=== PATIENT | male | born 1950 | race Caucasian/White ===

== ENCOUNTER → 2017-01-12 | Outpatient (CLI) | payer OTHER ==
--- NOTE | 2017-01-12 11:46 | CT ---
EXAMINATION TYPE: CT chest wo con DATE OF EXAM: 01/12/2017 9:26 AM COMPARISON: NONE HISTORY: Pleural scarring CT DLP: 648 mGycm, Automated exposure control for dose reduction was used. CONTRAST: None TECHNIQUE: Axial images were obtained at 5 mm thick sections. Reconstructed images are reviewed on t 3Nod computer in the coronal plane. FINDINGS: Thyroid is slightly prominent with extension towards the thoracic inlet. There is an infiltrate to the right middle lobe. Correlate for atelectasis. Pneumonia is not excluded . Minimal subsegmental atelectasis is likely present within the lingula. Subglottic airway is normal. No enlarged mediastinal or hilar adenopathy is evident. The ascending aorta diameter at the level o f the main pulmonary artery is 3.7 cm. The main pulmonary artery diameter at the bifurcation is 2.6 cm. Coronary artery calcification is present. Limited CT sections are obtained through the upper abdomen. There is mild fullness of the left adrena l gland measuring 1.6 cm in thickness. Punctate nonobstructing renal stones are present bilaterally. IMPRESSIONS: 1. Correlate for atelectasis or pneumonia right middle lobe. 2. Minimal subsegmental atelectasis lingula. 3. Slight prominence of the left adrenal gland
== END | disposition home or self-care (01) ==
LOC: RADCTMAIN 09:02
PROVIDERS: ATTEND Family Medicine
DX: J98.11 Atelectasis (principal)
CPT/HCPCS: 71250

== ENCOUNTER → 2017-02-03 | Outpatient (CLI) | payer OTHER ==
--- NOTE | 2017-02-03 09:09 | US ---
EXAMINATION TYPE: US carotid duplex BILAT DATE OF EXAM: 02/03/2017 8:33 AM COMPARISON: NONE CLINICAL HISTORY: E78.5 hyperlipidemia. EXAM MEASUREMENTS: RIGHT: Peak Systolic Velocity (PSV) cm/sec ----- Right CCA: 58.6 ----- Right ICA: 107.7 ----- Right ECA: 187.4 ICA/CCA ratio: 1.8 RIGHT: End Diastole cm/sec ----- Right CCA: 18.1 ----- Right ICA: 39.9 ----- Right ECA: 35.8 LEFT: Peak Systolic Velocity (PSV) cm/sec ----- Left CCA: 60.0 ----- Left ICA: 97.6 ----- Left ECA: 146.8 ICA/CCA ratio: 1.6 LEFT: End Diastole cm/sec ----- Left CCA: 16.6 ----- Left ICA: 34.7 ----- Left ECA: 22.6 VERTEBRALS (direction of flow): Right Vertebral: Antegrade Left Vertebral: Antegrade TECHNOLOGIST IMPRESSION: Moderate plaque with no significant velocity increases seen in bilateral I CA's. Slight increase in bilateral ECA's Grayscale images show moderate eccentric plaque at right carotid bulb. There is more moderate to shanna re eccentric plaque at left carotid bulb. Velocity measurements and ratios in visualized portion of b [facility] internal carotid arteries remains within normal limits. IMPRESSION: Moderate to severe atherosclerotic change bilaterally, left greater than right, without hemodynamically significant stenosis clearly seen in either internal carotid artery Criteria for Assigning % of Stenosis / Diameter reduction (Estimation based on the indirect measurements of the internal carotid artery velocities (ICA PSV). 2. Less than 50% stenosis=ICA PSV < 125 cm/s: ratio < 2.0: ICA EDV<40 cm/s.
--- NOTE | 2017-02-03 10:35 | ECHOS ---
DATE OF SERVICE: 02/03/2017 AGE: 66Y SEX: M HT: 69" WT: 188 lbs. Protocol Luis: X Others: Stress Echo Stage: 3 Dur. of Exercise: 8:09 *Heart Rate Blood Pressure *Rest: 80 Rest: 141/62 * *Max. Achieved: 140 Maximum BP: 198/46 85% PMHR: 133 100% PMHR: 156 *METS: 9.5 INDICATIONS: Abnormal EKG. MEDICATIONS: Colchicine, Norvasc. Baseline EKG shows sinus rhythm with right bundle branch block. Patient exercised on Luis protocol for a total of 8 minutes, achieving 9 METs, 90% of predicted maximal heart rate without chest pain or diagnostic ST segment depression. Baseline echo shows normal left ventricular size, wall motion and systolic function. Post exercise, there is normal hyperdynamic response of all segments of myocardium noted. CONCLUSION: 1. Good exercise tolerance. 2. Inconclusive EKG part of the stress test due to baseline EKG abnormalities. 3. Negative stress echo.
== END | disposition home or self-care (01) ==
LOC: RADUSMAIN 08:05
PROVIDERS: ATTEND Family Medicine
DX: I65.23 Occlusion and stenosis of bilateral carotid arteries (principal); E78.5 Hyperlipidemia, unspecified; R94.31 Abnormal electrocardiogram [ECG] [EKG]; R42 Dizziness and giddiness
CPT/HCPCS: 93017; 93350; 93880

== ENCOUNTER → 2017-03-10 | Outpatient (CLI) | payer OTHER ==
[2017-03-10 10:41] LABS: Anion Gap 9 mmol/L; Blood Urea Nitrogen 15 mg/dL (9-20); Calcium 9.9 mg/dL (8.4-10.2); Carbon Dioxide 30 mmol/L (22-30); Chloride 103 mmol/L (98-107); Glucose 105 mg/dL (74-99); Non-African American GFR(MDRD) >60 (>60 ml/min/1.73 sqM); Potassium 4.4 mmol/L (3.5-5.1); Sodium 142 mmol/L (137-145)
[2017-03-10 10:44] LABS: Basophils # (A) 0.1 k/uL (0-0.2); Basophils % (A) 1 %; CHCM 34.1; Eosinophils # (A) 0.2 k/uL (0-0.7); Eosinophils % (A) 2 %; HCT 49.1 % (39.0-53.0); HDW 2.59; HGB 16.9 gm/dL (13.0-17.5); Luc # (Auto) 0.22; Luc % (Auto) 3; Lymphocytes # (A) 1.7 k/uL (1.0-4.8); Lymphocytes % (A) 25 %; MCH 33.6 pg (25.0-35.0); MCHC 34.5 g/dL (31.0-37.0); MCV 97.2 fL (80.0-100.0); Mean Platelet Volume 6.8; Monocytes # (A) 0.6 k/uL (0-1.0); Monocytes % (A) 8 %; Neutrophils # (A) 4.3 k/uL (1.3-7.7); Neutrophils % (A) 61 %; RBC 5.05 m/uL (4.30-5.90); RDW 12.8 % (11.5-15.5); WBC 7.1 k/uL (3.8-10.6); WBC (Perox) 7.12
== END | disposition home or self-care (01) ==
LOC: LABPAT 09:39
PROVIDERS: ATTEND Urology
DX: Z01.812 Encounter for preprocedural laboratory examination (principal); C61 Malignant neoplasm of prostate; R35.0 Frequency of micturition
CPT/HCPCS: 80048; 85025; 87086

== ENCOUNTER 2017-03-17 06:00 | Observation (INO) | payer OTHER ==
[2017-03-15 10:46] VITALS: BMI 28.3
[~2017-03-17 06:00] MED LIST: DEXAMETHASONE SOD PHOSPHATE 10 MG/ML 1 ML VIAL IV ONE; HEPARIN SODIUM,PORCINE 5,000 UNIT/ML 1 ML VIAL SQ ONE; HYDROmorphone 1 MG/ML 1 ML SYRINGE IVP PRN; MIDAZOLAM 2 MG/2 ML VIAL IV PRN; ONDANSETRON 4 MG/2 ML VIAL IVP ONE; ceFAZolin 2 GM in SODIUM CHLORIDE 0.9% 100 ML IVPB ONE
[2017-03-17] MEDS ORDERED: LIDOCAINE 1% 20 ML VIAL (10MG/ML) FOR IV START INTRADERMA ONE (06:42)
[2017-03-17] MEDS: LACTATED RINGERS 1,000 ML IV SCH ×2 (06:44→06:45)
[2017-03-17] MEDS ORDERED: LABETALOL 5 MG/ML VIAL MDV ONE (07:36)
[2017-03-17] MEDS ORDERED: HYDROmorphone (PF) 1 MG/ML ONE (07:36)
[2017-03-17] MEDS ORDERED: PROPOFOL 10 MG/ML 20 ML VIAL IV ONE (07:36)
[2017-03-17] MEDS ORDERED: MIDAZOLAM 2 MG/2 ML VIAL ONE (07:36)
[2017-03-17] MEDS ORDERED: ROCURONIUM BROMIDE 10 MG/ML 10 ML VIAL IV ONE (07:36)
[2017-03-17] MEDS ORDERED: WATER FOR INJECTION, STERILE 10 ML VIAL IV ONE (07:36)
[2017-03-17] MEDS ORDERED: NEOSTIGMINE 1 MG/ML 10 ML VIAL ONE (07:36)
[2017-03-17] MEDS ORDERED: ONDANSETRON 4 MG/2 ML VIAL ONE (07:36)
[2017-03-17] MEDS ORDERED: SUCCINYLCHOLINE CHLORIDE 100 MG/5 ML SYR IV ONE (07:36)
[2017-03-17] MEDS ORDERED: LIDOCAINE 1% INJ 10MG/ML (20 ML MDV) ONE (07:36)
[2017-03-17] MEDS ORDERED: VECURONIUM 10 MG VIAL IV ONE (07:36)
[2017-03-17] MEDS ORDERED: fentaNYL (PF) 50 MCG/ML 2 ML AMP ONE (07:36)
[2017-03-17] MEDS ORDERED: GLYCOPYRROLATE 0.2 MG/ML 2 ML VIAL ONE (07:36)
[2017-03-17] MEDS ORDERED: SODIUM CHLORIDE 0.9% 50 ML with ceFAZolin 2,000 MG IV ONE ×2 (07:40)
[2017-03-17] MEDS ORDERED: BUPIVACAINE (PF) 0.25% 30 ML VIAL SQ ONE ×2 (08:30)
[2017-03-17] MEDS ORDERED: ONDANSETRON 4 MG/2 ML VIAL IVP PRN (13:25)
--- NOTE | 2017-03-17 13:25 | P.OP ---
Date of Procedure: 03/17/17 Preoperative Diagnosis: Adenocarcinoma of the Prostate, Clinical Stage [id number] Postoperative Diagnosis: Same Procedure(s) Performed: Left Robotic-assisted Laparoscopic Prostatectomy (RALP) With Bilateral Pelvic Lymphadenectomy Anesthesia: KRISTIN Surgeon: Gregory Fernandez Estimated Blood Loss (ml): 200 IV fluids (ml): 1,600 Pathology: other ((B) pelvic lymph nodes, prostate, seminal vesicles) Condition: stable Disposition: PACU Indications for Procedure: The patient came for evaluation of an elevated PSA. It has risen from 4.1 to 6.1 over the last 3 years. He is asx. JAMES reveals induration in the right base and a nodule in the left base. He underwent a prostate ultrasound, revealing hypoechoic areas left and right. 5 of 12 biopsies were positive, Kerry 7. We had a lengthy discussion regarding alternative treatment options, and he has elected to proceed with a left nerve-sparing robotic assisted laparoscopic prostatectomy (RALP). The procedure was reviewed in detail with him, including potential risks. He has been medically cleared. He understands the possibility of postoperative erectile dysfunction despite preservation of the left neurovascular bundle. He also understands the possible need for adjuvant therapy. Operative Findings: No evidence of extraprostatic disease. The lateral lobes extended intravesically. Description of Procedure: The patient was taken in the operating room and placed in the dorsal lithotomy position, with his legs supported in Fredi stirrups. He was carefully positioned on a beanbag for stability. The abdomen and external genitalia were prepped and draped sterilely. A Stock catheter was inserted. The Veress needle was passed through the anterior abdominal wall immediately cephalad to the umbilicus, and insufflation was performed to a pressure of 20 mm Hg. Once insufflation was performed, the Veress needle was removed and a supraumbilical incision was made, through which a 12 mm camera port was placed. Under camera guidance, 3 8 mm robotic ports were placed, 2 on the left and one on the right. An additional 12 mm port was placed on the right lateral side for use as an practice assistant port. A 5 mm port was placed to the right of the camera port for suction. The patient was placed in Trendelenburg position, and docking was then performed to the [facility] Demar system utilizing a 4-arm approach. The abdomen was examined. The sigmoid colon was mobilized out of the pelvis. The peritoneum was incised lateral to the medial umbilical ligaments bilaterally , exposing the pubis. The peritoneum was then incised across the midline, allowing the bladder flap to be taken down. The endopelvic fascia was opened bilaterally, and muscular attachments from the urogenital diaphragm were swept away from the prostate. Bilateral pelvic lymphadenectomies were performed in the standard fashion. The peritoneal incisions were extended in a cephalad direction, and the vas deferens were divided bilaterally. Margins of dissection were the bifurcation of the iliac vessels proximally, the circumflex iliac vein distally, the external iliac artery laterally, and the obturator nerve medially. A combination of sharp and blunt dissection was used. Care was taken to avoid any neurovascular injury, and the use of monopolar electrocautery was avoided immediately adjacent to neurovascular structures. The lymphatic package was clipped distally. No enlarged lymph nodes were encountered. There were no complications. The vesical neck was incised transversely, down to the lumen. However, it was appreciated at this time that the lateral lobes had extended intravesically and that the plane of dissection was intraprostatic. The Stock catheter was brought out through the anterior vesical neck incision and was used for traction. The posterior aspect of the vesical neck was incised, such that the full-thickness of the vesical neck was divided. Once this had been accomplished , it was evident that a portion of the left base was adherent to the vesical neck. This was carefully excised and sent as a separate specimen. The anterior layer of the Denonvilliers fascia was incised, exposing the vas deferens. Each were isolated and divided. Next, each of the seminal vesicles were dissected away from adjacent tissues, and vascular attachments were cauterized and divided. The posterior leaf of Denonvilliers fascia was incised transversely, allowing entry into the plane between the prostate and rectum. With lateral spreading, this plane was developed down to the apex. This exposed the lateral vascular pedicles bilaterally. These were clipped and divided in an antegrade fashion, down to the apex. The use of electrocautery was avoided to prevent thermal damage to the nerves. On the left side, the plane of dissection was immediately adjacent to the prostate to allow preservation of the neurovascular bundle. The plane of dissection was taken from the prostate on the right side, as well as aprocedure was not indicated. The remaining apical attachments were swept away from the prostate. The dorsal venous complex was incised, as well as periurethral tissue. At this point, only the urethra remained intact. This was transected immediately distal to the prostatic apex using cold scissors. The specimen was placed within a specimen bag. The dorsal venous complex was sutured using a V-Loc suture in a running fashion. A second V-Loc suture was then used to place the Zev stitch, incorporating the rhabdosphincter and the edge of Denonvilliers fascia. This allowed the bladder to be taken down to the urethra, leaving the vesical neck immediately adjacent to the urethra. The vesicourethral anastomosis was then performed using a V-Loc suture in a running fashion. After completing the anastomosis, an 18-[place] Stock catheter was placed and approximately 150 mL of 0.9 normal saline were instilled into the bladder. No extravasation of irrigant from the vesicourethral anastomosis was noted. Hemostasis was noted at this time to be excellent, and it was thus felt that a drain was unnecessary. The patient was returned to the supine position. Undocking was performed, and the specimen bag sutures were passed through the camera port. After removing all the ports and allowing all of the CO2 to be released from the peritoneal cavity, the camera port incision was enlarged to allow removal of the surgical specimen. The fascia of this incision was then closed using 0 Vicryl suture in an interrupted [id number] fashion. The fascia of the 12 mm practice assistant port was closed using 0 Vicryl suture. Each of the skin incisions were then closed using 4-0 Monocryl suture in a subcuticular fashion. Marcaine was injected at each of the incision sites. Dermabond was applied to each incision. The Stock catheter was connected to gravity drainage. All sponge and needle counts were correct. The patient tolerated the procedure well was taken to the recovery room in stable condition.
[2017-03-17] MEDS ORDERED: LACTATED RINGERS 1,000 ML IV ONE (13:38)
[2017-03-17 14:11] LABS: Glucose,Whole Blood 195 mg/dL (75-99)
[2017-03-17] MEDS ORDERED: hydrALAZINE HCL 20 MG/ML 1 ML VIAL IVP ONE ×2 (14:20→15:18)
[2017-03-17] MEDS: DEXTROSE 5%-0.45% NACL 1,000 ML IV SCH ×2 (21:30→21:37)
[2017-03-17] MEDS: HYDROmorphone 1 MG/ML 1 ML SYRINGE IVP PRN ×2 (21:31→23:31)
[2017-03-17] MEDS: HEPARIN SODIUM,PORCINE 5,000 UNIT/ML 1 ML VIAL SQ SCH (21:37)
[2017-03-18] MEDS: HYDROmorphone 1 MG/ML 1 ML SYRINGE IVP PRN ×4 (02:49→17:03)
[2017-03-18] MEDS: DEXTROSE 5%-0.45% NACL 1,000 ML IV SCH ×3 (02:58→20:58)
[2017-03-18] MEDS: KETOROLAC 30 MG/ML 1 ML VIAL IVP PRN ×2 (06:31→20:48)
[2017-03-18] MEDS: HEPARIN SODIUM,PORCINE 5,000 UNIT/ML 1 ML VIAL SQ SCH ×2 (08:53→20:58)
[2017-03-18] MEDS: amLODIPine 5 MG TAB PO SCH (11:50)
[2017-03-18] MEDS: ATORVASTATIN 40 MG TAB PO SCH (11:50)
[2017-03-18] MEDS: ACETAMINOPHEN TAB 325 MG TAB PO PRN ×2 (14:42→18:44)
[2017-03-18] MEDS ORDERED: LEVOFLOXACIN 500MG-D5W PMX 500 MG in DEXTROSE/WATER 1 100ML.BAG IVPB STA (17:17)
--- NOTE | 2017-03-18 17:51 | P.DS ---
Providers Date of admission: 03/17/17 23:43 Expected date of discharge: 03/18/17 Attending physician: Gregory Fernandez Primary care physician: [facility] Course: On the day of admission, the patient underwent a robotic-assisted laparoscopic prostatectomy with bilateral pelvic lymphadenectomy. Postoperative course was unremarkable. He remained afebrile with stable vital signs. On the first postoperative day, he reported mild discomfort. The incisions were clean and dry. The Stock catheter was draining clear yellow urine. He was tolerating clear liquid diet. As the day progressed, he began ambulating and diet was advanced. Procedures: Robotic-assisted laparoscopic prostatectomy with bilateral pelvic lymphadenectomy in 03/17/2017. Patient Condition at Discharge: Good Plan - Discharge Summary New Discharge Prescriptions: Ciprofloxacin HCl [Cipro] 250 mg PO Q12HR #6 tablet Hydrocodone/Acetaminophen [[place] 5-325] 1 - 2 each PO Q4HR PRN #30 tab PRN Reason: Pain Discharge Medication List Colchicine [Colcrys] 0.6 mg PO DAILY PRN 05/02/15 [History] Atorvastatin [Lipitor] 40 mg PO DAILY 03/15/17 [History] amLODIPine [Norvasc] 5 mg PO DAILY 03/15/17 [History] Ciprofloxacin HCl [Cipro] 250 mg PO Q12HR #6 tablet 03/18/17 [Rx] Hydrocodone/Acetaminophen [[place] 5-325] 1 - 2 each PO Q4HR PRN #30 tab 03/18/17 [Rx] Follow up Appointment(s)/Referral(s): Gregory Fernandez MD [STAFF PHYSICIAN] - 03/25/17 8:40 am Activity/Diet/Wound Care/Special Instructions: Discharge home with Stock catheter. Please instruct patient how to drain his catheter, and how to use a urinary leg bag. Okay to shower. Diet as tolerated. No lifting, driving, or strenuous activity. Instruct patient to begin taking ciprofloxacin on 03/24/2017. Discharge Disposition: HOME SELF-CARE
--- NOTE | 2017-03-18 18:11 | XR ---
EXAMINATION TYPE: XR chest 2V DATE OF EXAM: 03/18/2017 5:55 PM COMPARISON: NONE HISTORY: Fever TECHNIQUE: Frontal and lateral views of the chest are obtained. FINDINGS: There is mild linear density at the left lung base. There is no heart failure. Heart size is normal. There is a small linear infiltrate at the right lung base posteriorly in the paraspinal re gion. The bony thorax is intact. IMPRESSION: Mild bilateral basilar pulmonary infiltrates and atelectasis. No heart failure.
[2017-03-18] MEDS ORDERED: amLODIPine 5 MG TAB PO STA (18:39)
[2017-03-18 22:32] VITALS: RESP 16
[2017-03-19] MEDS: HYDROmorphone 1 MG/ML 1 ML SYRINGE IVP PRN ×5 (00:16→20:11)
[2017-03-19] MEDS: DEXTROSE 5%-0.45% NACL 1,000 ML IV SCH ×3 (04:12→20:13)
[2017-03-19] MEDS: LACTATED RINGERS 1,000 ML IV SCH ×2 (04:17→21:24)
[2017-03-19] MEDS: KETOROLAC 30 MG/ML 1 ML VIAL IVP PRN ×2 (08:50→16:05)
[2017-03-19] MEDS: ACETAMINOPHEN TAB 325 MG TAB PO PRN ×2 (08:50→20:11)
[2017-03-19] MEDS: amLODIPine 5 MG TAB PO SCH (08:52)
[2017-03-19] MEDS: ATORVASTATIN 40 MG TAB PO SCH (08:52)
[2017-03-19] MEDS: HEPARIN SODIUM,PORCINE 5,000 UNIT/ML 1 ML VIAL SQ SCH ×2 (08:52→20:13)
[2017-03-19] MEDS ORDERED: BISACODYL 10 MG SUPP RECTAL STA (09:06)
--- NOTE | 2017-03-19 09:06 | P.PN ---
Progress Note - Text The patient had a temperature over 102 last night. Chest x-ray suggested bibasilar atelectasis. Urine and blood cultures were obtained and the patient was started on Levaquin. His temperature has come down somewhat since then. Patient complains of periumbilicallcomfort. He says that he is not passing any gas yet. Physical exam: Chest-scattered rhonchi. No wheezing. Abdomen-incisions are uninflamed. Bowel sounds are present. Impression: Postoperative fever-most likely related to atelectasis. The patient was encouraged to use incentive spirometry hourly while he's awake and to increase his ambulation. He will be given Dulcolax as his nausea is most likely related to an element of ileus. Recommendation: Patient will be continued on Levaquin and may be able to be discharged tomorrow if he is afebrile.
[2017-03-19] MEDS ORDERED: LEVOFLOXACIN 500 MG TAB PO SCH (18:00)
[2017-03-20] MEDS: HYDROmorphone 1 MG/ML 1 ML SYRINGE IVP PRN ×2 (00:43→05:37)
[2017-03-20] MEDS: DEXTROSE 5%-0.45% NACL 1,000 ML IV SCH (01:56)
[2017-03-20 02:03] VITALS: PULSE 86
[2017-03-20] MEDS: HEPARIN SODIUM,PORCINE 5,000 UNIT/ML 1 ML VIAL SQ SCH (08:52)
[2017-03-20] MEDS: amLODIPine 5 MG TAB PO SCH (08:52)
[2017-03-20] MEDS: KETOROLAC 30 MG/ML 1 ML VIAL IVP PRN (08:53)
[2017-03-20] MEDS: ATORVASTATIN 40 MG TAB PO SCH (08:53)
--- NOTE | 2017-03-20 09:37 | P.PN ---
Progress Note - Text The patient is afebrile and much more comfortable. He has passed gas but has not had a bowel movement since surgery. He is tolerating a regular diet. He continues to have a slightly productive cough which is chronic but denies any wheezing or shortness of breath. Blood and urine cultures show no growth and it is likely that his previous fever was related to atelectasis. Urine output is clear. Impression: The patient appears to have recovered sufficiently that he can be discharged today. He will be seen back for follow-up on 03/25. His Stock catheter will be left in place until that time. He will resume his home medications and [place] for pain. control.
[2017-03-20 11:06] VITALS: BP 150/81; TEMP 100.6
== END 2017-03-20 11:05 | disposition home or self-care (01) ==
LOC: OR 06:00 → 3SUR 16:04 → OR 23:43 → 3SUR 23:43
PROVIDERS: ADMIT Urology; ATTEND Urology
DX: C61 Malignant neoplasm of prostate (principal); I11.0 Hypertensive heart disease with heart failure; I50.9 Heart failure, unspecified; M10.9 Gout, unspecified; M19.90 Unspecified osteoarthritis, unspecified site; F41.9 Anxiety disorder, unspecified; Z82.49 Family history of ischemic heart disease and other diseases of the circulatory system; F17.200 Nicotine dependence, unspecified, uncomplicated; R50.82 Postprocedural fever; J98.11 Atelectasis
CPT/HCPCS: 55866; 38571; 94760; 86900; 86901; 88305; 86850; 88342; 88307; 88309; 87040; 88341; 87086; 71020; G0378 ×4; J2250; J0360; J1644 ×4; J1100; J2710; J2405; J1956; J2001; J3010; J1885 ×3; J1170 ×4; J0690; J0330; J2704; 96361; 96372; 96375; 96376

== ENCOUNTER → 2017-03-25 | Outpatient (CLI) | payer OTHER ==
[2017-03-25 14:59] LABS: Basophils # (A) 0.1 k/uL (0-0.2); Basophils % (A) 1 %; CH 33.7; CHCM 35.3; Eosinophils # (A) 0.2 k/uL (0-0.7); Eosinophils % (A) 1 %; HCT 38.2 % (39.0-53.0); HDW 3.02; HGB 14.1 gm/dL (13.0-17.5); Luc # (Auto) 0.41; Luc % (Auto) 3; Lymphocytes # (A) 1.6 k/uL (1.0-4.8); Lymphocytes % (A) 14 %; MCH 35.4 pg (25.0-35.0); MCV 95.8 fL (80.0-100.0); Mean Platelet Volume 6.9; Monocytes # (A) 0.8 k/uL (0-1.0); Monocytes % (A) 7 %; Neutrophils # (A) 8.8 k/uL (1.3-7.7); Neutrophils % (A) 74 %; RBC 3.99 m/uL (4.30-5.90); RDW 12.5 % (11.5-15.5); WBC 11.9 k/uL (3.8-10.6); WBC (Perox) 11.73
[2017-03-25 15:05] LABS: C Reactive Protein 76.4 mg/L (<10.0); Uric Acid 5.7 mg/dL (3.5-8.5)
[2017-03-25 18:22] LABS: Erythrocyte Sedimentation Rate 83 mm/hr (0-15)
== END | disposition home or self-care (01) ==
LOC: LABWHC1 14:23
PROVIDERS: ATTEND Orthopaedic Surgery
DX: M70.20 Olecranon bursitis, unspecified elbow (principal)
CPT/HCPCS: 36415; 84550; 85025; 85652; 86140

== ENCOUNTER → 2018-02-10 | Outpatient (CLI) | payer MEDICARE ==
--- NOTE | 2018-02-10 08:16 | US ---
EXAMINATION TYPE: US carotid duplex BILAT DATE OF EXAM: 02/10/2018 COMPARISON: 02/11 US CLINICAL HISTORY: I65.29 Occlusion and stenosis of unspecified carotid artery. pt states prior stenos is seen on left EXAM MEASUREMENTS: RIGHT: Peak Systolic Velocity (PSV) cm/sec ----- Right CCA: 64.5 ----- Right ICA: 120.5 ----- Right ECA: 184.9 ICA/CCA ratio: 1.9 RIGHT: End Diastole cm/sec ----- Right CCA: 16.8 ----- Right ICA: 44.6 ----- Right ECA: 24.6 LEFT: Peak Systolic Velocity (PSV) cm/sec ----- Left CCA: 66.8 ----- Left ICA: 102.9 ----- Left ECA: 194.2 ICA/CCA ratio: 1.5 LEFT: End Diastole cm/sec ----- Left CCA: 16.2 ----- Left ICA: 34.7 ----- Left ECA: 31.6 VERTEBRALS (direction of flow): Right Vertebral: Antegrade Left Vertebral: Antegrade Rhythm: Normal IMPRESSION: Moderate changes, no elevated velocities in either ICA, no significant stenosis. Criteria for Assigning % of Stenosis / Diameter reduction (Estimation based on the indirect measurements of the internal carotid artery velocities (ICA PSV). 1. Normal (no stenosis)=ICA PSV < 125 cm/s: ratio < 2.0: ICA EDV<40 cm/s. 2. Less than 50% stenosis=ICA PSV < 125 cm/s: ratio < 2.0: ICA EDV<40 cm/s. 3. 50 to 69% stenosis=ICA PSV of 125 to 230 cm/s: ration 2.0 ? 4.0: ICA EDV 40-100 cm/s. 4. Greater than 70% stenosis to near occlusion= ICA PSV > 230 cm/s: ratio > 4.0: ICA EDV > 100 cm/s. 5. Near occlusion= ICA PSV velocities may be low or undetectable: variable ratio and ICA EDV. 6. Total occlusion=unable to detect flow.
--- NOTE | 2018-02-10 08:56 | US ---
EXAMINATION TYPE: US duplex aorta DATE OF EXAM: 02/10/2018 COMPARISON: NONE CLINICAL HISTORY: Z13.6 Encounter For Screening For Cardiovascular. EXAM MEASUREMENTS: Abdominal Aorta: Proximal: 2.3 x 2.2cm Mid: 2.6 x 1.9cm Distal: 1.7 x 1.7cm Bifurcation: 1.2 x 1.0cm 1.1 x 1.1cm changes through abd aorta, no AAA seen. IMPRESSION: Atheromatous changes without evidence for aneurysm at this time.
== END | disposition home or self-care (01) ==
LOC: RADUSWWP 06:51
PROVIDERS: ATTEND Family Medicine
DX: Z13.6 Encounter for screening for cardiovascular disorders (principal); I65.29 Occlusion and stenosis of unspecified carotid artery; I70.0 Atherosclerosis of aorta
CPT/HCPCS: 93880; 93979

== ENCOUNTER → 2019-06-18 | Outpatient (CLI) | payer MEDICARE ==
--- NOTE | 2019-06-18 13:02 | XR ---
EXAMINATION TYPE: XR chest 2V DATE OF EXAM: 06/18/2019 COMPARISON: 03/18/2017 HISTORY: Shortness of breath TECHNIQUE: Frontal and lateral views of the chest are obtained. FINDINGS: Scattered senescent parenchymal changes noted. Hyperinflation compatible with COPD. No evidence for infiltrate. No evidence for atelectasis. Heart size is stable. Mediastinal structures are stable and grossly unremarkable. No evidence for hilar prominence. Degenerative changes dorsal spine. IMPRESSION: 1. No evidence for acute pulmonary disease.
== END | disposition home or self-care (01) ==
LOC: RADXRMAIN 12:19
PROVIDERS: ATTEND Nurse Practitioner Adult Health
DX: R05 Cough (principal)
CPT/HCPCS: 71046

== ENCOUNTER → 2019-08-02 | Outpatient (CLI) | payer MEDICARE ==
--- NOTE | 2019-08-02 13:14 | US ---
EXAMINATION TYPE: US carotid duplex BILAT DATE OF EXAM: 08/02/2019 COMPARISON: NONE CLINICAL HISTORY: R42 DIZZINESS. EXAM MEASUREMENTS: RIGHT: Peak Systolic Velocity (PSV) cm/sec ----- Right CCA: 58.3 ----- Right ICA: 115.0 ----- Right ECA: 200.0 ICA/CCA ratio: 1.97 RIGHT: End Diastole cm/sec ----- Right CCA: 13.4 ----- Right ICA: 31.4 ----- Right ECA: 16.1 LEFT: Peak Systolic Velocity (PSV) cm/sec ----- Left CCA: 54.4 ----- Left ICA: 110 ----- Left ECA: 212 ICA/CCA ratio: 2.0 LEFT: End Diastole cm/sec ----- Left CCA: 11.6 ----- Left ICA: 31.2 ----- Left ECA: 21.8 VERTEBRALS (direction of flow): Right Vertebral: Antegrade Left Vertebral: Antegrade Rhythm: Normal Mild to moderate plaque, mild velocity increases seen bilaterally. IMPRESSION: Borderline 50% stenosis within the bilateral internal carotid arteries and 50-69% stenosi s of the bilateral external carotid arteries. Criteria for Assigning % of Stenosis / Diameter reduction (Estimation based on the indirect measurements of the internal carotid artery velocities (ICA PSV). 1. Normal (no stenosis)=ICA PSV < 125 cm/s: ratio < 2.0: ICA EDV<40 cm/s. 2. Less than 50% stenosis=ICA PSV < 125 cm/s: ratio < 2.0: ICA EDV<40 cm/s. 3. 50 to 69% stenosis=ICA PSV of 125 to 230 cm/s: ration 2.0 ? 4.0: ICA EDV 40-100 cm/s. 4. Greater than 70% stenosis to near occlusion= ICA PSV > 230 cm/s: ratio > 4.0: ICA EDV > 100 cm/s. 5. Near occlusion= ICA PSV velocities may be low or undetectable: variable ratio and ICA EDV. 6. Total occlusion=unable to detect flow.
== END | disposition home or self-care (01) ==
LOC: RADUSWWP 10:30
PROVIDERS: ATTEND Internal Medicine Geriatric Medicine
DX: I65.23 Occlusion and stenosis of bilateral carotid arteries (principal)
CPT/HCPCS: 93880

== ENCOUNTER 2019-08-23 10:22 | Emergency (ER) | payer MEDICARE ==
[2019-08-23 10:33] VITALS: TEMP 98.9
[2019-08-23] MEDS ORDERED: SODIUM CHLORIDE 0.9% 1,000 ML IV STA ×2 (11:20)
[2019-08-23] MEDS ORDERED: KETOROLAC 30 MG/ML 1 ML VIAL IVP STA (11:20)
--- NOTE | 2019-08-23 11:39 | ED ---
Dizziness HPI - General Chief Complaint: Dizziness Stated Complaint: blurred vision, back pain Time Seen by Provider: 08/23/19 11:06 Source: patient, RN notes reviewed, old records reviewed Mode of arrival: ambulatory Limitations: physical limitation - History of Present Illness Initial Comments: Patient is a 68-year-old male presents emergency department today with multiple complaints. Patient reports that since March of last year when he had pneumonia and flu, and states that since then he's been feeling chronically ill. Complains of significant shoulder and joint aches. He states that he seen a slag mixer, with a diagnosis of polymyalgia rheumatica. Patient states he's been off and on steroids. His last steroids were done in May. Patient comes in today with episodes of vomiting. He states that he did have a minor cough and some recent dizziness. Patient states that he is looking for answers to understand why he is felt this way for so long. Patient reports he's had extensive evaluation from rheumatology with no significant answer. Patient states that his general muscle stiffness and weakness seems to improve after he does more movement throughout the day. Patient denies any recent fevers or chills. Denies any specific abdominal pain. Denies chest pain. - Related Data Home Medications Medication Instructions Recorded Confirmed amLODIPine [Norvasc] 5 mg PO DAILY 03/15/17 08/23/19 Allopurinol [Zyloprim] 300 mg PO DAILY 08/23/19 08/23/19 traMADol HCL [Ultram] 50 mg PO Q6H PRN 08/23/19 08/23/19 Allergies Allergy/AdvReac Type Severity Reaction Status Date / Time No Known Allergies Allergy Verified 08/23/19 11:04 Review of Systems ROS Statement: Those systems with pertinent positive or pertinent negative responses have been documented in the HPI. ROS Other: All systems not noted in ROS Statement are negative. Past Medical History Past Medical History: Hypertension, Myocardial Infarction ([place]) Additional Past Medical History / Comment(s): NEW RX FOR HTN, PLANS TO START AFTER PROC Last Myocardial Infarction Date:: 1992 History of Any Multi-Drug Resistant Organisms: None Reported Past Surgical History: Tonsillectomy Past Anesthesia/Blood Transfusion Reactions: No Reported Reaction Past Psychological History: No Psychological Hx Reported Smoking Status: Current some day smoker Past Alcohol Use History: Daily Past Drug Use History: None Reported - Past Family History Mother Family Medical History: Deep Vein Thrombosis (DVT) General Exam - General Exam Comments Initial Comments: This is a 68-year-old male. Alert and oriented 3. Patient appears in no acute distress. Limitations: physical limitation General appearance: alert, in no apparent distress Head exam: Present: atraumatic, normocephalic, normal inspection Eye exam: Present: normal appearance, PERRL, EOMI. Absent: scleral icterus, conjunctival injection, periorbital swelling ENT exam: Present: normal exam, mucous membranes moist Neck exam: Present: normal inspection. Absent: tenderness, meningismus, lymphadenopathy Respiratory exam: Present: normal lung sounds bilaterally. Absent: respiratory distress, wheezes, rales, rhonchi, stridor Cardiovascular Exam: Present: regular rate GI/Abdominal exam: Present: soft, normal bowel sounds. Absent: distended, tenderness, guarding, rebound, rigid Extremities exam: Present: normal inspection, full ROM, normal capillary refill. Absent: tenderness, pedal edema, joint swelling, calf tenderness Back exam: Present: normal inspection Neurological exam: Present: alert, oriented X3, CN II-XII intact Psychiatric exam: Present: normal affect Skin exam: Present: warm, dry, intact, normal color. Absent: rash Course Vital Signs 08/23/19 08/23/19 08/23/19 10:30 12:21 14:00 Temperature 98.9 F Pulse Rate 97 76 70 Respiratory 17 16 18 Rate Blood Pressure 153/80 161/80 159/75 O2 Sat by Pulse 98 98 98 Oximetry 08/23/19 14:30 Temperature Pulse Rate 68 Respiratory 17 Rate Blood Pressure 155/78 O2 Sat by Pulse 97 Oximetry Medical Decision Making - Medical Decision Making Patient is a 68 children episodes multiple complaints today. Main complaint concern for shoulder pain. The as well as occasional dizziness complains of some visual changes off and on for months. Patient states that he's been to multiple specialists including rheumatology. At this time Patient has no abnormal physical exam findings. Vital signs are stable. Patient had extensive workup for all of his complaints. General been unremarkable. I discussed with the Patient that there is no other significant findings at this time. I discussed this with Dr. Sanchez. We did attempt to call patient's primary care doctor as he stated his primary care doctor sent him in today for evaluation. Patient PCP office was contacted and did not send him in today. Discussed patient can follow up with PCP and return parameters disucssed. - Lab Data Result diagrams: 08/23/19 11:05 08/23/19 11:05 Lab Results 08/23/19 08/23/19 08/23/19 Range/Units 11:05 11:05 11:05 WBC 10.8 H (3.8-10.6) k/uL RBC 4.72 (4.30-5.90) m/uL Hgb 15.3 (13.0-17.5) gm/dL Hct 44.5 (39.0-53.0) % MCV 94.3 (80.0-100.0) fL MCH 32.3 (25.0-35.0) pg MCHC 34.3 (31.0-37.0) g/dL RDW 13.4 (11.5-15.5) % Plt Count 279 (150-450) k/uL Neutrophils % 80 % Lymphocytes % 9 % Monocytes % 8 % Eosinophils % 1 % Basophils % 2 % Neutrophils # 8.6 H (1.3-7.7) k/uL Lymphocytes # 1.0 (1.0-4.8) k/uL Monocytes # 0.8 (0-1.0) k/uL Eosinophils # 0.1 (0-0.7) k/uL Basophils # 0.2 (0-0.2) k/uL ESR Cancelled PT (9.0-12.0) sec INR (<1.2) APTT (22.0-30.0) sec Sodium 135 L (137-145) mmol/L Potassium 4.4 (3.5-5.1) mmol/L Chloride 102 (98-107) mmol/L Carbon Dioxide 27 (22-30) mmol/L Anion Gap 6 mmol/L BUN 17 (9-20) mg/dL Creatinine 0.66 (0.66-1.25) mg/dL Est GFR (CKD-EPI)AfAm >90 (>60 ml/min/1.73 sqM) Est GFR (CKD-EPI)NonAf >90 (>60 ml/min/1.73 sqM) Glucose 123 H (74-99) mg/dL Calcium 10.0 (8.4-10.2) mg/dL Magnesium 2.1 (1.6-2.3) mg/dL Total Bilirubin 0.9 (0.2-1.3) mg/dL AST 43 (17-59) U/L ALT 59 (21-72) U/L Alkaline Phosphatase 103 (38-126) U/L Troponin I (0.000-0.034) ng/mL C-Reactive Protein 21.6 H (<10.0) mg/L NT-Pro-B Natriuret Pep 141 pg/mL Total Protein 7.1 (6.3-8.2) g/dL Albumin 4.3 (3.5-5.0) g/dL Amylase 60 (30-110) U/L Lipase 40 (23-300) U/L 08/23/19 08/23/19 08/23/19 Range/Units 11:05 11:05 12:22 WBC (3.8-10.6) k/uL RBC (4.30-5.90) m/uL Hgb (13.0-17.5) gm/dL Hct (39.0-53.0) % MCV (80.0-100.0) fL MCH (25.0-35.0) pg MCHC (31.0-37.0) g/dL RDW (11.5-15.5) % Plt Count (150-450) k/uL Neutrophils % % Lymphocytes % % Monocytes % % Eosinophils % % Basophils % % Neutrophils # (1.3-7.7) k/uL Lymphocytes # (1.0-4.8) k/uL Monocytes # (0-1.0) k/uL Eosinophils # (0-0.7) k/uL Basophils # (0-0.2) k/uL ESR 14 PT 10.1 (9.0-12.0) sec INR 0.9 (<1.2) APTT 23.2 (22.0-30.0) sec Sodium (137-145) mmol/L Potassium (3.5-5.1) mmol/L Chloride (98-107) mmol/L Carbon Dioxide (22-30) mmol/L Anion Gap mmol/L BUN (9-20) mg/dL Creatinine (0.66-1.25) mg/dL Est GFR (CKD-EPI)AfAm (>60 ml/min/1.73 sqM) Est GFR (CKD-EPI)NonAf (>60 ml/min/1.73 sqM) Glucose (74-99) mg/dL Calcium (8.4-10.2) mg/dL Magnesium (1.6-2.3) mg/dL Total Bilirubin (0.2-1.3) mg/dL AST (17-59) U/L ALT (21-72) U/L Alkaline Phosphatase (38-126) U/L Troponin I <0.012 (0.000-0.034) ng/mL C-Reactive Protein (<10.0) mg/L NT-Pro-B Natriuret Pep pg/mL Total Protein (6.3-8.2) g/dL Albumin (3.5-5.0) g/dL Amylase (30-110) U/L Lipase (23-300) U/L 08/23/19 13:08 EKG performed at 12:15 shows normal sinus rhythm. Upon a branch block. Abnormal EKG. Ventricular rate of 71 bpm. Intervals 172 ms. The laceration is 1:30 milliseconds. QT QTc is 426/462 ms. - Radiology Data Radiology results: report reviewed Disposition Clinical Impression: Chronic shoulder pain, Chronic back pain Disposition: HOME SELF-CARE Condition: Good Additional Instructions: Patient advised to follow-up with your primary care doctor, and finish PT. Take prescribed medicines that you have. Return to emergency department if any alarming signs or symptoms occur. Is patient prescribed a controlled substance at d/c from ED?: No Referrals: Ángel Sykes MD [Primary Care Provider] - 1-2 days Time of Disposition: 14:36
[2019-08-23 11:47] LABS: Basophils # (A) 0.2 k/uL (0-0.2); Basophils % (A) 2 %; Eosinophils # (A) 0.1 k/uL (0-0.7); Eosinophils % (A) 1 %; HCT 44.5 % (39.0-53.0); HGB 15.3 gm/dL (13.0-17.5); Lymphocytes % (A) 9 %; MCH 32.3 pg (25.0-35.0); MCHC 34.3 g/dL (31.0-37.0); MCV 94.3 fL (80.0-100.0); Mean Platelet Volume 7.2; Monocytes # (A) 0.8 k/uL (0-1.0); Monocytes % (A) 8 %; Neutrophils # (A) 8.6 k/uL (1.3-7.7); Neutrophils % (A) 80 %; Platelet Count 279 k/uL (150-450); RBC 4.72 m/uL (4.30-5.90); RDW 13.4 % (11.5-15.5); WBC 10.8 k/uL (3.8-10.6)
[2019-08-23 11:52] LABS: INR 0.9 (<1.2); Partial Thromboplastin Time 23.2 sec (22.0-30.0); Prothrombin Time 10.1 sec (9.0-12.0)
--- NOTE | 2019-08-23 11:53 | XR ---
EXAMINATION TYPE: XR chest 2V DATE OF EXAM: 08/23/2019 COMPARISON: 06/18/2019 HISTORY: Dizziness and blurred vision. TECHNIQUE: Frontal and lateral views of the chest are obtained. FINDINGS: There is no focal air space opacity, pleural effusion, or pneumothorax seen. Pulmonary hy perinflation and flattening of the diaphragms is seen indicative of underlying COPD. The cardiac silh ouette size is within normal limits. The osseous structures are intact. Mild multilevel degenerativ e changes of the spine are noted. IMPRESSION: No acute cardiopulmonary process. Underlying COPD noted.
[2019-08-23 11:58] LABS: ALT 59 U/L (21-72); AST 43 U/L (17-59); African American GFR (CKD) >90 (>60 ml/min/1.73 sqM); Albumin 4.3 g/dL (3.5-5.0); Alkaline Phosphatase 103 U/L (38-126); Amylase 60 U/L (30-110); Anion Gap 6 mmol/L; Blood Urea Nitrogen 17 mg/dL (9-20); C Reactive Protein 21.6 mg/L (<10.0); Carbon Dioxide 27 mmol/L (22-30); Chloride 102 mmol/L (98-107); Glucose 123 mg/dL (74-99); Magnesium 2.1 mg/dL (1.6-2.3); Potassium 4.4 mmol/L (3.5-5.1); Sodium 135 mmol/L (137-145); Total Bilirubin 0.9 mg/dL (0.2-1.3); Total Protein 7.1 g/dL (6.3-8.2)
--- NOTE | 2019-08-23 12:18 | CT ---
EXAMINATION TYPE: CT brain wo con DATE OF EXAM: 08/23/2019 COMPARISON: None HISTORY: Blurred vision, back pain CT DLP: 1099.4 mGycm Automated exposure control for dose reduction was used. Helical imaging through the brain FINDINGS: There is no hemorrhage or hydrocephalus. Cerebral vascular calcifications are present. Brain density is normal. Orbits show symmetric appearance. Calvarium is intact. Minimal mucosal disease present wit hin the right maxillary sinus, ethmoid air cells. Mastoid air cells are well aerated. IMPRESSION: NO ACUTE BRAIN ABNORMALITY.
[2019-08-23 14:41] VITALS: BP 155/78; PULSE 68; RESP 17
== END 2019-08-23 14:47 | disposition home or self-care (01) ==
LOC: EC 10:22
DX: G89.29 Other chronic pain (principal); M54.9 Dorsalgia, unspecified; M25.519 Pain in unspecified shoulder; R42 Dizziness and giddiness; M35.3 Polymyalgia rheumatica; R53.1 Weakness; I10 Essential (primary) hypertension; I25.2 Old myocardial infarction; F17.200 Nicotine dependence, unspecified, uncomplicated; Z79.899 Other long term (current) drug therapy
CPT/HCPCS: 36415; 93005; 83880; 80053; 85652; 82150; 83690; 83735; 84484; 85025; 85610; 85730; 86140; 71046; 70450; 99285; 96374; 96361 ×3; J1885

== ENCOUNTER → 2020-01-31 | Outpatient (CLI) | payer MEDICARE ==
--- NOTE | 2020-01-31 11:53 | XR ---
EXAMINATION TYPE: XR chest 2V DATE OF EXAM: 01/31/2020 COMPARISON: 08/23/2019 HISTORY: Clinical pneumonia. Shortness of breath. TECHNIQUE: Frontal and lateral views of the chest are obtained. FINDINGS: New linear airspace disease is seen at the inferior aspect of the right upper lobe on the lateral and frontal view. No additional focal consolidation, pleural effusion or pneumothorax. Pulmon addi hyperinflation of underlying COPD. Enlarged cardiac mediastinal silhouette. Mild degenerative zoya nge of the spine. IMPRESSION: New linear right upper lobe small opacity could represent developing pneumonia in the ap propriate clinical setting or atelectasis.
== END | disposition home or self-care (01) ==
LOC: RADXRMAIN 10:55
PROVIDERS: ATTEND Internal Medicine Geriatric Medicine
DX: R91.8 Other nonspecific abnormal finding of lung field (principal)
CPT/HCPCS: 71046

== ENCOUNTER 2020-10-09 08:02 | Inpatient (IN) | payer MEDICARE ==
[2020-10-09] MEDS ORDERED: methylPREDNISolone SOD SUCCI 125 MG/2 ML VIAL IV STA (08:24)
[2020-10-09] MEDS ORDERED: ALBUTEROL NEBULIZED 2.5 MG/3 ML INHALATION STA (08:24)
[2020-10-09] MEDS ORDERED: IPRATROPIUM 0.5 MG/2.5 ML NEBU INHALATION STA (08:24)
[2020-10-09] MEDS ORDERED: SODIUM CHLORIDE 0.9% 500 ML 500 ML IV STA (08:24)
[2020-10-09] MEDS ORDERED: ACETAMINOPHEN TAB 500 MG TAB PO STA (08:26)
--- NOTE | 2020-10-09 08:47 | ED ---
General Adult HPI - General Chief complaint: Shortness of Breath Stated complaint: SOB Time Seen by Provider: 10/09/20 08:05 Source: patient, RN notes reviewed, old records reviewed Mode of arrival: wheelchair Limitations: no limitations - History of Present Illness Initial comments: This is a 69-year-old male who presents emergency Department with shortness of breath per patient states 2 weeks ago had bypass surgery after he had a heart attack. Patient states he had one-vessel repaired and he is supposed to go back for 2 more stents. Patient comes in today because since Tuesday started becoming more more short of breath. Patient states pulse ox was 89% earlier today. Patient also states been coughing and coughing up quite a bit of sputum. Patient states he had no contact with Coban positive patient's. Patient states she did not take his fever prior to arrival. Patient denies any chest pain any palpitations. Patient has a headache patient denies numbness weakness per patient denies any lightheadedness or dizziness. Patient denies any swelling in the legs or any calf tenderness. - Related Data Home Medications Medication Instructions Recorded Confirmed Albuterol Sulfate [Proair Hfa] 1 - 2 puff INHALATION RT-Q4H PRN 10/09/20 10/09/20 Aspirin EC [Ecotrin Low Dose] 81 mg PO DAILY 10/09/20 10/09/20 Atorvastatin [Lipitor] 40 mg PO HS 10/09/20 10/09/20 Clopidogrel [Plavix] 75 mg PO DAILY 10/09/20 10/09/20 HYDROcodone/APAP 5-325MG [Woodward 1 tab PO Q4HR PRN 10/09/20 10/09/20 5-325] Metoprolol Tartrate [Lopressor] 25 mg PO BID 10/09/20 10/09/20 Allergies Allergy/AdvReac Type Severity Reaction Status Date / Time No Known Allergies Allergy Verified 10/09/20 08:09 Review of Systems ROS Statement: Those systems with pertinent positive or pertinent negative responses have been documented in the HPI. ROS Other: All systems not noted in ROS Statement are negative. Past Medical History Past Medical History: Hypertension, Myocardial Infarction ([place]) Additional Past Medical History / Comment(s): NEW RX FOR HTN, PLANS TO START AFTER PROC Last Myocardial Infarction Date:: 1992 History of Any Multi-Drug Resistant Organisms: None Reported Past Surgical History: Coronary Bypass/CABG, Tonsillectomy Past Anesthesia/Blood Transfusion Reactions: No Reported Reaction Past Psychological History: No Psychological Hx Reported Smoking Status: Former smoker Past Alcohol Use History: Daily Past Drug Use History: None Reported - Past Family History Mother Family Medical History: Deep Vein Thrombosis (DVT) General Exam - General Exam Comments Initial Comments: GENERAL: Patient is well-developed and well-nourished. Patient is nontoxic and well- hydrated and is in mild distress. ENT: Neck is soft and supple. No significant lymphadenopathy is noted. Oropharynx is clear. Moist mucous membranes. Neck has full range of motion without eliciting any pain. EYES: The sclera were anicteric and conjunctiva were pink and moist. Extraocular movements were intact and pupils were equal round and reactive to light. Eyelids were unremarkable. PULMONARY: Diffuse expiratory wheezing CARDIOVASCULAR: There is a regular rate and rhythm without any murmurs gallops or rubs. ABDOMEN: Soft and nontender with normal bowel sounds. No palpable organomegaly was noted. There is no palpable pulsatile mass. SKIN: Skin is clear with no lesions or rashes and otherwise unremarkable. NEUROLOGIC: Patient is alert and oriented x3. Cranial nerves II through XII are grossly intact. Motor and sensory are also intact. Normal speech, volume and content. Symmetrical smile. MUSCULOSKELETAL: Normal extremities with adequate strength and full range of motion. No lower extremity swelling or edema. No calf tenderness. LYMPHATICS: No significant lymphadenopathy is noted PSYCHIATRIC: Normal psychiatric evaluation. Limitations: no limitations Course Vital Signs 10/09/20 10/09/20 10/09/20 08:06 08:09 08:17 Temperature 99.4 F 100.7 F H Pulse Rate 87 Respiratory 18 20 Rate Blood Pressure 129/75 O2 Sat by Pulse 96 Oximetry 10/09/20 10/09/20 10/09/20 08:58 09:14 10:09 Temperature 98.7 F Pulse Rate 78 78 80 Respiratory 18 Rate Blood Pressure 109/49 O2 Sat by Pulse 94 L Oximetry Medical Decision Making - Medical Decision Making EKG shows sinus rhythm with a rate of 75 [place] interval is 154 QRS is 124 QT interval is 284 QTC is 457. Patient has inverted T waves in V1 through V4. There is no ST segment elevation noted patient does have a right bundle branch block Chest x-ray shows bilateral effusion and possible infiltrate. I started the patient on antibiotics. Patient was wheezing diffusely. Patient breathing treatments and steroids she was feeling considerably better. I spoke with Dr. Sykes he agreed to admit the patient admitted the patient wrote admitting orders. - Lab Data Result diagrams: 10/09/20 08:49 10/09/20 08:49 Lab Results 10/09/20 10/09/20 10/09/20 Range/Units 08:49 08:49 08:49 WBC 8.4 (3.8-10.6) k/uL RBC 3.91 L (4.30-5.90) m/uL Hgb 13.0 (13.0-17.5) gm/dL Hct 38.1 L (39.0-53.0) % MCV 97.6 (80.0-100.0) fL MCH 33.2 (25.0-35.0) pg MCHC 34.1 (31.0-37.0) g/dL RDW 13.7 (11.5-15.5) % Plt Count 235 (150-450) k/uL MPV 8.3 Neutrophils % 70 % Lymphocytes % 14 % Monocytes % 9 % Eosinophils % 2 % Basophils % 2 % Neutrophils # 5.8 (1.3-7.7) k/uL Lymphocytes # 1.1 (1.0-4.8) k/uL Monocytes # 0.7 (0-1.0) k/uL Eosinophils # 0.2 (0-0.7) k/uL Basophils # 0.2 (0-0.2) k/uL PT 10.1 (9.0-12.0) sec INR 1.0 (<1.2) APTT 22.2 (22.0-30.0) sec Sodium 137 (137-145) mmol/L Potassium 4.5 (3.5-5.1) mmol/L Chloride 102 (98-107) mmol/L Carbon Dioxide 28 (22-30) mmol/L Anion Gap 7 mmol/L BUN 20 (9-20) mg/dL Creatinine 0.70 (0.66-1.25) mg/dL Est GFR (CKD-EPI)AfAm >90 (>60 ml/min/1.73 sqM) Est GFR (CKD-EPI)NonAf >90 (>60 ml/min/1.73 sqM) Glucose 112 H (74-99) mg/dL Plasma Lactic Acid Regan (0.7-2.0) mmol/L Calcium 8.9 (8.4-10.2) mg/dL Magnesium 2.2 (1.6-2.3) mg/dL Total Bilirubin 0.9 (0.2-1.3) mg/dL AST 31 (17-59) U/L ALT 50 H (4-49) U/L Alkaline Phosphatase 112 (38-126) U/L Troponin I (0.000-0.034) ng/mL NT-Pro-B Natriuret Pep pg/mL Total Protein 7.0 (6.3-8.2) g/dL Albumin 3.9 (3.5-5.0) g/dL Coronavirus (PCR) (Not Detectd) Influenza Type A RNA (Not Detectd) Influenza Type B (PCR) (Not Detectd) 10/09/20 10/09/20 10/09/20 Range/Units 08:49 08:49 08:49 WBC (3.8-10.6) k/uL RBC (4.30-5.90) m/uL Hgb (13.0-17.5) gm/dL Hct (39.0-53.0) % MCV (80.0-100.0) fL MCH (25.0-35.0) pg MCHC (31.0-37.0) g/dL RDW (11.5-15.5) % Plt Count (150-450) k/uL MPV Neutrophils % % Lymphocytes % % Monocytes % % Eosinophils % % Basophils % % Neutrophils # (1.3-7.7) k/uL Lymphocytes # (1.0-4.8) k/uL Monocytes # (0-1.0) k/uL Eosinophils # (0-0.7) k/uL Basophils # (0-0.2) k/uL PT (9.0-12.0) sec INR (<1.2) APTT (22.0-30.0) sec Sodium (137-145) mmol/L Potassium (3.5-5.1) mmol/L Chloride (98-107) mmol/L Carbon Dioxide (22-30) mmol/L Anion Gap mmol/L BUN (9-20) mg/dL Creatinine (0.66-1.25) mg/dL Est GFR (CKD-EPI)AfAm (>60 ml/min/1.73 sqM) Est GFR (CKD-EPI)NonAf (>60 ml/min/1.73 sqM) Glucose (74-99) mg/dL Plasma Lactic Acid Regan 1.8 (0.7-2.0) mmol/L Calcium (8.4-10.2) mg/dL Magnesium (1.6-2.3) mg/dL Total Bilirubin (0.2-1.3) mg/dL AST (17-59) U/L ALT (4-49) U/L Alkaline Phosphatase (38-126) U/L Troponin I <0.012 (0.000-0.034) ng/mL NT-Pro-B Natriuret Pep 706 pg/mL Total Protein (6.3-8.2) g/dL Albumin (3.5-5.0) g/dL Coronavirus (PCR) (Not Detectd) Influenza Type A RNA (Not Detectd) Influenza Type B (PCR) (Not Detectd) 10/09/20 10/09/20 Range/Units 08:49 09:15 WBC (3.8-10.6) k/uL RBC (4.30-5.90) m/uL Hgb (13.0-17.5) gm/dL Hct (39.0-53.0) % MCV (80.0-100.0) fL MCH (25.0-35.0) pg MCHC (31.0-37.0) g/dL RDW (11.5-15.5) % Plt Count (150-450) k/uL MPV Neutrophils % % Lymphocytes % % Monocytes % % Eosinophils % % Basophils % % Neutrophils # (1.3-7.7) k/uL Lymphocytes # (1.0-4.8) k/uL Monocytes # (0-1.0) k/uL Eosinophils # (0-0.7) k/uL Basophils # (0-0.2) k/uL PT (9.0-12.0) sec INR (<1.2) APTT (22.0-30.0) sec Sodium (137-145) mmol/L Potassium (3.5-5.1) mmol/L Chloride (98-107) mmol/L Carbon Dioxide (22-30) mmol/L Anion Gap mmol/L BUN (9-20) mg/dL Creatinine (0.66-1.25) mg/dL Est GFR (CKD-EPI)AfAm (>60 ml/min/1.73 sqM) Est GFR (CKD-EPI)NonAf (>60 ml/min/1.73 sqM) Glucose (74-99) mg/dL Plasma Lactic Acid Regan (0.7-2.0) mmol/L Calcium (8.4-10.2) mg/dL Magnesium (1.6-2.3) mg/dL Total Bilirubin (0.2-1.3) mg/dL AST (17-59) U/L ALT (4-49) U/L Alkaline Phosphatase (38-126) U/L Troponin I (0.000-0.034) ng/mL NT-Pro-B Natriuret Pep pg/mL Total Protein (6.3-8.2) g/dL Albumin (3.5-5.0) g/dL Coronavirus (PCR) Not Detected (Not Detectd) Influenza Type A RNA Not Detected (Not Detectd) Influenza Type B (PCR) Not Detected (Not Detectd) Disposition Clinical Impression: Pneumonia, COPD (chronic obstructive pulmonary disease) Disposition: ADMITTED IP TO THIS HOSP Referrals: Ángel Sykes MD [Primary Care Provider] - 1-2 days Time of Disposition: 10:26
[2020-10-09 09:20] LABS: Basophils # (A) 0.2 k/uL (0-0.2); Basophils % (A) 2 %; Eosinophils # (A) 0.2 k/uL (0-0.7); Eosinophils % (A) 2 %; HCT 38.1 % (39.0-53.0); Lymphocytes # (A) 1.1 k/uL (1.0-4.8); Lymphocytes % (A) 14 %; MCH 33.2 pg (25.0-35.0); MCHC 34.1 g/dL (31.0-37.0); MCV 97.6 fL (80.0-100.0); Mean Platelet Volume 8.3; Monocytes # (A) 0.7 k/uL (0-1.0); Monocytes % (A) 9 %; Neutrophils # (A) 5.8 k/uL (1.3-7.7); Neutrophils % (A) 70 %; Platelet Count 235 k/uL (150-450); RBC 3.91 m/uL (4.30-5.90); RDW 13.7 % (11.5-15.5); WBC 8.4 k/uL (3.8-10.6)
--- NOTE | 2020-10-09 09:37 | XR ---
EXAMINATION TYPE: XR chest 2V DATE OF EXAM: 10/09/2020 COMPARISON: Chest x-ray January 31, 2020. Chest CT January 12, 2017. HISTORY: Difficulty breathing. Recent heart surgery. TECHNIQUE: Frontal and lateral views of the chest are obtained. FINDINGS: Post-CABG changes with mediastinal clips and sternal wires is now present. Cardiac silhoue tte size is stable and mildly enlarged with atherosclerotic thoracic aorta. New small bilateral pleur al effusions and associated bibasilar atelectasis and/or infiltrate. Involvement of the middle lobes and lingula noted on lateral view. Effusion slightly larger in the right lung on lateral view. New de nse retrocardiac consolidation/atelectasis noted. Osseous structures are intact. IMPRESSION: Correlate for CHF exacerbation as there is mild cardiomegaly with new small bilateral ple ural effusions. Bibasilar acute infiltrate and/or atelectasis is noted.
[2020-10-09 09:42] LABS: ALT 50 U/L (4-49); AST 31 U/L (17-59); African American GFR (CKD) >90 (>60 ml/min/1.73 sqM); Albumin 3.9 g/dL (3.5-5.0); Alkaline Phosphatase 112 U/L (38-126); Anion Gap 7 mmol/L; Blood Urea Nitrogen 20 mg/dL (9-20); Calcium 8.9 mg/dL (8.4-10.2); Carbon Dioxide 28 mmol/L (22-30); Chloride 102 mmol/L (98-107); Glucose 112 mg/dL (74-99); Magnesium 2.2 mg/dL (1.6-2.3); Non-African American GFR(CKD) >90 (>60 ml/min/1.73 sqM); Potassium 4.5 mmol/L (3.5-5.1); Sodium 137 mmol/L (137-145); Total Bilirubin 0.9 mg/dL (0.2-1.3)
[2020-10-09 09:45] LABS: Partial Thromboplastin Time 22.2 sec (22.0-30.0); Prothrombin Time 10.1 sec (9.0-12.0)
[2020-10-09] MEDS ORDERED: AZITHROMYCIN 500 MG in SODIUM CHLORIDE 0.9% 250 ML IVPB STA (10:27)
[2020-10-09] MEDS ORDERED: IPRATROPIUM-ALBUTEROL 3 ML NEB INHALATION PRN (10:27)
[2020-10-09] MEDS ORDERED: PNEUMONIA PROTOCOL UTILIZED 1 EACH MISC PO PRN (10:27)
[2020-10-09] MEDS ORDERED: HYDROcodone/APAP 5-325MG 1 EACH TAB PO PRN (12:08)
[2020-10-09] MEDS ORDERED: FUROSEMIDE 10 MG/ML 4 ML VIAL IV SCH (12:15)
--- NOTE | 2020-10-09 12:22 | P.HPIM ---
History of Present Illness H&P Date: 10/09/20 HISTORY OF PRESENT ILLNESS This is a 69-year-old male patient of Dr. Sykes with past medical history of hypertension. Patient states that he was on vacation in [place] and had a myocardial infarction on September 21. He initially went to medical in [facility] and was transferred then to [facility]. He underwent open heart surgery on September 23 for LAD. He was also advised that he had aortic valve calcification. Patient is unsure of further plan for intervention. 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 He sta jw that he has been walking on a regular basis and usually his pulse ox is 95- 96%. This morning his pulse ox was 88%. He does not have home oxygen. He does complain of green sputum production. Patient came into [facility] emergency center for evaluation. Chest x-ray reveals heart failure exacerbation with mild cardiomegaly and new small bilateral pleural effusions. Bibasilar acute infiltrate and/or atelectasis noted. EKG is a sinus rhythm with right bundle branch block. Temperature max 100.7. Heart rate 87, blood pressure 129/75, pulse ox 96% on room air. CBC was unremarkable. Electrolytes and renal function normal. Blood sugar 112. ALT 50. Potassium 4.5, magnesium 2.2. Over 19 is not detected. Influenza testing negative. Patient admitted to the cardiac stepdown unit and consult requested with cardiology and pulmonary medicine. REVIEW OF SYSTEMS Constitutional: No fever, no chills, no night sweats. No weight change. No weakness, fatigue or lethargy. No daytime sleepiness. EENT: No headache. No blurred vision or double vision, no loss of vision. No loss of Hearing, no ringing in the ears, no dizziness. No nasal drainage or congestion. No epistaxis. No sore throat. Lungs: No shortness of breath, cough, no sputum production. No wheezing. Cardiovascular: No chest pain, no lower extremity edema. No palpitations. No paroxysmal nocturnal dyspnea. No orthopnea. No lightheadedness or dizziness. No syncopal episodes. Abdominal: No abdominal pain. No nausea, vomiting. No diarrhea. No constipation. No bloody or tarry stools.. No loss of appetite. Genitourinary: No dysuria, increased frequency, urgency. No urinary retention. Musculoskeletal: No myalgias. No muscle weakness, no gait dysfunction, no freq uent falls. No back pain. No neck pain. Integumentary: No wounds, no lesions. No rash or pruritus. No unusual bruising. No change in hair or nails. Neurologic: No aphasia. No facial droop. No change in mentation. No head injury. No headache. No paralysis. No paresthesia. Psychiatric: No depression. No anxiety. No mood swings. Endocrine: No abnormal blood sugars. No weight change. No excessive sweating or thirst. No cold intolerance. SOCIAL HISTORY Patient smoked a half a pack of cigarettes per day for 40 years and quit 09/21/2020. He states he drinks a few beers occasionally. No illicit drug use or marijuana use. Patient is and lives at home with his . FAMILY HISTORY Mother at age 98 from coronary artery disease. Father age 71 from ALS. Patient has 2 sisters with no major medical problems. He does not have any children. PHYSICAL EXAMINATION Gen: This is a 69-year-old male. He is on the ER stretcher and appears to be comfortable and in no acute distress. HEENT: Head is atraumatic, normocephalic. Pupils equal, round. Sclerae is anicteric. NECK: Supple. No JVD. No lymphadenopathy. No thyromegaly. LUNGS: Diminished bilaterally with crackles. No intercostal retractions. HEART: Regular rate and rhythm. 2/6 systolic murmur at the apex radiating to the right second intercostal space. ABDOMEN: Soft. Bowel sounds are present. No masses. No tenderness. EXTREMITIES: No pedal edema. No calf tenderness. Dorsalis pedis bilateral palpable. NEUROLOGICAL: Patient is awake, alert and oriented x3. Cranial nerves 2 through 12 are grossly intact. ASSESSMENT AND PLAN 1. Respiratory distress secondary to a combination of pleural effusions and possible pneumonia and atelectasis. Repeat chest x-ray tomorrow. 2. Bilateral pleural effusions. Consult with cardiology and pulmonary medicine. Start Lasix 40 mg twice daily, I&O and daily weights. 3. Possible pneumonia and atelectasis. Patient is on azithromycin and ceftriaxone. Incentive spirometry added. DuoNeb treatments every 4 hours as needed. Sputum culture and blood culture. 4. Recent myocardial infarction September 21 status post CABG, 1 vessel. Continue aspirin 81 mg daily, Lipitor 40 mg at bedtime, Plavix 75 mg daily, Lopressor 25 mg twice daily. 5. History of tobacco use and dependence, quit September 21. 6. GI prophylaxis. Protonix. 7. DVT prophylaxis. Heparin subcu. Patient will be admitted to the hospital for a minimum of 2 night stay. DISCHARGE PLAN home. Impression and plan of care have been directed as dictated by the signing physician. Meera Estrada nurse practitioner acting as scribe for signing physician. Past Medical History Past Medical History: Hypertension, Myocardial Infarction ([place]) Additional Past Medical History / Comment(s): NEW RX FOR HTN, PLANS TO START AFTER PROC Last Myocardial Infarction Date:: 1992 History of Any Multi-Drug Resistant Organisms: None Reported Past Surgical History: Coronary Bypass/CABG, Tonsillectomy Past Anesthesia/Blood Transfusion Reactions: No Reported Reaction Past Psychological History: No Psychological Hx Reported Smoking Status: Former smoker Past Alcohol Use History: Daily Past Drug Use History: None Reported - Past Family History Mother Family Medical History: Deep Vein Thrombosis (DVT) Medications and Allergies Home Medications Medication Instructions Recorded Confirmed Type Albuterol Sulfate [Proair Hfa] 1 - 2 puff INHALATION RT-Q4H PRN 10/09/20 10/09/20 History Aspirin EC [Ecotrin Low Dose] 81 mg PO DAILY 10/09/20 10/09/20 History Atorvastatin [Lipitor] 40 mg PO HS 10/09/20 10/09/20 History Clopidogrel [Plavix] 75 mg PO DAILY 10/09/20 10/09/20 History HYDROcodone/APAP 5-325MG [[place] 1 tab PO Q4HR PRN 10/09/20 10/09/20 History 5-325] Metoprolol Tartrate [Lopressor] 25 mg PO BID 10/09/20 10/09/20 History Allergies Allergy/AdvReac Type Severity Reaction Status Date / Time No Known Allergies Allergy Verified 10/09/20 08:09 Physical Exam Vitals: Vital Signs Temp Pulse Resp BP Pulse Ox 10/09/20 09:14 78 10/09/20 08:58 78 10/09/20 08:17 20 10/09/20 08:06 99.4 F 87 18 129/75 96 Intake and Output 10/08/20 10/09/20 10/09/20 22:59 06:59 14:59 Other: Weight 79.832 kg Results CBC & Chem 7: 10/09/20 08:49 10/09/20 08:49 Labs: Abnormal Lab Results - Last 24 Hours (Table) 10/09/20 10/09/20 Range/Units 08:49 08:49 RBC 3.91 L (4.30-5.90) m/uL Hct 38.1 L (39.0-53.0) % Glucose 112 H (74-99) mg/dL ALT 50 H (4-49) U/L
--- NOTE | 2020-10-09 16:29 | P.CNPUL ---
History of Present Illness Consult date: 10/09/20 Requesting physician: Ángel Sykes Reason for consult: dyspnea, cough, pneumonia Chief complaint: Shortness of breath, body aches, cough, phlegm production History of present illness: 59-year-old white male patient, chronic smoker, with past medical history of coronary artery disease with previous history of bypass grafting, previous history of myocardial infarction, hypertension, percent to the emergency department on 10/09/2020 for evaluation of increasing shortness of breath, cough, some phlegm production. Patient was recently on vacation in [place] when he had his myocardial infarction on September 21, he was hospitalized at the [facility] where he required surgery on September 23. Patient came into the hospital today for symptoms of worsening dyspnea, some cough, phlegm production, no chest pain. His chest x-ray showed mild cardiomegaly and a small bilateral pleural effusions, with the bibasilar infiltrate and/or atelectasis. EKG showed sinus rhythm with a right bundle branch block, patient did have fever of 100.7F. COVID 19 PCR was negative, influenza testing was negative. Troponin was less than 0.012, proBNP was 706. She was started on the azithromycin and Rocephin for empiric antibiotic coverage, he was started on IV Lasix for possibility acute exacerbation of CHF. And we were consulted for pulmonary evaluation Review of Systems All systems: negative Constitutional: Denies chills, Denies fever Eyes: denies blurred vision, denies pain Ears, nose, mouth and throat: Denies headache, Denies sore throat Cardiovascular: Denies chest pain, Denies shortness of breath Respiratory: Reports cough with sputum, Reports dyspnea, Denies cough Gastrointestinal: Denies abdominal pain, Denies diarrhea, Denies nausea, Denies vomiting Musculoskeletal: Denies myalgias Integumentary: Denies pruritus, Denies rash Neurological: Denies numbness, Denies weakness Psychiatric: Denies anxiety, Denies depression Endocrine: Denies fatigue, Denies weight change Past Medical History Past Medical History: Hypertension, Myocardial Infarction ([place]) Additional Past Medical History / Comment(s): NEW RX FOR HTN, PLANS TO START AFTER PROC Last Myocardial Infarction Date:: 1992 History of Any Multi-Drug Resistant Organisms: None Reported Past Surgical History: Coronary Bypass/CABG, Tonsillectomy Past Anesthesia/Blood Transfusion Reactions: No Reported Reaction Past Psychological History: No Psychological Hx Reported Smoking Status: Former smoker Past Alcohol Use History: Daily Past Drug Use History: None Reported - Past Family History Mother Family Medical History: Deep Vein Thrombosis (DVT) Medications and Allergies Home Medications Medication Instructions Recorded Confirmed Type Albuterol Sulfate [Proair Hfa] 1 - 2 puff INHALATION RT-Q4H PRN 10/09/20 10/09/20 History Aspirin EC [Ecotrin Low Dose] 81 mg PO DAILY 10/09/20 10/09/20 History Atorvastatin [Lipitor] 40 mg PO HS 10/09/20 10/09/20 History Clopidogrel [Plavix] 75 mg PO DAILY 10/09/20 10/09/20 History HYDROcodone/APAP 5-325MG [[place] 1 tab PO Q4HR PRN 10/09/20 10/09/20 History 5-325] Metoprolol Tartrate [Lopressor] 25 mg PO BID 10/09/20 10/09/20 History Allergies Allergy/AdvReac Type Severity Reaction Status Date / Time No Known Allergies Allergy Verified 10/09/20 08:09 Physical Exam Vitals: Vital Signs Temp Pulse Pulse Resp BP BP Pulse Ox 10/09/20 12:00 98.1 F 71 16 102/69 97 10/09/20 11:28 98.7 F 80 18 109/49 94 L 10/09/20 10:09 98.7 F 80 18 109/49 94 L 10/09/20 09:14 78 10/09/20 08:58 78 10/09/20 08:17 20 10/09/20 08:09 100.7 F H 10/09/20 08:06 99.4 F 87 18 129/75 96 Intake and Output 10/09/20 10/09/20 10/09/20 06:59 14:59 22:59 Other: Weight 79.832 kg GENERAL EXAM: Alert, very pleasant, 69-year-old white male, on 3 L of oxygen. Pulse ox 97% comfortable in no apparent distress. HEAD: Normocephalic/atraumatic. EYES: Normal reaction of pupils, equal size. Conjunctiva pink, sclera white. NOSE: Clear with pink turbinates. THROAT: No erythema or exudates. NECK: No masses, no JVD, no thyroid enlargement, no adenopathy. CHEST: No chest wall deformity. Symmetrical expansion. LUNGS: Equal diminished air entry at the bases with mild crackles, but no wheeze, rhonchi or dullness. CVS: Regular rate and rhythm, normal S1 and S2, no gallops, no murmurs, no rubs ABDOMEN: Soft, nontender. No hepatosplenomegaly, normal bowel sounds, no guarding or rigidity. EXTREMITIES: No clubbing, no edema, no cyanosis, 2+ pulses and upper and lower extremities. MUSCULOSKELETAL: Muscle strength and tone normal. SPINE: No scoliosis or deformity SKIN: No rashes CENTRAL NERVOUS SYSTEM: Alert and oriented -3. No focal deficits, tone is normal in all 4 extremities. PSYCHIATRIC: Alert and oriented -3. Appropriate affect. Intact judgment and insight. Results - Laboratory Findings CBC and BMP: 10/09/20 08:49 10/09/20 08:49 PT/INR, D-dimer PT 10.1 sec (9.0-12.0) 10/09/20 08:49 INR 1.0 (<1.2) 10/09/20 08:49 Abnormal lab findings: Abnormal Labs 10/09/20 10/09/20 08:49 08:49 RBC 3.91 L Hct 38.1 L Glucose 112 H ALT 50 H - Diagnostic Findings Chest x-ray: report reviewed, image reviewed Assessment and Plan Plan: Assessment: #1. Acute hypoxic respiratory failure multifactorial, possibly related to acute pneumonia, possibly healthcare acquired, and a component of fluid overload possibly related to CHF exacerbation #2. Fever, cough, phlegm production, possibly related to underlying pneumonia, COVID 19 PCR was negative, influenza was negative #3. Coronary artery disease status post bypass grafting 2 weeks ago on 09/23/2020 #4. Recent history of myocardial infarction #5. Chronic smoker, smoked half a pack for 30 years #6. Possible underlying COPD Plan: Continue current antibiotics, will cut back the dose of Lasix to once daily, suspect patient's symptoms and chest x-ray findings are more consistent with pneumonia and then CHF. Send the sputum culture, COVID 19 has been ruled out, influenza has been ruled out. Continue nebulized bronchodilators, follow-up chest x-ray in the morning, follow up labs in the morning, berry abrams on I performed a history & physical examination of the patient and discussed their management with my nurse practitioner, Rosa Adames. I reviewed the nurse practitioner's note and agree with the documented findings and plan of care. Lung sounds are positive for diminished breath sounds. The findings and the impression was discussed with the patient. I attest to the documentation by the nurse practitioner. Time with Patient: Greater than 30
[2020-10-09] MEDS: METOPROLOL TARTRATE 25 MG TAB PO SCH ×2 (16:45→20:13)
[2020-10-09] MEDS: ASPIRIN 81 MG PO SCH (16:45)
[2020-10-09] MEDS: CLOPIDOGREL 75 MG TAB PO SCH (16:45)
[2020-10-09] MEDS: FUROSEMIDE 10 MG/ML 4 ML VIAL IV SCH (17:07)
[2020-10-09] MEDS: ATORVASTATIN 40 MG TAB PO SCH (20:13)
[2020-10-09] MEDS: HEPARIN SODIUM,PORCINE 5,000 UNIT/ML 1 ML VIAL SQ SCH (20:13)
[2020-10-09] MEDS: IPRATROPIUM-ALBUTEROL 3 ML NEB INHALATION SCH ×2 (20:35→20:36)
[2020-10-10] MEDS: PANTOPRAZOLE 40 MG TABLET PO SCH (06:34)
[2020-10-10] MEDS: FUROSEMIDE 10 MG/ML 4 ML VIAL IV SCH (08:01)
[2020-10-10] MEDS: CLOPIDOGREL 75 MG TAB PO SCH (08:02)
[2020-10-10] MEDS: ASPIRIN 81 MG PO SCH (08:02)
[2020-10-10] MEDS: AZITHROMYCIN 500 MG TAB PO SCH (08:02)
[2020-10-10] MEDS: METOPROLOL TARTRATE 25 MG TAB PO SCH ×2 (08:02→21:13)
[2020-10-10] MEDS: HEPARIN SODIUM,PORCINE 5,000 UNIT/ML 1 ML VIAL SQ SCH ×2 (08:02→21:13)
--- NOTE | 2020-10-10 08:23 | XR ---
EXAMINATION TYPE: XR chest 1V portable DATE OF EXAM: 10/10/2020 Comparison: 10/09/2020 Clinical History: 69-year-old male pneumonia versus CHF Findings: Median sternotomy wires with post-CABG clips in the mediastinum. Heart upper limits of normal in size . Continued focal bibasilar opacities. Impression: Continued small bilateral pleural effusions with bibasilar patchy atelectasis and/or infiltrates.
[2020-10-10] MEDS ORDERED: FUROSEMIDE 10 MG/ML 4 ML VIAL IV SCH (09:00)
[2020-10-10] MEDS: IPRATROPIUM-ALBUTEROL 3 ML NEB INHALATION SCH ×4 (09:01→20:47)
--- NOTE | 2020-10-10 10:19 | P.PN ---
Subjective Progress Note Date: 10/10/20 HISTORY OF PRESENT ILLNESS This is a 69-year-old male patient of Dr. Sykes with past medical history of hypertension. Patient states that he was on vacation in [place] and had a myocardial infarction on September 21. He initially went to medical in [facility] and was transferred then to [facility]. He underwent open heart surgery on September 23 for LAD. He was also advised that he had aortic valve calcification. Patient is unsure of further plan for intervention. He is now established with Dr. Mason as his prescription benefit specialist. He states that he has been walking on a regular basis and usually his pulse ox is 95-96%. This morning his pulse ox was 88%. He does not have home oxygen. He does complain of green sputum production. Patient came into [facility] emergency center for evaluation. Chest x-ray reveals heart failure exacerbation with mild cardiomegaly and new small bilateral pleural effusions. Bibasilar acute infiltrate and/or atelectasis noted. EKG is a sinus rhythm with right bundle branch block. [place] rature max 100.7. Heart rate 87, blood pressure 129/75, pulse ox 96% on room air. CBC was unremarkable. Electrolytes and renal function normal. Blood sugar 112. ALT 50. Potassium 4.5, magnesium 2.2. Over 19 is not detected. Influenza testing negative. Patient admitted to the cardiac stepdown unit and consult requested with cardiology and pulmonary medicine. 10/10: Patient is seen today on the cardiac stepdown unit. His breathing status is currently stable. He continues have shortness of breath and shortness of breath with activity. He has been seen by pulmonary medicine and feels this is more pneumonia versus heart failure/pleural effusions. Lasix decreased to 40 mg IV daily. Patient is on DuoNeb treatments, azithromycin, ceftriaxone. Consult placed with cardiology as well. Patient has been afebrile, heart rate 59, blood pressure 133/70, pulse ox 92% on 2 L nasal cannula. REVIEW OF SYSTEMS Constitutional: No fever, no chills, no night sweats. No weight change. Reports fatigue. No daytime sleepiness. EENT: No headache. No blurred vision or double vision, no loss of vision. No loss of Hearing, no ringing in the ears, no dizziness. No nasal drainage or congestion. No epistaxis. No sore throat. Lungs: Reports shortness of breath, reports cough, reports sputum production. No wheezing. Reports shortness of breath with activity Cardiovascular: No chest pain, no lower extremity edema. No palpitations. No paroxysmal nocturnal dyspnea. No orthopnea. No lightheadedness or dizziness. No syncopal episodes. Abdominal: No abdominal pain. No nausea, vomiting. No diarrhea. No constipation. No bloody or tarry stools.. No loss of appetite. Genitourinary: No dysuria, increased frequency, urgency. No urinary retention. Musculoskeletal: No myalgias. No muscle weakness, no gait dysfunction, no frequent falls. No back pain. No neck pain. Integumentary: No wounds, no lesions. No rash or pruritus. No unusual bruising. No change in hair or nails. Neurologic: No aphasia. No facial droop. No change in mentation. No head injury. No headache. No paralysis. No paresthesia. Psychiatric: No depression. No anxiety. No mood swings. Endocrine: No abnormal blood sugars. No weight change. No excessive sweating or thirst. No cold intolerance. PHYSICAL EXAMINATION Gen: This is a 69-year-old male. He is in bed and appears to be comfortable and in no acute distress. HEENT: Head is atraumatic, normocephalic. Pupils equal, round. Sclerae is anicteric. NECK: Supple. No JVD. No lymphadenopathy. No thyromegaly. LUNGS: Diminished bilaterally with crackles. No intercostal retractions. HEART: Regular rate and rhythm. 2/6 systolic murmur at the apex radiating to the right second intercostal space. ABDOMEN: Soft. Bowel sounds are present. No masses. No tenderness. EXTREMITIES: No pedal edema. No calf tenderness. Dorsalis pedis bilateral palpable. NEUROLOGICAL: Patient is awake, alert and oriented x3. Cranial nerves 2 through 12 are grossly intact. ASSESSMENT AND PLAN 1. Respiratory distress secondary to a combination of pleural effusions and possible pneumonia and atelectasis. Repeat chest x-ray reveals small bilateral pleural effusions and bibasilar patchy atelectasis and/or infiltrates. Consult with pulmonary medicine appreciated. 2. Bilateral pleural effusions. Consult with cardiology and pulmonary medicine. IV Lasix decreased to 40 mg daily daily, I&O and daily weights. Obtain 2-D echocardiogram. 3. Possible pneumonia and atelectasis. Patient is on azithromycin and ceftriaxone. Incentive spirometry continued. DuoNeb treatments 4 times daily scheduled and every 4 hours as needed. Sputum culture and blood culture. 4. Recent myocardial infarction September 21 status post CABG, 1 vessel. Continue aspirin 81 mg daily, Lipitor 40 mg at bedtime, Plavix 75 mg daily, Lopressor 25 mg twice daily. 5. History of tobacco use and dependence, quit September 21. 6. GI prophylaxis. Protonix. 7. DVT prophylaxis. Heparin subcu. DISCHARGE PLAN home. Impression and plan of care have been directed as dictated by the signing physician. Meera Estrada nurse practitioner acting as scribe for signing physician. Objective - Vital Signs Vital signs: Vital Signs Temp 97.5 F L 10/10/20 08:00 Pulse 80 10/10/20 09:03 Resp 18 10/10/20 08:00 BP 133/70 10/10/20 08:00 Pulse Ox 92 L 10/10/20 08:00 Intake & Output 10/09/20 10/10/20 10/10/20 18:59 06:59 18:59 Intake Total 350 Output Total 500 Balance -150 Weight 79.832 kg Intake: Intake, IV Titration 50 Amount cefTRIAXone 2 gm In 50 Sodium Chloride 0.9% 50 ml @ 100 mls/hr IVPB ONCE STA Rx#:[id number] Oral 300 Output: Urine 500 - Labs CBC & Chem 7: 10/09/20 08:49 10/09/20 08:49 Labs: Abnormal Lab Results - Last 24 Hours (Table) 10/09/20 10/09/20 Range/Units 08:49 08:49 RBC 3.91 L (4.30-5.90) m/uL Hct 38.1 L (39.0-53.0) % Glucose 112 H (74-99) mg/dL ALT 50 H (4-49) U/L Microbiology - Last 24 Hours (Table) 10/09/20 20:47 Gram Stain - Preliminary Sputum Sputum Culture - Preliminary
[2020-10-10] MEDS: methylPREDNISolone SOD SUCCI 125 MG/2 ML VIAL IV SCH ×3 (12:25→23:23)
--- NOTE | 2020-10-10 13:01 | ECHOF ---
Referral Reason:LVF MEASUREMENTS -------- HEIGHT: 175.3 cm WEIGHT: 79.8 kg BP: RVIDd: 2.8 cm (< 3.3) IVSd: 1.6 cm (0.6 - 1.1) LVIDd: 3.8 cm (3.9 - 5.3) LVPWd: 1.2 cm (0.6 - 1.1) IVSs: 2.1 cm LVIDs: 1.7 cm LVPWs: 2.0 cm LAESV Index (A-L): 20.77 ml/m Ao Diam: 3.4 cm (2.0 - 3.7) AV Cusp: 1.7 cm (1.5 - 2.6) LA Diam: 3.7 cm (2.7 - 3.8) MV EXCURSION: 15.965 mm (> 18.000) MV EF SLOPE: 59 mm/s (70 - 150) EPSS: 0.5 cm MV E Sami: 0.63 m/s MV DecT: 264 ms MV A Sami: 0.84 m/s MV E/A Ratio: 0.75 RAP: 5.00 mmHg RVSP: 14.95 mmHg FINDINGS -------- This was a technically difficult study with suboptimal views. The left ventricular size is normal. There is moderate concentric left ventricular hypertrophy. O verall left ventricular systolic function is mildly impaired with, an EF between 45 - 50 %. Mid Norm al LAP Grade 1 Diastolic Dysfunction. Septal Hypokinesis The right ventricle is normal in size. The left atrial size is normal. The right atrial size is normal. Lumason used The aortic valve is trileaflet and appears structurally normal. The mitral valve is normal. Mild mitral regurgitation is present. The tricuspid valve appears structurally normal. Trace tricuspid regurgitation present. Right yanely tricular systolic pressure is normal at < 35 mmHg. There is no pulmonic regurgitation present. The aortic root size is normal. IVC Not well visulized. There is no pericardial effusion. CONCLUSIONS -------- 1. The left ventricular size is normal. 2. There is moderate concentric left ventricular hypertrophy. 3. Overall left ventricular systolic function is mildly impaired with, an EF between 45 - 50 %. 4. Normal LAP Grade 1 Diastolic Dysfunction. 5. Mid Septal Hypokinesis 6. Mild mitral regurgitation is present. 7. Trace tricuspid regurgitation present. 8. There is no pulmonic regurgitation present. 9. There is no pericardial effusion. [employer] ADMINISTRATOR: Albina Neves RDCS
--- NOTE | 2020-10-10 14:22 | P.CRDCN ---
History of Present Illness Consult date: 10/10/20 Chief complaint: shortness of breath History of present illness: this is a very pleasant 69-year-old gentleman who I just started seeing in the o ffice as a new patient with history of coronary artery disease and status post coronary artery bypass grafting with unknown details as well as hypertension and dyslipidemia and significant history of smoking presented to the hospital complaining of shortness of breath. The patient underwent coronary artery bypass graftingis in August 2020. He was on vacation when he developed chest discomfort and was transferred to [facility] where he underwent a heart catheterization and subsequently he was referred for CABG. He was found to have severe triple-vessel coronary artery disease but he underwent only 1 vessel bypass. Subsequently he was seen in the office as a new patient. We requested the medical records from [facility] and we are in process of receiving them. Also we requested a copy of the angiogram as well. This time the patient woke up from sleep yesterday morning complaining of shortness of breath. He was experiencing beside that cough productive of green sputum. No symptoms of fever or chills. No symptoms of chest pain or chest discomfort. No dizziness or lightheadedness or any feeling of heart racing or fluttering or syncope. The EKG showed sinus rhythm with RBBB. The first set of troponin came in to be unremarkable. The CBC came in to be unremarkable. Electrolytes and kidney function are unremarkable. The patient subsequently was seen by the pulmonary team he was diagnosed with possible pneumonia. On examination today he does have mild bilateral expiratory wheezing. An echocardiogram was performed and revealed mildly impaired LV function was EF around 45%. Reviewing the medical records today indicate that when he presented to the hospital he was hypoxic and also he had a temperature of 100.7. Past Medical History Past Medical History: Hypertension, Myocardial Infarction ([place]) Additional Past Medical History / Comment(s): NEW RX FOR HTN, PLANS TO START AFTER PROC Last Myocardial Infarction Date:: 1992 History of Any Multi-Drug Resistant Organisms: None Reported Past Surgical History: Coronary Bypass/CABG, Tonsillectomy Past Anesthesia/Blood Transfusion Reactions: No Reported Reaction Past Psychological History: No Psychological Hx Reported Smoking Status: Former smoker Past Alcohol Use History: Daily Past Drug Use History: None Reported - Past Family History Mother Family Medical History: Deep Vein Thrombosis (DVT) Medications and Allergies Home Medications Medication Instructions Recorded Confirmed Type Albuterol Sulfate [Proair Hfa] 1 - 2 puff INHALATION RT-Q4H PRN 10/09/20 10/09/20 History Aspirin EC [Ecotrin Low Dose] 81 mg PO DAILY 10/09/20 10/09/20 History Atorvastatin [Lipitor] 40 mg PO HS 10/09/20 10/09/20 History Clopidogrel [Plavix] 75 mg PO DAILY 10/09/20 10/09/20 History HYDROcodone/APAP 5-325MG [[place] 1 tab PO Q4HR PRN 10/09/20 10/09/20 History 5-325] Metoprolol Tartrate [Lopressor] 25 mg PO BID 10/09/20 10/09/20 History Allergies Allergy/AdvReac Type Severity Reaction Status Date / Time No Known Allergies Allergy Verified 10/09/20 08:09 Physical Exam Vitals: Vital Signs Temp Pulse Pulse Resp BP Pulse Ox 10/10/20 12:26 88 10/10/20 11:35 65 18 120/70 95 10/10/20 09:15 84 10/10/20 09:03 80 10/10/20 08:00 97.5 F L 59 L 18 133/70 92 L 10/10/20 04:00 98.1 F 61 17 114/71 97 10/09/20 23:31 98.5 F 69 18 105/63 98 10/09/20 20:48 86 18 10/09/20 20:36 88 18 10/09/20 20:00 98.5 F 80 17 131/75 93 L 10/09/20 18:06 20 97 10/09/20 16:00 74 16 117/72 96 Intake and Output 10/09/20 10/10/20 10/10/20 22:59 06:59 14:59 Intake Total 350 Output Total 500 Balance -150 Intake: Intake, IV Titration 50 Amount cefTRIAXone 2 gm In 50 Sodium Chloride 0.9% 50 ml @ 100 mls/hr IVPB ONCE STA Rx#:[id number] Oral 300 Output: Urine 500 - Constitutional General appearance: no acute distress - Respiratory Respiratory: bilateral: wheezing - Cardiovascular Rhythm: regular Heart sounds: normal: S1, S2 Results 10/09/20 08:49 10/09/20 08:49 Current Medications Generic Name Dose Route Start Last Admin Trade Name Freq PRN Reason Stop Dose Admin Hydrocodone Bitart/Acetaminophen 1 each 10/09/20 12:08 Hydrocodone/Apap 5-325mg 1 Each Tab PO Q4HR PRN Pain Albuterol/Ipratropium 3 ml 10/09/20 10:27 Ipratropium-Albuterol 3 Ml Neb INHALATION RT-Q4H PRN shortness of breath Albuterol/Ipratropium 3 ml 10/09/20 16:00 10/10/20 12:24 Ipratropium-Albuterol 3 Ml Neb INHALATION 3 ml RT-QID ASHELY Administration Aspirin 81 mg 10/09/20 12:15 10/10/20 08:02 Aspirin 81 Mg PO 81 mg DAILY ASHELY Administration Atorvastatin Calcium 40 mg 10/09/20 21:00 10/09/20 20:13 Atorvastatin 40 Mg Tab PO 40 mg HS ASHELY Administration Azithromycin 500 mg 10/10/20 09:00 10/10/20 08:02 Azithromycin 500 Mg Tab PO 10/14/20 09:01 500 mg DAILY ASHELY Administration Budesonide 1 mg 10/10/20 20:00 Budesonide 1 Mg/2 Ml Nebu INHALATION RT-BID ASHELY Clopidogrel Bisulfate 75 mg 10/09/20 12:15 10/10/20 08:02 Clopidogrel 75 Mg Tab PO 75 mg DAILY ASHELY Administration Formoterol Fumarate 20 mcg 10/10/20 20:00 Formoterol Fumarate 20 Mcg/2 Ml Nebu INHALATION RT-BID ASHELY Furosemide 40 mg 10/09/20 16:50 10/10/20 08:01 Furosemide 10 Mg/Ml 4 Ml Vial IV 40 mg DAILY ASHELY Administration Heparin Sodium (Porcine) 5,000 unit 10/09/20 21:00 10/10/20 08:02 Heparin Sodium,Porcine 5,000 Unit/Ml 1 Ml Vial SQ 5,000 unit Q12HR ASHELY Administration Ceftriaxone Sodium 2 gm/ 50 mls @ 100 mls/hr 10/10/20 09:00 10/10/20 08:01 Sodium Chloride IVPB 10/12/20 09:01 100 mls/hr Q24HR ASHELY Administration Methylprednisolone Sodium Succinate 60 mg 10/10/20 12:00 10/10/20 12:25 Methylprednisolone Sod Succi 125 Mg/2 Ml Vial IV 60 mg Q6HR ASHELY Administration Metoprolol Tartrate 25 mg 10/09/20 12:15 10/10/20 08:02 Metoprolol Tartrate 25 Mg Tab PO 25 mg BID ASHELY Administration Miscellaneous Information 1 each 10/09/20 10:27 Pneumonia Protocol Utilized 1 Each Misc PO ONCE PRN Per Protocol Pantoprazole Sodium 40 mg 10/10/20 07:30 10/10/20 06:34 Pantoprazole 40 Mg Tablet PO Not Given AC-BRKFST ASHELY Intake and Output 10/09/20 10/10/20 10/10/20 22:59 06:59 14:59 Intake Total 350 Output Total 500 Balance -150 Intake: Intake, IV Titration 50 Amount cefTRIAXone 2 gm In 50 Sodium Chloride 0.9% 50 ml @ 100 mls/hr IVPB ONCE STA Rx#:[id number] Oral 300 Output: Urine 500 10/09/20 08:49 10/09/20 08:49 Assessment and Plan Assessment: assessment #1 hypoxemia likely related to pneumonia with possible underlying COPD. The patient did smoke in the past. #2 possibly mild congestive heart failure exacerbation secondary to systolic dysfunction. #3 coronary artery disease and status post CABG #4 mild ischemic cardiomyopathy #5 hypertension #6 dyslipidemia Plan #1the patient was started on antibiotic #2 he was started on Lasix at 40 mg IV daily #3 the echo was reviewed and revealed mildly impaired LV function #4 monitor the kidney function and electrolytes #5 follow-up with the patient. Overall the patient does not seem in any overt congestive heart failure at this point.
--- NOTE | 2020-10-10 14:38 | P.PN ---
Subjective Progress Note Date: 10/10/20 Principal diagnosis: Healthcare acquired pneumonia 59-year-old white male patient, chronic smoker, with past medical history of coronary artery disease with previous history of bypass grafting, previous history of myocardial infarction, hypertension, percent to the emergency de partment on 10/09/2020 for evaluation of increasing shortness of breath, cough, some phlegm production. Patient was recently on vacation in [place] when he had his myocardial infarction on September 21, he was hospitalized at the [facility] where he required surgery on September 23. Patient came into the hospital today for symptoms of worsening dyspnea, some cough, phlegm production, no chest pain. His chest x-ray showed mild cardiomegaly and a small bilateral pleural effusions, with the bibasilar infiltrate and/or atelectasis. EKG showed sinus rhythm with a right bundle branch block, patient did have fever of 100.7F. COVID 19 PCR was negative, influenza testing was negative. Troponin was less than 0.012, proBNP was 706. She was started on the azithromycin and Rocephin for empiric antibiotic coverage, he was started on IV Lasix for possibility acute exacerbation of CHF. And we were consulted for pulmonary evaluation The patient is seen today 10/10/2020 in follow-up on the selective care unit. He is currently sitting up at the bedside. Awake and alert in no acute distress. He denies any worsening shortness of breath, cough or congestion. A bit better today compared to yesterday. Not quite back to his baseline. Maintaining O2 saturations in the mid 90s on 2 L/m per nasal cannula. He's been afebrile. Hemodynamically stable. Blood culture reveals no growth to date. Sputum culture pending. He is continued on DuoNeb inhalations, Pulmicort and Perforomist inhalations, IV Solu-Medrol. Antibiotics in the form of ceftriaxone and azithromycin. Remains on IV diuretics. Chest x-ray continues to show small bilateral pleural effusions with right basilar patchy atelectasis/infiltrate. Echocardiogram reveals mildly impaired left ventricular systolic function with ejection fraction of 45-50%. Objective - Vital Signs Vital signs: Vital Signs Temp 97.5 F L 10/10/20 08:00 Pulse 88 10/10/20 12:26 Resp 18 10/10/20 11:35 BP 120/70 10/10/20 11:35 Pulse Ox 95 10/10/20 11:35 Intake & Output 10/09/20 10/10/20 10/10/20 18:59 06:59 18:59 Intake Total 470 Output Total 900 Balance -430 Weight 79.832 kg Intake: Intake, IV Titration 50 Amount cefTRIAXone 2 gm In 50 Sodium Chloride 0.9% 50 ml @ 100 mls/hr IVPB ONCE STA Rx#:[id number] Oral 420 Output: Urine 900 - Exam GENERAL EXAM: Alert, active, very pleasant 69-year-old gentleman, on 2 L nasal cannula, comfortable in no apparent distress. HEAD: Normocephalic. EYES: Normal reaction of pupils, equal size. NOSE: Clear with pink turbinates. THROAT: No erythema or exudates. NECK: No masses, no JVD. CHEST: No chest wall deformity. LUNGS: Equal air entry with bibasilar crackles. CVS: S1 and S2 normal with no audible murmur, regular rhythm. ABDOMEN: No hepatosplenomegaly, normal bowel sounds, no guarding or rigidity. SPINE: No scoliosis or deformity SKIN: No rashes CENTRAL NERVOUS SYSTEM: No focal deficits, tone is normal in all 4 extremities. EXTREMITIES: There is no peripheral edema. No clubbing, no cyanosis. Peripheral pulses are intact. - Labs CBC & Chem 7: 10/09/20 08:49 10/09/20 08:49 Labs: Microbiology - Last 24 Hours (Table) 10/09/20 08:49 Blood Culture - Preliminary Blood No Growth after 24 hours 10/09/20 20:47 Gram Stain - Preliminary Sputum Sputum Culture - Preliminary Assessment and Plan Assessment: 1. Acute hypoxic respiratory failure multifactorial, possibly related to acute pneumonia, suspect healthcare acquired, and a component of fluid overload possibly related to acute exacerbation of mild systolic CHF 2. Fever, cough, phlegm production, possibly related to underlying pneumonia, COVID 19 PCR was negative, influenza was negative 3. Coronary artery disease status post bypass grafting 2 weeks ago on 08/29 4. Recent history of myocardial infarction 5. Chronic smoker, smoked half a pack for 30 years 6. Possible underlying COPD Plan: The patient was seen and evaluated by Dr. Schmidt Chest x-ray and echocardiogram reviewed Continue with bronchodilators, antibiotics Continue diuretics We will continue to follow I, the cosigning physician, performed a history & physical examination of the patient. Lungs sounds with bilateral crackles. Maintaining good O2 saturations in the 90s on 2 L/m per nasal cannula. I discussed the assessment and plan of care with my nurse practitioner, Candy Omalley. I attest to the above note as dictated by her.
[2020-10-10 17:03] LABS: Glucose,Whole Blood 201 mg/dL (75-99)
[2020-10-10] MEDS: INSULIN ASPART (NovoLOG) 100 UNIT/ML VIAL SQ SCH ×2 (17:18→23:23)
[2020-10-10] MEDS: FORMOTEROL FUMARATE 20 MCG/2 ML NEBU INHALATION SCH (20:47)
[2020-10-10] MEDS: BUDESONIDE 1 MG/2 ML NEBU INHALATION SCH (20:47)
[2020-10-10] MEDS: ATORVASTATIN 40 MG TAB PO SCH (21:13)
[2020-10-10 22:33] LABS: Glucose,Whole Blood 184 mg/dL (75-99)
[2020-10-11 06:41] LABS: Glucose,Whole Blood 164 mg/dL (75-99)
[2020-10-11] MEDS: INSULIN ASPART (NovoLOG) 100 UNIT/ML VIAL SQ SCH ×4 (06:44→21:04)
[2020-10-11] MEDS: methylPREDNISolone SOD SUCCI 125 MG/2 ML VIAL IV SCH ×4 (06:44→23:05)
[2020-10-11] MEDS: PANTOPRAZOLE 40 MG TABLET PO SCH (06:44)
[2020-10-11 08:31] LABS: HCT 36.1 % (39.0-53.0); HGB 12.1 gm/dL (13.0-17.5); MCH 33.2 pg (25.0-35.0); MCHC 33.6 g/dL (31.0-37.0); MCV 98.8 fL (80.0-100.0); Mean Platelet Volume 7.9; Platelet Count 328 k/uL (150-450); RBC 3.65 m/uL (4.30-5.90); RDW 13.6 % (11.5-15.5); WBC 9.6 k/uL (3.8-10.6)
[2020-10-11 08:54] LABS: African American GFR (CKD) >90 (>60 ml/min/1.73 sqM); Anion Gap 10 mmol/L; Blood Urea Nitrogen 33 mg/dL (9-20); Calcium 9.5 mg/dL (8.4-10.2); Carbon Dioxide 29 mmol/L (22-30); Chloride 99 mmol/L (98-107); Glucose 240 mg/dL (74-99); Non-African American GFR(CKD) >90 (>60 ml/min/1.73 sqM); Potassium 4.9 mmol/L (3.5-5.1); Sodium 138 mmol/L (137-145)
[2020-10-11] MEDS: HEPARIN SODIUM,PORCINE 5,000 UNIT/ML 1 ML VIAL SQ SCH ×2 (09:55→21:04)
[2020-10-11] MEDS: CLOPIDOGREL 75 MG TAB PO SCH (09:55)
[2020-10-11] MEDS: ASPIRIN 81 MG PO SCH (09:55)
[2020-10-11] MEDS: FUROSEMIDE 10 MG/ML 4 ML VIAL IV SCH (09:55)
[2020-10-11] MEDS: METOPROLOL TARTRATE 25 MG TAB PO SCH ×2 (09:57→21:04)
[2020-10-11] MEDS: AZITHROMYCIN 500 MG TAB PO SCH (09:57)
[2020-10-11] MEDS: BUDESONIDE 1 MG/2 ML NEBU INHALATION SCH ×2 (10:02→20:03)
[2020-10-11] MEDS: IPRATROPIUM-ALBUTEROL 3 ML NEB INHALATION SCH ×4 (10:02→20:03)
[2020-10-11] MEDS: FORMOTEROL FUMARATE 20 MCG/2 ML NEBU INHALATION SCH ×2 (10:02→20:03)
--- NOTE | 2020-10-11 10:46 | P.PN ---
Subjective Progress Note Date: 10/11/20 This is a 69-year-old male patient of Dr. Sykes with past medical history of hypertension. Patient states that he was on vacation in [place] and had a myocardial infarction on September 21. He initially went to medical in [facility] and was transferred then to [facility]. He underwent open heart surgery on September 23 for LAD. He was also advised that he had aortic valve calcification. Patient is unsure of further plan for intervention. 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 He states that he has been walking on a regular basis and usually his pulse ox is 95-96%. This morning his pulse ox was 88%. He does not have home oxygen. He does complain of green sputum production. Patient came into [facility] emergency center for evaluation. Chest x-ray reveals heart failure exacerbation with mild cardiomegaly and new small bilateral pleural effusions. Bibasilar acute infiltrate and/or atelectasis noted. EKG is a sinus rhythm with right bundle branch block. Temperature max 100.7. Heart rate 87, blood pressure 129/75, pulse ox 96% on room air. CBC was unremarkable. Electrolytes and renal function normal. Blood sugar 112. ALT 50. Potassium 4.5, magnesium 2.2. Over 19 is not detected. Influenza testing negative. Patient admitted to the cardiac stepdown unit and consult requested with cardiology and pulmonary medicine. 10/10: Patient is seen today on the cardiac stepdown unit. His breathing status is currently stable. He continues have shortness of breath and shortness of breath with activity. He has been seen by pulmonary medicine and feels this is more pneumonia versus heart failure/pleural effusions. Lasix decreased to 40 mg IV daily. Patient is on DuoNeb treatments, azithromycin, ceftriaxone. Consult placed with cardiology as well. Patient has been afebrile, heart rate 59, blood pressure 133/70, pulse ox 92% on 2 L nasal cannula. 10/11: Patient is found sitting up at the side of the bed with no new complaints or concerns. Patient is in no distress at this time. He states that he is feeling much better the shortness of breath has significantly improved. Patient remained afebrile, heart rate 82, respirations 18, blood pressure 117/58. WC 9.6, hemoglobin 12.1, potassium 4.9, BUN 33, creatinine 0.76 REVIEW OF SYSTEMS Constitutional: No fever, no chills, no night sweats. No weight change. Reports fatigue. No daytime sleepiness. EENT: No headache. No blurred vision or double vision, no loss of vision. No loss of Hearing, no ringing in the ears, no dizziness. No nasal drainage or congestion. No epistaxis. No sore throat. Lungs: Reports shortness of breath, reports cough, reports sputum production. No wheezing. Reports shortness of breath with activity Cardiovascular: No chest pain, no lower extremity edema. No palpitations. No paroxysmal nocturnal dyspnea. No orthopnea. No lightheadedness or dizziness. No syncopal episodes. Abdominal: No abdominal pain. No nausea, vomiting. No diarrhea. No con stipation. No bloody or tarry stools.. No loss of appetite. Genitourinary: No dysuria, increased frequency, urgency. No urinary retention. Musculoskeletal: No myalgias. No muscle weakness, no gait dysfunction, no frequent falls. No back pain. No neck pain. Integumentary: No wounds, no lesions. No rash or pruritus. No unusual bruising. No change in hair or nails. Neurologic: No aphasia. No facial droop. No change in mentation. No head injury. No headache. No paralysis. No paresthesia. Psychiatric: No depression. No anxiety. No mood swings. Endocrine: No abnormal blood sugars. No weight change. No excessive sweating or thirst. No cold intolerance. PHYSICAL EXAMINATION Gen: This is a 69-year-old male. He is in bed and appears to be comfortable and in no acute distress. HEENT: Head is atraumatic, normocephalic. Pupils equal, round. Sclerae is anicteric. NECK: Supple. No JVD. No lymphadenopathy. No thyromegaly. LUNGS: Diminished bilaterally with crackles. No intercostal retractions. HEART: Regular rate and rhythm. 2/6 systolic murmur at the apex radiating to the right second intercostal space. ABDOMEN: Soft. Bowel sounds are present. No masses. No tenderness. EXTREMITIES: No pedal edema. No calf tenderness. Dorsalis pedis bilateral palpable. NEUROLOGICAL: Patient is awake, alert and oriented x3. Cranial nerves 2 through 12 are grossly intact. ASSESSMENT AND PLAN 1. Respiratory distress secondary to a combination of pleural effusions and possible pneumonia and atelectasis. Repeat chest x-ray reveals small bilateral pleural effusions and bibasilar patchy atelectasis and/or infiltrates. Consult with pulmonary medicine appreciated. 2. Bilateral pleural effusions. Consult with cardiology and pulmonary medicine. IV Lasix decreased to 40 mg daily daily, I&O and daily weights. Obtain 2-D echocardiogram. 3. Possible pneumonia and atelectasis. Patient is on azithromycin and ceftriaxone. Incentive spirometry continued. DuoNeb treatments 4 times daily scheduled and every 4 hours as needed. Sputum culture and blood culture. 4. Recent myocardial infarction September 21 status post CABG, 1 vessel. Contin ue aspirin 81 mg daily, Lipitor 40 mg at bedtime, Plavix 75 mg daily, Lopressor 25 mg twice daily. 5. History of tobacco use and dependence, quit September 21. 6. GI prophylaxis. Protonix. 7. DVT prophylaxis. Heparin subcu. DISCHARGE PLAN home Tuesday or Tuesday Impression and plan of care have been directed as dictated by the signing physician. Sisi Hogan nurse practitioner acting as scribe for signing physician. Objective - Vital Signs Vital signs: Vital Signs Temp 97.6 F 10/11/20 08:00 Pulse 82 10/11/20 10:30 Resp 16 10/11/20 08:00 BP 117/58 10/11/20 08:00 Pulse Ox 94 L 10/11/20 08:00 Intake & Output 10/10/20 10/11/20 10/11/20 18:59 06:59 18:59 Intake Total 590 240 Output Total 900 Balance -310 240 Weight 85.4 kg Intake: Intake, IV Titration 50 Amount cefTRIAXone 2 gm In 50 Sodium Chloride 0.9% 50 ml @ 100 mls/hr IVPB ONCE STA Rx#:[id number] Oral 540 240 Output: Urine 900 - Labs CBC & Chem 7: 10/11/20 08:07 10/11/20 08:07 Labs: Abnormal Lab Results - Last 24 Hours (Table) 10/10/20 10/10/20 10/11/20 Range/Units 17:01 22:31 06:20 RBC (4.30-5.90) m/uL Hgb (13.0-17.5) gm/dL Hct (39.0-53.0) % BUN (9-20) mg/dL Glucose (74-99) mg/dL POC Glucose (mg/dL) 201 H 184 H 164 H (75-99) mg/dL 10/11/20 10/11/20 Range/Units 08:07 08:07 RBC 3.65 L (4.30-5.90) m/uL Hgb 12.1 L (13.0-17.5) gm/dL Hct 36.1 L (39.0-53.0) % BUN 33 H (9-20) mg/dL Glucose 240 H (74-99) mg/dL POC Glucose (mg/dL) (75-99) mg/dL Microbiology - Last 24 Hours (Table) 10/09/20 08:49 Blood Culture - Preliminary Blood No Growth after 24 hours
[2020-10-11 12:04] LABS: Glucose,Whole Blood 222 mg/dL (75-99)
--- NOTE | 2020-10-11 13:14 | P.PN ---
Subjective Progress Note Date: 10/11/20 This is a pleasant 69-year-old gentleman who has recently seen Dr. Alves as a new patient in the office. He has a known history of coronary artery disease with recent coronary artery bypass grafting surgery which was performed [facility], history of hypertension, hyperlipidemia, patient was [place] in, developed chest pain, underwent a cardiac catheterization and was found to have severe triple-vessel coronary artery disease but only underwent a one- vessel bypass were awaiting records from [facility] to review. He presented to the hospital on this admission with symptoms of shortness of breath with productive cough of green sputum. He was seen in consultation yesterday by Dr. Alves. Echo revealed an ejection fraction of 45-50%. Blood pressure 117/50 with a heart rate in the 70s, 94% on room air. White blood cell count 9.6, hemoglobin 12.9, platelet count 328. Sodium 138, potassium 4.9, BUN 33, creatinine 0.7. Objective - Vital Signs Vital signs: Vital Signs Temp 97.6 F 10/11/20 08:00 Pulse 82 10/11/20 10:30 Resp 16 10/11/20 08:00 BP 117/58 10/11/20 08:00 Pulse Ox 94 L 10/11/20 08:00 Intake & Output 10/10/20 10/11/20 10/11/20 18:59 06:59 18:59 Intake Total 590 240 Output Total 900 Balance -310 240 Weight 85.4 kg Intake: Intake, IV Titration 50 Amount cefTRIAXone 2 gm In 50 Sodium Chloride 0.9% 50 ml @ 100 mls/hr IVPB ONCE STA Rx#:[id number] Oral 540 240 Output: Urine 900 - Exam PHYSICAL EXAMINATION: GENERAL: 69-year-old gentleman in no acute distress at the time of my examination HEENT: Head is atraumatic, normocephalic. Pupils equal, round. Sclera anicteric. Conjunctiva are clear. Mucous membranes of the mouth are moist. Neck is supple. There is no elevated jugular venous pressure. No carotid bruit is heard. HEART EXAMINATION: Heart S1, S2 normal. No murmur or gallop heard. CHEST EXAMINATION: Lungs are clear with fine crackles to the bases bilaterally ABDOMEN: Soft, nontender. Bowel sounds are heard. No organomegaly noted. EXTREMITIES: 2+ peripheral pulses with no evidence of peripheral edema and no calf tenderness noted. NEUROLOGIC patient is awake, alert and oriented X3 . - Labs CBC & Chem 7: 10/11/20 08:07 10/11/20 08:07 Labs: Abnormal Lab Results - Last 24 Hours (Table) 10/10/20 10/10/20 10/11/20 Range/Units 17:01 22:31 06:20 RBC (4.30-5.90) m/uL Hgb (13.0-17.5) gm/dL Hct (39.0-53.0) % BUN (9-20) mg/dL Glucose (74-99) mg/dL POC Glucose (mg/dL) 201 H 184 H 164 H (75-99) mg/dL 10/11/20 10/11/20 10/11/20 Range/Units 08:07 08:07 12:02 RBC 3.65 L (4.30-5.90) m/uL Hgb 12.1 L (13.0-17.5) gm/dL Hct 36.1 L (39.0-53.0) % BUN 33 H (9-20) mg/dL Glucose 240 H (74-99) mg/dL POC Glucose (mg/dL) 222 H (75-99) mg/dL Microbiology - Last 24 Hours (Table) 10/09/20 20:47 Gram Stain - Preliminary Sputum Sputum Culture - Preliminary 10/09/20 08:49 Blood Culture - Preliminary Blood No Growth after 48 hours Assessment and Plan Plan: Assessment and plan #1 hypoxemia, shortness of breath and cough likely secondary to pneumonia with possible underlying COPD #2 mild congestive heart failure, systolic acute on chronic #3 coronary artery disease with recent one-vessel bypass #4 mild ischemic cardio myopathy #5 hypertension #6 hyperlipidemia Plan We will discontinue the IV Lasix today and start the patient on oral diuretics. We are also awaiting records from [facility] regarding the patient's bypass surgery and stay at that hospital. DNP note has been reviewed, I agree with a documented findings and plan of care. Patient was seen and examined.
--- NOTE | 2020-10-11 15:32 | P.PN ---
Subjective Progress Note Date: 10/11/20 Principal diagnosis: Healthcare acquired pneumonia 59-year-old white male patient, chronic smoker, with past medical history of coronary artery disease with previous history of bypass grafting, previous history of myocardial infarction, hypertension, percent to the emergency de partment on 10/09/2020 for evaluation of increasing shortness of breath, cough, some phlegm production. Patient was recently on vacation in [place] when he had his myocardial infarction on September 21, he was hospitalized at the [facility] where he required surgery on September 23. Patient came into the hospital today for symptoms of worsening dyspnea, some cough, phlegm production, no chest pain. His chest x-ray showed mild cardiomegaly and a small bilateral pleural effusions, with the bibasilar infiltrate and/or atelectasis. EKG showed sinus rhythm with a right bundle branch block, patient did have fever of 100.7F. COVID 19 PCR was negative, influenza testing was negative. Troponin was less than 0.012, proBNP was 706. She was started on the azithromycin and Rocephin for empiric antibiotic coverage, he was started on IV Lasix for possibility acute exacerbation of CHF. And we were consulted for pulmonary evaluation The patient is seen today 10/10/2020 in follow-up on the selective care unit. He is currently sitting up at the bedside. Awake and alert in no acute distress. He denies any worsening shortness of breath, cough or congestion. A bit better today compared to yesterday. Not quite back to his baseline. Maintaining O2 saturations in the mid 90s on 2 L/m per nasal cannula. He's been afebrile. Hemodynamically stable. Blood culture reveals no growth to date. Sputum culture pending. He is continued on DuoNeb inhalations, Pulmicort and Perforomist inhalations, IV Solu-Medrol. Antibiotics in the form of ceftriaxone and azithromycin. Remains on IV diuretics. Chest x-ray continues to show small bilateral pleural effusions with right basilar patchy atelectasis/infiltrate. Echocardiogram reveals mildly impaired left ventricular systolic function with ejection fraction of 45-50%. The patient is seen today 10/11/2020 in follow-up on the selective care unit. He is currently sitting up at the bedside. Awake and alert in no acute distress. Breathing quite a bit better today compared to yesterday. Maintaining good O2 saturations in the 90s on room air. He's afebrile. Hemodynamically stable. Blood cultures reveal no growth. Sputum culture pending. White count 9.6. Hemoglobin 12.1. Sodium 138. Potassium 4.9. Creatinine 0.76. He remains on DuoNeb inhalations, Pulmicort and Perforomist inhalations, ceftriaxone, IV Solu-Medrol. Objective - Vital Signs Vital signs: Vital Signs Temp 97.7 F 10/11/20 12:00 Pulse 80 10/11/20 14:11 Resp 20 10/11/20 12:00 BP 124/71 10/11/20 12:00 Pulse Ox 96 10/11/20 12:00 Intake & Output 10/10/20 10/11/20 10/11/20 18:59 06:59 18:59 Intake Total 590 480 Output Total 900 Balance -310 480 Weight 85.4 kg Intake: Intake, IV Titration 50 Amount cefTRIAXone 2 gm In 50 Sodium Chloride 0.9% 50 ml @ 100 mls/hr IVPB ONCE STA Rx#:[id number] Oral 540 480 Output: Urine 900 - Exam GENERAL EXAM: Alert, active, very pleasant 69-year-old gentleman, on room air, comfortable in no apparent distress. HEAD: Normocephalic. EYES: Normal reaction of pupils, equal size. NOSE: Clear with pink turbinates. THROAT: No erythema or exudates. NECK: No masses, no JVD. CHEST: No chest wall deformity. LUNGS: Equal air entry with bibasilar crackles. CVS: S1 and S2 normal with no audible murmur, regular rhythm. ABDOMEN: No hepatosplenomegaly, normal bowel sounds, no guarding or rigidity. SPINE: No scoliosis or deformity SKIN: No rashes CENTRAL NERVOUS SYSTEM: No focal deficits, tone is normal in all 4 extremities. EXTREMITIES: There is no peripheral edema. No clubbing, no cyanosis. Peripheral pulses are intact. - Labs CBC & Chem 7: 10/11/20 08:07 10/11/20 08:07 Labs: Abnormal Lab Results - Last 24 Hours (Table) 10/10/20 10/10/20 10/11/20 Range/Units 17:01 22:31 06:20 RBC (4.30-5.90) m/uL Hgb (13.0-17.5) gm/dL Hct (39.0-53.0) % BUN (9-20) mg/dL Glucose (74-99) mg/dL POC Glucose (mg/dL) 201 H 184 H 164 H (75-99) mg/dL Magnesium (1.6-2.3) mg/dL 10/11/20 10/11/20 10/11/20 Range/Units 08:07 08:07 08:07 RBC 3.65 L (4.30-5.90) m/uL Hgb 12.1 L (13.0-17.5) gm/dL Hct 36.1 L (39.0-53.0) % BUN 33 H (9-20) mg/dL Glucose 240 H (74-99) mg/dL POC Glucose (mg/dL) (75-99) mg/dL Magnesium 2.4 H (1.6-2.3) mg/dL 10/11/20 Range/Units 12:02 RBC (4.30-5.90) m/uL Hgb (13.0-17.5) gm/dL Hct (39.0-53.0) % BUN (9-20) mg/dL Glucose (74-99) mg/dL POC Glucose (mg/dL) 222 H (75-99) mg/dL Magnesium (1.6-2.3) mg/dL Microbiology - Last 24 Hours (Table) 10/09/20 20:47 Gram Stain - Preliminary Sputum Sputum Culture - Preliminary 10/09/20 08:49 Blood Culture - Preliminary Blood No Growth after 48 hours Assessment and Plan Assessment: 1. Acute hypoxic respiratory failure multifactorial, possibly related to acute pneumonia, suspect healthcare acquired, and a component of fluid overload possibly related to acute exacerbation of mild systolic CHF 2. Fever, cough, phlegm production, possibly related to underlying pneumonia, COVID 19 PCR was negative, influenza was negative 3. Coronary artery disease status post bypass grafting 2 weeks ago on 09/23/2020 4. Recent history of myocardial infarction 5. Chronic smoker, smoked half a pack for 30 years 6. Possible underlying COPD Plan: The patient was seen and evaluated by Dr. Schmidt Continue with bronchodilators, antibiotics Continue diuretics Repeat chest x-ray in a.m. Probable discharge in a.m. We will continue to follow I, the cosigning physician, performed a history & physical examination of the patient. Lungs sounds with bilateral crackles. Maintaining good O2 saturations in the 90s on room air. I discussed the assessment and plan of care with my nurse practitioner, Candy Omalley. I attest to the above note as dictated by her.
[2020-10-11 16:46] LABS: Glucose,Whole Blood 222 mg/dL (75-99)
[2020-10-11 20:46] LABS: Glucose,Whole Blood 227 mg/dL (75-99)
[2020-10-11] MEDS: ATORVASTATIN 40 MG TAB PO SCH (21:04)
[2020-10-12] MEDS: PANTOPRAZOLE 40 MG TABLET PO SCH (06:13)
[2020-10-12 06:23] LABS: Glucose,Whole Blood 160 mg/dL (75-99)
[2020-10-12] MEDS: INSULIN ASPART (NovoLOG) 100 UNIT/ML VIAL SQ SCH (06:30)
[2020-10-12] MEDS: methylPREDNISolone SOD SUCCI 125 MG/2 ML VIAL IV SCH (06:30)
[2020-10-12 06:35] VITALS: BP 120/64; PULSE 80; RESP 17; TEMP 98.2
--- NOTE | 2020-10-12 08:04 | XR ---
EXAMINATION TYPE: XR chest 1V portable DATE OF EXAM: 10/12/2020 HISTORY: Shortness of breath. COMPARISON: 10/10/2020 TECHNIQUE: Single view of the chest is submitted. FINDINGS: Demonstrated are scattered senescent parenchymal change. Resolution of right basilar infiltrate and/or atelectasis with improving left lower lobe infiltrate a nd/or atelectasis noted. The upper lobes are well aerated. The heart is stable. Hilar and mediastinal structures are within normal limits. Degenerative changes are seen of the dorsal spine. IMPRESSION: 1. Resolution of right basilar infiltrate and/or atelectasis with improving left lower lobe infiltra te and/or atelectasis noted.
[2020-10-12 08:30] LABS: Basophils % (A) 0 %; Eosinophils % (A) 0 %; HCT 33.6 % (39.0-53.0); HGB 11.3 gm/dL (13.0-17.5); Lymphocytes # (A) 0.4 k/uL (1.0-4.8); Lymphocytes % (A) 4 %; MCH 33.1 pg (25.0-35.0); MCHC 33.7 g/dL (31.0-37.0); MCV 98.3 fL (80.0-100.0); Mean Platelet Volume 7.9; Monocytes # (A) 0.3 k/uL (0-1.0); Monocytes % (A) 2 %; Neutrophils # (A) 10.5 k/uL (1.3-7.7); Neutrophils % (A) 93 %; Platelet Count 339 k/uL (150-450); RBC 3.41 m/uL (4.30-5.90); RDW 13.5 % (11.5-15.5); WBC 11.3 k/uL (3.8-10.6)
[2020-10-12 08:38] LABS: African American GFR (CKD) >90 (>60 ml/min/1.73 sqM); Anion Gap 8 mmol/L; Blood Urea Nitrogen 38 mg/dL (9-20); Calcium 9.2 mg/dL (8.4-10.2); Carbon Dioxide 31 mmol/L (22-30); Chloride 100 mmol/L (98-107); Glucose 204 mg/dL (74-99); Non-African American GFR(CKD) >90 (>60 ml/min/1.73 sqM); Potassium 4.6 mmol/L (3.5-5.1); Sodium 139 mmol/L (137-145)
[2020-10-12] MEDS ORDERED: FUROSEMIDE 40 MG TAB PO SCH (09:00)
[2020-10-12] MEDS: HEPARIN SODIUM,PORCINE 5,000 UNIT/ML 1 ML VIAL SQ SCH (09:29)
[2020-10-12] MEDS: ASPIRIN 81 MG PO SCH (09:29)
[2020-10-12] MEDS: CLOPIDOGREL 75 MG TAB PO SCH (09:30)
[2020-10-12] MEDS: METOPROLOL TARTRATE 25 MG TAB PO SCH (09:30)
[2020-10-12] MEDS: AZITHROMYCIN 500 MG TAB PO SCH (09:30)
--- NOTE | 2020-10-12 10:42 | P.PN ---
Subjective Progress Note Date: 10/12/20 This is a pleasant 69-year-old gentleman who has recently seen Dr. Alves as a new patient in the office. He has a known history of coronary artery disease with recent coronary artery bypass grafting surgery which was performed [facility], history of hypertension, hyperlipidemia, patient was [place] vacation in, developed chest pain, underwent a cardiac catheterization and was found to have severe triple-vessel coronary artery disease but only underwent a one- vessel bypass were awaiting records from [facility] to review. He presented to the hospital on this admission with symptoms of shortness of breath with productive cough of green sputum. He was seen in consultation yesterday by Dr. Alves. Echo revealed an ejection fraction of 45-50%. Blood pressure 117/50 with a heart rate in the 70s, 94% on room air. White blood cell count 9.6, hemoglobin 12.9, platelet count 328. Sodium 138, potassium 4.9, BUN 33, creatinine 0.7. 10/12/2020 Patient seen and examined this morning, sitting up in the chair at bedside, overall feels well, denies any shortness of breath, no palpitations. He is currently on oral diuretics, anticipating a possible discharge home today. Blood pressure 120/60 with a heart rate in the 80s, 95% on 2 L of oxygen. White blood cell count 11.3, hemoglobin 11.3, platelet count 339. Sodium 139, potassium 4.6, BUN 38, creatinine 0.8. Objective - Vital Signs Vital signs: Vital Signs Temp 98.2 F 10/12/20 04:00 Pulse 80 10/12/20 04:00 Resp 17 10/12/20 04:00 BP 120/64 10/12/20 04:00 Pulse Ox 95 10/12/20 04:00 Intake & Output 10/11/20 10/12/20 10/12/20 18:59 06:59 18:59 Intake Total 900 180 Balance 900 180 Weight 85.2 kg Intake: Oral 900 180 - Exam PHYSICAL EXAMINATION: GENERAL: 69-year-old gentleman in no acute distress at the time of my examination HEENT: Head is atraumatic, normocephalic. Pupils equal, round. Sclera anicteric. Conjunctiva are clear. Mucous membranes of the mouth are moist. Neck is supple. There is no elevated jugular venous pressure. No carotid bruit is heard. HEART EXAMINATION: Heart S1, S2 normal. No murmur or gallop heard. CHEST EXAMINATION: Lungs are clear with fine crackles to the bases bilaterally ABDOMEN: Soft, nontender. Bowel sounds are heard. No organomegaly noted. EXTREMITIES: 2+ peripheral pulses with no evidence of peripheral edema and no calf tenderness noted. NEUROLOGIC patient is awake, alert and oriented X3 . - Labs CBC & Chem 7: 10/12/20 08:01 10/12/20 08:01 Labs: Abnormal Lab Results - Last 24 Hours (Table) 10/11/20 10/11/20 10/11/20 Range/Units 08:07 12:02 16:45 WBC (3.8-10.6) k/uL RBC (4.30-5.90) m/uL Hgb (13.0-17.5) gm/dL Hct (39.0-53.0) % Neutrophils # (1.3-7.7) k/uL Lymphocytes # (1.0-4.8) k/uL Carbon Dioxide (22-30) mmol/L BUN (9-20) mg/dL Glucose (74-99) mg/dL POC Glucose (mg/dL) 222 H 222 H (75-99) mg/dL Magnesium 2.4 H (1.6-2.3) mg/dL 10/11/20 10/12/20 10/12/20 Range/Units 20:43 06:22 08:01 WBC 11.3 H (3.8-10.6) k/uL RBC 3.41 L (4.30-5.90) m/uL Hgb 11.3 L (13.0-17.5) gm/dL Hct 33.6 L (39.0-53.0) % Neutrophils # 10.5 H (1.3-7.7) k/uL Lymphocytes # 0.4 L (1.0-4.8) k/uL Carbon Dioxide (22-30) mmol/L BUN (9-20) mg/dL Glucose (74-99) mg/dL POC Glucose (mg/dL) 227 H 160 H (75-99) mg/dL Magnesium (1.6-2.3) mg/dL 10/12/20 Range/Units 08:01 WBC (3.8-10.6) k/uL RBC (4.30-5.90) m/uL Hgb (13.0-17.5) gm/dL Hct (39.0-53.0) % Neutrophils # (1.3-7.7) k/uL Lymphocytes # (1.0-4.8) k/uL Carbon Dioxide 31 H (22-30) mmol/L BUN 38 H (9-20) mg/dL Glucose 204 H (74-99) mg/dL POC Glucose (mg/dL) (75-99) mg/dL Magnesium (1.6-2.3) mg/dL Microbiology - Last 24 Hours (Table) 10/09/20 20:47 Gram Stain - Final Sputum Sputum Culture - Final 10/09/20 08:49 Blood Culture - Preliminary Blood No Growth after 48 hours Assessment and Plan Plan: Assessment and plan #1 hypoxemia, shortness of breath and cough likely secondary to pneumonia with possible underlying COPD #2 mild congestive heart failure, systolic acute on chronic #3 coronary artery disease with recent one-vessel bypass #4 mild ischemic cardio myopathy #5 hypertension #6 hyperlipidemia Plan From cardiology's perspective, we'll continue the patient on his current medications. He may be able to be discharged home from our standpoint to follow-up with Dr. Alves in the office post discharge. DNP note has been reviewed, I agree with a documented findings and plan of care. Patient was seen and examined.
--- NOTE | 2020-10-12 11:02 | P.DS ---
Providers Date of admission: 10/09/20 10:27 Attending physician: Ángel Sykes Consults: 10/09/20 10:01 Consult Physician Routine Consulting Provider: Stalin Schmidt Consult Reason/Comments: pl effusion Do you want consulting provider notified?: Yes Consult Physician Routine Consulting Provider: Juan Carlos Mason Consult Reason/Comments: cad, PL EFF Do you want consulting provider notified?: Yes Primary care physician: [facility] Course: This is a 69-year-old male patient of Dr. Sykes with past medical history of hypertension. Patient states that he was on vacation in [place] and had a myocardial infarction on September 21. He initially went to medical in [facility] and was transferred then to [facility]. He underwent open heart surgery on September 23 for LAD. He was also advised that he had aortic valve calcification. Patient is unsure of further plan for intervention. 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 He states that he has been walking on a regular basis and usually his pulse ox is 95-96%. This morning his pulse ox was 88%. He does not have home oxygen. He does complain of green sputum production. Patient came into [facility] emergency center for evaluation. Chest x-ray reveals heart failure exacerbation with mild cardiomegaly and new small bilateral pleural effusions. Bibasilar acute infiltrate and/or atelectasis noted. EKG is a sinus rhythm with right bundle branch block. Temperature max 100.7. Heart rate 87, blood pressure 129/75, pulse ox 96% on room air. CBC was unremarkable. Electrolytes and renal function normal. Blood sugar 112. ALT 50. Potassium 4.5, magnesium 2.2. Over 19 is not detected. Influenza testing negative. Patient admitted to the cardiac stepdown unit and consult requested with cardiology and pulmonary medicine. 10/10: Patient is seen today on the cardiac stepdown unit. His breathing status is currently stable. He continues have shortness of breath and shortness of breath with activity. He has been seen by pulmonary medicine and feels this is more pneumonia versus heart failure/pleural effusions. Lasix decreased to 40 mg IV daily. Patient is on DuoNeb treatments, azithromycin, ceftriaxone. Consult placed with cardiology as well. Patient has been afebrile, heart rate 59, blood pressure 133/70, pulse ox 92% on 2 L nasal cannula. 10/11: Patient is found sitting up at the side of the bed with no new complaints or concerns. Patient is in no distress at this time. He states that he is feeling much better the shortness of breath has significantly improved. Patient remained afebrile, heart rate 82, respirations 18, blood pressure 117/58. WC 9.6, hemoglobin 12.1, potassium 4.9, BUN 33, creatinine 0.76 10/12: Patient is currently sitting up in bed in no acute distress. Patient is noted complaint or concerns. He is anxious to go home today. He states that he is feeling much better and breathing easier. Patient remained afebrile. Discharge diagnosis: 1. Respiratory distress secondary to a combination of pleural effusions and possible pneumonia and atelectasis. 2. Bilateral pleural effusions. 3. Possible pneumonia and atelectasis. 4. Recent myocardial infarction September 21 status post CABG, 1 vessel. 5. History of tobacco use and dependence, quit September 21. Discharge disposition: Home with self-care Impression and plan of care have been directed as dictated by the signing physician. Sisi Hogan nurse practitioner acting as scribe for signing physician. Plan - Discharge Summary New Discharge Prescriptions: New Dexamethasone [Decadron] 4 mg PO BID #10 tablet Furosemide [Lasix] 40 mg PO DAILY #30 tab Pantoprazole [Protonix] 40 mg PO AC-BRKFST #30 tablet. Azithromycin [Zithromax] 500 mg PO DAILY #5 tab Continue Metoprolol Tartrate [Lopressor] 25 mg PO BID HYDROcodone/APAP 5-325MG [Lester 5-325] 1 tab PO Q4HR PRN PRN Reason: Pain Clopidogrel [Plavix] 75 mg PO DAILY Atorvastatin [Lipitor] 40 mg PO HS Albuterol Sulfate [Proair Hfa] 1 - 2 puff INHALATION RT-Q4H PRN PRN Reason: Shortness Of Breath Aspirin EC [Ecotrin Low Dose] 81 mg PO DAILY Discharge Medication List Albuterol Sulfate [Proair Hfa] 1 - 2 puff INHALATION RT-Q4H PRN 10/09/20 [History] Aspirin EC [Ecotrin Low Dose] 81 mg PO DAILY 10/09/20 [History] Atorvastatin [Lipitor] 40 mg PO HS 10/09/20 [History] Clopidogrel [Plavix] 75 mg PO DAILY 10/09/20 [History] HYDROcodone/APAP 5-325MG [Lester 5-325] 1 tab PO Q4HR PRN 10/09/20 [History] Metoprolol Tartrate [Lopressor] 25 mg PO BID 10/09/20 [History] Azithromycin [Zithromax] 500 mg PO DAILY #5 tab 10/12/20 [Rx] Dexamethasone [Decadron] 4 mg PO BID #10 tablet 10/12/20 [Rx] Furosemide [Lasix] 40 mg PO DAILY #30 tab 10/12/20 [Rx] Pantoprazole [Protonix] 40 mg PO AC-BRKFST #30 tablet. 10/12/20 [Rx] Follow up Appointment(s)/Referral(s): Ángel Sykes MD [Primary Care Provider] - 1-2 days (OFFICES ARE CLOSED PLEASE CALL TUESDAY TO MAKE A FOLLOW UP APPOINTMENT) [facility], [NON-STAFF] - (OFFICES ARE CLOSED PLEASE CALL TUESDAY TO MAKE A FOLLOW UP APPOINTMENT) Patient Instructions/Handouts: COPD (Chronic Obstructive Pulmonary Disease) (DC), Pneumonia (DC), Hospital Acquired Pneumonia (DC) Activity/Diet/Wound Care/Special Instructions: PNEUMONIA Continue coughing and breathing exercises to help clear your lungs of secretions. Sit upright during the day to promote lung expansion. Avoid lying flat. Use incentive spirometer every hour to open your airways. Wash your hands before taking your medications or using your nebulizer. Drink clear liquids as directed; they can help loosen secretions. Avoid milk products, as these can make secretions thicker. Do not smoke, or be around others who smoke. Call your physician if your shortness of breath worsens, if you develop an increased fever greater than 101. COPD When to call your provider: Shortness of breath, wheezing, or trouble breathing that does not improve with rest and treatment Increase in the amount of mucus production Mucus that is yellow, green, bloody or smelly. Fever or chills Tightness in your chest that does not go away with your normal medication An irregular heartbeat or feeling that our heart is racing Trouble talking without shortness of breath Feeling increased lightheadedness or dizziness Feeling of doom Skin that is blue, billings, or purple in color. Weight loss, poor appetite, weakness, and fatigue What you can do to help manage your condition: Quit smoking Take your medications as directed. Prevent infection; wash your hands often, avoid crowds, get a flu shot Manage stress Do breathing and coughing exercises Stay active Eat a healthy diet
--- NOTE | 2020-10-14 17:53 | CDI ---
Documentation Clarification Form Date: 10/14/20 From: Mayra Martínez Phone: If you have a question about this query, please contact Alivia Mike, Child Advocate at [phone] between 8am and 5pm. Admit Date: 10/09/20 Discharge Date:10/12/20 Patient Name: Nicko Martinez Visit Number: [id number] ATTENTION: The Clinical Documentation Specialists (CDI) and [facility] Coding Staff appreciate your assistance in clarifying documentation. Please respond to the clarification below the line at the bottom and electronically sign. The CDI & [facility] Coding staff will review the response and follow-up if needed. Please note: Queries are made part of the Legal Health Record. If you have any questions, please contact the author of this message via ITS. Dear Dr. Sykes Conflicting documentation has been found in the medical record: Respiratory distress is documented in the H&P, discharge summary and your 10/10 - 10/11 progress notes. Acute hypoxic respiratory failure is documented Dr. Schmidt's consult note and progress notes. History/Risk Factors: Systolic CHF exacerbation, pneumonia, COPD, CAD, recent MO with CABG Clinical Indicators: Shortness of breath, coughing Tobacco Use: Smoked half a pack of cigarettes per day for 40 years and quit 09/21/2020 Home Oxygen: None Vital signs: T. 100.7, P. 87, R. 20, BP 129/75 Pulse Ox: 96% on room air on admission, 94% on 4 L of O2 per NC 2 hours after admission Lung/Breathing assessment: Diminished bilaterally with crackles. No intercostal retractions. Treatment: Breathing treatment: Duoneb inhalation, Albuterol inhalation O2: 2 - 4 L/min per NC In your opinion, what is the most clinically appropriate diagnosis for this patient? xx Acute Hypoxic Respiratory Failure Acute Respiratory Distress Other explanation of clinical findings Unable to determine (no explanation for clinical findings) MTDD
== END 2020-10-12 11:04 | disposition home or self-care (01) | DRG 193 ==
LOC: EC 08:02 → 3SCARD 10:27
PROVIDERS: ADMIT Internal Medicine Geriatric Medicine; ATTEND Internal Medicine Geriatric Medicine
DX: J18.9 Pneumonia, unspecified organism (principal); I50.23 Acute on chronic systolic (congestive) heart failure; I21.9 Acute myocardial infarction, unspecified; J96.01 Acute respiratory failure with hypoxia; J44.0 Chronic obstructive pulmonary disease with (acute) lower respiratory infection; J98.11 Atelectasis; I11.0 Hypertensive heart disease with heart failure; I25.10 Atherosclerotic heart disease of native coronary artery without angina pectoris; E78.5 Hyperlipidemia, unspecified; I25.5 Ischemic cardiomyopathy; I45.10 Unspecified right bundle-branch block; Z20.828 Contact with and (suspected) exposure to other viral communicable diseases; Z79.02 Long term (current) use of antithrombotics/antiplatelets; Z79.82 Long term (current) use of aspirin; Z79.899 Other long term (current) drug therapy; Z95.1 Presence of aortocoronary bypass graft; Z90.89 Acquired absence of other organs; Z87.891 Personal history of nicotine dependence; Z82.49 Family history of ischemic heart disease and other diseases of the circulatory system; Z82.0 Family history of epilepsy and other diseases of the nervous system
CPT/HCPCS: 36415; 71045; 71046; 80048; 80053; 83605; 83735; 83880; 84484; 85025; 85027; 85610; 85730; 87040; 87070; 87205; 87502; 87635; 93005; 93306; 94640; 96365; 96367; 96375; 99285

== ENCOUNTER → 2020-11-05 | Outpatient (CLI) | payer MEDICARE ==
[2020-11-05 13:50] LABS: HCT 38.7 % (39.0-53.0); HGB 12.7 gm/dL (13.0-17.5); MCH 31.6 pg (25.0-35.0); MCHC 32.7 g/dL (31.0-37.0); MCV 96.6 fL (80.0-100.0); Platelet Count 458 k/uL (150-450); Poikilocytosis Slight; RBC 4.01 m/uL (4.30-5.90); RDW 15.6 % (11.5-15.5); WBC 6.2 k/uL (3.8-10.6)
[2020-11-05 14:19] LABS: African American GFR (CKD) >90 (>60 ml/min/1.73 sqM); Anion Gap 9 mmol/L; Blood Urea Nitrogen 16 mg/dL (9-20); Carbon Dioxide 30 mmol/L (22-30); Chloride 100 mmol/L (98-107); Non-African American GFR(CKD) 89 (>60 ml/min/1.73 sqM); Potassium 4.4 mmol/L (3.5-5.1); Sodium 139 mmol/L (137-145)
== END | disposition home or self-care (01) ==
LOC: LABPAT 12:53
PROVIDERS: ATTEND Internal Medicine Interventional Cardiology
DX: Z01.818 Encounter for other preprocedural examination (principal); I25.10 Atherosclerotic heart disease of native coronary artery without angina pectoris
CPT/HCPCS: 80051; 82565; 84520; 85027

== ENCOUNTER 2020-11-12 12:37 | Day surgery (SDC) | payer MEDICARE ==
[2020-11-10 11:04] VITALS: BMI 25.9
[~2020-11-12 12:37] MED LIST changes: +ALPRAZolam 0.25 MG TAB PO PRN; +ALPRAZolam 0.5 MG TAB PO PRN; +ASPIRIN 325 MG TAB PO STA; +ATORVASTATIN 80 MG TAB PO STA; -DEXAMETHASONE SOD PHOSPHATE 10 MG/ML 1 ML VIAL IV ONE; -HEPARIN SODIUM,PORCINE 5,000 UNIT/ML 1 ML VIAL SQ ONE; -HYDROmorphone 1 MG/ML 1 ML SYRINGE IVP PRN; -MIDAZOLAM 2 MG/2 ML VIAL IV PRN; +NITROGLYCERIN SL TABS 0.4 MG TAB SUBLINGUAL PRN; -ONDANSETRON 4 MG/2 ML VIAL IVP ONE; +SODIUM CHLORIDE 0.9% 1,000 ML in EMPTY BAG 1 BAG IV ONE; -ceFAZolin 2 GM in SODIUM CHLORIDE 0.9% 100 ML IVPB ONE
[2020-11-12] MEDS ORDERED: SODIUM CHLORIDE 0.9% 1,000 ML IV ONE ×2 (13:07→16:28)
[2020-11-12] MEDS ORDERED: LIDOCAINE 1% INJ 10MG/ML (20 ML MDV) ONE (15:35)
[2020-11-12] MEDS ORDERED: MIDAZOLAM 2 MG/2 ML VIAL IV ONE (16:04)
[2020-11-12] MEDS ORDERED: LIDOCAINE 1% INJ 10MG/ML (20 ML MDV) SQ ONE (16:05)
[2020-11-12] MEDS ORDERED: fentaNYL (PF) 50 MCG/ML 2 ML AMP ONE (16:06)
[2020-11-12] MEDS: fentaNYL (PF) 50 MCG/ML 2 ML AMP IV ONE ×2 (16:09→16:16)
[2020-11-12] MEDS: NITROGLYCERIN 1000MCG/10ML SYRINGE INTRACORON ONE ×2 (16:17→16:40)
[2020-11-12] MEDS: MIDAZOLAM 2 MG/2 ML VIAL IV ONE ×2 (16:20→16:34)
[2020-11-12] MEDS ORDERED: BIVALIRUDIN BOLUS 250 MG/50 ML IV ONE (16:23)
[2020-11-12] MEDS ORDERED: BIVALIRUDIN 250 MG in SODIUM CHLORIDE 0.9% 50 ML IV ONE (16:24)
[2020-11-12] MEDS ORDERED: niCARdipine 25 MG/10 ML VIAL ONE (16:31)
[2020-11-12] MEDS ORDERED: CLOPIDOGREL 75 MG TAB ONE (16:41)
[2020-11-12] MEDS ORDERED: CLOPIDOGREL 75 MG TAB PO ONE (16:43)
[2020-11-12] MEDS ORDERED: IOPAMIDOL-370 125ML BTL INJ ONE (16:43)
[2020-11-12] MEDS ORDERED: HYDROcodone/APAP 5-325MG 1 EACH TAB PO PRN (16:51)
[2020-11-12] MEDS ORDERED: ZOLPIDEM 5 MG TAB PO PRN (16:52)
[2020-11-12] MEDS ORDERED: RX INFO: IV CONTRAST WAS GIVEN 1 EACH MISC MISCELLANE PRN (16:52)
[2020-11-12] MEDS ORDERED: NITROGLYCERIN SL TABS 0.4 MG TAB SUBLINGUAL PRN (16:52)
[2020-11-12] MEDS ORDERED: ATROPINE SULFATE 0.1 MG/ML 10ML SYRINGE IV PRN (16:52)
[2020-11-12] MEDS ORDERED: MAG HYDROX/AL HYDROX/SIMETH 30 ML CUP PO PRN (16:52)
[2020-11-12] MEDS ORDERED: SODIUM CHLORIDE 0.9% 1,000 ML IV SCH (17:00)
--- NOTE | 2020-11-12 17:34 | LTR ---
DATE OF SERVICE: 11/12/2020 RE: Nicko Martinez Dear Dr. Sykes; Mr. Nicko Martinez underwent today successful atherectomy and stenting of the RCA with good angiographic results and without any complication. I want to thank you for allowing us to participate in his care and please do not hesitate to call if you have any question or concern. Sincerely, Juan Carlos Mason MD MMMARKL / JOSHN: [id number] /
--- NOTE | 2020-11-12 17:43 | CC ---
CARDIAC CATHETERIZATION REPORT DATE OF SERVICE: 11/12/2020 PERFORMING PHYSICIAN: Juan Carlos Mason M.D. PROCEDURES PERFORMED: 1. Selective left and right coronary angiogram. 2. Left heart catheterization. 3. Atherectomy of the right coronary artery using the orbital atherectomy device. 4. Successful stenting of the mid right coronary artery using a 3.5 x 18 mm Xience drug-eluting stent with an excellent angiographic result and reduction of stenosis from 70% to 0%. 5. Placement of transvenous temporary pacemaker from right groin. 6. Right common femoral artery angiogram. INDICATION: This is a 69-year-old gentleman with coronary artery disease and prior coronary artery bypass grafting with STANLEY to LAD. He was experiencing symptoms of increasing shortness of breath with exertion. Beside that, he was experiencing symptoms of being tired and fatigued. He underwent a heart catheterization recently at [facility] and was found to have severe triple-vessel coronary artery disease, but he underwent pump STANLEY to LAD without bypassing the RCA and left circumflex. Because he continues to be symptomatic, I brought him today for a heart catheterization. APPROACH: Right common femoral artery and right common femoral vein. COMPLICATIONS: None. LEVEL OF SEDATION: Moderate, with sedation length of 41 minutes. PROCEDURE DESCRIPTION: After obtaining informed consent, the patient was brought to the cardiac qc lab technician. The right common femoral vein and the right common femoral artery were cannulated using micropuncture technique. The micropuncture wire passed easily. Then I placed a 6-Cameroonian sheath at the vein and a 6-Cameroonian sheath at the artery. I did place under fluoroscopic guidance transvenous temporary pacemaker at the right ventricle where the pacemaker was placed at a back-up heart rate of 60 and amp 5. Subsequently I did selective left and right coronary angiogram using JL4 and JR4 catheters. Left heart catheterization was performed using 6-Cameroonian pigtail catheter. After that I did intervene on the RCA. Please see separate paragraph for that. SELECTIVE CORONARY ANGIOGRAM: 1. The left main. The ostial left main appeared to have a lesion in the range of 60%. It bifurcates into LCX and LAD. 2. The LCX is a large-caliber vessel. It is a nondominant vessel. The proximal left circumflex appeared to be angiographically normal. The mid circumflex is normal and gives rise to a large OM branch which has a lesion that appeared to be in the range of 50% to 60%. The left circumflex continues after that as a moderate-caliber vessel in the AV groove. 3. The LAD. The ostial LAD has a lesion that appeared to be in the range of 50%. The proximal to mid LAD just before the STANLEY anastomosis has a lesion that appeared to be in the range of 90%. I can see competitive flow to the LAD coming from the STANLEY. 4. The RCA is a large-caliber vessel. It is a dominant vessel. The RCA is calcified with a lesion in the mid portion that appeared to be in the range of 60% to 70%. The mid RCA has mild disease only and the RCA distally appeared to have mild disease only and bifurcates into PDA and PLV branches; both appeared to be angiographically normal. 5. HEMODYNAMICS: The LVEDP was 10 to 12 mmHg with mild gradient across the aortic valve. PERCUTANEOUS CORONARY INTERVENTION OF THE RIGHT CORONARY ARTERY: Anticoagulation was initiated using Angiomax. Subsequently I did engage the RCA using a JR4 guide. I did wire the RCA using the [facility] wire. After that I did atherectomy using the lark atherectomy device and using 3 runs under low speed. After that balloon angioplasty was achieved using a 2.5 mm balloon before I did before I deployed a 3.5 x 18 mm Xience drug-eluting stent where the stent was positioned under fluoroscopic guidance and deployed under 12 atmospheres for 20 seconds. The following angiogram showed good angiographic results and the procedure was completed without any complication. CONCLUSION: 1. Severe triple-vessel coronary artery disease. 2. Patent STANLEY to LAD. 3. Intermediate to severe lesion involving the mid RCA with calcified lesion. 4. I did successful stenting of the RCA as described above. POST-PROCEDURE MANAGEMENT: 1. Dual anti-platelet therapy. 2. Risk factor modifications. 3. Follow up with the patient. MMODL / IJN: [id number] /
[2020-11-12] MEDS: METOPROLOL TARTRATE 25 MG TAB PO SCH (17:49)
[2020-11-13 03:36] VITALS: RESP 16; TEMP 98.1
[2020-11-13] MEDS ORDERED: PANTOPRAZOLE 40 MG TABLET PO SCH (07:30)
[2020-11-13] MEDS: METOPROLOL TARTRATE 25 MG TAB PO SCH (08:38)
[2020-11-13 08:48] LABS: Basophils % (A) 1 %; Eosinophils # (A) 0.1 k/uL (0-0.7); Eosinophils % (A) 1 %; HCT 34.9 % (39.0-53.0); HGB 11.6 gm/dL (13.0-17.5); Lymphocytes # (A) 1.1 k/uL (1.0-4.8); Lymphocytes % (A) 20 %; MCH 32.5 pg (25.0-35.0); MCHC 33.2 g/dL (31.0-37.0); MCV 98.1 fL (80.0-100.0); Mean Platelet Volume 7.1; Monocytes # (A) 0.4 k/uL (0-1.0); Monocytes % (A) 8 %; Neutrophils # (A) 3.8 k/uL (1.3-7.7); Neutrophils % (A) 68 %; Platelet Count 304 k/uL (150-450); RBC 3.56 m/uL (4.30-5.90); RDW 15.4 % (11.5-15.5); WBC 5.6 k/uL (3.8-10.6)
[2020-11-13] MEDS ORDERED: FUROSEMIDE 40 MG TAB PO SCH (09:00)
[2020-11-13] MEDS ORDERED: CLOPIDOGREL 75 MG TAB PO SCH (09:00)
[2020-11-13] MEDS ORDERED: ASPIRIN 81 MG PO SCH (09:00)
[2020-11-13 09:04] LABS: African American GFR (CKD) >90 (>60 ml/min/1.73 sqM); Anion Gap 5 mmol/L; Blood Urea Nitrogen 17 mg/dL (9-20); Calcium 8.7 mg/dL (8.4-10.2); Carbon Dioxide 29 mmol/L (22-30); Chloride 105 mmol/L (98-107); Glucose 140 mg/dL (74-99); Non-African American GFR(CKD) >90 (>60 ml/min/1.73 sqM); Potassium 4.4 mmol/L (3.5-5.1); Sodium 139 mmol/L (137-145)
[2020-11-13 10:17] VITALS: BP 154/68; PULSE 75
--- NOTE | 2020-11-13 10:21 | DS ---
DISCHARGE SUMMARY ADMISSION DATE: 11/12/2020 DISCHARGE DATE: 11/13/2020 BRIEF HISTORY: This is a 69-year-old gentleman who underwent yesterday successful atherectomy and stenting of the right coronary artery with good angiographic results and without any complication. The patient is going to be discharged home on dual anti-platelet therapy as well as statin and I will follow up with the patient next week in the office. DAVE / SIMBA: [id number] /
--- NOTE | 2020-11-13 17:45 | P.CONS ---
History of Present Illness - Reason for Consult Consult date: 11/13/20 - History of Present Illness HISTORY OF PRESENT ILLNESS This is a 69-year-old male patient of Dr. Sykes and Dr. Masonwith past medical history of hypertension. Patient states that he was on vacation in [place] and had a myocardial infarction on September 21. He initially went to medical in [facility] and was transferred then to [facility]. He underwent open heart surgery on September 23 for LAD. He has had increasing symptoms of shortness of breath with exertion and was brought back in the hospital by Dr. Mason and underwent left heart catheterization and successful stenting of the mid right coronary artery. Patient denies any complaints today. He denies any chest pain, shortness of breath. No cough. No abdominal pain, nausea vomiting or diarrhea. He is scheduled for discharge home today. REVIEW OF SYSTEMS Constitutional: No fever, no chills, no night sweats. No weight change. No weakness, fatigue or lethargy. No daytime sleepiness. EENT: No headache. No blurred vision or double vision, no loss of vision. No loss of Hearing, no ringing in the ears, no dizziness. No nasal drainage or congestion. No epistaxis. No sore throat. Lungs: No shortness of breath, cough, no sputum production. No wheezing. Cardiovascular: No chest pain, no lower extremity edema. No palpitations. No paroxysmal nocturnal dyspnea. No orthopnea. No lightheadedness or dizziness. No syncopal episodes. Abdominal: No abdominal pain. No nausea, vomiting. No diarrhea. No constipation. No bloody or tarry stools. No loss of appetite. Genitourinary: No dysuria, increased frequency, urgency. No urinary retention. Musculoskeletal: No myalgias. No muscle weakness, no gait dysfunction, no frequent falls. No back pain. No neck pain. Integumentary: No wounds, no lesions. No rash or pruritus. No unusual bruising. No change in hair or nails. Neurologic: No aphasia. No facial droop. No change in mentation. No head injury. No headache. No paralysis. No paresthesia. Psychiatric: No depression. No anxiety. No mood swings. Endocrine: No abnormal blood sugars. No weight change. No excessive sweating or thirst. No cold intolerance. SOCIAL HISTORY Patient smoked a half a pack of cigarettes per day for 40 years and quit 09/21/2020. He states he drinks a few beers occasionally. No illicit drug use or marijuana use. Patient is and lives at home with his . FAMILY HISTORY Mother at age 98 from coronary artery disease. Father age 71 from ALS. Patient has 2 sisters with no major medical problems. He does not have any children. PHYSICAL EXAMINATION Gen: This is a 69-year-old male. He is on the ER stretcher and appears to be comfortable and in no acute distress. HEENT: Head is atraumatic, normocephalic. Pupils equal, round. Sclerae is anicteric. NECK: Supple. No JVD. No lymphadenopathy. No thyromegaly. LUNGS: Diminished bilaterally with crackles. No intercostal retractions. HEART: Regular rate and rhythm. 2/6 systolic murmur at the apex radiating to the right second intercostal space. ABDOMEN: Soft. Bowel sounds are present. No masses. No tenderness. EXTREMITIES: No pedal edema. No calf tenderness. Dorsalis pedis bilateral palpable. NEUROLOGICAL: Patient is awake, alert and oriented x3. Cranial nerves 2 through 12 are grossly intact. ASSESSMENT AND PLAN 1. Coronary artery disease status post stent right coronary artery. Patient has been continued on aspirin 81 mg daily, Plavix 75 mg daily, Lipitor 40 mg at bedtime, Lopressor 25 mg twice daily, Lasix 40 mg daily. 2. Recent myocardial infarction September 21 status post CABG, 1 vessel. Continue as above 3. History of tobacco use and dependence, quit September 21. Patient states that he has not resumed smoking since last admission. 4. Hypertension. DISCHARGE PLAN home. Impression and plan of care have been directed as dictated by the signing physician. Meera Estrada nurse practitioner acting as scribe for signing physician. Past Medical History Past Medical History: Cancer, Hyperlipidemia, Hypertension, Myocardial Infarction ([place]), Pneumonia Additional Past Medical History / Comment(s): recent pneumonia,pleural effusion. prostate cancer-2016 Last Myocardial Infarction Date:: 1992 History of Any Multi-Drug Resistant Organisms: None Reported Past Surgical History: Coronary Bypass/CABG, Prostate Surgery, Tonsillectomy Additional Past Surgical History / Comment(s): CABG- 09/23/20. prostate 2007 Past Anesthesia/Blood Transfusion Reactions: No Reported Reaction Past Psychological History: No Psychological Hx Reported Smoking Status: Former smoker Past Alcohol Use History: Occasional Additional Past Alcohol Use History / Comment(s): quit in august 2020 Past Drug Use History: None Reported - Past Family History Mother Family Medical History: Deep Vein Thrombosis (DVT) Medications and Allergies Home Medications Medication Instructions Recorded Confirmed Type Albuterol Sulfate [Proair Hfa] 1 - 2 puff INHALATION RT-Q4H PRN 10/09/20 11/12/20 History Aspirin EC [Ecotrin Low Dose] 81 mg PO DAILY 10/09/20 11/12/20 History Atorvastatin [Lipitor] 40 mg PO HS 10/09/20 11/12/20 History Clopidogrel [Plavix] 75 mg PO DAILY 10/09/20 11/12/20 History Metoprolol Tartrate [Lopressor] 25 mg PO BID 10/09/20 11/12/20 History Furosemide [Lasix] 40 mg PO DAILY #30 tab 10/12/20 11/12/20 Rx Allergies Allergy/AdvReac Type Severity Reaction Status Date / Time No Known Allergies Allergy Verified 11/12/20 13:09 Physical Exam Vitals: Vital Signs Temp Pulse Resp BP BP BP Pulse Ox 11/13/20 03:34 98.1 F 73 16 154/71 94 L 11/13/20 00:00 98.2 F 70 18 127/60 92 L 11/12/20 20:44 60 144/69 11/12/20 20:38 56 L 168/68 11/12/20 20:32 60 156/69 11/12/20 20:30 58 L 151/72 11/12/20 20:24 60 147/72 11/12/20 20:22 158/72 11/12/20 20:18 57 L 162/72 11/12/20 20:14 156/72 11/12/20 20:12 159/74 11/12/20 20:09 97.9 F 60 18 139/69 139/69 96 11/12/20 18:37 62 16 145/61 96 11/12/20 18:07 61 18 152/71 96 11/12/20 17:37 65 18 150/70 97 11/12/20 17:22 69 18 163/71 97 11/12/20 13:29 98.7 F 90 16 170/88 159/74 98 Intake and Output 11/12/20 11/13/2011/13/20 22:59 06:59 14:59 Intake Total 659 240 240 Output Total 0 300 Balance 659 -60 240 Intake: IV 344 Intake, IV Titration 75 Amount Sodium Chloride 0.9% 1, 75 000 ml @ 75 mls/hr IV . [id number] ASHELY Rx#:[id number] Oral 240 240 240 Output: Urine 0 300 Other: # Voids 1 # Bowel Movements 1 Weight 76.8 kg 78.1 kg Results CBC & Chem 7: 11/13/20 08:05 11/13/20 08:05 Labs: Abnormal Lab Results - Last 24 Hours (Table) 11/13/20 Range/Units 08:05 RBC 3.56 L (4.30-5.90) m/uL Hgb 11.6 L (13.0-17.5) gm/dL Hct 34.9 L (39.0-53.0) %
[2020-11-13] MEDS ORDERED: ATORVASTATIN 40 MG TAB PO SCH (21:00)
== END 2020-11-13 10:30 | disposition home or self-care (01) ==
LOC: CATHCVL 12:37 → 3SCARD 16:45 → CATHCVL 11-13 10:30
PROVIDERS: ATTEND Internal Medicine Interventional Cardiology
DX: I25.110 Atherosclerotic heart disease of native coronary artery with unstable angina pectoris (principal); I25.2 Old myocardial infarction; I10 Essential (primary) hypertension; E78.5 Hyperlipidemia, unspecified; Z95.1 Presence of aortocoronary bypass graft; Z87.891 Personal history of nicotine dependence; Z79.02 Long term (current) use of antithrombotics/antiplatelets; Z79.82 Long term (current) use of aspirin; Z79.899 Other long term (current) drug therapy; Z82.49 Family history of ischemic heart disease and other diseases of the circulatory system
CPT/HCPCS: 93458; 80048; 85025; C9602; C1887; C1725; C1894 ×2; C1769 ×4; C1724; C1874; J2250; J2001; J3010; J0583; Q9967

== ENCOUNTER → 2022-05-15 | Outpatient (CLI) | payer MEDICARE ==
--- NOTE | 2022-05-16 13:09 | MR ---
EXAMINATION TYPE: MR brain wo/w con DATE OF EXAM: 05/15/2022 COMPARISON: CT brain 08/23/2019 HISTORY: Dizziness, Malignant melanoma of eyelid TECHNIQUE: Multiplanar, multisequence images of the brain and brainstem is performed without and with IV contras t, utilizing 8 mL intravenous Gadavist . FINDINGS: Diffusion weighted images demonstrate no evidence of a recent infarct or other diffusion ab normality. There is no extra-axial fluid collection. There are scattered and confluent periventricul ar, pericallosal and subcortical hyperintensities on inversion recovery and T2-weighted sequences, so me focal encephalomalacia present in the right frontal lobe, axial image #24 precontrast, postcontras t image number 23. The ventricular system and cisternal spaces are normal in size and appearance. Th e brain volume is age appropriate. Midline structures demonstrate normal morphology. The craniocervical junction appears within normal limits. Post contrast images demonstrate no abnormal enhancement. The dural venous sinuses appear pa tent. The visualized sinuses are showing some inflammatory change within the ethmoid air cells and th e globes are intact. IMPRESSION: Age-related changes of atrophy and chronic small vessel ischemia
== END | disposition home or self-care (01) ==
LOC: RADMRIMAIN 08:23
PROVIDERS: ATTEND Nurse Practitioner Gerontology
DX: C43.10 Malignant melanoma of unspecified eyelid, including canthus (principal); I67.82 Cerebral ischemia; G31.9 Degenerative disease of nervous system, unspecified
CPT/HCPCS: 70553; A9585

== ENCOUNTER → 2022-08-31 | Outpatient (CLI) | payer MEDICARE ==
--- NOTE | 2022-08-31 12:34 | XR ---
EXAMINATION TYPE: XR cervical spine comp DATE OF EXAM: 08/31/2022 TECHNIQUE: Frontal, lateral, oblique, and open mouth view of the cervical spine are obtained. HISTORY: M54.12 RADICULOPATHY, CERVICAL REGION neck pain and stiffness. COMPARISON: CT neck June 13, 2022 FINDINGS: The cervical spine is visualized from C1 thru the top of C7 level, there is persistent gra de 1 retrolisthesis C3 on C4. The pre-vertebral soft tissue appears within normal limits. The C1-C2 articulation is within normal limits on the open mouth view. Vertebral body heights are maintained. Moderate disc space narrowing C3-C4 level greatest posteriorly is redemonstrated. Moderate disc space narrowing at C5-C6 level redemonstrated. Advanced disc space narrowing C6-C7 level again seen. Subop timal evaluation of C7 vertebra and C7-T1 disc space without dedicated swimmer's view. The oblique im ages redemonstrate multilevel uncovertebral facet degenerative changes contributing to multilevel ti ateral neural foraminal narrowing. Moderate to severe calcified plaque centered near bilateral caroti d bulbs is redemonstrated in the overlying soft tissue. Additional right neck surgical clips laterall y are redemonstrated. Partial visualization of sternal wires and mediastinal clips from CABG procedur e. IMPRESSION: As above.
== END | disposition home or self-care (01) ==
LOC: RADXRMAIN 12:05
PROVIDERS: ATTEND Internal Medicine Geriatric Medicine
DX: M54.12 Radiculopathy, cervical region (principal)
CPT/HCPCS: 72050

== ENCOUNTER 2022-09-14 08:04 | Inpatient (IN) | payer MEDICARE ==
[2022-09-14 08:20] LABS: Glucose,Whole Blood 109 mg/dL (70-110)
--- NOTE | 2022-09-14 08:23 | ED ---
General Adult HPI - General Chief complaint: Neuro Symptoms/Deficit Stated complaint: stroke symptoms Time Seen by Provider: 09/14/22 08:12 Source: patient, RN notes reviewed Mode of arrival: ambulatory Limitations: no limitations - History of Present Illness Initial comments: Patient is a pleasant 71-year-old male presenting to the emergency department with concerns with right arm weakness. Patient has had a couple episodes over the past month, noticed again this morning. Last known well was 6 PM yesterday. Symptoms were present when he woke this morning. Patient is having difficulty with right arm color coater. Patient is also having some intermittent delayed speech and does feel a little bit confused. Patient and do noticed this during history taking. No history of similar symptoms prior to the past month.Please use medication as discussed. Please follow-up with family doctor in the next 2 days of symptoms have not improved. Please return to emergency room if the symptoms increase or worsen or for any other concerns. His doctor regarding his symptoms and some evaluation has been done. - Related Data Home Medications Medication Instructions Recorded Confirmed Albuterol Sulfate [Proair Hfa] 2 puff INHALATION RT-Q6H PRN 10/09/20 09/14/22 Aspirin EC [Ecotrin Low Dose] 81 mg PO DAILY 10/09/20 09/14/22 Atorvastatin [Lipitor] 40 mg PO DAILY 10/09/20 09/14/22 Clopidogrel [Plavix] 75 mg PO DAILY 10/09/20 09/14/22 Metoprolol Tartrate [Lopressor] 25 mg PO BID 10/09/20 09/14/22 Colchicine 0.6 mg PO DAILY PRN 07/18/22 09/14/22 Losartan Potassium 50 mg PO DAILY 07/18/22 09/14/22 predniSONE 5 mg PO DAILY 07/18/22 09/14/22 Meclizine [Antivert] 12.5 mg PO BID PRN 09/14/22 09/14/22 Allergies Allergy/AdvReac Type Severity Reaction Status Date / Time No Known Allergies Allergy Verified 09/14/22 08:46 Review of Systems ROS Statement: Those systems with pertinent positive or pertinent negative responses have been documented in the HPI. ROS Other: All systems not noted in ROS Statement are negative. Constitutional: Denies: fever Eyes: Denies: eye pain ENT: Denies: ear pain Respiratory: Denies: cough Cardiovascular: Denies: chest pain Endocrine: Denies: fatigue Gastrointestinal: Denies: abdominal pain Genitourinary: Denies: dysuria Musculoskeletal: Denies: back pain Skin: Denies: rash Neurological: Reports: as per HPI, weakness, confusion. Denies: headache Past Medical History Past Medical History: Coronary Artery Disease (CAD), Hypertension Additional Past Medical History / Comment(s): NEW RX FOR HTN, PLANS TO START AFTER PROC Last Myocardial Infarction Date:: 1992 History of Any Multi-Drug Resistant Organisms: None Reported Past Surgical History: Coronary Bypass/CABG, Tonsillectomy Additional Past Surgical History / Comment(s): CABG- 09/23/20. prostate 2007 Past Anesthesia/Blood Transfusion Reactions: No Reported Reaction Past Psychological History: No Psychological Hx Reported Smoking Status: Current every day smoker Past Alcohol Use History: Occasional Past Drug Use History: None Reported - Past Family History Mother Family Medical History: Deep Vein Thrombosis (DVT) General Exam Limitations: no limitations General appearance: alert, in no apparent distress Head exam: Present: normocephalic, other (No temporal tenderness to palpation.) Eye exam: Present: normal appearance, PERRL, EOMI ENT exam: Present: normal oropharynx Neck exam: Present: normal inspection Respiratory exam: Present: normal lung sounds bilaterally Cardiovascular Exam: Present: regular rate, normal rhythm GI/Abdominal exam: Present: soft. Absent: tenderness Extremities exam: Present: normal inspection Neurological exam: Present: alert, CN II-XII intact Expanded Neurological exam: Present: other (Minimal delayed speech) Cranial nerves: EOM's Intact: Normal Cerebellar function: Finger to Nose: Abnormal Right Sensory exam: Upper Extremity Light Touch: Normal, Lower Extremity Light Touch: Normal Motor strength exam: RUE: 5, LUE: 5, RLE: 4, LLE: 5 Eye Response: (4) open spontaneously Motor Response: (6) obeys commands Verbal Response: (5) oriented Psychiatric exam: Present: normal affect, normal mood Skin exam: Present: normal color Course Vital Signs 09/14/22 09/14/22 08:05 09:01 Temperature 98.7 F Pulse Rate 72 64 Respiratory 18 14 Rate Blood Pressure 174/82 136/69 O2 Sat by Pulse 98 98 Oximetry - Reevaluation(s) Reevaluation #1: 09/14/22 08:38 Patient not considered a TPA candidate secondary to risks outweighing the benefits. Last known well was 6 PM, greater than 4.5 hours. Case was discussed with Dr. Granados 09/14/22 09:24 Case was earlier discussed with Dr. Mojica who agrees patient is not a TPA candidate. Case again discussed with Dr. mojica who will review the films and call back. 09/14/22 10:18 Case was again discussed with , who does have concern for minimal bleed in this area. He does recommend MRI and states patient should be held in our hospital. [facility] has been p[facility] for admission covering Dr. Sykes EKG Findings - EKG Comments: EKG Findings:: Sinus bradycardia rate 59. KS 170. QRS 150. QT 435. QTC 434. Normal axis. Right bundle branch block. Medical Decision Making - Medical Decision Making Patient reevaluated and improved. Case also discussed with Dr. murillo, who will admit coming for Dr. Sykes. - Lab Data Result diagrams: 09/14/22 08:28 09/14/22 08:28 Lab Results 09/14/22 09/14/22 09/14/22 Range/Units 08:19 08:28 08:28 WBC 4.6 (3.8-10.6) k/uL RBC 3.97 L (4.30-5.90) m/uL Hgb 13.1 (13.0-17.5) gm/dL Hct 36.5 L (39.0-53.0) % MCV 91.9 (80.0-100.0) fL MCH 32.9 (25.0-35.0) pg MCHC 35.8 (31.0-37.0) g/dL RDW 17.7 H (11.5-15.5) % Plt Count 309 (150-450) k/uL MPV 8.5 Neutrophils % (Manual) 48 % Lymphocytes % 31 % Lymphocytes % (Manual) 41 % Monocytes % 7 % Monocytes % (Manual) 11 % Eosinophils % 1 % Basophils % 1 % Neutrophils # 2.4 (1.3-7.7) k/uL Neutrophils # (Manual) 2.21 (1.3-7.7) k/uL Lymphocytes # 1.4 (1.0-4.8) k/uL Lymphocytes # (Manual) 1.89 (1.0-4.8) k/uL Monocytes # 0.3 (0-1.0) k/uL Monocytes # (Manual) 0.51 (0-1.0) k/uL Eosinophils # 0.0 (0-0.7) k/uL Basophils # 0.0 (0-0.2) k/uL Nucleated RBCs 0 (0-0) /100 WBC Polychromasia Present Poikilocytosis Slight Poikilocytosis (manual Present Anisocytosis Slight PT 10.4 (9.0-12.0) sec INR 0.9 (<1.2) APTT 23.2 (22.0-30.0) sec Sodium (137-145) mmol/L Potassium (3.5-5.1) mmol/L Chloride (98-107) mmol/L Carbon Dioxide (22-30) mmol/L Anion Gap mmol/L BUN (9-20) mg/dL Creatinine (0.66-1.25) mg/dL Est GFR (CKD-EPI)AfAm (>60 ml/min/1.73 sqM) Est GFR (CKD-EPI)NonAf (>60 ml/min/1.73 sqM) Glucose (74-99) mg/dL POC Glucose (mg/dL) 109 (70-110) mg/dL POC Glu Pest Control Worker ID [place], Caleb Calcium (8.4-10.2) mg/dL Total Bilirubin (0.2-1.3) mg/dL AST (17-59) U/L ALT (4-49) U/L Alkaline Phosphatase (38-126) U/L Troponin I (0.000-0.034) ng/mL Total Protein (6.3-8.2) g/dL Albumin (3.5-5.0) g/dL 09/14/22 09/14/22 Range/Units 08:28 08:28 WBC (3.8-10.6) k/uL RBC (4.30-5.90) m/uL Hgb (13.0-17.5) gm/dL Hct (39.0-53.0) % MCV (80.0-100.0) fL MCH (25.0-35.0) pg MCHC (31.0-37.0) g/dL RDW (11.5-15.5) % Plt Count (150-450) k/uL MPV Neutrophils % (Manual) % Lymphocytes % % Lymphocytes % (Manual) % Monocytes % % Monocytes % (Manual) % Eosinophils % % Basophils % % Neutrophils # (1.3-7.7) k/uL Neutrophils # (Manual) (1.3-7.7) k/uL Lymphocytes # (1.0-4.8) k/uL Lymphocytes # (Manual) (1.0-4.8) k/uL Monocytes # (0-1.0) k/uL Monocytes # (Manual) (0-1.0) k/uL Eosinophils # (0-0.7) k/uL Basophils # (0-0.2) k/uL Nucleated RBCs (0-0) /100 WBC Polychromasia Poikilocytosis Poikilocytosis (manual Anisocytosis PT (9.0-12.0) sec INR (<1.2) APTT (22.0-30.0) sec Sodium 140 (137-145) mmol/L Potassium 4.5 (3.5-5.1) mmol/L Chloride 103 (98-107) mmol/L Carbon Dioxide 28 (22-30) mmol/L Anion Gap 9 mmol/L BUN 22 H (9-20) mg/dL Creatinine 0.79 (0.66-1.25) mg/dL Est GFR (CKD-EPI)AfAm >90 (>60 ml/min/1.73 sqM) Est GFR (CKD-EPI)NonAf >90 (>60 ml/min/1.73 sqM) Glucose 111 H (74-99) mg/dL POC Glucose (mg/dL) (70-110) mg/dL POC Glu Pest Control Worker ID Calcium 9.0 (8.4-10.2) mg/dL Total Bilirubin 1.2 (0.2-1.3) mg/dL AST 25 (17-59) U/L ALT 24 (4-49) U/L Alkaline Phosphatase 91 (38-126) U/L Troponin I <0.012 (0.000-0.034) ng/mL Total Protein 6.6 (6.3-8.2) g/dL Albumin 4.3 (3.5-5.0) g/dL - Radiology Data Radiology results: report reviewed (Computed tomography scan of the brain shows questionable minimal hemorrhage left parietal probable small vessel chronic ischemic change. Atrophy. CT angios shows significant vascular disease, most significant left carotid siphon.), image reviewed (Chest x-ray shows no acute process) Critical Care Time Critical Care Time: Yes Total Critical Care Time: 32 Disposition Clinical Impression: Cerebrovascular accident (CVA) Disposition: ADMITTED IP TO THIS HOSP Is patient prescribed a controlled substance at d/c from ED?: No Referrals: Ángel Sykes MD [Primary Care Provider] - 1-2 days Time of Disposition: 10:43
[2022-09-14 08:47] LABS: Anisocytosis Slight; Basophils % (A) 1 %; Eosinophils % (A) 1 %; HCT 36.5 % (39.0-53.0); HGB 13.1 gm/dL (13.0-17.5); Lymphocytes # (A) 1.4 k/uL (1.0-4.8); Lymphocytes % (A) 31 %; MCH 32.9 pg (25.0-35.0); MCHC 35.8 g/dL (31.0-37.0); MCV 91.9 fL (80.0-100.0); Mean Platelet Volume 8.5; Monocytes # (A) 0.3 k/uL (0-1.0); Monocytes % (A) 7 %; Neutrophils # (A) 2.4 k/uL (1.3-7.7); Platelet Count 309 k/uL (150-450); Poikilocytosis Slight; RBC 3.97 m/uL (4.30-5.90); RDW 17.7 % (11.5-15.5); WBC 4.6 k/uL (3.8-10.6)
[2022-09-14 09:00] LABS: INR 0.9 (<1.2); Partial Thromboplastin Time 23.2 sec (22.0-30.0); Prothrombin Time 10.4 sec (9.0-12.0)
--- NOTE | 2022-09-14 09:01 | CT ---
EXAMINATION TYPE: CT brain wo con DATE OF EXAM: 09/14/2022 COMPARISON: CT brain 08/23/2019 HISTORY: CODE STROKE neurodeficit, acute stroke suspected, bilateral upper and lower extremity weakne ss CT DLP: 1158.5 mGycm Automated exposure control for dose reduction was used. Helical imaging through the brain FINDINGS: Periventricular white matter shows patchy low attenuation. Focal right frontal area of low-attenuatio n is an interval finding, axial image 39. There is no hydrocephalus. Focus of hypoattenuation in the periventricular white matter on the left, axial image 33 may represent a vessel on and but is indeter minate. Additionally adjacent to the posterior horn of the left lateral ventricle, axial image #26 th ere is an ill-defined area of increased attenuation. There are cerebral vascular calcifications. Clinical Pharmacist efrain cerebral atrophy is noted. The calvarium is intact. Paranasal sinuses and mastoid air cells are w ell aerated. IMPRESSION: CANNOT EXCLUDE HEMORRHAGE ALTHOUGH APPEARANCE IS ATYPICAL. THERE IS PROBABLE CHRONIC SMALL VESSEL ISC HEMIC CHANGE, AGE RELATED ATROPHY. Consider brain MRI for better evaluation.
[2022-09-14 09:04] LABS: ALT 24 U/L (4-49); AST 25 U/L (17-59); African American GFR (CKD) >90 (>60 ml/min/1.73 sqM); Albumin 4.3 g/dL (3.5-5.0); Alkaline Phosphatase 91 U/L (38-126); Anion Gap 9 mmol/L; Blood Urea Nitrogen 22 mg/dL (9-20); Carbon Dioxide 28 mmol/L (22-30); Chloride 103 mmol/L (98-107); Glucose 111 mg/dL (74-99); Non-African American GFR(CKD) >90 (>60 ml/min/1.73 sqM); Potassium 4.5 mmol/L (3.5-5.1); Sodium 140 mmol/L (137-145); Total Bilirubin 1.2 mg/dL (0.2-1.3); Total Protein 6.6 g/dL (6.3-8.2)
--- NOTE | 2022-09-14 09:08 | XR ---
EXAMINATION TYPE: XR chest 2V DATE OF EXAM: 09/14/2022 COMPARISON: 07/18/2022 HISTORY: 71-year-old male confusion, altered mental status TECHNIQUE: AP and lateral views FINDINGS: Median sternotomy wires and postoperative clips in the mediastinum. Heart upper limits of normal in s ize. Interstitial prominence is unchanged. No consolidation or pleural effusion. IMPRESSION: Post-CABG and chronic changes. No acute process seen.
[2022-09-14 09:42] LABS: Lymphocytes # (M) 1.89 k/uL (1.0-4.8); Monocytes # (M) 0.51 k/uL (0-1.0); Neutrophils # (M) 2.21 k/uL (1.3-7.7); Neutrophils % (M) 48 %; Nucleated Red Blood Cells 0 /100 WBC (0-0); Poikilocytosis (M) Present; Polychromasia Present; Total Cells Counted 100
--- NOTE | 2022-09-14 09:49 | CT ---
EXAMINATION TYPE: CT angio head neck DATE OF EXAM: 09/14/2022 HISTORY: Neuro deficit, acute, stroke suspected COMPARISON: MR brain 05/15/2022, CT brain 09/14/2022 CT DLP: 601.3 mGycm. Automated Exposure Control for Dose Reduction was Utilized. TECHNIQUE: CTA scan of the head and neck is performed without and with IV Contrast, patient injected with 65 ml mL of Isovue 370, axial images are obtained, coronal and sagittal reformatted images are reviewed. 3D reconstructed images are created on an independent workstation and reviewed. FINDINGS: Carotid/Vascular Structures: Extensive atheromatous changes are present within the transverse aorta, super aortic branch vessels. The innominate, left and right common carotid, left and right subclavian arteries are patent. Left and right vertebral arteries are patent, left vertebral artery is dominant . There is no significant stenosis of the proximal internal carotid artery on the right, atheromatous change is more significant on the left but less than 50% diameter reduction is noted, the left inter nal carotid artery is somewhat diminutive as compared to the right. Within the carotid siphon atheromatous narrowing appears significant in the internal carotid artery o n the left written right, there are cerebral vascular calcifications present. The brain shows no evid ent aneurysm, dissection, or embolus. Other: Incidental note made of thyroid nodules. Patient is post median sternotomy. IMPRESSION: Significant cerebral vascular disease thought to be most significant along the carotid si phon on the left. There are limitations on CTA for evaluation at this level. NASCET criteria was used in interpretation of this exam?
[2022-09-14] MEDS ORDERED: ALBUTEROL NEBULIZED 2.5 MG/3 ML INHALATION PRN (10:45)
[2022-09-14] MEDS ORDERED: MECLIZINE 12.5 MG TAB PO PRN (10:45)
--- NOTE | 2022-09-14 16:05 | MR ---
EXAMINATION TYPE: MR brain wo/w con DATE OF EXAM: 09/14/2022 COMPARISON: HISTORY: CVA. TECHNIQUE: Multiplanar, multisequence images of the brain and brainstem is performed without and with IV contras t, utilizing 8 mL intravenous Gadavist . FINDINGS: Diffusion weighted images demonstrate scattered areas of restricted diffusion involving the left frontal and parietal lobes with corresponding hyperintensity and inversion recovery and T2-weig hted sequences. There are additional chronic. Ventricular, pericallosal, subcortical hyperintensitie s on inversion recovery T2-weighted sequences, focal areas of encephalomalacia including the right fr ontal lobe, sagittal image 21 series 201, axial image 23 of series 501. Focus of restricted diffusion adjacent to the posterior horn of the left lateral ventricleThere also shows restricted diffusion, t here is enhancement at this level as well as the left frontal areas of restricted diffusion, axial im age #22, 18 is no extra-axial fluid collection. The ventricular system and cisternal spaces are norm al in size and appearance. The brain volume is stable. Midline structures demonstrate normal morphology. The craniocervical junction appears within normal limits. Post contrast images demonstrate no abnormal enhancement. The dural venous sinuses appear pa tent. The visualized sinuses are clear and the globes are intact. IMPRESSION: Findings consistent with subacute ischemia, consider embolic phenomenon. Chronic small ve ssel ischemic changes are also present
[2022-09-14] MEDS ORDERED: COLCHICINE 0.6 MG EACH PO PRN (17:32)
[2022-09-14] MEDS ORDERED: ALPRAZolam 0.25 MG TAB PO PRN (17:33)
[2022-09-14] MEDS ORDERED: NICOTINE 14MG/24HR PATCH TRANSDERM SCH (17:45)
[2022-09-14] MEDS: ASPIRIN 81 MG PO SCH (18:02)
[2022-09-14] MEDS: PANTOPRAZOLE 40 MG TABLET PO SCH (18:02)
[2022-09-14 18:59] LABS: C Reactive Protein 1.7 mg/dL (<1.0)
--- NOTE | 2022-09-14 19:09 | US ---
EXAMINATION TYPE: US carotid duplex BILAT DATE OF EXAM: 09/14/2022 COMPARISON: NONE CLINICAL HISTORY: stroke. Probable stroke, patient states no symptoms, other history states weakness in limbs for months TECHNIQUE: Carotid duplex ultrasound examination. Indirect Doppler criteria was utilized. 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 Criteria for Assigning % of Stenosis / Diameter reduction (Estimation based on the indirect measurements of the internal carotid artery velocities (ICA PSV). 1. Normal (no stenosis)=ICA PSV < 125 cm/s: ratio < 2.0: ICA EDV<40 cm/s. 2. Less than 50% stenosis=ICA PSV < 125 cm/s: ratio < 2.0: ICA EDV<40 cm/s. 3. 50 to 69% stenosis=ICA PSV of 125 to 230 cm/s: ration 2.0 ? 4.0: ICA EDV 40-100 cm/s. 4. Greater than 70% stenosis to near occlusion= ICA PSV > 230 cm/s: ratio > 4.0: ICA EDV > 100 cm/s. 5. Near occlusion= ICA PSV velocities may be low or undetectable: variable ratio and ICA EDV. 6. Total occlusion=unable to detect flow.
[2022-09-14] MEDS: LOSARTAN 50 MG TAB PO SCH (21:45)
[2022-09-14] MEDS: TICAGRELOR 90 MG TAB PO SCH (21:45)
[2022-09-14] MEDS: METOPROLOL TARTRATE 25 MG TAB PO SCH (21:45)
[2022-09-14] MEDS: HEPARIN SODIUM,PORCINE/PF 5,000 UNIT/0.5 ML SYRINGE SQ SCH (21:46)
[2022-09-14 22:13] LABS: Appearance,Urine Clear (Clear); Bilirubin,Urine Negative (Negative); Blood,Urine Negative (Negative); Color,Urine Yellow; Glucose,Urine (UA) Negative (Negative); Ketones,Urine Negative (Negative); Leukocyte Esterase,Urine Negative (Negative); Mucus,Urine Many /hpf; Nitrite,Urine Negative (Negative); PH, Urine 5.5 (5.0-8.0); Protein,Urine 1+ (Negative); RBC,Urine 2 /hpf (0-5); Specific Gravity,Urine >1.050 (1.001-1.035); Squamous Epithelial Cell,Urine <1 /hpf (0-4); WBC,Urine 1 /hpf (0-5)
--- NOTE | 2022-09-15 02:14 | HP ---
HISTORY AND PHYSICAL CHIEF COMPLAINTS: 1. Stroke-like symptoms. 2. Right arm weakness. HISTORY OF PRESENT ILLNESS: This 71-year-old gentleman with past medical history of multiple medical issues including CAD, CABG, being followed by Dr. Sykes in outpatient setting with complaints of right arm weakness. The patient also feeling dizzy. The patient also had difficulty walking. The patient came to [facility] and admitted for further evaluation treatment. Initial CAT scan of the brain showed suspicion how MRI done later and reviewed by neurologist, Dr. Granados showed subacute ischemia and embolic phenomena to be considered involving the left frontoparietal area. There is no history of fever, rigors, or chills at this time. PAST MEDICAL HISTORY: CAD, CABG, and hypertension. HOME MEDICATIONS: Reviewed include prednisone, doses and rest of medications noted. ALLERGIES: Unknown. FAMILY HISTORY: History of DVT. SOCIAL HISTORY: Continued smoking. REVIEW OF SYSTEMS: A 14-point review is negative as mentioned earlier. PHYSICAL EXAMINATION: VITAL SIGNS: Pulse is 62, blood pressure 150/62, respirations 16. HEENT: Conjunctivae normal. NECK: No jugular venous distention. CARDIOVASCULAR: S1, S2 muffled. RESPIRATION: Breath sounds diminished at the bases. No rhonchi, no crackles. ABDOMEN: Soft, nontender. LEGS: No edema. NERVOUS SYSTEM: Higher functions as mentioned earlier, otherwise minimal weakness of both arms, right more than the left and otherwise gait ataxia present. No signs of cerebellar dysfunction. SKIN: No ulcers, rash, bleeding. JOINTS: No active deforming arthropathy. LABS: Reviewed. MRA and CT scan reviewed personally by me. ASSESSMENT: 1. Acute stroke involving the left frontoparietal area with multiple symptoms. 2. History of CAD, CABG. 3. Hypertension. 4. Tonsillectomy. 5. History of nicotine dependence. RECOMMENDATIONS: This 71-year-old gentleman presented with multiple complex medical issues, we will monitor the patient closely. I discussed the case with Dr. Granados, who recommended Brilinta instead of Plavix. We will consult Cardiology also and continue the neuro checks, neurovascular workup, antiplatelet agents. Prognosis guarded because of multiple complex medical issues. I recommend smoking cessation. The patient and family understood and agrees. Further recommendations to follow, close followup with Dr. Sykes after discharge. MMODL / IJN: [id number] /
[2022-09-15] MEDS: PANTOPRAZOLE 40 MG TABLET PO SCH (06:44)
[2022-09-15] MEDS: ASPIRIN 81 MG PO SCH (07:59)
[2022-09-15] MEDS: predniSONE 5 MG TAB PO SCH (07:59)
[2022-09-15] MEDS: METOPROLOL TARTRATE 25 MG TAB PO SCH ×2 (07:59→19:56)
[2022-09-15] MEDS: TICAGRELOR 90 MG TAB PO SCH ×2 (07:59→19:56)
[2022-09-15] MEDS: HEPARIN SODIUM,PORCINE/PF 5,000 UNIT/0.5 ML SYRINGE SQ SCH ×2 (08:00→19:56)
[2022-09-15 08:09] LABS: Anisocytosis Slight; HCT 34.3 % (39.0-53.0); MCH 32.7 pg (25.0-35.0); MCHC 35.2 g/dL (31.0-37.0); MCV 92.9 fL (80.0-100.0); Mean Platelet Volume 8.3; Platelet Count 262 k/uL (150-450); Poikilocytosis Slight; RBC 3.69 m/uL (4.30-5.90); RDW 17.4 % (11.5-15.5); WBC 4.2 k/uL (3.8-10.6)
[2022-09-15 08:19] LABS: ALT 21 U/L (4-49); AST 22 U/L (17-59); African American GFR (CKD) >90 (>60 ml/min/1.73 sqM); Albumin 4.3 g/dL (3.5-5.0); Alkaline Phosphatase 83 U/L (38-126); Anion Gap 10 mmol/L; Blood Urea Nitrogen 18 mg/dL (9-20); Calcium 8.9 mg/dL (8.4-10.2); Carbon Dioxide 27 mmol/L (22-30); Chloride 101 mmol/L (98-107); Glucose 144 mg/dL (74-99); Non-African American GFR(CKD) >90 (>60 ml/min/1.73 sqM); Sodium 138 mmol/L (137-145); Total Bilirubin 1.3 mg/dL (0.2-1.3); Total Protein 6.5 g/dL (6.3-8.2)
--- NOTE | 2022-09-15 08:30 | CA ---
Transthoracic Echo Report Name: Nicko Martinez Age: 71 Gender: M : 1950 Exam Date: 09/14/2022 13:37 Exam Location: [facility] Ht (in): 69 Wt (lb): 178 Ordering Physician: Bo Carpenter DO Attending/Referring Phys: Aluminum Molder Clara Mancini RDCS Procedure CPT: Indications: Thrombus Cardiac Hx: limited study Technical Quality: Good Contrast 1: Total Dose (mL): Contrast 2: Total Dose (mL): MEASUREMENTS (Male / Female) Normal Values DOPPLER AV Peak Velocity 160.3 cm/s AV Peak Gradient 10.3 mmHg TR Peak Velocity 165.5 cm/s TR Peak Gradient 11.0 mmHg Right Ventricular Systolic Press 16.0 mmHg FINDINGS Left Ventricle Left ventricular ejection fraction is estimated at 60 %. No thrombus noted Right Ventricle Right Atrium Left Atrium Mitral Valve Mitral valve thickened. Mild mitral annular calcification. Aortic Valve Focal thickening of the aortic valve cusps. No aortic valve stenosis or regurgitation. Tricuspid Valve Mild tricuspid regurgitation. Pulmonic Valve Pericardium Normal pericardium. Aorta CONCLUSIONS Left ventricular ejection fraction 60% Mild mitral annular calcification Mild tricuspid regurgitation No pericardial effusion Previewed by: Dr. Geo Browne DO (Electronically Signed) Final Date: 15 September 2022 08:29
[2022-09-15] MEDS ORDERED: LOSARTAN 50 MG TAB PO SCH (09:00)
[2022-09-15] MEDS ORDERED: ATORVASTATIN 40 MG TAB PO SCH (09:00)
--- NOTE | 2022-09-15 09:39 | P.CRDCN ---
History of Present Illness Consult date: 09/15/22 History of present illness: HISTORY OF PRESENT ILLNESS: This is a 71-year-old male with a past medical history significant for coronary artery disease with previous CABG in 2020 and stenting of the RCA, hypertension, hyperlipidemia, carotid stenosis, and nicotine dependence. Patient follows in the office with Dr. Mason. We have been asked to see the patient in consultation for CVA. Patient examined at the bedside. Patient presented to the hospital with a chief complaint of right arm and leg weakness. He also reports difficulty with his speech and trouble finding the right words. He states his speech has resolved. He continues to report mild weakness of his right upper extremity. He denies chest pain or pressure. Denies SOB. Vital signs are stable. Telemetry reveals sinus mechanism. No atrial fibrillation noted. * EKG reveals since bradycardia with no signs of acute ischemia. Right bundle- branch block. * Chest xray post CABG and chronic changes. No acute process seen. * MRI of the brain: Findings consistent with subacute ischemia, consider embolic phenomenon. Chronic small vessel ischemic changes are also present. * Carotid Doppler reveals less than 50% stenosis bilaterally * Limited echo performed reveals ejection fraction 60%, mild tricuspid regurgitation. * Laboratory data: WBC 4.2. Hemoglobin 12.0. Platelet count 262. Sodium 138. Potassium 4.0. BUN 18. Creatinine 0.78. Troponin negative 1. TSH 0.8-7. * Current home cardiac medications include aspirin 81 mg daily, Plavix 75 mg daily, Lipitor 40 mg daily, losartan 50 mg daily, metoprolol tartrate 25 mg twice a day * Most recent cardiac catheterization performed in 2019 revealed severe triple vessel coronary artery disease with patent STANLEY to LAD and severe disease involving the RCA. He underwent stenting of the RCA. REVIEW OF SYSTEMS: At the time of my exam: CONSTITUTIONAL: Denies fever or chills. HEENT: Denies blurred vision, vision changes, or eye pain. Denies hemoptysis CARDIOVASCULAR: Denies chest pain. Denies orthopnea. Denies PND. Denies palpitations RESPIRATORY: Denies shortness of breath. GASTROINTESTINAL: Denies abdominal pain. Denies nausea or vomiting. HEMATOLOGIC: Denies bleeding disorders. GENITOURINARY: Denies any blood in urine. SKIN: Denies pruitis. Denies rash. PHYSICAL EXAM: VITAL SIGNS: Reviewed. GENERAL: Well-developed in no acute distress. HEENT: Head is normocephalic. Pupils are equal, round. Sclerae anicteric. Mucous membranes of the mouth are moist. Neck supple. No JVD or thyromegaly LUNGS: Respirations even and unlabored. Lungs essentially clear to auscultation bilaterally. HEART: Regular rate and rhythm. S1 and S2 heard. ABDOMEN: Soft. Nondistended. Nontender. EXTREMITIES: Normal range of motion. No clubbing or cyanosis. Peripheral pulses intact. No lower extremity edema NEUROLOGIC: Awake and alert. Oriented x 3. ASSESSMENT: Subacute CVA per MRI Coronary artery disease with previous CABG and PCI of RCA Hypertension Hyperlipidemia Carotid stenosis, 50% bilaterally per carotid Doppler Nicotine dependence PLAN: Continue current cardiac medications Increase lipitor to 80mg daily Continue dual anti platelet with aspirin and Brilinta Continue telemetry monitoring to assess for any arrhythmias Event monitor at discharge Patient is anxious to be discharged home today. If he is discharged home today, we will plan for outpatient MOO. However if patient remains in the hospital overnight, we will plan for MOO tomorrow which patient is agreeable to. Unable to perform MOO today as patient was fed breakfast. Further recommendations pending patient's course Nurse practitioner note has been reviewed by physician. Signing provider agrees with the documented findings, assessment, and plan of care. Past Medical History Past Medical History: Coronary Artery Disease (CAD), Cancer, Hypertension Additional Past Medical History / Comment(s): NEW RX FOR HTN, PLANS TO START AFTER PROC Last Myocardial Infarction Date:: 1992 History of Any Multi-Drug Resistant Organisms: None Reported Past Surgical History: Coronary Bypass/CABG, Tonsillectomy Additional Past Surgical History / Comment(s): CABG- 09/23/20. prostate 2006 Past Anesthesia/Blood Transfusion Reactions: No Reported Reaction Past Psychological History: No Psychological Hx Reported Smoking Status: Current every day smoker Past Alcohol Use History: Occasional Additional Past Alcohol Use History / Comment(s): quit in august 2020 Past Drug Use History: None Reported - Past Family History Mother Family Medical History: Deep Vein Thrombosis (DVT) Medications and Allergies Home Medications Medication Instructions Recorded Confirmed Type Albuterol Sulfate [Proair Hfa] 2 puff INHALATION RT-Q6H PRN 10/09/20 09/14/22 History Aspirin EC [Ecotrin Low Dose] 81 mg PO DAILY 10/09/20 09/14/22 History Atorvastatin [Lipitor] 40 mg PO DAILY 10/09/20 09/14/22 History Clopidogrel [Plavix] 75 mg PO DAILY 10/09/20 09/14/22 History Metoprolol Tartrate [Lopressor] 25 mg PO BID 10/09/20 09/14/22 History Colchicine 0.6 mg PO DAILY PRN 07/18/22 09/14/22 History Losartan Potassium 50 mg PO DAILY 07/18/22 09/14/22 History predniSONE 5 mg PO DAILY 07/18/22 09/14/22 History Meclizine [Antivert] 12.5 mg PO BID PRN 09/14/22 09/14/22 History Allergies Allergy/AdvReac Type Severity Reaction Status Date / Time No Known Allergies Allergy Verified 09/14/22 08:46 Physical Exam Vitals: Vital Signs Temp Pulse Pulse Resp BP BP Pulse Ox 09/15/22 08:00 98.4 F 63 16 115/74 97 09/15/22 04:00 97.9 F 69 17 127/58 99 09/15/22 02:00 67 17 09/15/22 00:00 98.4 F 67 17 127/62 96 09/14/22 20:00 97.8 F 64 18 132/58 96 09/14/22 16:17 99.0 F 62 16 150/65 99 09/14/22 14:27 61 16 153/69 98 09/14/22 12:28 60 18 150/70 98 Intake and Output 09/14/22 09/15/22 09/15/22 22:59 06:59 14:59 Intake Total 480 240 Balance 480 240 Intake: Oral 480 240 Other: # Voids 2 2 Weight 80.785 kg 82 kg Results 09/15/22 07:25 09/15/22 07:25 Cardiac Enzymes 09/15/22 Range/Units 07:25 AST 22 (17-59) U/L CBC 09/14/22 09/15/22 Range/Units 08:28 07:25 WBC 4.6 4.2 (3.8-10.6) k/uL RBC 3.97 L 3.69 L (4.30-5.90) m/uL Hgb 13.1 12.0 L (13.0-17.5) gm/dL Hct 36.5 L 34.3 L (39.0-53.0) % Plt Count 309 262 (150-450) k/uL Comprehensive Metabolic Panel 09/15/22 Range/Units 07:25 Sodium 138 (137-145) mmol/L Potassium 4.0 (3.5-5.1) mmol/L Chloride 101 (98-107) mmol/L Carbon Dioxide 27 (22-30) mmol/L BUN 18 (9-20) mg/dL Creatinine 0.78 (0.66-1.25) mg/dL Glucose 144 H (74-99) mg/dL Calcium 8.9 (8.4-10.2) mg/dL AST 22 (17-59) U/L ALT 21 (4-49) U/L Alkaline Phosphatase 83 (38-126) U/L Total Protein 6.5 (6.3-8.2) g/dL Albumin 4.3 (3.5-5.0) g/dL Current Medications Generic Name Dose Route Start Last Admin Trade Name Freq PRN Reason Stop Dose Admin Albuterol Sulfate 2.5 mg 09/14/22 10:45 Albuterol Nebulized 2.5 Mg/3 Ml INHALATION RT-Q6H PRN Shortness Of Breath Alprazolam 0.25 mg 09/14/22 17:33 Alprazolam 0.25 Mg Tab PO TID PRN Anxiety Aspirin 81 mg 09/14/22 17:30 09/15/22 07:59 Aspirin 81 Mg PO 81 mg DAILY ASHELY Administration Atorvastatin Calcium 40 mg 09/15/22 09:00 09/15/22 07:59 Atorvastatin 40 Mg Tab PO 40 mg DAILY ASHELY Administration Colchicine 0.6 mg 09/14/22 17:32 Colchicine 0.6 Mg Each PO DAILY PRN GOUT Heparin Sodium (Porcine) 5,000 unit 09/14/22 21:00 09/15/22 08:00 Heparin Sodium,Porcine/Pf 5,000 Unit/0.5 Ml Syringe SQ 5,000 unit Q12HR ASHELY Administration Losartan Potassium 50 mg 09/14/22 21:00 09/14/22 21:45 Losartan 50 Mg Tab PO 50 mg HS ASHELY Administration Meclizine HCl 12.5 mg 09/14/22 10:45 Meclizine 12.5 Mg Tab PO BID PRN Vertigo Metoprolol Tartrate 25 mg 09/14/22 21:00 09/15/22 07:59 Metoprolol Tartrate 25 Mg Tab PO 25 mg BID ASHELY Administration Pantoprazole Sodium 40 mg 09/14/22 17:45 09/15/22 06:44 Pantoprazole 40 Mg Tablet PO 40 mg [id number] ASHELY Administration Prednisone 5 mg 09/15/22 09:00 09/15/22 07:59 Prednisone 5 Mg Tab PO 5 mg DAILY ASHELY Administration Ticagrelor 90 mg 09/14/22 21:00 09/15/22 07:59 Ticagrelor 90 Mg Tab PO 90 mg BID ASHELY Administration Intake and Output 09/14/22 09/15/22 09/15/22 22:59 06:59 14:59 Intake Total 480 240 Balance 480 240 Intake: Oral 480 240 Other: # Voids 2 2 Weight 80.785 kg 82 kg 09/15/22 07:25 09/15/22 07:25
[2022-09-15 10:00] LABS: Eosinophils # (M) 0.08 k/uL (0-0.7); Lymphocytes # (M) 1.43 k/uL (1.0-4.8); Monocytes # (M) 0.84 k/uL (0-1.0); Neutrophils # (M) 1.85 k/uL (1.3-7.7); Neutrophils % (M) 44 %; Nucleated Red Blood Cells 0 /100 WBC (0-0); Total Cells Counted 100
--- NOTE | 2022-09-15 11:01 | P.CNNES ---
History of Present Illness Consult date: 09/14/22 Requesting physician: Bo Carpenter Reason for Consult: CVA History of Present Illness: Patient is a 71-year-old male came to the hospital for recurrent TIAs/CVA. Patient states that in the past 4 months he had around 5 such spells of focal neurological symptoms. The symptoms always goes away. One time his right hand became claw and he has to straighten out his fingers. The symptoms lasted for a couple minutes. He had 2 other spells in which she developed tingling of the right leg with numbness, that lasted a minute or so and then went away. Today patient states that he woke up at 7 AM. As soon as he got up and tried to open the door with his right hand, he noticed that he could not pull open the door with his right hand. Therefore he came to the hospital. His last known well was 3 AM, when he had woken up to go to the bathroom and was fine. He arrived ER at 8:04 AM. Patient was not a candidate for TPA since his symptoms have been present for > 4.5 hours. Patient states that while in the ER, he had another episode of transient numbness of the right hand. He also had transient slurred speech in the ER, the now seems to have resolved as well. Vital signs on arrival blood pressure 174/82 pulse is [address] head showed probable chronic small vessel ischemic change. Age-related atrophy. Cannot exclude hemorrhage involving adjacent to the posterior horn of the left lateral ventricle. I personally reviewed CT head, agree with the findings. EKG shows sinus bradycardia, indeterminate axis. Chest x-ray revealed post CABG and chronic changes. No acute process. TSH is normal 0.827. Folate 13.40. UA negative. Patient does take aspirin and Plavix since his cardiac bypass surgery. He is compliant with the medications. Patient has history of hypertension for 10+ years. Denies diabetes. He has smoked half pack per day for 40 years. He drinks 5 beers every day. Denies any marijuana use. He has continued tobacco use even after his bypass surgery. Review of Systems Constitutional: Denies chills, Denies fever Eyes: denies blurred vision, denies pain Ears: deny: earache Ears, nose, mouth and throat: Denies headache, Denies sore throat Cardiovascular: Denies chest pain, Denies shortness of breath Respiratory: Denies cough Gastrointestinal: Denies abdominal pain, Denies diarrhea, Denies nausea, Denies vomiting Musculoskeletal: Denies myalgias Integumentary: Denies pruritus, Denies rash Neurological: Reports as per HPI Psychiatric: Denies anxiety, Denies depression Endocrine: Denies fatigue, Denies weight change Hematologic/Lymphatic: Denies easy bruising Allergic/Immunologic: Denies persistent infections Past Medical History Past Medical History: Coronary Artery Disease (CAD), Hypertension Additional Past Medical History / Comment(s): NEW RX FOR HTN, PLANS TO START AFTER PROC Last Myocardial Infarction Date:: 1992 History of Any Multi-Drug Resistant Organisms: None Reported Past Surgical History: Coronary Bypass/CABG, Tonsillectomy Additional Past Surgical History / Comment(s): CABG- 09/23/20. prostate 2007 Past Anesthesia/Blood Transfusion Reactions: No Reported Reaction Past Psychological History: No Psychological Hx Reported Smoking Status: Current every day smoker Past Alcohol Use History: Occasional Past Drug Use History: None Reported - Past Family History Mother Family Medical History: Deep Vein Thrombosis (DVT) Medications and Allergies Home Medications Medication Instructions Recorded Confirmed Type Albuterol Sulfate [Proair Hfa] 2 puff INHALATION RT-Q6H PRN 10/09/20 09/14/22 History Aspirin EC [Ecotrin Low Dose] 81 mg PO DAILY 10/09/20 09/14/22 History Atorvastatin [Lipitor] 40 mg PO DAILY 10/09/20 09/14/22 History Clopidogrel [Plavix] 75 mg PO DAILY 10/09/20 09/14/22 History Metoprolol Tartrate [Lopressor] 25 mg PO BID 10/09/20 09/14/22 History Colchicine 0.6 mg PO DAILY PRN 07/18/22 09/14/22 History Losartan Potassium 50 mg PO DAILY 07/18/22 09/14/22 History predniSONE 5 mg PO DAILY 07/18/22 09/14/22 History Meclizine [Antivert] 12.5 mg PO BID PRN 09/14/22 09/14/22 History Allergies Allergy/AdvReac Type Severity Reaction Status Date / Time No Known Allergies Allergy Verified 09/14/22 08:46 Physical Examination - Vital Signs Vital Signs: Vital Signs Temp Pulse Resp BP Pulse Ox 09/14/22 09:01 64 14 136/69 98 09/14/22 08:05 98.7 F 72 18 174/82 98 Intake and Output 09/13/22 09/14/22 09/14/22 22:59 06:59 14:59 Other: Weight 80.785 kg Patient is an elderly male, in no acute distress. Patient is alert awake oriented to time place and person. Speech and language functions are normal. Patient can name and repeat very well. No aphasia or dysarthria. Attention, concentration and fund of knowledge is adequate. On cranial nerve examination, pupils are equal, round and reacting to light, visual patel are full on confrontation, with no neglect on double simultaneous stimulation. Extraocular muscles are intact with no nystagmus. Face is s ymmetric, tongue protrudes to the midline. Palatal elevation and sensation normal, hearing and shoulder shrug normal, facial sensation normal. On muscle strength testing, there is right-sided pronation, no drift. His strength is normal in arms and legs distally and proximally. Deep tendon reflexes are symmetric 3 in the upper limbs, 2+ in the lower limbs and plantar is upgoing on the right. Sensory to touch is equal with no neglect on double simultaneous stimulation. Cerebellar function showed no ataxia for [id number] testing. No dysdiadochokinesia. No ataxia for [id number] testing on either side. Tone and bulk of muscles normal. Finger tapping is decreased/slow on the right. Gait normal. On general examination, there is no carotid bruit or murmur, S1-S2 audible. Yudy st is clear on consultation. Abdomen is soft nontender. No organomegaly, bowel sounds present. Peripheral pulses are present. No edema. Results - Laboratory Findings CBC and BMP: 09/15/22 07:25 09/15/22 07:25 Abnormal Lab Findings: Abnormal Labs 09/14/22 09/14/22 08:28 08:28 RBC 3.97 L Hct 36.5 L RDW 17.7 H BUN 22 H Glucose 111 H Assessment and Plan Assessment: * Acute ischemic stroke, multifocal, small size involving the left MCA territory, mainly in the watershed territory between the left MCA/MAINE. Rule out left ICA stenosis. Patient was not a candidate for TPA. Current NIH stroke scale is 2. * Hypertension * Hyperlipidemia * Tobacco use * CAD, status post CABG * Alcohol use Plan: * MRI of the brain revealed findings consistent with subacute ischemia involving scattered areas involving the left frontal and parietal lobes. I personally reviewed MRI, agree with the findings. There is evidence of multiple, small areas of acute ischemia in the left MCA territory, although somewhat in the watershed territory between the left MCA/MAINE territory. * CTA of head and neck revealed significant cerebrovascular disease thought to be most significant along the carotid siphon on the left. There are limitations on CTA for evaluation at this level. We will check MRA of the brain, rule out left ICA stenosis. * Carotid Doppler revealed less than 50% stenosis of bilateral carotid bifurcations. Antegrade flow in both vertebral arteries. * 2-D echo revealed left ventricular ejection fraction 60%. Mild mitral annular calcification, mild TR. * Hemoglobin A1c 5.0 * Lipid panel with cholesterol 113, LDL 47, HDL 55 and triglycerides 53. Continue Lipitor 40 mg daily. * Telemetry monitoring * Permissive hypertension for 24 hours. * Recommend complete tobacco cessation. * Neurology will follow. Thank you for the consult.
[2022-09-15 14:27] LABS: Chol/HDL Ratio 3.38 Ratio; LDL Cholesterol,Calculated 76.6 mg/dL (0.0-131.0)
--- NOTE | 2022-09-15 16:34 | MR ---
EXAMINATION TYPE: MR angio head wo con DATE OF EXAM: 09/15/2022 COMPARISON: MRI brain and CTA had one day earlier HISTORY: LT ICA stenosis: focus left carotid siphon. TECHNIQUE: Time of flight images focusing on the [place] of [place] were performed without contrast.. 2-D and 3-D postprocessing imaging is performed on the MRI scanner. FINDINGS: There is dominant or larger caliber left vertebral artery. Vertebral arteries are patent to the basilar junction. There is no significant focal stenosis or aneurysm in the posterior circulatio n. There are small caliber but patent bilateral posterior communicating arteries. There are 3 adjacent patent small caliber anterior communicating arteries. No aneurysm in the anterio r circulation. There is confirmation of significant narrowing with near complete occlusion in the dis alyssa left internal carotid artery with difficulty narrowed flow near images 93 through 96. Patency wit hout complete occlusion is seen best on CTA thin slice images. IMPRESSION: Significant narrowing or stenosis confirmed in the distal left internal carotid artery wi th reconstitution at level of the [place] of [place]. Stenosis between 90-95% is felt present.
--- NOTE | 2022-09-15 17:08 | P.GSCN ---
History of Present Illness History of present illness: 71-ye. Patient had a CTA of the significant disease noted in the left carotid siphon Medical historyar-old gentleman known to me from the office patient had a carotid ultrasound done in the past which was normal right arm and leg weakness with difficulty in speech and also finding patient had a complete stroke workup carotid ultrasound shows 50% stenosis bilateral MRI shows subacute ischemic left frontal and parietal lobe. Patient scheduled to have a MRA done medical history history of hypertension diabetes coronary artery disease neck examination supple no bruit appreciated Chest clear good entry both lungs first and second sound normal Abdomen soft nontender femorals are palpable bilateral Motor function and speech has improved Patient is on antiplatelet therapy is scheduled to have a MRA done report is pending discussed with the neurology most likely patient will benefit from interventi neurologist follow with you Past Medical History Past Medical History: Coronary Artery Disease (CAD), Hypertension Additional Past Medical History / Comment(s): NEW RX FOR HTN, PLANS TO START AFTER PROC Last Myocardial Infarction Date:: 1992 History of Any Multi-Drug Resistant Organisms: None Reported Past Surgical History: Coronary Bypass/CABG, Tonsillectomy Additional Past Surgical History / Comment(s): CABG- 09/23/20. prostate 2006 Past Anesthesia/Blood Transfusion Reactions: No Reported Reaction Past Psychological History: No Psychological Hx Reported Smoking Status: Current every day smoker Past Alcohol Use History: Occasional Past Drug Use History: None Reported - Past Family History Mother Family Medical History: Deep Vein Thrombosis (DVT) Medications and Allergies Home Medications Medication Instructions Recorded Confirmed Type Albuterol Sulfate [Proair Hfa] 2 puff INHALATION RT-Q6H PRN 10/09/20 09/14/22 History Aspirin EC [Ecotrin Low Dose] 81 mg PO DAILY 10/09/20 09/14/22 History Atorvastatin [Lipitor] 40 mg PO DAILY 10/09/20 09/14/22 History Clopidogrel [Plavix] 75 mg PO DAILY 10/09/20 09/14/22 History Metoprolol Tartrate [Lopressor] 25 mg PO BID 10/09/20 09/14/22 History Colchicine 0.6 mg PO DAILY PRN 07/18/22 09/14/22 History Losartan Potassium 50 mg PO DAILY 07/18/22 09/14/22 History predniSONE 5 mg PO DAILY 07/18/22 09/14/22 History Meclizine [Antivert] 12.5 mg PO BID PRN 09/14/22 09/14/22 History Allergies Allergy/AdvReac Type Severity Reaction Status Date / Time No Known Allergies Allergy Verified 09/14/22 08:46 Surgical - Exam Vital Signs Temp Pulse Resp BP Pulse Ox 98.7 F 72 18 174/82 98 09/14/22 08:05 09/14/22 08:05 09/14/22 08:05 09/14/22 08:05 09/14/22 08:05 Results - Labs 09/15/22 07:25 09/15/22 07:25 Abnormal Lab Results - Last 24 Hours (Table) 09/14/22 09/14/22 09/14/22 Range/Units 18:06 18:06 18:06 RBC (4.30-5.90) m/uL Hgb (13.0-17.5) gm/dL Hct (39.0-53.0) % RDW (11.5-15.5) % ESR 18 H (0-15) mm/hr D-Dimer 0.66 H (<0.60) mg/L FEU Glucose (74-99) mg/dL C-Reactive Protein 1.7 H (<1.0) mg/dL Ur Specific [place] (1.001-1.035) Urine Protein (Negative) Urine Mucus (None) /hpf 09/14/22 09/15/22 09/15/22 Range/Units 21:52 07:25 07:25 RBC 3.69 L (4.30-5.90) m/uL Hgb 12.0 L (13.0-17.5) gm/dL Hct 34.3 L (39.0-53.0) % RDW 17.4 H (11.5-15.5) % ESR (0-15) mm/hr D-Dimer (<0.60) mg/L FEU Glucose 144 H (74-99) mg/dL C-Reactive Protein (<1.0) mg/dL Ur Specific [place] >1.050 H (1.001-1.035) Urine Protein 1+ H (Negative) Urine Mucus Many H (None) /hpf Diabetes panel 09/14/22 09/15/22 Range/Units 18:06 07:25 Sodium 138 (137-145) mmol/L Potassium 4.0 (3.5-5.1) mmol/L Chloride 101 (98-107) mmol/L Carbon Dioxide 27 (22-30) mmol/L BUN 18 (9-20) mg/dL Creatinine 0.78 (0.66-1.25) mg/dL Glucose 144 H (74-99) mg/dL Hemoglobin A1c 5.0 (0.0-6.0) % Calcium 8.9 (8.4-10.2) mg/dL AST 22 (17-59) U/L ALT 21 (4-49) U/L Alkaline Phosphatase 83 (38-126) U/L Total Protein 6.5 (6.3-8.2) g/dL Albumin 4.3 (3.5-5.0) g/dL Triglycerides 110.00 (0.00-149.00) mg/dL HDL Cholesterol 41.40 (40.00-60.00) mg/dL Thyroid panel 09/14/22 Range/Units 18:06 TSH 0.827 (0.465-4.680) mIU/L Calcium panel 09/15/22 Range/Units 07:25 Calcium 8.9 (8.4-10.2) mg/dL Albumin 4.3 (3.5-5.0) g/dL Pituitary panel 09/14/22 09/15/22 Range/Units 18:06 07:25 Sodium 138 (137-145) mmol/L Potassium 4.0 (3.5-5.1) mmol/L Chloride 101 (98-107) mmol/L Carbon Dioxide 27 (22-30) mmol/L BUN 18 (9-20) mg/dL Creatinine 0.78 (0.66-1.25) mg/dL Glucose 144 H (74-99) mg/dL Calcium 8.9 (8.4-10.2) mg/dL TSH 0.827 (0.465-4.680) mIU/L Adrenal panel 09/15/22 Range/Units 07:25 Sodium 138 (137-145) mmol/L Potassium 4.0 (3.5-5.1) mmol/L Chloride 101 (98-107) mmol/L Carbon Dioxide 27 (22-30) mmol/L BUN 18 (9-20) mg/dL Creatinine 0.78 (0.66-1.25) mg/dL Glucose 144 H (74-99) mg/dL Calcium 8.9 (8.4-10.2) mg/dL Total Bilirubin 1.3 (0.2-1.3) mg/dL AST 22 (17-59) U/L ALT 21 (4-49) U/L Alkaline Phosphatase 83 (38-126) U/L Total Protein 6.5 (6.3-8.2) g/dL Albumin 4.3 (3.5-5.0) g/dL
[2022-09-15] MEDS: LOSARTAN 50 MG TAB PO SCH (19:56)
[2022-09-16] MEDS: METOPROLOL TARTRATE 25 MG TAB PO SCH ×2 (08:58→19:44)
[2022-09-16] MEDS ORDERED: ATORVASTATIN 80 MG TAB PO SCH (09:00)
--- NOTE | 2022-09-16 09:29 | P.PN ---
Subjective Progress Note Date: 09/15/22 Patient was seen for a follow-up. Patient states he is feeling better. No new neurological symptoms. Still complaining of slight weakness on the right arm, but not bad. Patient is right-hand dominant. He denies any more TIAs or focal neurological symptoms since last seen yesterday. No symptoms including lower extremities. Gait is normal. Objective - Vital Signs Vital signs: Vital Signs Temp 98.1 F 09/15/22 12:00 Pulse 61 09/15/22 14:00 Resp 16 09/15/22 14:00 BP 137/57 09/15/22 12:00 Pulse Ox 94 L 09/15/22 12:00 FiO2 Intake & Output 09/14/22 09/15/22 09/15/22 18:59 06:59 18:59 Intake Total 480 240 Balance 480 240 Weight 80.785 kg 82 kg Intake: Oral 480 240 Other: Voiding Method Toilet # Voids 2 - Exam Patient's mental status, speech and language functions are normal. Cranial nerves are normal. Muscle strength is normal. - Labs CBC & Chem 7: 09/15/22 07:25 09/15/22 07:25 Labs: Abnormal Lab Results - Last 24 Hours (Table) 09/14/22 09/14/22 09/14/22 Range/Units 18:06 18:06 18:06 RBC (4.30-5.90) m/uL Hgb (13.0-17.5) gm/dL Hct (39.0-53.0) % RDW (11.5-15.5) % ESR 18 H (0-15) mm/hr D-Dimer 0.66 H (<0.60) mg/L FEU Glucose (74-99) mg/dL C-Reactive Protein 1.7 H (<1.0) mg/dL Ur Specific [place] (1.001-1.035) Urine Protein (Negative) Urine Mucus (None) /hpf 09/14/22 09/15/22 09/15/22 Range/Units 21:52 07:25 07:25 RBC 3.69 L (4.30-5.90) m/uL Hgb 12.0 L (13.0-17.5) gm/dL Hct 34.3 L (39.0-53.0) % RDW 17.4 H (11.5-15.5) % ESR (0-15) mm/hr D-Dimer (<0.60) mg/L FEU Glucose 144 H (74-99) mg/dL C-Reactive Protein (<1.0) mg/dL Ur Specific [place] >1.050 H (1.001-1.035) Urine Protein 1+ H (Negative) Urine Mucus Many H (None) /hpf Assessment and Plan Assessment: * Acute ischemic stroke, multifocal, small size involving the left MCA territory, mainly in the watershed territory between the left MCA/MAINE. Rule out left ICA stenosis. Patient was not a candidate for TPA. Current NIH stroke scale is 2. * Hypertension * Hyperlipidemia * Tobacco use * CAD, status post CABG * Alcohol use Plan: * MRI of the brain revealed findings consistent with subacute ischemia involving scattered areas involving the left frontal and parietal lobes. I personally reviewed MRI, agree with the findings. There is evidence of multiple, small areas of acute ischemia in the left MCA territory, although somewhat in the watershed territory between the left MCA/MAINE territory. * CTA of head and neck revealed significant cerebrovascular disease thought to be most significant along the carotid siphon on the left. There are limitations on CTA for evaluation at this level. * MRA of the brain revealed significant narrowing or stenosis confirmed in the distal left ICA with reconstitution at the level of [place] of [place]. Stenosis is between 90-95% is felt present. On my review, there is bilateral ICA stenosis at the siphon, but left is much worse. We will review case with vascular neurology about possible stenting. * Carotid Doppler revealed less than 50% stenosis of bilateral carotid bifurcations. Antegrade flow in both vertebral arteries. Vascular surgical input appreciated. Patient not a candidate for CEA because the stenosis is intracranially. * 2-D echo revealed left ventricular ejection fraction 60%. Mild mitral annular calcification, mild TR. * Hemoglobin A1c 5.0 * Lipid panel with cholesterol 113, LDL 47, HDL 55 and triglycerides 53. Continue Lipitor 40 mg daily. * Continue aspirin 81 mg and Brilinta 90 mg twice a day. * Recommend complete tobacco cessation.
[2022-09-16] MEDS: HEPARIN SODIUM,PORCINE/PF 5,000 UNIT/0.5 ML SYRINGE SQ SCH ×2 (09:46→19:43)
[2022-09-16] MEDS: predniSONE 5 MG TAB PO SCH (09:46)
[2022-09-16] MEDS: ASPIRIN 81 MG PO SCH (09:46)
[2022-09-16] MEDS: TICAGRELOR 90 MG TAB PO SCH ×2 (09:46→19:44)
[2022-09-16] MEDS: PANTOPRAZOLE 40 MG TABLET PO SCH (09:48)
--- NOTE | 2022-09-16 10:58 | P.PN ---
Subjective Progress Note Date: 09/16/22 patient is admitted to hospital with CVA our initial plan was to do a transesophageal echo on him however the MRA of the brain showed severe left ventricular carotid artery stenosis. He will undergo carotid angiogram and hopefully Stenting. HISTORY OF PRESENT ILLNESS: This is a 71-year-old male with a past medical history significant for coronary artery disease with previous CABG in 2019 and stenting of the RCA, hypertension, hyperlipidemia, carotid stenosis, and nicotine dependence. Patient follows in the office with Dr. Mason. We have been asked to see the patient in consultation for CVA. Patient examined at the bedside. Patient presented to the hospital with a chief complaint of right arm and leg weakness. He also reports difficulty with his speech and trouble finding the right words. He states his speech has resolved. He continues to report mild weakness of his right upper extremity. He denies chest pain or pressure. Denies SOB. Vital signs are stable. Telemetry re veals sinus mechanism. No atrial fibrillation noted. * EKG reveals since bradycardia with no signs of acute ischemia. Right bundle- branch block. * Chest xray post CABG and chronic changes. No acute process seen. * MRI of the brain: Findings consistent with subacute ischemia, consider embolic phenomenon. Chronic small vessel ischemic changes are also present. * Carotid Doppler reveals less than 50% stenosis bilaterally * Limited echo performed reveals ejection fraction 60%, mild tricuspid regurgit ation. * Laboratory data: WBC 4.2. Hemoglobin 12.0. Platelet count 262. Sodium 138. Potassium 4.0. BUN 18. Creatinine 0.78. Troponin negative 1. TSH 0.8-7. * Current home cardiac medications include aspirin 81 mg daily, Plavix 75 mg daily, Lipitor 40 mg daily, losartan 50 mg daily, metoprolol tartrate 25 mg twice a day * Most recent cardiac catheterization performed in 2019 revealed severe triple vessel coronary artery disease with patent [place]AN[place] to LAD and severe disease involving the RCA. He underwent stenting of the RCA. 09/16/2022 Patient examined this morning at the bedside. He denies chest pain or pressure. Denies SOB. Vital signs are stable. Patient underwent head MRA yesterday revealing 90-95% distal left internal carotid stenosis. PHYSICAL EXAM: VITAL SIGNS: Reviewed. GENERAL: Well-developed in no acute distress. HEENT: Head is normocephalic. Pupils are equal, round. Sclerae anicteric. Mucous membranes of the mouth are moist. Neck supple. No JVD or thyromegaly LUNGS: Respirations even and unlabored. Lungs essentially clear to auscultation bilaterally. HEART: Regular rate and rhythm. S1 and S2 heard. ABDOMEN: Soft. Nondistended. Nontender. EXTREMITIES: Normal range of motion. No clubbing or cyanosis. Peripheral pulses intact. No lower extremity edema NEUROLOGIC: Awake and alert. Oriented x 3. ASSESSMENT: Right sided weakness Acute ischemic CVA, left MCA territory Coronary artery disease with previous CABG and PCI of RCA Hypertension Hyperlipidemia Carotid stenosis, 50% bilaterally per carotid Doppler, 90-95% left ICA stenosis per MRA Nicotine dependence PLAN: Continue current cardiac medications Continue dual anti platelet with aspirin and Brilinta Continue telemetry monitoring. Patient had event monitor placed yesterday. Case discussed with Dr. Solis, Dr. Mason, and Dr. Calix from neurology. Will cancel MOO for today. Patient to undergo carotid angiogram tomorrow with possible stenting with Dr. Mason Further recommendations pending patient's course Nurse practitioner note has been reviewed by physician. Signing provider agrees with the documented findings, assessment, and plan of care. Objective - Vital Signs Vital signs: Vital Signs Temp 98.1 F 09/15/22 19:55 Pulse 61 09/16/22 03:45 Resp 17 09/16/22 03:45 BP 130/68 09/16/22 03:45 Pulse Ox 96 09/16/22 03:45 FiO2 Intake & Output 09/15/22 09/16/22 09/16/22 18:59 06:59 18:59 Intake Total 240 240 Balance 240 240 Intake: Oral 240 240 Other: Voiding Method Toilet Toilet # Voids 2 - Labs CBC & Chem 7: 09/15/22 07:25 09/15/22 07:25
[2022-09-16 11:20] VITALS: RESP 18
--- NOTE | 2022-09-16 12:55 | PN ---
PROGRESS NOTE DATE OF SERVICE: 09/15/2022 SUBJECTIVE: This 71-year-old gentleman, admitted with stroke-like symptoms and acute stroke involving the left frontoparietal area. The patient is being evaluated and neurovascular workup is ongoing. MRI was done by Neurology, which I reviewed personally showed significant narrowing of the distal left internal carotid artery between . No chest pain. No palpitation. PHYSICAL EXAMINATION: VITAL SIGNS: Pulse is 61, blood pressure ntd, respirations 16. CHEST: Clear to auscultation. CARDIOVASCULAR: S1, S2. ABDOMEN: Soft. NERVOUS SYSTEM: Mild diffuse weakness. LABORATORY DATA: WBC ntd. COVID-19 is negative. Other labs are noted. ASSESSMENT: 1. Acute stroke involving the left frontoparietal area with multiple symptoms. 2. Left carotid stenosis. 3. History of coronary artery disease, coronary artery bypass graft. 4. Hypertension. 5. Tonsillectomy. 6. History of nicotine dependence. RECOMMENDATIONS: I recommend to continue current medications and symptomatic treatment. Otherwise, continue with antiplatelet agents, and Dr. Roman has seen the patient. We will continue to monitor. Prognosis guarded. No chest pain or palpitations. MMODL / IJN: [id number] / MTDD
--- NOTE | 2022-09-16 15:17 | P.CNOR ---
History of Present Illness - [facility] Consult date: 09/16/22 Consult reason: other (Abnormal findings cervical spine x-ray) History of present illness: Patient is a 71-year-old male who was admitted to [facility] on 09/14/2022 for right sided weakness and workup for acute ischemic CVA. Patient is being currently followed by neurology and cardiology. Patient had underwent a cervical spine x-ray that was ordered by his primary care doctor a few weeks ago, patient had questions regarding this, our orthopedic team was then consulted. Patient is scheduled for a procedure was cardiology on 09/17/2022 due to the findings of the head MRI. Patient has a very detailed cardiac history. Patient denies any previous orthopedic surgery to the cervical, thoracic or lumbar spine. Patient states that he denies any obvious gait disturbances, weakness in the bilateral upper or lower extremities over the last 4-6 months. The weakness that began in the right upper extremity started within the last month, but he describes it is not all the time. While in the hospital he did develop the right lower extremity symptoms. He also did notice the changes in speech prior to admission. Most of the symptoms have seemed to improve significant since being in the hospital, he states that his speech she feels is still little bit off. Patient does not use any assistive devices for ambulation. He denies any numbness or tingling in the bilateral upper extremities at this time. He denies any numbness and tingling of bilateral lower extremity is. He denies any acute changes in bowel or bladder function. He denies any numbness or tingling to the peroneal her genital region. Review of Systems Constitutional: Reports as per HPI Past Medical History Past Medical History: Coronary Artery Disease (CAD), Hypertension Additional Past Medical History / Comment(s): NEW RX FOR HTN, PLANS TO START AFTER PROC Last Myocardial Infarction Date:: 1992 History of Any Multi-Drug Resistant Organisms: None Reported Past Surgical History: Coronary Bypass/CABG, Tonsillectomy Additional Past Surgical History / Comment(s): CABG- 09/23/20. prostate 2007 Past Anesthesia/Blood Transfusion Reactions: No Reported Reaction Past Psychological History: No Psychological Hx Reported Smoking Status: Current every day smoker Past Alcohol Use History: Occasional Past Drug Use History: None Reported - Past Family History Mother Family Medical History: Deep Vein Thrombosis (DVT) Medications and Allergies Home Medications Medication Instructions Recorded Confirmed Type Albuterol Sulfate [Proair Hfa] 2 puff INHALATION RT-Q6H PRN 10/09/20 09/14/22 History Aspirin EC [Ecotrin Low Dose] 81 mg PO DAILY 10/09/20 09/14/22 History Atorvastatin [Lipitor] 40 mg PO DAILY 10/09/20 09/14/22 History Clopidogrel [Plavix] 75 mg PO DAILY 10/09/20 09/14/22 History Metoprolol Tartrate [Lopressor] 25 mg PO BID 10/09/20 09/14/22 History Colchicine 0.6 mg PO DAILY PRN 07/18/22 09/14/22 History Losartan Potassium 50 mg PO DAILY 07/18/22 09/14/22 History predniSONE 5 mg PO DAILY 07/18/22 09/14/22 History Meclizine [Antivert] 12.5 mg PO BID PRN 09/14/22 09/14/22 History Allergies Allergy/AdvReac Type Severity Reaction Status Date / Time No Known Allergies Allergy Verified 09/14/22 08:46 Physical Examination Gen: AOx3, NAD VSS stable at this time Integument: No open lesions or sores visualized throughout the cervical, thoracic or lumbar spine. Palpation: Nontender with palpation throughout the midline paraspinal region of the cervical, thoracic or lumbar spine. No point tenderness is appreciated on exam of the bilateral upper or lower extremities ROM: Full range of motion in all major muscle groups of the bilateral upper and lower extremities Flexion contracture is noted in the right elbow from previous fracture/surgery Sensory Exam: Senory exam to light touch is intact C5-T1 Senosry exam to light touch is intact L2-S1 Motor: 55 strength appreciated in the bilateral lower extremity is with hip flexion, knee extension, knee flexion, plantar flexion, dorsiflexion, EHL, FHL 55 strength appreciated in the bilateral upper extremities with elbow extension, elbow flexion, wrist extension, wrist flexion, application programmer analyst strength 55 strength appreciated in the left upper extremity with shoulder elevation and shoulder abduction 4-5 strength appreciated in the right upper extremity with shoulder elevation and shoulder abduction Reflexes: Negative Shaun's, Babinski, Clonus bilaterally Results - Labs Labs: H & H 09/14/22 09/15/22 Range/Units 08:28 07:25 Hgb 13.1 12.0 L (13.0-17.5) gm/dL Hct 36.5 L 34.3 L (39.0-53.0) % Coagulation 09/14/22 Range/Units 08:28 INR 0.9 (<1.2) Result Diagrams: 09/15/22 07:25 09/15/22 07:25 - Diagnostic results Cervical AP/lateral x-ray: report reviewed, image reviewed Assessment and Plan Assessment: Right upper extremity weakness Right lower extremity weakness/resolved Multilevel cervical spine spondylosis Multilevel cervical spine facet arthropathy Acute ischemic stroke Other medical comorbidities Plan: I was able to discuss the case, this including physical exam findings with my attending Dr. May. No emergent orthopedic surgical intervention is recommended at this time. Patient is not demonstrating any acute neuropathic signs that I believe arising from the cervical spine. We did discuss the arthritis throughout patient's cervical spine and different treatment options. We also discussed the possibility of further imaging studies in the future if patient's symptoms don't improve with this current treatment. I believe is something that we could continue to evaluate in the outpatient setting Other medical specialty recommendations We will continue to follow the patient and evaluate after his scheduled proce dure Time with Patient: Less than 30
[2022-09-16 18:59] VITALS: TEMP 97.7
[2022-09-16] MEDS: LOSARTAN 50 MG TAB PO SCH (19:44)
[2022-09-16 19:58] VITALS: BP 150/69; PULSE 61
--- NOTE | 2022-09-16 23:26 | P.PN ---
Subjective Progress Note Date: 09/16/22 Patient was seen for a follow-up. Patient was seen multiple times during the day to update on the test results, and transfer status. Patient denies any new neurological symptoms. Denies any headache. Objective - Vital Signs Vital signs: Vital Signs Temp 98.0 F 09/16/22 08:00 Pulse 61 09/16/22 08:00 Resp 18 09/16/22 08:00 BP 123/60 09/16/22 08:00 Pulse Ox 98 09/16/22 08:00 FiO2 Intake & Output 09/15/22 09/16/22 09/16/22 18:59 06:59 18:59 Intake Total 240 358 Balance 240 358 Intake: Oral 240 358 Other: Voiding Method Toilet Toilet Toilet # Voids 2 - Exam Patient's mental status, speech and language functions are normal. Cranial nerves are normal. Muscle strength is normal. There is mild right pronation, no drift. Sensations are equal with no neglect. No ataxia for [id number] testing. Tone and bulk of muscles and gait is normal. - Labs CBC & Chem 7: 09/15/22 07:25 09/15/22 07:25 Assessment and Plan Assessment: * Acute ischemic stroke, multifocal, small size involving the left MCA territory, mainly in the watershed territory between the left MCA/MAINE. Rule out left ICA stenosis. Patient was not a candidate for TPA. Current NIH stroke scale is 1. * Hypertension * Hyperlipidemia * Tobacco use * CAD, status post CABG * Alcohol use Plan: * MRI of the brain revealed findings consistent with subacute ischemia involving scattered areas involving the left frontal and parietal lobes. I personally reviewed MRI, agree with the findings. There is evidence of multiple, small areas of acute ischemia in the left MCA territory, although somewhat in the watershed territory between the left MCA/MAINE territory. There is possible couple areas of abnormal signal on the diffusion-weighted images involving the right superior cortical region in the watershed territory as well. * CTA of head and neck revealed significant cerebrovascular disease thought to be most significant along the carotid siphon on the left. There are limitations on CTA for evaluation at this level. * MRA of the brain revealed significant narrowing or stenosis confirmed in the distal left ICA with reconstitution at the level of cantwell of Romero. Stenosis is between 90-95% is felt present. On my review, there is bilateral ICA stenosis at the siphon, right side is mild, but very severe on the left. Discussed with cardiology team. Apparently Dr. Alves initially wanted to pursue left ICA stenting tomorrow morning. However after he reviewed the images of MRA, it clearly appears that the ICA stenosis was intracranially. Dr. Alves felt that there were 2 areas of stenosis in the left ICA. Dr. Alves felt the proximal stenosis was amenable to stenting, therefore he wanted to pursue cerebral angiogram in the morning. I discussed case with Dr. Alves. He was busy with some other procedures. Late afternoon I was able to connect and he preferred patient to be transferred to [facility] for angiogram and perhaps left ICA stenting (intracranial segment, which is critical and symptomatic). * I continued to keep the patient posted about above status. Later also spoke to patient's as well. Also discussed with patient's nurse in detail. Also informed the primary physician. * Carotid Doppler revealed less than 50% stenosis of bilateral carotid bifurcations. Antegrade flow in both vertebral arteries. Vascular surgical input appreciated. Patient not a candidate for CEA because the stenosis is intracranially. * 2-D echo revealed left ventricular ejection fraction 60%. Mild mitral annular calcification, mild TR. * Hemoglobin A1c 5.0 * Lipid panel with cholesterol 113, LDL 47, HDL 55 and triglycerides 53. Continue Lipitor 40 mg daily. * Continue aspirin 81 mg and Brilinta 90 mg twice a day. * Recommend complete tobacco cessation. * Patient to be transferred to [facility] for left ICA stenting. Time with Patient: Greater than 30
--- NOTE | 2022-09-17 19:45 | P.DS ---
Providers Date of admission: 09/14/22 10:46 Expected date of discharge: 09/16/22 Attending physician: Oscar Ochoa MD Consults: 09/14/22 10:44 Consult Physician Urgent Consulting Provider: Javier Calix Consult Reason/Comments: cva Do you want consulting provider notified?: Already Contacted 09/14/22 17:32 Consult Physician Routine Consulting Provider: Juan Carlos Mason Consult Reason/Comments: CAD Do you want consulting provider notified?: Yes 09/14/22 17:33 Consult Physician Routine Consulting Provider: Jerman Roman Consult Reason/Comments: STROKE Do you want consulting provider notified?: Yes 09/16/22 11:30 Consult Physician Urgent Consulting Provider: Calderon May Consult Reason/Comments: spinal stenosis Do you want consulting provider notified?: Yes Primary care physician: Ángel Sykes [facility] Course: Final Diagnosis Acute stroke involving the left front parietal area with multiple symptoms Left carotid stenosis History of coronary artery disease, coronary artery bypass grafting Hypertension tonsillectomy History of nicotine dependence Full code Discharge disposition Patient is being transferred in a stable condition with guarded prognosis to [facility] for tertiary treatment center. Neurology spoke with accepting physician regarding the Carotid artery stenosis and agreeable to accept. . Patient will follow-up with his pcp Dr. Sykes in the outpatient setting upon discharge. Patient is to continue with current medications. Total time taken is greater than 35 minutes. Hospital course This is a 71-year-old male who was recently admitted with stroke like symptoms and undergoing neurological work up and vascular as well as cardiology following and recommending transfer to tertiary treatment [place] for severe carotid stenosis and will be requiring surgical intervention. Currently no reports of chest pain, shortness of breath, or palpitations. Patient is afebrile. No reports of nausea or vomiting and patient is tolerating diet. Patient being transferred to [facility] for evaluation of the severe carotid artery stenosis and surgical intervention. Guarded prognosis. On exam vital signs are stable. Cardio S1, S2 are muffled. Respiratory system shows diminished breath sounds at the bases with no wheezing or rhonchi noted. Abdomen is soft and nontender. Nervous system shows no focal deficits Please refer to medication reconciliation sheet for a list of medications. The impression and plan of care has been dictated by Velia Gonsales, Nurse Practitioner as directed. Dr. Arley MD I have performed a history and examination and MDM of this patient, discussed the same with the dictator, and agree with the dictator's assessment and plan as written ,documented as a scribe. Based on total visit time, I have performed more than 50% of the visit. Patient Condition at Discharge: Stable Plan - Discharge Summary Discharge Rx Participant: Yes New Discharge Prescriptions: Continue Metoprolol Tartrate [Lopressor] 25 mg PO BID Clopidogrel [Plavix] 75 mg PO DAILY Atorvastatin [Lipitor] 40 mg PO DAILY Albuterol Sulfate [Proair Hfa] 2 puff INHALATION RT-Q6H PRN PRN Reason: Shortness Of Breath Aspirin EC [Ecotrin Low Dose] 81 mg PO DAILY predniSONE 5 mg PO DAILY Losartan Potassium 50 mg PO DAILY Meclizine [Antivert] 12.5 mg PO BID PRN PRN Reason: Vertigo Colchicine 0.6 mg PO DAILY PRN PRN Reason: GOUT Discharge Medication List Albuterol Sulfate [Proair Hfa] 2 puff INHALATION RT-Q6H PRN 10/09/20 [History] Aspirin EC [Ecotrin Low Dose] 81 mg PO DAILY 10/09/20 [History] Atorvastatin [Lipitor] 40 mg PO DAILY 10/09/20 [History] Clopidogrel [Plavix] 75 mg PO DAILY 10/09/20 [History] Metoprolol Tartrate [Lopressor] 25 mg PO BID 10/09/20 [History] Colchicine 0.6 mg PO DAILY PRN 07/18/22 [History] Losartan Potassium 50 mg PO DAILY 07/18/22 [History] predniSONE 5 mg PO DAILY 07/18/22 [History] Meclizine [Antivert] 12.5 mg PO BID PRN 09/14/22 [History] Follow up Appointment(s)/Referral(s): Ángel Sykes MD [Primary Care Provider] - 1-2 days Patient Instructions/Handouts: After Radial Heart Catheterization (GEN) Activity/Diet/Wound Care/Special Instructions: Patient is being transferred to [facility] Discharge Disposition: OTHER INSTITUTION NOT DEFINED
--- NOTE | 2022-09-17 20:23 | PN ---
PROGRESS NOTE DATE OF SERVICE: 09/16/2022 SUBJECTIVE: This 71-year-old gentleman was admitted with acute stroke, had a carotid stenosis. Dr. Mason is planning carotid stenting tomorrow. No chest pain. No palpitation. OBJECTIVE: VITAL SIGNS: Pulse is 61, blood pressure 120/60, respirations 18. CHEST: Clear to auscultation. CARDIOVASCULAR: S1 and S2. ABDOMEN: Soft. NERVOUS SYSTEM: Diffusely weak. LABORATORY DATA: Reviewed. Hemoglobin 12. ASSESSMENT: 1. Acute stroke involving the left frontoparietal area with multiple symptoms. 2. Left carotid stenosis. 3. History of coronary artery disease, coronary artery bypass grafting. 4. Hypertension. 5. Tonsillectomy. 6. History of nicotine dependence. RECOMMENDATIONS: Recommend to continue current medications. Continue with dual-antiplatelet treatment. Carotid angiogram and possible stenting by Dr. Mason tomorrow. Closely follow with the neurologist and multiple consultants. Stable, however, the prognosis is guarded. Further recommendations to follow. MMODL / IJN: [id number] /
== END 2022-09-16 20:42 | disposition short-term general hospital (02) | DRG 65 ==
LOC: EC 08:04 → 3SCARD 10:46
PROVIDERS: ADMIT Internal Medicine; ATTEND Internal Medicine
DX: I63.512 Cerebral infarction due to unspecified occlusion or stenosis of left middle cerebral artery (principal); G81.91 Hemiplegia, unspecified affecting right dominant side; I10 Essential (primary) hypertension; I08.1 Rheumatic disorders of both mitral and tricuspid valves; I25.10 Atherosclerotic heart disease of native coronary artery without angina pectoris; R47.89 Other speech disturbances; F17.210 Nicotine dependence, cigarettes, uncomplicated; I45.10 Unspecified right bundle-branch block; R26.2 Difficulty in walking, not elsewhere classified; R47.81 Slurred speech; R20.0 Anesthesia of skin; R00.1 Bradycardia, unspecified; F10.90 Alcohol use, unspecified, uncomplicated; R29.701 NIHSS score 1; R29.702 NIHSS score 2; E78.5 Hyperlipidemia, unspecified; M47.812 Spondylosis without myelopathy or radiculopathy, cervical region; M48.02 Spinal stenosis, cervical region; I65.22 Occlusion and stenosis of left carotid artery; I25.2 Old myocardial infarction; Z79.899 Other long term (current) drug therapy; Z79.82 Long term (current) use of aspirin; Z79.02 Long term (current) use of antithrombotics/antiplatelets; Z95.1 Presence of aortocoronary bypass graft; Z86.73 Personal history of transient ischemic attack (TIA), and cerebral infarction without residual deficits
CPT/HCPCS: 36415; 70450; 70496; 70498; 70544; 70553; 71046; 80053; 80061; 81001; 82607; 82746; 83036; 83921; 84443; 84484; 85025; 85379; 85610; 85652; 85730; 86140; 87635; 93005; 93270; 93308; 93880; 99291

== ENCOUNTER → 2023-02-25 | Outpatient (CLI) | payer MEDICARE ==
--- NOTE | 2023-02-25 14:10 | XR ---
EXAMINATION TYPE: XR lumbar spine 2 or 3V DATE OF EXAM: 02/25/2023 CLINICAL HISTORY: pain TECHNIQUE: Three views of the lumbar spine are submitted. COMPARISON: None. FINDINGS: There are 5 lumbar type vertebral bodies identified. The lumbar spine shows satisfactory alignment w ithout evidence of acute fracture or dislocation. Vertebral body heights are within normal limits. Mild multilevel degenerative disc space narrowing and associated spondylosis. The overlying soft tis marcos appears unremarkable. IMPRESSION: No acute fracture or dislocation is seen in the lumbar spine. ICD 10 NO FRACTURE, INITIAL EVALUATION
--- NOTE | 2023-02-25 14:15 | XR ---
EXAMINATION TYPE: XR thoracic spine complete DATE OF EXAM: 02/25/2023 CLINICAL HISTORY: pain TECHNIQUE: Frontal, lateral, and swimmer's view of thoracic spine are obtained. COMPARISON: None. FINDINGS: Thoracic spine show satisfactory alignment without evidence of acute fracture or dislocatio n. Vertebral body heights are preserved. Moderate multilevel degenerative disc space narrowing and s pondylosis. Visualized ribs are unremarkable. IMPRESSION: No acute fracture or dislocation is seen in the thoracic spine. ICD 10 NO FRACTURE, INIT IAL EVALUATION
== END | disposition home or self-care (01) ==
LOC: RADXRMAIN 13:34
PROVIDERS: ATTEND Internal Medicine Geriatric Medicine
DX: M51.86 Other intervertebral disc disorders, lumbar region (principal); M48.061 Spinal stenosis, lumbar region without neurogenic claudication; M48.04 Spinal stenosis, thoracic region
CPT/HCPCS: 72072; 72100

== ENCOUNTER → 2023-04-26 | Day surgery (SDC) | payer MEDICARE ==
[2023-04-21 09:31] VITALS: BMI 26.7
[~2023-04-26] MED LIST changes: -ALPRAZolam 0.25 MG TAB PO PRN; -ALPRAZolam 0.5 MG TAB PO PRN; -ASPIRIN 325 MG TAB PO STA; -ATORVASTATIN 80 MG TAB PO STA; +IV FLUID CONTINUATION 1,000 ML IV ONE; +LACTATED RINGERS 1,000 ML IV SCH; +LIDOCAINE 1% (10MG/ML) FOR IV START INTRADERMA PRN; -NITROGLYCERIN SL TABS 0.4 MG TAB SUBLINGUAL PRN; +PROPOFOL 10 MG/ML 20 ML VIAL IV ONE; -SODIUM CHLORIDE 0.9% 1,000 ML in EMPTY BAG 1 BAG IV ONE
[2023-04-26 10:51] VITALS: RESP 16; TEMP 98.4
--- NOTE | 2023-04-26 11:48 | P.GSHP ---
History of Present Illness H&P Date: 04/26/23 Chief Complaint: Colon cancer screening 72-year-old male here for colonoscopy. No bowel complaints. No family history of colon cancer. Last colonoscopy 8 years ago was normal. Past Medical History Past Medical History: Asthma, Coronary Artery Disease (CAD), CVA/TIA, Hypertension Additional Past Medical History / Comment(s): stroke aug 2022 No residual effects. Last Myocardial Infarction Date:: 1992 History of Any Multi-Drug Resistant Organisms: None Reported Past Surgical History: Coronary Bypass/CABG, Orthopedic Surgery, Tonsillectomy Additional Past Surgical History / Comment(s): CABG- 09/23/20 Melanoma removed from eyebrow. Elbow surgery. Stent 2019. prostate 2006 Past Anesthesia/Blood Transfusion Reactions: No Reported Reaction Smoking Status: Former smoker - Past Family History Mother Family Medical History: Deep Vein Thrombosis (DVT) Medications and Allergies Home Medications Medication Instructions Recorded Confirmed Type Albuterol Sulfate [Proair Hfa] 2 puff INHALATION RT-Q6H PRN 10/09/20 04/26/23 History Aspirin EC [Ecotrin Low Dose] 81 mg PO DAILY 10/09/20 04/26/23 History Atorvastatin [Lipitor] 40 mg PO DAILY 10/09/20 04/26/23 History Clopidogrel [Plavix] 75 mg PO DAILY 10/09/20 04/26/23 History Colchicine 0.6 mg PO DAILY PRN 07/18/22 04/26/23 History Allergies Allergy/AdvReac Type Severity Reaction Status Date / Time No Known Allergies Allergy Verified 04/26/23 10:51 Surgical - Exam Vital Signs Temp Pulse Resp BP Pulse Ox 98.4 F 91 16 164/75 98 04/26/23 10:38 04/26/23 10:38 04/26/23 10:38 04/26/23 10:38 04/26/23 10:38 Physical exam: General: Well-developed, well-nourished HEENT: Normocephalic, sclerae nonicteric Abdomen: Nontender, nondistended Extremities: No edema Neuro: Alert and oriented Assessment and Plan (1) Colon cancer screening Narrative/Plan: Will proceed with colonoscopy at this time Current Visit: No Status: Acute Code(s): Z12.11 - ENCOUNTER FOR SCREENING FOR MALIGNANT NEOPLASM OF COLON SNOMED Code(s): 456892025
--- NOTE | 2023-04-26 12:07 | P.PCN ---
Date of Procedure: 04/26/23 Procedure(s) Performed: PREOPERATIVE DIAGNOSIS: Colon cancer screening POSTOPERATIVE DIAGNOSIS: Mild diverticulosis with tortuosity PROCEDURE: Colonoscopy ANESTHESIA: MAC SURGEON: Levy Espinoza M.D. SPECIMENS: None ENDOSCOPIC PROCEDURE: The patient was placed on the endoscopy table in the left decubitus position. The Olympus colonoscope was inserted into the anus and passed under direct visualization to the base of the cecum. The appendiceal orifice was visualized. From that point the scope was slowly withdrawn inspecting all surfaces carefully. There were no neoplastic inflammatory or polypoid lesions throughout the cecum, ascending, transverse, descending, sigmoid and rectum. There was mild scattered diverticulosis noted with tortuosity of the sigmoid colon. Digital rectal examination was normal. The patient was taken to the recovery room in stable condition per anesthesia guidelines. RECOMMENDATIONS: Resume diet. Repeat colonoscopy 10 years.
[2023-04-26 12:45] VITALS: BP 156/68; PULSE 70
== END ==
LOC: ORWHC2ENDO 10:17
PROVIDERS: ATTEND Surgery
DX: Z12.11 Encounter for screening for malignant neoplasm of colon (principal); K57.30 Diverticulosis of large intestine without perforation or abscess without bleeding; J45.909 Unspecified asthma, uncomplicated; I25.10 Atherosclerotic heart disease of native coronary artery without angina pectoris; Z86.73 Personal history of transient ischemic attack (TIA), and cerebral infarction without residual deficits; I25.2 Old myocardial infarction; Z95.1 Presence of aortocoronary bypass graft; Z90.89 Acquired absence of other organs; Z85.820 Personal history of malignant melanoma of skin; Z87.891 Personal history of nicotine dependence; Z79.51 Long term (current) use of inhaled steroids; Z79.82 Long term (current) use of aspirin; Z79.02 Long term (current) use of antithrombotics/antiplatelets
CPT/HCPCS: J2704; G0121

== ENCOUNTER → 2023-08-08 | Outpatient (CLI) | payer MEDICARE ==
--- NOTE | 2023-08-08 12:29 | MR ---
EXAMINATION TYPE: MR brain wo/w con DATE OF EXAM: 08/08/2023 11:43 AM COMPARISON: 09/14/22 HISTORY: I63.9 CEREBRAL INFARCTION, UNSPECIFIED CONTRAST: 7.5ml gadavist Multiplanar and multispin-echo imaging of the brain was performed . Pre and post contrast enhanced i mages are obtained. The ventricles, basal cisterns and sulci overlying the cerebral convexities are mildly enlarged. There is evidence of mild to moderate periventricular white matter ischemic demyelination. Remote deep white matter insults are also noted. On diffusion weighted imaging there is a new focus of increased signal noted adjacent to the left fro ntal horn as well as several foci within the posterior limb of the left internal capsule and a few fo ci of increased signal within the left centrum semioval bilaterally and leary radiata some of which appear to be chronic. There is no evidence for midline shift or mass effect. Acute intracranial hemorrhage or extra-axial collection is not evident. No enhancing lesions are seen. The paranasal sinuses and mastoid air cells are well-aerated. IMPRESSION: Age-related atrophic and chronic small vessel ischemic change. Foci of increased signal on diffusion weighted imaging indicating acute/subacute ischemic insult. No enhancing lesions are seen.
== END | disposition home or self-care (01) ==
LOC: RADMRIMAIN 10:31
PROVIDERS: ATTEND Internal Medicine Geriatric Medicine
DX: I67.82 Cerebral ischemia (principal); I63.9 Cerebral infarction, unspecified; G31.9 Degenerative disease of nervous system, unspecified
CPT/HCPCS: 70553; A9585

== ENCOUNTER 2023-10-07 10:07 | Day surgery (SDC) | payer MEDICARE ==
[2023-10-05 16:04] VITALS: BMI 25.1
[~2023-10-07 10:07] MED LIST changes: -IV FLUID CONTINUATION 1,000 ML IV ONE; -LIDOCAINE 1% (10MG/ML) FOR IV START INTRADERMA PRN; -PROPOFOL 10 MG/ML 20 ML VIAL IV ONE
[2023-10-07] MEDS ORDERED: LACTATED RINGERS 1,000 ML IV ONE (10:26)
[2023-10-07 10:51] VITALS: TEMP 97.4
[2023-10-07] MEDS ORDERED: LIDOCAINE 1% INJ 10MG/ML (20 ML MDV) ONE (11:20)
[2023-10-07] MEDS ORDERED: PROPOFOL 10 MG/ML 20 ML VIAL IV ONE (11:20)
--- NOTE | 2023-10-07 11:31 | P.PCN ---
Date of Procedure: 10/07/23 Procedure(s) Performed: BRIEF HISTORY: Patient is a 72-year-old, pleasant, white male scheduled for an upper endoscopy as a part of evaluation of the gastric fullness and progressive weight loss of 15 pounds in the last 6 months duration. PROCEDURE PERFORMED: Esophagogastroduodenoscopy with biopsy. PREOPERATIVE DIAGNOSIS: Progressive weight loss and epigastric fullness. IV sedation per anesthesia. PROCEDURE: After informed consent was obtained, the patient was brought into the endoscopy unit. IV sedation was administered by Anesthesia under continuous monitoring. Initially the Olympus GIF-140 video endoscope was inserted into the mouth. Esophagus intubated without any difficulty. It was gradually advanced into the stomach and duodenum and carefully examined. The bulb and the second part of the duodenum appeared normal. Biopsies were done from the duodenum to rule out celiac disease. The scope at this time was withdrawn to the stomach, adequately insufflated with air, and upon careful examination, mucosa of the antrum had mild antral gastritis and biopsies were done from this area. Because of the, body, cardia and the fundus appeared normal. The scope was then withdrawn into the esophagus. Small hiatal hernia noted. The GE junction was located at 39 cm from the incisors. The esophagus appeared normal. There were no erosions or ulcerations seen and the patient tolerated the procedure well. IMPRESSION: 1. Mild antral gastritis. 2. Small hiatal hernia. RECOMMENDATIONS: The findings of this examination were discussed with the patient as well as his family. He was advised to follow with the biopsy result.
[2023-10-07 11:41] VITALS: RESP 16
[2023-10-07 12:06] VITALS: BP 147/70; PULSE 67
== END 2023-10-07 12:02 | disposition home or self-care (01) ==
LOC: ORWHC2ENDO 10:07
PROVIDERS: ATTEND Internal Medicine Gastroenterology
DX: K29.50 Unspecified chronic gastritis without bleeding (principal); K44.9 Diaphragmatic hernia without obstruction or gangrene; I25.10 Atherosclerotic heart disease of native coronary artery without angina pectoris; J45.909 Unspecified asthma, uncomplicated; I63.9 Cerebral infarction, unspecified; Z79.02 Long term (current) use of antithrombotics/antiplatelets; Z79.82 Long term (current) use of aspirin; Z98.890 Other specified postprocedural states; Z79.899 Other long term (current) drug therapy
CPT/HCPCS: 88305; 43239; J2001; J2704

== ENCOUNTER 2023-10-29 13:13 | Emergency (ER) | payer MEDICARE ==
[2023-10-29 13:25] VITALS: TEMP 98
[2023-10-29] MEDS ORDERED: SODIUM CHLORIDE 0.9% 500 ML 500 ML IV STA (13:26)
--- NOTE | 2023-10-29 13:36 | ED ---
General Adult HPI - General Chief complaint: Neuro Symptoms/Deficit Stated complaint: Stroke Symptoms,w/History of Strokes Time Seen by Provider: 10/29/23 13:20 Source: patient, family, RN notes reviewed, old records reviewed Mode of arrival: wheelchair Limitations: no limitations - History of Present Illness Initial comments: This is a 72-year-old male who presents emergency Department with a past medical history of 2 previous strokes. Patient states today he was driving at about 11:30 and he started to notice some weakness in his right arm and when he started talking to his he was having some expressive aphasia. Patient denies any headache. Patient states he is on Proventil. Patient states the weakness in his arm has subsided after about an hour and a half. Patient states his speech still seems to be a problem. states he has no facial droop and never has. Patient denies any other complaints at this time. Patient denies ch est pain difficult breathing shortness of breath. Patient denies any visual disturbance. - Related Data Home Medications Medication Instructions Recorded Confirmed Aspirin EC [Ecotrin Low Dose] 81 mg PO DAILY 10/09/20 10/29/23 Atorvastatin [Lipitor] 40 mg PO DAILY 10/09/20 10/29/23 Colchicine 0.6 mg PO DAILY PRN 07/18/22 10/29/23 amLODIPine BESYLATE 5 mg PO DAILY 08/16/23 10/29/23 Ticagrelor [Brilinta] 90 mg PO BID 10/07/23 10/29/23 Allergies Allergy/AdvReac Type Severity Reaction Status Date / Time No Known Allergies Allergy Verified 10/29/23 13:57 Review of Systems ROS Statement: Those systems with pertinent positive or pertinent negative responses have been documented in the HPI. ROS Other: All systems not noted in ROS Statement are negative. Past Medical History Past Medical History: Asthma, Coronary Artery Disease (CAD), Cancer, CVA/TIA, Hypertension Additional Past Medical History / Comment(s): Recent dizzy spells. Hx CVA 08/2022, no residual effects. Hx skin cancer. Gout. Last Myocardial Infarction Date:: 1992 History of Any Multi-Drug Resistant Organisms: None Reported Past Surgical History: Coronary Bypass/CABG, Heart Catheterization With Stent, Orthopedic Surgery, Prostate Surgery, Tonsillectomy Additional Past Surgical History / Comment(s): CABG- 10/27/20, melanoma removed from eyebrow, elbow surgery, stent 2019, prostate surgery 2006. COLONOSCOPY, MOO Past Anesthesia/Blood Transfusion Reactions: No Reported Reaction Date of Last Stent Placement:: 2019 Past Psychological History: No Psychological Hx Reported Smoking Status: Former smoker Past Alcohol Use History: None Reported Past Drug Use History: None Reported - Past Family History Mother Family Medical History: Deep Vein Thrombosis (DVT) General Exam - General Exam Comments Initial Comments: GENERAL: Patient is well-developed and well-nourished. Patient is nontoxic and well- hydrated and is in no acute distress. ENT: Neck is soft and supple. No significant lymphadenopathy is noted. Oropharynx is clear. Moist mucous membranes. Neck has full range of motion without eliciting any pain. EYES: The sclera were anicteric and conjunctiva were pink and moist. Extraocular movements were intact and pupils were equal round and reactive to light. Eyelids were unremarkable. PULMONARY: Unlabored respirations. Good breath sounds bilaterally. No audible rales rhonchi or wheezing was noted. CARDIOVASCULAR: There is a regular rate and rhythm without any murmurs gallops or rubs. ABDOMEN: Soft and nontender with normal bowel sounds. SKIN: Skin is clear with no lesions or rashes and otherwise unremarkable. NEUROLOGIC: Patient is alert and oriented x3. Cranial nerves II through XII are grossly intact. Motor and sensory are also intact. Patient has mild expressive aphasia. Patient is able to come up with mostly were to just take some longer than normal. Symmetrical smile. MUSCULOSKELETAL: Normal extremities with adequate strength and full range of motion. LYMPHATICS: No significant lymphadenopathy is noted PSYCHIATRIC: Normal psychiatric evaluation. Limitations: no limitations Course Vital Signs 10/29/23 13:17 Temperature 98.0 F Pulse Rate 83 Respiratory 18 Rate Blood Pressure 183/71 O2 Sat by Pulse 99 Oximetry Medical Decision Making - Medical Decision Making EKG as interpreted by myself. EKG shows a sinus rhythm at 80 bpm OK interval is on a 61 cardiac of 153 QT interval 42 QTC is 438. Patient's EKG shows no ST segment elevation or depression. Patient has a right bundle branch block. Was pt. sent in by a medical professional or institution (, PA, POWER TRANSFORMER INSPECTOR, urgent care, hospital, or detention...) When possible be specific @ -No Did you speak to anyone other than the patient for history (EMS, parent, family, police, friend...)? What history was obtained from this source @ -Patient's gave part of the history Did you review nursing and triage notes (agree or disagree)? Why? @ -I reviewed and agree with nursing and triage notes Were old charts reviewed (outside hosp., previous admission, EMS record, old EKG, old radiological studies, urgent care reports/EKG's, detention records)? Report findings @ -I reviewed prior charts prior lab work on this patient Differential Diagnosis (chest pain, altered mental status, abdominal pain women, abdominal pain men, vaginal bleeding, weakness, fever, dyspnea, syncope, headache, dizziness, GI bleed, back pain, seizure, CVA, palpatations, mental health, musculoskeletal)? @ -Differential CVA Ischemic stroke, hemorrhagic stroke, brain tumor, atypical migraine, Wernicke's encephalopathy, seizure, multiple sclerosis, meningitis, encephalitis, hypoglycemia, Guillain-De Los Santos, electrolytes disturbance, myasthenia gravis.... This is not meant to be an all-inclusive list EKG interpreted by me (3pts min.). @ -As above X-rays interpreted by me (1pt min.). @ -Chest x-ray shows no acute abnormality CT interpreted by me (1pt min.). @ -CT of the brain shows 2 small linear possible petechial hemorrhages in the left parietal region near the ventricle. CT shows no acute abnormality. I spoke with Dr. Wheeler he was in agreement that no altered place at this time sh ould be given. Dr. Wheeler wanted the patient transferred [facility] I spoke with [facility] ER physician and he accepted the patient. U/S interpreted by me (1pt. min.). @ -None done What testing was considered but not performed or refused? (CT, X-rays, U/S, labs)? Why? @ -None What meds were considered but not given or refused? Why? @ -None Did you discuss the management of the patient with other professionals (professionals i.e. , PA, POWER TRANSFORMER INSPECTOR, lab, RT, psych nurse, high school social studies tutor, customer services manager, teacher, preventive medicine officer, shoe parts caser)? Give summary @ -No Was smoking cessation discussed for >3mins.? @ -No Was critical care preformed (if so, how long)? @ -35 minutes Were there social determinants of health that impacted care today? How? (Homele ssness, low income, unemployed, alcoholism, drug addiction, transportation, low edu. Level, literacy, decrease access to med. care, retirement, rehab)? @ -No Was there de-escalation of care discussed even if they declined (Discuss DNR or withdrawal of care, Hospice)? DNR status @ -No What co-morbidities impacted this encounter? (DM, HTN, Smoking, COPD, CAD, Cancer, CVA, ARF, Chemo, Hep., AIDS, mental health diagnosis, sleep apnea, morbid obesity)? @ -None Was patient admitted / discharged? Hospital course, mention meds given and route, prescriptions, significant lab abnormalities, going to OR and other pertinent info. @ -On arrival patient's arm weakness had completely resolved. After about an hour I will back into reevaluate the patient's expressive aphasia and it had almost completely resolved at this time and was in agreement with that. Patient will be transferred [facility] Undiagnosed new problem with uncertain prognosis? @ -No Drug Therapy requiring intensive monitoring for toxicity (Heparin, Nitro, Insulin, Cardizem)? @ -No Were any procedures done? @ -No Diagnosis/symptom? @ -Intraparenchymal hemorrhage Acute or chronic @ -Acute Uncomplicated (without systemic symptoms) or Complicated (systemic symptoms)? @ -Complicated Side effects of treatment? @ -No Exacerbation, Progression, or Severe Exacerbation? @ -No Poses a threat to life or bodily function? How? (Chest pain, [place], [place], pneumonia, PE, COPD, DKA, ARF, appy, cholecystitis, CVA, Diverticulitis, Homicidal, Suicidal, threat to staff... and all critical care pts) @ -Yes this could lead to further stroke symptoms and potential morbidity and mortality - Lab Data Lab Results 10/29/23 Range/Units 13:51 POC Glucose (mg/dL) 113 H (70-110) mg/dL POC Glu Finisher Screwdown ID Nathanael Rodriguez Critical Care Time Critical Care Time: Yes Total Critical Care Time: 35 Disposition Clinical Impression: Intraparenchymal hemorrhage of brain Disposition: OTHER INSTITUTION NOT DEFINED Referrals: Ángel Sykes MD [Primary Care Provider] - 1-2 days Time of Disposition: 14:19 - Out of Hospital Transfer - Req. Specs Out of Hospital Transfer - Requested Specifics: Other Emergency Center ([facility])
--- NOTE | 2023-10-29 13:49 | CT ---
EXAMINATION TYPE: CT brain wo con for TPA DATE OF EXAM: 10/29/2023 COMPARISON: 09/14/2022 INDICATION: stroke DLP: 1158.4 mGycm, Automated exposure control for dose reduction was used. CONTRAST: None CT of the brain is performed utilizing 3 mm thick sections through the posterior fossa and 3 mm thick sections through the remaining calvarium. Study is performed within 24 hours of arrival to the hosp ital. There is a tiny linear slightly hyperdense area adjacent to the superior left lateral ventricle. Paul tional linear hyperdensities within the left centrum semiovale. Tiny petechial hemorrhage should be c onsidered. These are in a different location than the hyperdensities identified previously. Report wa s called and case discussed with emergency room physician by Dr. Jha by telephone at time of inte rpretation. No mass lesion is evident. No acute infarcts are evident. Some mild periventricular white matter hypodensity is present in the l eft trilobar region likely related to chronic white matter ischemic changes. This appears present pre viously. Ventricles and sulci are mildly prominent for the patient age. Paranasal sinuses and mastoid air cells within the [id number] are clear. IMPRESSION: 1. Couple of linear hyperintensities within the superior brain could be tiny petechial hemorrhages. Follow-up could be performed by MRI for confirmation. 2. Chronic appearing periventricular white matter ischemic-type changes.
[2023-10-29 13:54] LABS: Glucose,Whole Blood 113 mg/dL (70-110)
--- NOTE | 2023-10-29 14:04 | XR ---
EXAMINATION TYPE: XR chest 2V DATE OF EXAM: 10/29/2023 COMPARISON: 09/14/2022 INDICATION: Stroke TECHNIQUE: Frontal and lateral views of the chest are obtained. FINDINGS: The heart size is normal. The pulmonary vasculature is normal. The lungs are clear. There is hyperinflation and flattened diaphragms compatible with COPD. Sternoto my wires are present from prior CABG. IMPRESSION: 1. No acute pulmonary process.
--- NOTE | 2023-10-29 14:17 | CT ---
EXAMINATION TYPE: CT angio head neck DATE OF EXAM: 10/29/2023 HISTORY: Neuro deficits, code stroke. Hx of stroke COMPARISON: 09/14/2022 CT DLP: 519.7 mGycm. Automated Exposure Control for Dose Reduction was Utilized. TECHNIQUE: CTA scan of the neck is performed with IV Contrast, patient injected with 65 mL of Isovue 370, axial images are obtained, coronal and sagittal reformatted images are reviewed. Three-D recons tructed images are created on an independent workstation and reviewed. Source images are reviewed. FINDINGS: Carotid/Vascular Structures: There is a 3 vessel arch. Common carotid arteries bifurcate into internal and external carotid arteries. Atheromatous plaquing calcification is present at the bifurcations. This has narrowing from the origins however focal steno sis cannot be documented. However, these vessels diminish in size through their course. The left inte rnal carotid artery at the foramen Lacerum may be briefly threadlike and is of small caliber to the c arotid siphon. Findings appear similar to the 09/14/2022 exam. Vertebral arteries are codominant. Internal carotid arteries and vertebral arteries are patent to the skull base. Cervical of [place]: Vertebral basilar system appears normal. Posterior cerebral vasculature is unrema rkable. Internal carotid arteries bifurcate normally into A1 and M1 segments. A2 segments are normal. The anterior communicating artery is patent. Posterior communicating arteries not identified. IMPRESSION: 1. There is narrowing of the internal carotid arteries bilaterally more so on the left. 2. Normal [place] of [place] NASCET criteria was used in interpretation of this exam?
[2023-10-29 14:26] LABS: ALT 28 U/L (4-49); AST 33 U/L (17-59); African American GFR (CKD) >90 (>60 ml/min/1.73 sqM); Albumin 4.5 g/dL (3.5-5.0); Alkaline Phosphatase 122 U/L (38-126); Anion Gap 11 mmol/L; Blood Urea Nitrogen 22 mg/dL (9-20); Calcium 9.4 mg/dL (8.4-10.2); Carbon Dioxide 27 mmol/L (22-30); Chloride 104 mmol/L (98-107); Creatine Kinase 24 U/L (55-170); Glucose 109 mg/dL (74-99); Non-African American GFR(CKD) 87 (>60 ml/min/1.73 sqM); Potassium 4.5 mmol/L (3.5-5.1); Sodium 142 mmol/L (137-145); Total Bilirubin 0.6 mg/dL (0.2-1.3); Total Protein 7.4 g/dL (6.3-8.2)
[2023-10-29 14:34] LABS: INR 0.9 (<1.2); Prothrombin Time 10.2 sec (10.0-12.5)
[2023-10-29 14:41] LABS: Anisocytosis Slight; HCT 35.4 % (39.0-53.0); HGB 12.9 gm/dL (13.0-17.5); MCH 32.7 pg (25.0-35.0); MCHC 36.5 g/dL (31.0-37.0); MCV 89.6 fL (80.0-100.0); Mean Platelet Volume 7.7; Platelet Count 354 k/uL (150-450); RBC 3.95 m/uL (4.30-5.90); RDW 18.4 % (11.5-15.5); WBC 3.8 k/uL (3.8-10.6)
[2023-10-29 14:49] VITALS: RESP 17
[2023-10-29 15:11] VITALS: BP 142/72
[2023-10-29 15:32] VITALS: PULSE 78
[2023-10-29 16:45] LABS: Eosinophils # (M) 0.04 k/uL (0-0.7); Lymphocytes # (M) 1.37 k/uL (1.0-4.8); Monocytes # (M) 0.61 k/uL (0-1.0); Neutrophils # (M) 1.79 k/uL (1.3-7.7); Neutrophils % (M) 47 %; Nucleated Red Blood Cells 0 /100 WBC (0-0); Total Cells Counted 100
== END 2023-10-29 15:27 | disposition other institution (70) ==
LOC: EC 13:13
DX: I61.8 Other nontraumatic intracerebral hemorrhage (principal); I45.10 Unspecified right bundle-branch block; I10 Essential (primary) hypertension; I25.10 Atherosclerotic heart disease of native coronary artery without angina pectoris; I25.2 Old myocardial infarction; J45.909 Unspecified asthma, uncomplicated; Z79.82 Long term (current) use of aspirin; Z79.899 Other long term (current) drug therapy; Z95.1 Presence of aortocoronary bypass graft; Z86.73 Personal history of transient ischemic attack (TIA), and cerebral infarction without residual deficits; Z87.891 Personal history of nicotine dependence
CPT/HCPCS: 99291; 96360; 36415; 93005; 80053; 82550; 84484; 85025; 85610; 85730; 71046; 70496; 70450; 70498; Q9967

== ENCOUNTER 2023-11-07 12:54 | Emergency (ER) | payer MEDICARE ==
--- NOTE | 2023-11-07 13:18 | ED ---
General Adult HPI - General Chief complaint: Altered Mental Status Stated complaint: Weakness/slurred speech Time Seen by Provider: 11/07/23 13:10 Source: patient, family, RN notes reviewed Mode of arrival: ambulatory Limitations: no limitations - History of Present Illness Initial comments: Patient is a pleasant 72-year-old male presenting to the emergency department with concern for weakness. Patient did have a stroke around 10 days ago. Patient has had some mild progressive symptoms since that time. Patient is set to have stent placement done in 4 days. Patient is frustrated because symptoms are getting worse. Patient has right arm and leg weakness and right facial droop. Patient also has some mild slurred speech and difficulty finding words. Patient states there has not been any significant change in the past few hours. - Related Data Home Medications Medication Instructions Recorded Confirmed Aspirin EC [Ecotrin Low Dose] 81 mg PO DAILY 10/09/20 11/07/23 Atorvastatin [Lipitor] 40 mg PO DAILY 10/09/20 11/07/23 Colchicine 0.6 mg PO DAILY PRN 07/18/22 11/07/23 amLODIPine BESYLATE 5 mg PO DAILY 08/16/23 11/07/23 Ticagrelor [Brilinta] 90 mg PO BID 10/07/23 11/07/23 Allergies Allergy/AdvReac Type Severity Reaction Status Date / Time No Known Allergies Allergy Verified 11/07/23 14:29 Review of Systems ROS Statement: Those systems with pertinent positive or pertinent negative responses have been documented in the HPI. ROS Other: All systems not noted in ROS Statement are negative. Constitutional: Denies: fever Eyes: Denies: eye pain ENT: Denies: ear pain Respiratory: Denies: cough Cardiovascular: Denies: chest pain Endocrine: Denies: fatigue Gastrointestinal: Denies: abdominal pain Genitourinary: Denies: dysuria Neurological: Reports: as per HPI, weakness Past Medical History Past Medical History: Asthma, Coronary Artery Disease (CAD), Cancer, CVA/TIA, Hypertension Additional Past Medical History / Comment(s): Recent dizzy spells. Hx CVA 08/2022, no residual effects. Hx skin cancer. Gout. 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 COLONOSCOPY, MOO Past Anesthesia/Blood Transfusion Reactions: No Reported Reaction Date of Last Stent Placement:: 2019 Past Psychological History: No Psychological Hx Reported Smoking Status: Former smoker Past Alcohol Use History: None Reported Past Drug Use History: None Reported - Past Family History Mother Family Medical History: Deep Vein Thrombosis (DVT) General Exam Limitations: no limitations General appearance: alert, in no apparent distress Head exam: Present: atraumatic, normocephalic Eye exam: Present: normal appearance, PERRL, EOMI ENT exam: Present: normal oropharynx Neck exam: Present: normal inspection Respiratory exam: Present: normal lung sounds bilaterally Cardiovascular Exam: Present: regular rate, normal rhythm GI/Abdominal exam: Present: soft. Absent: tenderness Extremities exam: Present: normal inspection Neurological exam: Present: alert, oriented X3 Expanded Neurological exam: Present: other (Occasional mild slurred speech) Patient oriented to: Present: person, place, time Cranial nerves: EOM's Intact: Normal, Facial Sensation: Normal, Facial Palsy without Forehead Movement: Abnormal Right (Right facial droop without forehead involvement.) Sensory exam: Upper Extremity Light Touch: Normal, Lower Extremity Light Touch: Normal Motor strength exam: RUE: 4, LUE: 5, RLE: 4, LLE: 5 Eye Response: (4) open spontaneously Motor Response: (6) obeys commands Verbal Response: (5) oriented Psychiatric exam: Present: normal affect, normal mood Skin exam: Present: normal color Course Vital Signs 11/07/23 11/07/23 11/07/23 12:59 13:21 13:40 Temperature 98 F 98.1 F Pulse Rate 75 72 68 Respiratory 16 17 20 Rate Blood Pressure 139/64 132/64 135/63 O2 Sat by Pulse 99 98 99 Oximetry 11/07/23 11/07/23 11/07/23 13:45 14:00 14:15 Temperature Pulse Rate 70 68 70 Respiratory 18 16 19 Rate Blood Pressure 161/60 121/56 153/85 O2 Sat by Pulse 99 98 98 Oximetry 11/07/23 11/07/23 11/07/23 14:30 14:38 14:45 Temperature Pulse Rate 73 70 65 Respiratory 20 19 16 Rate Blood Pressure 141/60 153/85 125/87 O2 Sat by Pulse 98 99 Oximetry EKG Findings - EKG Results: EKG: interpreted by THEOD (Right bundle-branch block.), sinus rhythm, normal axis, normal ST/T Medical Decision Making - Medical Decision Making Patient is not a TPA candidate secondary to onset of symptoms greater than 4.5 hours. Was pt. sent in by a medical professional or institution (, RAQUEL, HOUSEHOLD COORDINATOR, urgent care, hospital, or intermediate...) When possible be specific @ -Family states they were sent by neurology office. Did you speak to anyone other than the patient for history (EMS, parent, family, police, friend...)? What history was obtained from this source @ -Family helps right history as patient is somewhat a poor historian. Did you review nursing and triage notes (agree or disagree)? Why? @ -I reviewed and agree with nursing and triage notes Were old charts reviewed (outside hosp., previous admission, EMS record, old EKG, old radiological studies, urgent care reports/EKG's, intermediate records)? Report findings @ -Previous computed tomography scan reviewed. Differential Diagnosis (chest pain, altered mental status, abdominal pain women, abdominal pain men, vaginal bleeding, weakness, fever, dyspnea, syncope, headache, dizziness, GI bleed, back pain, seizure, CVA, palpatations, mental health, musculoskeletal)? @ -Differential Weakness: Hypoglycemia, shock, sepsis, hyponatremia, anemia, infection, [place], ETOH, adverse medicine reaction, overdose, stroke, this is not meant to be an all-inclusive list. EKG interpreted by me (3pts min.). @ -As above X-rays interpreted by me (1pt min.). @ -Chest x-ray shows possible summation CT interpreted by me (1pt min.). @ -Computed tomography scan of the brain shows questionable petechial left parietal similar to previous. U/S interpreted by me (1pt. min.). @ -None done What testing was considered but not performed or refused? (CT, X-rays, U/S, labs)? Why? @ -Consider CTa however this was just done over a week ago What meds were considered but not given or refused? Why? @ -None Did you discuss the management of the patient with other professionals (professionals i.e. , PA, HOUSEHOLD COORDINATOR, lab, RT, psych nurse, social welfare administrator, microfilmer, teacher, personnel training officer, foster care case manager)? Give summary @ -Case was discussed with Dr. Boeyr with plans for transfer patient to [facility]. Was smoking cessation discussed for >3mins.? @ -No Was critical care preformed (if so, how long)? @ -No Were there social determinants of health that impacted care today? How? (Homelessness, low income, unemployed, alcoholism, drug addiction, transportation, low edu. Level, literacy, decrease access to med. care, fdc, rehab)? @ -No Was there de-escalation of care discussed even if they declined (Discuss DNR or withdrawal of care, Hospice)? DNR status @ -No What co-morbidities impacted this encounter? (DM, HTN, Smoking, COPD, CAD, Cancer, CVA, ARF, Chemo, Hep., AIDS, mental health diagnosis, sleep apnea, morbid obesity)? @ -None Was patient admitted / discharged? Hospital course, mention meds given and route, prescriptions, significant lab abnormalities, going to OR and other pertinent info. @ -Patient reevaluated and unchanged. Patient and family are made aware of results and plan. Patient be transferred to [facility] for possible stenting. Undiagnosed new problem with uncertain prognosis? @ -No Drug Therapy requiring intensive monitoring for toxicity (Heparin, Nitro, Insulin, Cardizem)? @ -No Were any procedures done? @ -No Diagnosis/symptom? @ -CVA Acute, or Chronic, or Acute on Chronic? @ -Acute Uncomplicated (without systemic symptoms) or Complicated (systemic symptoms)? @ -default Side effects of treatment? @ -No Exacerbation, Progression, or Severe Exacerbation? @ -No Poses a threat to life or bodily function? How? (Chest pain, [place], [place], pneumonia, PE, COPD, DKA, ARF, appy, cholecystitis, CVA, Diverticulitis, Homicidal, Suicidal, threat to staff... and all critical care pts) @ -No - Lab Data Result diagrams: 11/07/23 13:16 11/07/23 13:16 Lab Results 11/07/23 11/07/23 11/07/23 Range/Units 13:16 13:16 13:16 WBC 2.8 L (3.8-10.6) k/uL RBC 3.60 L (4.30-5.90) m/uL Hgb 11.3 L (13.0-17.5) gm/dL Hct 31.3 L (39.0-53.0) % MCV 86.8 (80.0-100.0) fL MCH 31.5 (25.0-35.0) pg MCHC 36.3 (31.0-37.0) g/dL RDW 17.8 H (11.5-15.5) % Plt Count 379 (150-450) k/uL MPV 8.2 Neutrophils % (Manual) 55 % Lymphocytes % (Manual) 35 % Monocytes % (Manual) 9 % Eosinophils % (Manual) 1 % Neutrophils # (Manual) 1.54 (1.3-7.7) k/uL Lymphocytes # (Manual) 0.98 L (1.0-4.8) k/uL Monocytes # (Manual) 0.25 (0-1.0) k/uL Eosinophils # (Manual) 0.03 (0-0.7) k/uL Nucleated RBCs 0 (0-0) /100 WBC Manual Slide Review Performed Poikilocytosis Slight Anisocytosis Slight PT 10.9 (10.0-12.5) sec INR 1.0 (<1.2) APTT 22.6 (22.0-30.0) sec Sodium 139 (137-145) mmol/L Potassium 3.7 (3.5-5.1) mmol/L Chloride 100 (98-107) mmol/L Carbon Dioxide 25 (22-30) mmol/L Anion Gap 14 mmol/L BUN 16 (9-20) mg/dL Creatinine 0.63 L (0.66-1.25) mg/dL Est GFR (CKD-EPI)AfAm >90 (>60 ml/min/1.73 sqM) Est GFR (CKD-EPI)NonAf >90 (>60 ml/min/1.73 sqM) Glucose 117 H (74-99) mg/dL Calcium 9.0 (8.4-10.2) mg/dL Total Bilirubin 1.0 (0.2-1.3) mg/dL AST 34 (17-59) U/L ALT 34 (4-49) U/L Alkaline Phosphatase 100 (38-126) U/L Creatine Kinase 22 L (55-170) U/L Total Protein 6.8 (6.3-8.2) g/dL Albumin 4.1 (3.5-5.0) g/dL Disposition Clinical Impression: Cerebrovascular accident (CVA) Disposition: OTHER INSTITUTION NOT DEFINED Is patient prescribed a controlled substance at d/c from ED?: No Referrals: Ángel Sykes MD [Primary Care Provider] - 1-2 days Time of Disposition: 15:09 - Out of Hospital Transfer - Req. Specs Out of Hospital Transfer - Requested Specifics: Neurological ICU
[2023-11-07 13:26] LABS: Anisocytosis Slight; HCT 31.3 % (39.0-53.0); HGB 11.3 gm/dL (13.0-17.5); MCH 31.5 pg (25.0-35.0); MCHC 36.3 g/dL (31.0-37.0); MCV 86.8 fL (80.0-100.0); Mean Platelet Volume 8.2; Platelet Count 379 k/uL (150-450); Poikilocytosis Slight; RDW 17.8 % (11.5-15.5); WBC 2.8 k/uL (3.8-10.6)
[2023-11-07 13:35] LABS: Partial Thromboplastin Time 22.6 sec (22.0-30.0); Prothrombin Time 10.9 sec (10.0-12.5)
--- NOTE | 2023-11-07 13:55 | XR ---
EXAMINATION TYPE: XR chest 2V DATE OF EXAM: 11/07/2023 COMPARISON: 10/29/2023 HISTORY: 72-year-old male confusion, altered mental status TECHNIQUE: PA and lateral views FINDINGS: Heart normal size. Median sternotomy wires was placed. Some focal density at the left base probably s uperimposition shadow. Otherwise, no consolidation or pleural effusion seen. IMPRESSION: Post-CABG changes. Some focal density at the left base probably summation artifact rather than a pulm onary nodule as the finding was not seen on 10/29/2023. Recommend follow-up in 4-6 weeks to reassess. Otherwise, no acute process seen.
--- NOTE | 2023-11-07 13:58 | CT ---
EXAMINATION TYPE: CT brain wo con DATE OF EXAM: 11/07/2023 COMPARISON: 10/29/2023 HISTORY: Rt sided weakness, slurred speech CT DLP: 1083.4 mGycm Automated exposure control for dose reduction was used. FINDINGS: Punctate hyperdensity within the left parietal lobe is stable. Moderate generalized degenerative ignacio ge in hypoattenuation in the white matter suggestive of previous ischemia. No midline shift or mass e ffect. Orbits are symmetric. Craniocervical junction maintained. Sella turcica is normal. Calvarium intact. IMPRESSION: 1. DEGENERATIVE AND PREVIOUS ISCHEMIC CHANGES STABLE FROM PRIOR EXAM. 2. TINY PUNCTATE HYPERDENSITY LEFT PARIETAL WHITE MATTER TOO SMALL TO CHARACTERIZE. PREVIOUSLY NOT ED A TINY PETECHIAL HEMORRHAGE COULD NOT BE EXCLUDED.
[2023-11-07 14:01] LABS: ALT 34 U/L (4-49); AST 34 U/L (17-59); African American GFR (CKD) >90 (>60 ml/min/1.73 sqM); Albumin 4.1 g/dL (3.5-5.0); Alkaline Phosphatase 100 U/L (38-126); Anion Gap 14 mmol/L; Blood Urea Nitrogen 16 mg/dL (9-20); Carbon Dioxide 25 mmol/L (22-30); Chloride 100 mmol/L (98-107); Creatine Kinase 22 U/L (55-170); Glucose 117 mg/dL (74-99); Non-African American GFR(CKD) >90 (>60 ml/min/1.73 sqM); Potassium 3.7 mmol/L (3.5-5.1); Sodium 139 mmol/L (137-145); Total Protein 6.8 g/dL (6.3-8.2)
[2023-11-07 14:42] LABS: Eosinophils # (M) 0.03 k/uL (0-0.7); Lymphocytes # (M) 0.98 k/uL (1.0-4.8); Monocytes # (M) 0.25 k/uL (0-1.0); Neutrophils # (M) 1.54 k/uL (1.3-7.7); Neutrophils % (M) 55 %; Nucleated Red Blood Cells 0 /100 WBC (0-0); Total Cells Counted 100
[2023-11-07 15:42] VITALS: TEMP 98
[2023-11-07 16:07] VITALS: BP 146/67; PULSE 66; RESP 17
== END 2023-11-07 15:59 | disposition other institution (70) ==
LOC: EC 12:54
DX: I63.9 Cerebral infarction, unspecified (principal); I45.10 Unspecified right bundle-branch block; J45.909 Unspecified asthma, uncomplicated; I25.10 Atherosclerotic heart disease of native coronary artery without angina pectoris; I10 Essential (primary) hypertension; Z87.891 Personal history of nicotine dependence; Z79.82 Long term (current) use of aspirin; Z79.899 Other long term (current) drug therapy; Z79.02 Long term (current) use of antithrombotics/antiplatelets
CPT/HCPCS: 36415; 70450; 71046; 80053; 82550; 85025; 85610; 85730; 93005; 99285

== ENCOUNTER → 2024-02-03 | Outpatient (CLI) | payer MEDICARE ==
--- NOTE | 2024-02-03 15:11 | US ---
EXAMINATION TYPE: US venous doppler duplex UE DATE OF EXAM: 02/03/2024 COMPARISON: NONE CLINICAL INDICATION: Male, 73 years old with history of M79.89 SWELLING OF LIMBS; SIDE PERFORMED: Bilateral Right Arm: Appears negative for DVT Left Arm: Appears negative for DVT IMPRESSION: Grayscale, color doppler, spectral doppler imaging performed of the deep veins of the upper extremiti es. There is normal flow, compressibility and vascular waveforms.
--- NOTE | 2024-02-03 15:24 | US ---
EXAMINATION TYPE: US venous doppler duplex LE BI DATE OF EXAM: 02/03/2024 2:20 PM COMPARISON: NONE CLINICAL INDICATION: Male, 73 years old with history of M79.89 SWELLING OF LIMBS; SIDE PERFORMED: Bilateral TECHNIQUE: The lower extremity deep venous system is examined utilizing real time linear array sonog caleb with graded compression, doppler sonography and color-flow sonography. VESSELS IMAGED: Common Femoral Vein Deep Femoral Vein Greater Saphenous Vein * Femoral Vein Popliteal Vein Small Saphenous Vein * Proximal Calf Veins (* superficial vessels) Right Leg: Appears negative for DVT Left Leg: Appears negative for DVT IMPRESSION: No evidence of deep venous thrombosis.
== END | disposition home or self-care (01) ==
LOC: RADUSWWP 13:46
PROVIDERS: ATTEND Psychiatry & Neurology Neurology
DX: M79.89 Other specified soft tissue disorders (principal)
CPT/HCPCS: 93970

== ENCOUNTER → 2024-02-13 | Outpatient (CLI) | payer MEDICARE ==
[2024-02-13 21:59] LABS: ALT 18 U/L (10-49); AST 16 U/L (14-35); Albumin 4.3 g/dL (3.8-4.9); Albumin/Globulin Ratio 2.05 Ratio (1.60-3.17); Alkaline Phosphatase 124 U/L (41-126); Globulin 2.1 g/dL (1.6-3.3); Rheumatoid Factor, Qnt <15 IU/mL (0-15); Total Bilirubin 0.7 mg/dL (0.3-1.2); Total Protein 6.4 g/dL (6.2-8.2); Uric Acid 6.7 mg/dL (3.7-8.7)
[2024-02-14 00:15] LABS: Cyclic Citrull Pep IgG Unit <1.5 U/mL (<=3.9); Cyclic Citrullinated Pep IgG Negative
== END | disposition home or self-care (01) ==
LOC: LABWHC1 14:30
PROVIDERS: ATTEND Internal Medicine Rheumatology
DX: M10.9 Gout, unspecified (principal)
CPT/HCPCS: 36415; 80076; 82955; 84550; 85652; 86140; 86200; 86431; 86480

== ENCOUNTER → 2024-03-02 | Outpatient (CLI) | payer MEDICARE ==
[2024-03-02 15:58] LABS: Hepatitis A Antibody IgM Nonreactive (Nonreactive); Hepatitis B Core IgM Nonreactive (Nonreactive); Hepatitis B Surface Antigen Nonreactive (Nonreactive); Hepatitis C IgG Antibody Nonreactive (Nonreactive)
== END | disposition home or self-care (01) ==
LOC: LABWHC1 10:07
PROVIDERS: ATTEND Internal Medicine Rheumatology
DX: M10.9 Gout, unspecified (principal)
CPT/HCPCS: 36415; 80074; 86480

== ENCOUNTER → 2024-09-19 | Outpatient (CLI) | payer MEDICARE ==
--- NOTE | 2024-09-19 13:21 | XR ---
EXAMINATION TYPE: XR abdomen 1V DATE OF EXAM: 09/19/2024 COMPARISON: NONE HISTORY: Pain TECHNIQUE: Single supine KUB image of the abdomen is obtained FINDINGS: Small bowel demonstrates no evidence for dilatation or air fluid levels. Gas and fecal material is seen in non-distended colon. No convincing evidence for pneumoperitoneum. No unusual calcifications. The lung bases are clear. The osseous structures are intact. IMPRESSION: 1. Overall nonobstructive bowel gas pattern. [facility], , 09/19/2024 1:18 PM
== END | disposition home or self-care (01) ==
LOC: RADXRMAIN 12:24
PROVIDERS: ATTEND Internal Medicine Geriatric Medicine
DX: R10.9 Unspecified abdominal pain (principal)
CPT/HCPCS: 74018

== ENCOUNTER → 2024-09-25 | Outpatient (CLI) | payer MEDICARE ==
[2024-09-25 13:03] LABS: African American GFR (CKD) >90 (>60 ml/min/1.73 sqM); Blood Urea Nitrogen 11 mg/dL (9-20); Non-African American GFR(CKD) >90 (>60 ml/min/1.73 sqM)
--- NOTE | 2024-09-27 09:15 | CT ---
EXAMINATION TYPE: CT urogram wo/w con DATE OF EXAM: 09/25/2024 COMPARISON: None HISTORY: Uninhibited neuropathic bladder. UTI. CT DLP: 3692 mGycm Automated exposure control for dose reduction was used. Contrast: None Technique: Axial images 3 mm thick sections. Reconstructed images in the coronal and sagittal plane. Three-D reconstructed images could not be performed due to technical malfunction of the system. FINDINGS: Urogram: No hydronephrosis or hydroureter is evident. Ureter also normal caliber course and contour t owards the urinary bladder. CT ABDOMEN: Limited CT sections were obtained to the lung bases which are clear Liver spleen pancreas are unremarkable. Adrenal glands have minimal fullness. Gallbladder is unremark able. Vascular calcifications within the aorta. Vena cava is normal. Noncontrast images of the kidneys have a couple of punctate 1 mm calcifications without obstruction. Largest calcification at the inferior-anterior pole left kidney measures 0.2 cm. Some cortical calcification is present on the right mid kidney. Loops of bowel without oral contrast. Unremarkable. Fecal debris is through the colon. There are dive rticular changes are present. Appendix is normal CT PELVIS: There is a 1.8 x 1.3 cm large calcification within the inferior urinary bladder. Following contrast, a couple of small hepatic cysts are identified. IMPRESSION: 1. 1.8 X 1.3 CM URINARY BLADDER CALCIFICATION. 2. FEW SCATTERED TINY RENAL CALCIFICATIONS WITHOUT OBSTRUCTION BILATERALLY. [facility], Workstation: [id number], 09/27/2024 9:13 AM
== END | disposition home or self-care (01) ==
LOC: RADCTMAIN 11:15
PROVIDERS: ATTEND Urology
CPT/HCPCS: 36415; 74178; 74400; 82565; 84520

== ENCOUNTER 2024-10-07 22:35 | Emergency (ER) | payer MEDICARE ==
[2024-10-07 22:42] VITALS: TEMP 97.7
[2024-10-07 22:54] VITALS: RESP 18
[2024-10-07 22:57] LABS: Glucose,Whole Blood 126 mg/dL (70-110)
--- NOTE | 2024-10-07 23:04 | ED ---
General Adult HPI - General Chief complaint: Neuro Symptoms/Deficit Stated complaint: fall Time Seen by Provider: 10/07/24 22:47 Source: patient, family Limitations: no limitations - History of Present Illness Initial comments: Patient is a 73-year-old man who presents to have evaluation for what he is calling dizziness. Patient states that he goes to bed very early, he had gone to bed and then states that around 7 he had to use the bathroom. He tried to get up and was very dizzy. He states that he was not able to walk. He states that he tried to rest and see if things would get better. When the symptoms did not improve and he was still feeling dizzy he came here to have evaluation. The patient has difficult time characterizing the symptoms. He states that it was not feeling like he would pass out. He denied a spinning feeling he stated that it felt like he was falling to the side. He was not able to walk. Patient denies weakness. -: hour(s) Severity scale (1-10): 0 Consistency: constant Improves with: none Worsens with: none Associated Symptoms: denies other symptoms Treatments Prior to Arrival: none - Related Data Home Medications Medication Instructions Recorded Confirmed Aspirin EC [Ecotrin Low Dose] 81 mg PO DAILY 10/09/20 10/24/24 Atorvastatin [Lipitor] 40 mg PO DAILY 10/09/20 10/24/24 Colchicine 0.6 mg PO DAILY PRN 07/18/22 10/24/24 amLODIPine BESYLATE 5 mg PO DAILY 08/16/23 10/24/24 Gabapentin [Neurontin] 100 mg PO BID 10/22/24 10/24/24 Meclizine [Antivert] 12.5 mg PO BID 10/22/24 10/24/24 Sulfamethoxazole/Trimethoprim 1 tab PO BID 10/22/24 10/24/24 [Bactrim DS 800-160 mg] Previous Rx's Medication Instructions Recorded Ketorolac [Toradol] 10 mg PO Q6HR PRN #10 tab 10/24/24 Allergies Allergy/AdvReac Type Severity Reaction Status Date / Time No Known Allergies Allergy Verified 10/24/24 06:38 Review of Systems ROS Statement: Those systems with pertinent positive or pertinent negative responses have been documented in the HPI. ROS Other: All systems not noted in ROS Statement are negative. Constitutional: Denies: fever, chills, weakness Eyes: Denies: eye pain, vision change Respiratory: Denies: cough, dyspnea Cardiovascular: Denies: chest pain, palpitations, edema, syncope Gastrointestinal: Denies: abdominal pain, nausea, vomiting Genitourinary: Denies: dysuria, hematuria Musculoskeletal: Denies: back pain Skin: Denies: rash Neurological: Reports: vertigo. Denies: headache, weakness, numbness, paresthesias Past Medical History Past Medical History: Asthma, Coronary Artery Disease (CAD), Cancer, CVA/TIA, Hypertension Additional Past Medical History / Comment(s): Recent dizzy spells. Hx CVA 08/2022, no residual effects. Hx skin cancer. Gout. 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 COLONOSCOPY, MOO Past Anesthesia/Blood Transfusion Reactions: No Reported Reaction Date of Last Stent Placement:: 2019 Past Psychological History: No Psychological Hx Reported Smoking Status: Former smoker Past Alcohol Use History: None Reported Past Drug Use History: None Reported - Past Family History Mother Family Medical History: Deep Vein Thrombosis (DVT) General Exam Limitations: no limitations General appearance: alert, in no apparent distress Head exam: Present: atraumatic, normocephalic Eye exam: Present: normal appearance. Absent: scleral icterus, conjunctival injection ENT exam: Present: normal oropharynx Neck exam: Present: normal inspection Respiratory exam: Present: normal lung sounds bilaterally. Absent: respiratory distress, wheezes, rales, rhonchi, stridor, accessory muscle use Cardiovascular Exam: Present: regular rate, normal rhythm, normal heart sounds. Absent: systolic murmur, diastolic murmur, rubs, gallop GI/Abdominal exam: Present: soft. Absent: distended, tenderness, guarding, rebound, rigid, mass Extremities exam: Present: normal inspection, normal capillary refill. Absent: pedal edema, calf tenderness Back exam: Present: normal inspection. Absent: CVA tenderness (R), CVA tenderness (L) Neurological exam: Present: alert, oriented X3, CN II-XII intact. Absent: motor sensory deficit Skin exam: Present: warm, dry, intact, normal color. Absent: rash Course Vital Signs 10/07/24 10/07/24 10/07/24 22:37 22:49 23:00 Temperature 97.7 F Pulse Rate 62 65 63 Respiratory 16 18 18 Rate Blood Pressure 153/83 137/70 129/59 O2 Sat by Pulse 97 97 96 Oximetry 10/08/24 01:33 Temperature Pulse Rate 60 Respiratory 18 Rate Blood Pressure 134/67 O2 Sat by Pulse 96 Oximetry EKG Findings - EKG Results: EKG: interpreted by ERMD, sinus rhythm (Rate 60 bpm), normal axis, normal ST/T - Blocks, [place], Hypertrophy, ST Abn: AV and intraventricular conduction: right bundle branch block (fixed/intermittent, complete/incomplete) Medical Decision Making - Medical Decision Making Patient is 73-year-old man here to have evaluation for dizziness that limited his ability to walk. The patient did have meclizine, and then workup which did not reveal definite etiology. On reevaluation, the patient is able to sit up, stand and then walk short distances without difficulty. The patient's workup does reveal some evidence of urinary tract infection, and the patient and his state that he is felt very bad when he has had previous urinary tract infections. The patient had been feeling like he had infection so he started Bactrim and has taken 2-1/2 days worth of dosing. The patient states he is to follow with Dr. Alvarez to have removal of a bladder stone that seems to be harboring infection. Patient feels so well that he would like to go home. I did offer admission to have further neurology evaluation but he would like to go. The patient had chest x-ray that I interpreted as negative for acute infiltrate, pneumothorax, congestive heart failure The patient had CT scan of the brain that I interpreted as negative for acute bony injury, negative for acute intracranial hemorrhage or mass effect Was pt. sent in by a medical professional or institution (, PA, MEDIA SERVICES SPECIALIST, urgent care, hospital, or [facility]...) When possible be specific @ -[No] Did you speak to anyone other than the patient for history (EMS, parent, family, police, friend...)? What history was obtained from this source @ -[No] Did you review nursing and triage notes (agree or disagree)? Why? @ -[I reviewed and agree with nursing and triage notes] Were old charts reviewed (outside hosp., previous admission, EMS record, old EKG, old radiological studies, urgent care reports/EKG's, [facility] records)? Report findings @ -[No old charts were reviewed] Differential Diagnosis (chest pain, altered mental status, abdominal pain women, abdominal pain men, vaginal bleeding, weakness, fever, dyspnea, syncope, headache, dizziness, GI bleed, back pain, seizure, CVA, palpatations, mental health, musculoskeletal)? @ -[Differential Dizziness: Benign paroxysmal positional Vertigo, Meniere's disease, otitis media, acoustic neuroma, vertebrobasilar insufficiency, cerebellar stroke, encephalitis, hypovolemic, arrhythmia, coronary artery syndrome, anemia, this is not meant to be an all-inclusive list EKG interpreted by me (3pts min.). @ -[As above] X-rays interpreted by me (1pt min.). @ -[I interpreted as above CT interpreted by me (1pt min.). @ -[I interpreted as above U/S interpreted by me (1pt. min.). @ -[None done] What testing was considered but not performed or refused? (CT, X-rays, U/S, labs)? Why? @ -[None] What meds were considered but not given or refused? Why? @ -[None] Did you discuss the management of the patient with other professionals (professionals i.e. , PA, MEDIA SERVICES SPECIALIST, lab, RT, psych nurse, social contact worker, warp dyeing vat tender, teacher, chief development officer, complex case manager)? Give summary @ -[No] Was smoking cessation discussed for >3mins.? @ -[No] Was critical care preformed (if so, how long)? @ -[No] Were there social determinants of health that impacted care today? How? (Homelessness, low income, unemployed, alcoholism, drug addiction, transportation, low edu. Level, literacy, decrease access to med. care, half-way, rehab)? @ -[No] Was there de-escalation of care discussed even if they declined (Discuss DNR or withdrawal of care, Hospice)? DNR status @ -[No] What co-morbidities impacted this encounter? (DM, HTN, Smoking, COPD, CAD, Cancer, CVA, ARF, Chemo, Hep., AIDS, mental health diagnosis, sleep apnea, morbid obesity)? @ -[None] Was patient admitted / discharged? Hospital course, mention meds given and route, prescriptions, significant lab abnormalities, going to OR and other pertinent info. @ -As above Undiagnosed new problem with uncertain prognosis? @ -[No] Drug Therapy requiring intensive monitoring for toxicity (Heparin, Nitro, Insulin, Cardizem)? @ -[No] Were any procedures done? @ -[No] Diagnosis/symptom? @ -[Acute dizziness Acute on chronic urinary tract infection Acute, or Chronic, or Acute on Chronic? @ -[default] Uncomplicated (without systemic symptoms) or Complicated (systemic symptoms)? @ -[default] Side effects of treatment? @ -[No] Exacerbation, Progression, or Severe Exacerbation? @ -[No] Poses a threat to life or bodily function? How? (Chest pain, [place], [place], pneumonia, PE, COPD, DKA, ARF, appy, cholecystitis, CVA, Diverticulitis, Homicidal, Suicidal, threat to staff... and all critical care pts) @ -[No] - Lab Data Result diagrams: 10/07/24 22:57 10/07/24 22:57 Lab Results 10/07/24 10/07/24 10/07/24 Range/Units 22:56 22:57 22:57 WBC 3.1 L (3.8-10.6) k/uL RBC 3.77 L (4.30-5.90) m/uL Hgb 11.0 L (13.0-17.5) gm/dL Hct 32.5 L (39.0-53.0) % MCV 86.3 (80.0-100.0) fL MCH 29.2 (25.0-35.0) pg MCHC 33.8 (31.0-37.0) g/dL RDW 19.1 H (11.5-15.5) % Plt Count 289 (150-450) k/uL MPV 8.8 Neutrophils % (Manual) 48 % Band Neuts % (Manual) 2 % Lymphocytes % (Manual) 36 % Monocytes % (Manual) 12 % Eosinophils % (Manual) 2 % Neutrophils # (Manual) 1.50 (1.3-7.7) k/uL Lymphocytes # (Manual) 1.12 (1.0-4.8) k/uL Monocytes # (Manual) 0.37 (0-1.0) k/uL Eosinophils # (Manual) 0.06 (0-0.7) k/uL Nucleated RBCs 0 (0-0) /100 WBC Manual Slide Review Performed Poikilocytosis Slight Poikilocytosis (manual Present Anisocytosis Slight Anisocytosis (manual) Present Ovalocytes Present Fragmented RBCs Present PT 10.1 (10.0-12.5) sec INR 0.9 (<1.2) APTT 19.0 L (22.0-30.0) sec Sodium (137-145) mmol/L Potassium (3.5-5.1) mmol/L Chloride (98-107) mmol/L Carbon Dioxide (22-30) mmol/L Anion Gap mmol/L BUN (9-20) mg/dL Creatinine (0.66-1.25) mg/dL Est GFR (CKD-EPI)AfAm (>60 ml/min/1.73 sqM) Est GFR (CKD-EPI)NonAf (>60 ml/min/1.73 sqM) Glucose (74-99) mg/dL POC Glucose (mg/dL) 126 H (70-110) mg/dL POC Glu Fingernail Sculptor ID Burton Delacruz Calcium (8.4-10.2) mg/dL Total Bilirubin (0.2-1.3) mg/dL AST (17-59) U/L ALT (4-49) U/L Alkaline Phosphatase (38-126) U/L Creatine Kinase (55-170) U/L Troponin I (0.000-0.034) ng/mL Total Protein (6.3-8.2) g/dL Albumin (3.5-5.0) g/dL Urine Color Urine Appearance (Clear) Urine pH (5.0-8.0) Ur Specific [place] (1.001-1.035) Urine Protein (Negative) Urine Glucose (UA) (Negative) Urine Ketones (Negative) Urine Blood (Negative) Urine Nitrite (Negative) Urine Bilirubin (Negative) Urine Urobilinogen (<2.0) mg/dL Ur Leukocyte Esterase (Negative) Urine RBC (0-5) /hpf Urine WBC (0-5) /hpf Ur Squamous Epith Cells (0-4) /hpf Urine Bacteria (None) /hpf Urine Mucus (None) /hpf 10/07/24 10/07/24 10/08/24 Range/Units 22:57 22:57 01:35 WBC (3.8-10.6) k/uL RBC (4.30-5.90) m/uL Hgb (13.0-17.5) gm/dL Hct (39.0-53.0) % MCV (80.0-100.0) fL MCH (25.0-35.0) pg MCHC (31.0-37.0) g/dL RDW (11.5-15.5) % Plt Count (150-450) k/uL MPV Neutrophils % (Manual) % Band Neuts % (Manual) % Lymphocytes % (Manual) % Monocytes % (Manual) % Eosinophils % (Manual) % Neutrophils # (Manual) (1.3-7.7) k/uL Lymphocytes # (Manual) (1.0-4.8) k/uL Monocytes # (Manual) (0-1.0) k/uL Eosinophils # (Manual) (0-0.7) k/uL Nucleated RBCs (0-0) /100 WBC Manual Slide Review Poikilocytosis Poikilocytosis (manual Anisocytosis Anisocytosis (manual) Ovalocytes Fragmented RBCs PT (10.0-12.5) sec INR (<1.2) APTT (22.0-30.0) sec Sodium 136 L (137-145) mmol/L Potassium 4.6 (3.5-5.1) mmol/L Chloride 107 (98-107) mmol/L Carbon Dioxide 23 (22-30) mmol/L Anion Gap 6 mmol/L BUN 31 H (9-20) mg/dL Creatinine 0.89 (0.66-1.25) mg/dL Est GFR (CKD-EPI)AfAm >90 (>60 ml/min/1.73 sqM) Est GFR (CKD-EPI)NonAf 86 (>60 ml/min/1.73 sqM) Glucose 116 H (74-99) mg/dL POC Glucose (mg/dL) (70-110) mg/dL POC Glu Fingernail Sculptor ID Calcium 8.9 (8.4-10.2) mg/dL Total Bilirubin 0.8 (0.2-1.3) mg/dL AST 41 (17-59) U/L ALT 23 (4-49) U/L Alkaline Phosphatase 101 (38-126) U/L Creatine Kinase 71 (55-170) U/L Troponin I <0.012 (0.000-0.034) ng/mL Total Protein 6.8 (6.3-8.2) g/dL Albumin 3.9 (3.5-5.0) g/dL Urine Color Yellow Urine Appearance Cloudy (Clear) Urine pH 6.0 (5.0-8.0) Ur Specific [place] 1.028 (1.001-1.035) Urine Protein Trace H (Negative) Urine Glucose (UA) Negative (Negative) Urine Ketones Negative (Negative) Urine Blood Negative (Negative) Urine Nitrite Positive (Negative) Urine Bilirubin Negative (Negative) Urine Urobilinogen <2.0 (<2.0) mg/dL Ur Leukocyte Esterase Large H (Negative) Urine RBC 7 H (0-5) /hpf Urine WBC 108 H (0-5) /hpf Ur Squamous Epith Cells 1 (0-4) /hpf Urine Bacteria Rare H (None) /hpf Urine Mucus Rare H (None) /hpf Disposition Clinical Impression: UTI (urinary tract infection), Vertigo Disposition: HOME SELF-CARE Condition: Good Instructions (If sedation given, give patient instructions): Urinary Tract Infection in Men (ED), Vertigo (ED) Is patient prescribed a controlled substance at d/c from ED?: No Referrals: Ángel Sykes MD [Primary Care Provider] - 1-2 days
[2024-10-07] MEDS: MECLIZINE 12.5 MG TAB PO STA (23:10)
[2024-10-07 23:24] LABS: ALT 23 U/L (4-49); African American GFR (CKD) >90 (>60 ml/min/1.73 sqM); Albumin 3.9 g/dL (3.5-5.0); Anion Gap 6 mmol/L; Blood Urea Nitrogen 31 mg/dL (9-20); Calcium 8.9 mg/dL (8.4-10.2); Carbon Dioxide 23 mmol/L (22-30); Chloride 107 mmol/L (98-107); Creatine Kinase 71 U/L (55-170); Glucose 116 mg/dL (74-99); Non-African American GFR(CKD) 86 (>60 ml/min/1.73 sqM); Sodium 136 mmol/L (137-145); Total Bilirubin 0.8 mg/dL (0.2-1.3); Total Protein 6.8 g/dL (6.3-8.2)
[2024-10-07 23:25] LABS: Anisocytosis Slight; HCT 32.5 % (39.0-53.0); MCH 29.2 pg (25.0-35.0); MCHC 33.8 g/dL (31.0-37.0); MCV 86.3 fL (80.0-100.0); Mean Platelet Volume 8.8; Platelet Count 289 k/uL (150-450); Poikilocytosis Slight; RBC 3.77 m/uL (4.30-5.90); RDW 19.1 % (11.5-15.5); WBC 3.1 k/uL (3.8-10.6)
[2024-10-07 23:26] LABS: AST 41 U/L (17-59); Alkaline Phosphatase 101 U/L (38-126); Potassium 4.6 mmol/L (3.5-5.1)
[2024-10-07 23:27] LABS: INR 0.9 (<1.2); Prothrombin Time 10.1 sec (10.0-12.5)
[2024-10-07 23:41] LABS: Anisocytosis (M) Present; Band Neutrophils % 2 %; Eosinophils # (M) 0.06 k/uL (0-0.7); Lymphocytes # (M) 1.12 k/uL (1.0-4.8); Monocytes # (M) 0.37 k/uL (0-1.0); Neutrophils % (M) 48 %; Nucleated Red Blood Cells 0 /100 WBC (0-0); Poikilocytosis (M) Present; Total Cells Counted 100
[2024-10-07 23:42] LABS: Ovalocytes Present; RBC Fragments Present
--- NOTE | 2024-10-08 00:13 | CT ---
EXAM: CT Head Without Intravenous Contrast CLINICAL HISTORY: ITS.REASON CT Reason: Neuro deficit, acute, stroke suspected TECHNIQUE: Axial computed tomography images of the head/brain without intravenous contrast. CTDI is 49.2 mGy and DLP is 1154.4 mGy-cm. This CT exam was performed using one or more of the following dose reduction techniques: automated exposure control, adjustment of the mA and/or kV according to patient size, and/or use of iterative reconstruction technique. COMPARISON: No relevant prior studies available. FINDINGS: No acute intracranial hemorrhage. No midline shift or mass effect. The [place]-white matter differentiation is maintained throughout. Age-related cerebral volume loss. Periventricular and subcortical white matter hypoattenuation, consistent with chronic microangiopathy. The visualized orbits appear grossly unremarkable. The calvarium is intact. The visualized paranasal sinuses and mastoid air cells are grossly clear. IMPRESSION: No acute intracranial hemorrhage, midline shift, or mass effect.
--- NOTE | 2024-10-08 00:30 | XR ---
EXAM: XR Chest, 2 Views CLINICAL HISTORY: ITS.REASON XR Reason: ams TECHNIQUE: Frontal and lateral views of the chest. COMPARISON: No relevant prior studies available. FINDINGS: Lungs: Unremarkable. No consolidation. Pleural space: Unremarkable. No pneumothorax. Heart: Unremarkable. No cardiomegaly. Mediastinum: Unremarkable. Normal mediastinal contour. Bones/joints: Sternotomy wires. No acute fracture. IMPRESSION: No acute findings in the chest.
[2024-10-08 01:35] VITALS: BP 134/67; PULSE 60
[2024-10-08 01:48] LABS: Appearance,Urine Cloudy (Clear); Bacteria,Urine Rare /hpf; Bilirubin,Urine Negative (Negative); Blood,Urine Negative (Negative); Color,Urine Yellow; Glucose,Urine (UA) Negative (Negative); Ketones,Urine Negative (Negative); Leukocyte Esterase,Urine Large (Negative); Mucus,Urine Rare /hpf; Nitrite,Urine Positive (Negative); Protein,Urine Trace (Negative); RBC,Urine 7 /hpf (0-5); Specific Gravity,Urine 1.028 (1.001-1.035); Squamous Epithelial Cell,Urine 1 /hpf (0-4); Urobilinogen,Urine <2.0 mg/dL (<2.0); WBC,Urine 108 /hpf (0-5)
== END 2024-10-08 02:07 | disposition home or self-care (01) ==
LOC: EC 22:35
DX: N39.0 Urinary tract infection, site not specified (principal); R42 Dizziness and giddiness; Z87.891 Personal history of nicotine dependence; Z86.73 Personal history of transient ischemic attack (TIA), and cerebral infarction without residual deficits; Z95.1 Presence of aortocoronary bypass graft
CPT/HCPCS: 36415; 70450; 71046; 80053; 81001; 82550; 84484; 85025; 85610; 85730; 87086; 93005; 99284

== ENCOUNTER → 2024-10-17 | Outpatient (CLI) | payer MEDICARE ==
[2024-10-17 15:36] LABS: BUN/Creat Ratio 19.86 Ratio (12.00-20.00); Blood Urea Nitrogen 13.9 mg/dL (9.0-27.0); Calcium 9.2 mg/dL (8.7-10.3); Carbon Dioxide 24.9 mmol/L (21.6-31.8); Chloride 100 mmol/L (96-109); Glucose 97 mg/dL (70-110); Potassium 4.2 mmol/L (3.5-5.5); Sodium 137 mmol/L (135-145)
[2024-10-17 15:46] LABS: Basophils # (A) 0.02 X 10*3/uL (0.00-0.10); Basophils % (A) 0.5 %; Eosinophils # (A) 0.02 X 10*3/uL (0.04-0.35); Eosinophils % (A) 0.5 %; HCT 31.7 % (39.6-50.0); HGB 10.5 g/dL (13.0-17.0); Lymphocytes # (A) 1.19 X 10*3/uL (0.90-5.00); Lymphocytes % (A) 28.4 %; MCH 29.6 pg (27.0-32.0); MCHC 33.1 g/dL (32.0-37.0); MCV 89.3 FL (80.0-97.0); Mean Platelet Volume 10.1 FL (9.5-12.2); Monocytes # (A) 0.78 X 10*3/uL (0.20-1.00); Monocytes % (A) 18.6 %; NRBC Per 100 WBC 0 X 10*3/uL (0.00-0.01); Neutrophils # (A) 2.14 X 10*3/uL (1.80-7.70); Platelet Count 389 X 10*3/uL (140-440); RBC 3.55 X 10*6/uL (4.40-5.60); RBC Morphology Normal (Normal); RDW 18.1 % (11.5-14.5); WBC 4.19 X 10*3/uL (4.50-10.00)
[2024-10-17 16:13] LABS: Appearance,Urine Turbid (Clear); Bilirubin,Urine Small (Negative); Blood,Urine Negative (Negative); Color,Urine Orange (Yellow); Ketones,Urine Trace (Negative); Nitrite,Urine Negative (Negative); Specific Gravity,Urine 1.023 (1.001-1.030)
[2024-10-17 16:18] LABS: Bacteria,Urine None Seen (None Seen)
== END | disposition home or self-care (01) ==
LOC: LABPAT 09:08
PROVIDERS: ATTEND Urology
DX: Z01.812 Encounter for preprocedural laboratory examination (principal); N21.9 Calculus of lower urinary tract, unspecified
CPT/HCPCS: 80048; 81001; 85025; 87086

== ENCOUNTER 2024-10-24 05:47 | Day surgery (SDC) | payer MEDICARE ==
--- NOTE | 2024-10-23 11:59 | P.GSHP ---
History of Present Illness H&P Date: 10/23/24 73 yo male with a history of a radical prostatectomy. He has had recurrent uti Cysto identified a stone at the bladder neck 2-3cm. He comes for a cystolithotripsy to remove the stone - Constitutional Constitutional: Denies chills, Denies fever - EENT Eyes: denies blurred vision, denies pain Ears, nose, mouth and throat: Denies headache, Denies sore throat - Cardiovascular Cardiovascular: Denies chest pain, Denies shortness of breath - Respiratory Respiratory: Denies cough, Denies 7 - Gastrointestinal Gastrointestinal: Denies abdominal pain, Denies diarrhea, Denies nausea, Denies vomiting - Genitourinary (Female) Genitourinary: Denies dysuria, Denies hematuria - Genitourinary (Male) Genitourinary: Denies dysuria, Denies hematuria - Musculoskeletal Musculoskeletal: Denies myalgias - Integumentary Integumentary: Denies pruritus, Denies rash - Neurological Neurological: Denies numbness, Denies weakness - Psychiatric Psychiatric: Denies anxiety, Denies depression - Endocrine Endocrine: Denies fatigue, Denies weight change Past Medical History Past Medical History: Asthma, Coronary Artery Disease (CAD), Cancer, CVA/TIA, Hypertension Additional Past Medical History / Comment(s): Hx CVA 08/2023 - residual dizziness. Hx skin cancer. 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 COLONOSCOPY, MOO Past Anesthesia/Blood Transfusion Reactions: No Reported Reaction Date of Last Stent Placement:: 2019 Smoking Status: Former smoker - Past Family History Mother Family Medical History: Deep Vein Thrombosis (DVT) Father Family Medical History: Myocardial Infarction ([place]) Medications and Allergies Home Medications Medication Instructions Recorded Confirmed Type Aspirin EC [Ecotrin Low Dose] 81 mg PO DAILY 10/09/20 10/22/24 History Atorvastatin [Lipitor] 40 mg PO DAILY 10/09/20 10/22/24 History Colchicine 0.6 mg PO DAILY PRN 07/18/22 10/22/24 History amLODIPine BESYLATE 5 mg PO DAILY 08/16/23 10/22/24 History Gabapentin [Neurontin] 100 mg PO BID 10/22/24 10/22/24 History Meclizine [Antivert] 12.5 mg PO BID 10/22/24 10/22/24 History Sulfamethoxazole/Trimethoprim 1 tab PO BID 10/22/24 10/22/24 History [Bactrim DS 800-160 mg] Allergies Allergy/AdvReac Type Severity Reaction Status Date / Time No Known Allergies Allergy Verified 10/22/24 14:51 Surgical - Exam - General well developed, well nourished, no distress - Eyes normal ocular movement, no icteric - ENT no hearing loss, no congestion - Neck no masses, trachea midline - Respiratory normal respiratory effort, clear to auscultation - Abdomen Abdomen: soft, non tender, no guarding, no rigid, no rebound - Integumentary no rash, no abnormal pigmentation - Neurologic no disoriented, no combative - Psychiatric oriented to time, oriented to person, oriented to place, speech is normal, memory intact Assessment and Plan Assessment: impression: Bladder neck stone Plan: cystolithotripsy with laser
[~2024-10-24 05:47] MED LIST changes: +GENTAMICIN 110 MG in SODIUM CHLORIDE 0.9% 100 ML IVPB PRN; +HYDROmorphone 0.5 MG/0.5 ML SYRINGE IVP PRN; -LACTATED RINGERS 1,000 ML IV SCH; +LIDOCAINE 1% (10MG/ML) FOR IV START INTRADERMA PRN; +droPERidol 5 MG/2 ML VIAL IVP ONE
[2024-10-24] MEDS: IV FLUID CONTINUATION 1,000 ML IV ONE (06:54)
[2024-10-24] MEDS: ONDANSETRON 4 MG/2 ML VIAL IVP ONE (06:55)
[2024-10-24] MEDS: DEXAMETHASONE SOD PHOSPHATE 4 MG/ML 1 ML VIAL IV ONE (06:55)
[2024-10-24] MEDS: LACTATED RINGERS 1,000 ML IV SCH (06:55)
[2024-10-24] MEDS ORDERED: PROPOFOL 10 MG/ML 20 ML VIAL IV ONE (07:21)
[2024-10-24] MEDS ORDERED: fentaNYL (PF) 50 MCG/ML 2 ML AMP ONE (07:21)
[2024-10-24] MEDS ORDERED: LIDOCAINE 1% INJ 10MG/ML (20 ML MDV) ONE (07:21)
[2024-10-24] MEDS ORDERED: MIDAZOLAM 2 MG/2 ML VIAL ONE (07:21)
[2024-10-24] MEDS: AMPICILLIN 1,000 MG in SODIUM CHLORIDE 0.9% 50 ML IVPB PRN (07:26)
--- NOTE | 2024-10-24 07:48 | XR ---
EXAMINATION TYPE: XR KUB DATE OF EXAM: 10/24/2024 6:23 AM COMPARISON: None CLINICAL INDICATION: Male, 73 years old with history of N21.9 bladder stone, , FINDINGS: Moderate degenerative changes right hip and mild at the left hip. Phleboliths and vascular calcificat ions pelvis. There is a larger low midline pelvic calcification measuring 2.0 cm. Partially visualize d median sternotomy wires. At least moderate stool burden. Bowel content partially obscures the renal shadows. IMPRESSION: A 2 cm low midline pelvic calcification likely bladder stone. At least moderate stool burden, possibl e constipation. [facility], , 10/24/2024 7:46 AM
[2024-10-24 08:25] VITALS: TEMP 98.1
--- NOTE | 2024-10-24 08:25 | P.OP ---
Date of Procedure: 10/24/24 Preoperative Diagnosis: bladder calculus, large, 3 cm Postoperative Diagnosis: same Procedure(s) Performed: cystoscopy with cystolithotripsy, laser Anesthesia: KRISTIN Surgeon: Nicko Alvarez Estimated Blood Loss (ml): 10 Pathology: other (stone) Condition: stable Disposition: PACU Indications for Procedure: patient is 73. He is status post radical prostatectomy. He came to the office with recurrent urine infections. Evaluation identified a 3 cm bladder stone. He comes for cystoscopy lithotripsy Description of Procedure: patient brought to the operating suite. Given a general anesthetic. Placed lithotomy position with a sterile prep and drape. Cystoscopy Foroblique lens and 21-Peruvian sheath identifies a normal urethra. The prostate is surgically absent. Upon entering the bladder there is a 3 cm stone. With the 550 laser probe stone is slowly broken into smaller pieces. As the stone is broken down it became apparent that there was a surgical clip from his prostatectomy embedded in the stone and therefore the cause of the stone. I completely break the stone and flushed out of the bladder. I removed the clip separately. Reinspected the bladder and other than irritation from the cystolithotripsy there is no remaining stone. The bladder is drained of any remaining stone fragments. The patient is awakened and returned recovery room good condition. He'll be discharged home upon recovery and found the office in one week.
[2024-10-24 08:51] VITALS: RESP 18
[2024-10-24] MEDS: KETOROLAC 15 MG/ML 1 ML VIAL IVP STA (09:04)
[2024-10-24 09:13] VITALS: PULSE 69
[2024-10-24 09:25] VITALS: BP 153/61
== END 2024-10-24 09:48 | disposition home or self-care (01) ==
LOC: OR 05:47
PROVIDERS: ATTEND Urology
DX: N21.0 Calculus in bladder (principal); Z18.89 Other specified retained foreign body fragments; I10 Essential (primary) hypertension; I25.10 Atherosclerotic heart disease of native coronary artery without angina pectoris; I25.2 Old myocardial infarction; Z95.1 Presence of aortocoronary bypass graft; Z95.5 Presence of coronary angioplasty implant and graft; E78.5 Hyperlipidemia, unspecified; J45.909 Unspecified asthma, uncomplicated; M10.9 Gout, unspecified; I69.351 Hemiplegia and hemiparesis following cerebral infarction affecting right dominant side; I69.398 Other sequelae of cerebral infarction; R42 Dizziness and giddiness; Z79.82 Long term (current) use of aspirin; Z79.2 Long term (current) use of antibiotics; Z79.899 Other long term (current) drug therapy; Z87.891 Personal history of nicotine dependence; Z87.440 Personal history of urinary (tract) infections; Z85.820 Personal history of malignant melanoma of skin; Z90.79 Acquired absence of other genital organ(s)
CPT/HCPCS: 82365; 74018; 52318; C1769; J2250; J1100; J2405; J2003; J3010; J0290; J1885; J2704

== ENCOUNTER → 2024-12-31 | Outpatient (CLI) | payer MEDICARE ==
[2024-12-31 19:52] LABS: ALT 43 U/L (10-49); AST 38 U/L (14-35); Blood Urea Nitrogen 12.2 mg/dL (9.0-27.0); Uric Acid 3.8 mg/dL (3.7-8.7)
== END | disposition home or self-care (01) ==
LOC: LABWHC1 14:33
PROVIDERS: ATTEND Internal Medicine Rheumatology
DX: M10.9 Gout, unspecified (principal)
CPT/HCPCS: 36415; 82565; 84450; 84460; 84520; 84550

== ENCOUNTER 2025-03-04 00:14 | Inpatient (IN) | payer MEDICARE ==
[2025-03-04] MEDS: LACTATED RINGERS 1,000 ML IV SCH (00:56)
[2025-03-04] MEDS: ACETAMINOPHEN TAB 500 MG TAB PO STA (00:59)
[2025-03-04 01:17] LABS: ALT 23 U/L (4-49); AST 25 U/L (17-59); African American GFR (CKD) >90 (>60 ml/min/1.73 sqM); Albumin 3.3 g/dL (3.5-5.0); Alkaline Phosphatase 124 U/L (38-126); Anion Gap 7 mmol/L; Anisocytosis Slight; Blood Urea Nitrogen 14 mg/dL (9-20); Calcium 8.9 mg/dL (8.4-10.2); Carbon Dioxide 30 mmol/L (22-30); Chloride 97 mmol/L (98-107); Glucose 108 mg/dL (74-99); HCT 28.1 % (39.0-53.0); HGB 10.1 gm/dL (13.0-17.5); INR 1.1 (<1.2); MCH 29.6 pg (25.0-35.0); MCHC 36.1 g/dL (31.0-37.0); MCV 82.1 fL (80.0-100.0); Mean Platelet Volume 8.3; Microcytosis Slight; Non-African American GFR(CKD) >90 (>60 ml/min/1.73 sqM); Partial Thromboplastin Time 22.1 sec (22.0-30.0); Platelet Count 326 k/uL (150-450); Poikilocytosis Slight; Potassium 3.9 mmol/L (3.5-5.1); Prothrombin Time 11.7 sec (10.0-12.5); RBC 3.42 m/uL (4.30-5.90); RDW 19.3 % (11.5-15.5); Sodium 134 mmol/L (137-145); Total Bilirubin 1.7 mg/dL (0.2-1.3); Total Protein 6.1 g/dL (6.3-8.2); WBC 2.9 k/uL (3.8-10.6)
--- NOTE | 2025-03-04 01:22 | ED ---
General Adult HPI - General Chief complaint: Fall Stated complaint: Leg Pain, Dark Urine, Carotid Aneurysm Time Seen by Provider: 03/04/25 00:33 Source: patient, family Mode of arrival: ambulatory Limitations: no limitations - History of Present Illness Initial comments: Patient is a 74-year-old gentleman past medical history of prior CVA presenting today for generalized weakness. 2 weeks ago was diagnosed with COVID-19. Over the last 3 to 5 days he has had generalized weakness in his lower extremities without new numbness. Did have a fall 2 weeks ago with resultant bruise to his tailbone but no falls since then. States that he his "urine looks gross". Endorses decreased urine output, denies frequency or dysuria. Did have a history of UTIs last fall. No fevers at home but was febrile here in the ER today. No antipyretics prior to arrival. The patient denies any chest pain, shortness of breath, cough, sputum production, hemoptysis, abdominal pain, nausea, vomiting, diarrhea, new rashes, headache. - Related Data Home Medications Medication Instructions Recorded Confirmed Atorvastatin [Lipitor] 40 mg PO DAILY 10/09/20 03/04/25 Colchicine 0.6 mg PO DAILY 07/18/22 03/04/25 amLODIPine BESYLATE 5 mg PO DAILY 08/16/23 03/04/25 Albuterol Sulfate [Ventolin HFA] 2 puff INHALATION RT-Q4H PRN 03/04/25 03/04/25 HYDROcodone/APAP 5-325MG [Henderson 1 tab PO BID 03/04/25 03/04/25 5-325] allopurinoL [Zyloprim] 300 mg PO DAILY 03/04/25 03/04/25 Allergies Allergy/AdvReac Type Severity Reaction Status Date / Time No Known Allergies Allergy Verified 03/04/25 08:22 Review of Systems ROS Statement: Those systems with pertinent positive or pertinent negative responses have been documented in the HPI. ROS Other: All systems not noted in ROS Statement are negative. Past Medical History Past Medical History: Asthma, Coronary Artery Disease (CAD), Cancer, CVA/TIA, Hypertension Additional Past Medical History / Comment(s): Recent dizzy spells. Hx CVA 08/2022, no residual effects. Hx skin cancer. Gout. covid 01/2025 Last Myocardial Infarction Date:: 1992 History of Any Multi-Drug Resistant Organisms: None Reported Past Surgical History: Coronary Bypass/CABG, Heart Catheterization With Stent, Orthopedic Surgery, Prostate Surgery, Tonsillectomy Additional Past Surgical History / Comment(s): CABG- 09/23/20, melanoma removed from eyebrow, elbow surgery, stent 2019, prostate surgery 2006. COLONOSCOPY, MOO, bladder stone removed Past Anesthesia/Blood Transfusion Reactions: No Reported Reaction Date of Last Stent Placement:: 2019 Past Psychological History: No Psychological Hx Reported Smoking Status: Former smoker Past Alcohol Use History: None Reported Past Drug Use History: None Reported - Past Family History Mother Family Medical History: Deep Vein Thrombosis (DVT) Father Family Medical History: Myocardial Infarction ([place]) General Exam - General Exam Comments Initial Comments: PE: CONSTITUTIONAL: No apparent distress, well appearing SKIN: Warm, dry, no jaundice, hives or petechiae, mild erythema overlying the first metatarsal phalangeal joint left foot, no erythema or bruising over lumbar spine or sacrum EYES: Pupils are equally round, extraocular movements intact without nystagmus, clear conjunctiva, non-icteric sclera HENT: Normocephalic, atraumatic, moist mucus membranes, oropharynx clear without exudates NECK: , Full range of motion, normal appearance PULMONARY: Clear to auscultation without wheezes, rhonchi, or rales, normal excursion, no accessory muscle use and no stridor CARDIOVASCULAR: Regular rate, rhythm, normal S1 and S2. No appreciated murmurs, rubs or gallops. Strong radial pulses with intact distal perfusion. No lower extremity edema GASTROINTESTINAL: Soft, active bowel sounds throughout, non-tender, non- distended, no palpable masses, no rebound or guarding. No hepatosplenomegaly MUSCULOSKELETAL: Extremities have no gross deformity, no midline spinal TTP, no erythema, fluctuance or bruising overlying midline spine/sacrum. Mild erythema and swelling over first metatarsalphalangeal joint as noted above NEUROLOGIC:_a/o x 3, GCS 15, normal mentation and speech. Moves all extremities x 4 without motor or sensory deficit PSYCHIATRIC:_normal mood and affect, thought process is clear and linear Limitations: no limitations Course Vital Signs 03/04/25 03/04/25 03/04/25 00:17 00:32 02:34 Temperature 102.1 F H 99.2 F 98.9 F Pulse Rate 81 61 Respiratory 17 19 Rate Blood Pressure 141/62 131/73 O2 Sat by Pulse 94 L 94 L Oximetry 03/04/25 03/04/25 03/04/25 05:00 08:36 13:10 Temperature 98.4 F 97.8 F Pulse Rate 56 L 51 L 52 L Respiratory 18 18 16 Rate Blood Pressure 130/52 135/59 123/61 O2 Sat by Pulse 96 98 97 Oximetry 03/04/25 17:39 Temperature 98.7 F Pulse Rate 65 Respiratory 18 Rate Blood Pressure 128/58 O2 Sat by Pulse 97 Oximetry EKG Findings - EKG Comments: EKG Findings:: Rhythm, right bundle branch block, rate 72 bpm intervals within normal limits, left axis deviation, T wave inversion lead V1, V2, aVR, No stemi, intermediate EKGCompared to EKG performed on 10/07/2024, no new ST elevations or depressions when compared to prior, right Brander branch block was present on prior EKG Medical Decision Making - Medical Decision Making Was pt. sent in by a medical professional or institution (Dr. PA, MARKETING SUPPORT SPECIALIST, urgent care, hospital, or half-way...) When possible be specific @ -No Did you speak to anyone other than the patient for history (EMS, parent, family, police, friend...)? What history was obtained from this source Spoke with patient's assisted in providing history, states no falls since fall 2 weeks ago Did you review nursing and triage notes (agree or disagree)? Why? @ -I reviewed nursing and triage notes disagree triage note, patient does not of bilateral ankle edema, does have some swelling to left foot, states is from gout Were old charts reviewed (outside hosp., previous admission, EMS record, old EKG, old radiological studies, urgent care reports/EKG's, half-way records)? Report findings @ -Medical records reviewed reviewed prior EKG and compared to today's EKG largely unchanged from today's Differential Diagnosis (chest pain, altered mental status, abdominal pain women, abdominal pain men, vaginal bleeding, weakness, fever, dyspnea, syncope, headac he, dizziness, GI bleed, back pain, seizure, CVA, palpatations, mental health, musculoskeletal)? @Differential Weakness: Hypoglycemia, shock, sepsis, hyponatremia, anemia, infection, [place], ETOH, adverse medicine reaction, overdose, stroke, this is not meant to be an all-inclusive list. EKG interpreted by me (3pts min.). @ -As above X-rays interpreted by me (1pt min.). @ Personally reviewed chest XR, on my review shows no obvious consolidation or significant changes from prior chest XR, agree with radiologist interpretation Personally reviewed XR foot, appears to show inflammatory changes around distal 1st metatarsal, without fracture, radiologist notes changes consistent with possible osteomyeletis, agree with radiologist interpretation CT interpreted by me (1pt min.). @ -None done U/S interpreted by me (1pt. min.). @ -None done What testing was considered but not performed or refused? (CT, X-rays, U/S, labs)? Why? @ -None What meds were considered but not given or refused? Why? @ -None Did you discuss the management of the patient with other professionals (professionals i.e. , PA, MARKETING SUPPORT SPECIALIST, lab, RT, psych nurse, social professionals, mineral wool insulation supervisor, teacher, customs officer, patient case manager)? Give summary @ -No Was smoking cessation discussed for >3mins.? @ -No Was critical care preformed (if so, how long)? @ -No Were there social determinants of health that impacted care today? How? (Homelessness, low income, unemployed, alcoholism, drug addiction, transportation, low edu. Level, literacy, decrease access to med. care, long-term, rehab)? @ -No Was there de-escalation of care discussed even if they declined (Discuss DNR or withdrawal of care, Hospice)? @ -No What co-morbidities impacted this encounter? (DM, HTN, Smoking, COPD, CAD, Cancer, CVA, ARF, Chemo, Hep., AIDS, mental health diagnosis, sleep apnea, morbid obesity)? @ -CAD, HTN Was patient admitted / discharged? Hospital course, mention meds given and route, prescriptions, significant lab abnormalities, going to OR and other pertinent info. Admission -Patient is a 74-year-old gentleman past medical history prior CVA presenting today for generalized weakness. Febrile here with temp 102.1 degrees, vital signs otherwise within acceptable limits. States urine looks "gross". History of prior UTIs. Suspect this is a source of infection vs PNA after recent COVID 19 infection. Patient does not otherwise meet SIRS criteria however due to high fever and generalized weakness will obtain sepsis labs, 1L IV fluids ordered, broad spectrum abx, tylenol. X-ray showed no signs of pneumonia. Urine without signs of infection. Labs si gnificant for lactic 1, leukopenia WBC count 2.9. Suspect that erythema and swelling at the first metatarsal phalangeal joint could be secondary to osteomyelitis as opposed to gout. Ordered x-ray to further evaluate. Cefepime has already been ordered, added vancomycin. Anticipate admission. Updated pt to findings and plan of care. Patient agreeable w/ plan. Case discussed with JORI Teran,kindly accepts patient for admission. Undiagnosed new problem with uncertain prognosis? @ -No Drug Therapy requiring intensive monitoring for toxicity (Heparin, Nitro, Insulin, Cardizem)? @ -No Were any procedures done? @ -No Diagnosis/symptom? @ -Generalized weakness, osteomyelitis, sepsis Acute, or Chronic, or Acute on Chronic? @ -Acute Uncomplicated (without systemic symptoms) or Complicated (systemic symptoms)? @Complicated Side effects of treatment? @ -No Exacerbation, Progression, or Severe Exacerbation? @ -No Poses a threat to life or bodily function? How? (Chest pain, [place], [place], pneumonia, PE, COPD, DKA, ARF, appy, cholecystitis, CVA, Diverticulitis, Homicidal, Suicidal, threat to staff... and all critical care pts) Yes if left acute treated could progress to severe sepsis, septic shock and - Lab Data Result diagrams: 03/06/25 03:41 03/06/25 03:41 Lab Results 03/04/25 03/04/25 03/04/25 Range/Units 00:46 00:46 00:46 WBC 2.9 L (3.8-10.6) k/uL RBC 3.42 L (4.30-5.90) m/uL Hgb 10.1 L (13.0-17.5) gm/dL Hct 28.1 L (39.0-53.0) % MCV 82.1 (80.0-100.0) fL MCH 29.6 (25.0-35.0) pg MCHC 36.1 (31.0-37.0) g/dL RDW 19.3 H (11.5-15.5) % Plt Count 326 (150-450) k/uL MPV 8.3 Neutrophils % (Manual) 55 % Lymphocytes % (Manual) 42 % Monocytes % (Manual) 3 % Neutrophils # (Manual) 1.60 (1.3-7.7) k/uL Lymphocytes # (Manual) 1.22 (1.0-4.8) k/uL Monocytes # (Manual) 0.09 (0-1.0) k/uL Nucleated RBCs 0 (0-0) /100 WBC Manual Slide Review Performed Poikilocytosis Slight Anisocytosis Slight Microcytosis Slight Ovalocytes Present PT 11.7 (10.0-12.5) sec INR 1.1 (<1.2) APTT 22.1 (22.0-30.0) sec Sodium 134 L (137-145) mmol/L Potassium 3.9 (3.5-5.1) mmol/L Chloride 97 L (98-107) mmol/L Carbon Dioxide 30 (22-30) mmol/L Anion Gap 7 mmol/L BUN 14 (9-20) mg/dL Creatinine 0.62 L (0.66-1.25) mg/dL Est GFR (CKD-EPI)AfAm >90 (>60 ml/min/1.73 sqM) Est GFR (CKD-EPI)NonAf >90 (>60 ml/min/1.73 sqM) Glucose 108 H (74-99) mg/dL Plasma Lactic Acid Regan (0.7-2.0) mmol/L Calcium 8.9 (8.4-10.2) mg/dL Magnesium (1.6-2.3) mg/dL Total Bilirubin 1.7 H (0.2-1.3) mg/dL AST 25 (17-59) U/L ALT 23 (4-49) U/L Alkaline Phosphatase 124 (38-126) U/L Troponin I (0.000-0.034) ng/mL C-Reactive Protein (0.00-0.80) mg/dL NT-Pro-B Natriuret Pep pg/mL Total Protein 6.1 L (6.3-8.2) g/dL Albumin 3.3 L (3.5-5.0) g/dL Procalcitonin (0.02-0.50) ng/mL Urine Color Urine Appearance (Clear) Urine pH (5.0-8.0) Ur Specific Rosie (1.001-1.035) Urine Protein (Negative) Urine Glucose (UA) (Negative) Urine Ketones (Negative) Urine Blood (Negative) Urine Nitrite (Negative) Urine Bilirubin (Negative) Urine Urobilinogen (<2.0) mg/dL Ur Leukocyte Esterase (Negative) Influenza Type A (PCR) (Not Detectd) Influenza Type B (PCR) (Not Detectd) RSV (PCR) (Not Detectd) SARS-CoV-2 (PCR) (Not Detectd) 03/04/25 03/04/25 03/04/25 Range/Units 00:46 01:09 01:09 WBC (3.8-10.6) k/uL RBC (4.30-5.90) m/uL Hgb (13.0-17.5) gm/dL Hct (39.0-53.0) % MCV (80.0-100.0) fL MCH (25.0-35.0) pg MCHC (31.0-37.0) g/dL RDW (11.5-15.5) % Plt Count (150-450) k/uL MPV Neutrophils % (Manual) % Lymphocytes % (Manual) % Monocytes % (Manual) % Neutrophils # (Manual) (1.3-7.7) k/uL Lymphocytes # (Manual) (1.0-4.8) k/uL Monocytes # (Manual) (0-1.0) k/uL Nucleated RBCs (0-0) /100 WBC Manual Slide Review Poikilocytosis Anisocytosis Microcytosis Ovalocytes PT (10.0-12.5) sec INR (<1.2) APTT (22.0-30.0) sec Sodium (137-145) mmol/L Potassium (3.5-5.1) mmol/L Chloride (98-107) mmol/L Carbon Dioxide (22-30) mmol/L Anion Gap mmol/L BUN (9-20) mg/dL Creatinine (0.66-1.25) mg/dL Est GFR (CKD-EPI)AfAm (>60 ml/min/1.73 sqM) Est GFR (CKD-EPI)NonAf (>60 ml/min/1.73 sqM) Glucose (74-99) mg/dL Plasma Lactic Acid Regan 1.0 (0.7-2.0) mmol/L Calcium (8.4-10.2) mg/dL Magnesium 1.9 (1.6-2.3) mg/dL Total Bilirubin (0.2-1.3) mg/dL AST (17-59) U/L ALT (4-49) U/L Alkaline Phosphatase (38-126) U/L Troponin I <0.012 (0.000-0.034) ng/mL C-Reactive Protein (0.00-0.80) mg/dL NT-Pro-B Natriuret Pep 353 pg/mL Total Protein (6.3-8.2) g/dL Albumin (3.5-5.0) g/dL Procalcitonin (0.02-0.50) ng/mL Urine Color Urine Appearance (Clear) Urine pH (5.0-8.0) Ur Specific Rosie (1.001-1.035) Urine Protein (Negative) Urine Glucose (UA) (Negative) Urine Ketones (Negative) Urine Blood (Negative) Urine Nitrite (Negative) Urine Bilirubin (Negative) Urine Urobilinogen (<2.0) mg/dL Ur Leukocyte Esterase (Negative) Influenza Type A (PCR) (Not Detectd) Influenza Type B (PCR) (Not Detectd) RSV (PCR) (Not Detectd) SARS-CoV-2 (PCR) (Not Detectd) 03/04/25 03/04/25 03/04/25 Range/Units 01:09 01:09 01:24 WBC (3.8-10.6) k/uL RBC (4.30-5.90) m/uL Hgb (13.0-17.5) gm/dL Hct (39.0-53.0) % MCV (80.0-100.0) fL MCH (25.0-35.0) pg MCHC (31.0-37.0) g/dL RDW (11.5-15.5) % Plt Count (150-450) k/uL MPV Neutrophils % (Manual) % Lymphocytes % (Manual) % Monocytes % (Manual) % Neutrophils # (Manual) (1.3-7.7) k/uL Lymphocytes # (Manual) (1.0-4.8) k/uL Monocytes # (Manual) (0-1.0) k/uL Nucleated RBCs (0-0) /100 WBC Manual Slide Review Poikilocytosis Anisocytosis Microcytosis Ovalocytes PT (10.0-12.5) sec INR (<1.2) APTT (22.0-30.0) sec Sodium (137-145) mmol/L Potassium (3.5-5.1) mmol/L Chloride (98-107) mmol/L Carbon Dioxide (22-30) mmol/L Anion Gap mmol/L BUN (9-20) mg/dL Creatinine (0.66-1.25) mg/dL Est GFR (CKD-EPI)AfAm (>60 ml/min/1.73 sqM) Est GFR (CKD-EPI)NonAf (>60 ml/min/1.73 sqM) Glucose (74-99) mg/dL Plasma Lactic Acid Regan (0.7-2.0) mmol/L Calcium (8.4-10.2) mg/dL Magnesium (1.6-2.3) mg/dL Total Bilirubin (0.2-1.3) mg/dL AST (17-59) U/L ALT (4-49) U/L Alkaline Phosphatase (38-126) U/L Troponin I (0.000-0.034) ng/mL C-Reactive Protein 9.10 H (0.00-0.80) mg/dL NT-Pro-B Natriuret Pep pg/mL Total Protein (6.3-8.2) g/dL Albumin (3.5-5.0) g/dL Procalcitonin 0.16 (0.02-0.50) ng/mL Urine Color Urine Appearance (Clear) Urine pH (5.0-8.0) Ur Specific Rosie (1.001-1.035) Urine Protein (Negative) Urine Glucose (UA) (Negative) Urine Ketones (Negative) Urine Blood (Negative) Urine Nitrite (Negative) Urine Bilirubin (Negative) Urine Urobilinogen (<2.0) mg/dL Ur Leukocyte Esterase (Negative) Influenza Type A (PCR) Not Detected (Not Detectd) Influenza Type B (PCR) Not Detected (Not Detectd) RSV (PCR) Not Detected (Not Detectd) SARS-CoV-2 (PCR) Not Detected (Not Detectd) 03/04/25 Range/Units 02:29 WBC (3.8-10.6) k/uL RBC (4.30-5.90) m/uL Hgb (13.0-17.5) gm/dL Hct (39.0-53.0) % MCV (80.0-100.0) fL MCH (25.0-35.0) pg MCHC (31.0-37.0) g/dL RDW (11.5-15.5) % Plt Count (150-450) k/uL MPV Neutrophils % (Manual) % Lymphocytes % (Manual) % Monocytes % (Manual) % Neutrophils # (Manual) (1.3-7.7) k/uL Lymphocytes # (Manual) (1.0-4.8) k/uL Monocytes # (Manual) (0-1.0) k/uL Nucleated RBCs (0-0) /100 WBC Manual Slide Review Poikilocytosis Anisocytosis Microcytosis Ovalocytes PT (10.0-12.5) sec INR (<1.2) APTT (22.0-30.0) sec Sodium (137-145) mmol/L Potassium (3.5-5.1) mmol/L Chloride (98-107) mmol/L Carbon Dioxide (22-30) mmol/L Anion Gap mmol/L BUN (9-20) mg/dL Creatinine (0.66-1.25) mg/dL Est GFR (CKD-EPI)AfAm (>60 ml/min/1.73 sqM) Est GFR (CKD-EPI)NonAf (>60 ml/min/1.73 sqM) Glucose (74-99) mg/dL Plasma Lactic Acid Regan (0.7-2.0) mmol/L Calcium (8.4-10.2) mg/dL Magnesium (1.6-2.3) mg/dL Total Bilirubin (0.2-1.3) mg/dL AST (17-59) U/L ALT (4-49) U/L Alkaline Phosphatase (38-126) U/L Troponin I (0.000-0.034) ng/mL C-Reactive Protein (0.00-0.80) mg/dL NT-Pro-B Natriuret Pep pg/mL Total Protein (6.3-8.2) g/dL Albumin (3.5-5.0) g/dL Procalcitonin (0.02-0.50) ng/mL Urine Color Yellow Urine Appearance Clear (Clear) Urine pH 6.0 (5.0-8.0) Ur Specific Rosie 1.025 (1.001-1.035) Urine Protein Trace H (Negative) Urine Glucose (UA) Negative (Negative) Urine Ketones 1+ H (Negative) Urine Blood Negative (Negative) Urine Nitrite Negative (Negative) Urine Bilirubin Negative (Negative) Urine Urobilinogen 4.0 (<2.0) mg/dL Ur Leukocyte Esterase Negative (Negative) Influenza Type A (PCR) (Not Detectd) Influenza Type B (PCR) (Not Detectd) RSV (PCR) (Not Detectd) SARS-CoV-2 (PCR) (Not Detectd) Disposition Clinical Impression: Osteomyelitis, Sepsis Disposition: ADMITTED IP TO THIS HOSP Condition: Good
[2025-03-04] MEDS: ONDANSETRON 4 MG/2 ML VIAL IVP STA (01:27)
[2025-03-04] MEDS: MORPHINE SULFATE 4 MG/ML SYRINGE IV STA (01:27)
[2025-03-04 01:39] LABS: Magnesium 1.9 mg/dL (1.6-2.3)
[2025-03-04 02:08] LABS: Influenza A Not Detected (Not Detectd); Influenza B Not Detected (Not Detectd); RSV Not Detected (Not Detectd)
[2025-03-04] MEDS: CEFEPIME 2 GM in SODIUM CHLORIDE 0.9% 100 ML IVPB STA (02:32)
[2025-03-04 02:58] LABS: Appearance,Urine Clear (Clear); Bilirubin,Urine Negative (Negative); Blood,Urine Negative (Negative); Color,Urine Yellow; Glucose,Urine (UA) Negative (Negative); Ketones,Urine 1+ (Negative); Leukocyte Esterase,Urine Negative (Negative); Nitrite,Urine Negative (Negative); Protein,Urine Trace (Negative); Specific Gravity,Urine 1.025 (1.001-1.035)
[2025-03-04] MEDS ORDERED: NALOXONE 0.4 MG/ML 1 ML VIAL IV PRN (03:07)
[2025-03-04] MEDS ORDERED: ONDANSETRON 4 MG/2 ML VIAL IVP PRN (03:07)
[2025-03-04] MEDS ORDERED: VANCOMYCIN IV PER PHARMACY 1 EACH MISC MISCELLANE PRN (03:10)
[2025-03-04] MEDS: AZITHROMYCIN 500 MG in SODIUM CHLORIDE 0.9% 250 ML IVPB STA (03:29)
--- NOTE | 2025-03-04 03:30 | XR ---
EXAM: XR Chest, 2 Views CLINICAL HISTORY: ITS.REASON XR Reason: Weakness, fever unknown source TECHNIQUE: Frontal and lateral views of the chest. COMPARISON: No relevant prior studies available. FINDINGS: Lungs: No consolidation or mass. Pleural space: No effusion. Heart: Mild cardiomegaly. Bones/joints: No acute findings. IMPRESSION: No acute cardiopulmonary process.
[2025-03-04 03:34] LABS: Lymphocytes # (M) 1.22 k/uL (1.0-4.8); Monocytes # (M) 0.09 k/uL (0-1.0); Neutrophils % (M) 55 %; Nucleated Red Blood Cells 0 /100 WBC (0-0); Total Cells Counted 100
[2025-03-04 03:35] LABS: Ovalocytes Present
[2025-03-04] MEDS: VANCOMYCIN 1,500 MG in SODIUM CHLORIDE 0.9% 500 ML 500 ML IVPB ONE (03:36)
[2025-03-04] MEDS: SODIUM CHLORIDE 0.9% 1,000 ML IV SCH (03:45)
--- NOTE | 2025-03-04 06:16 | XR ---
EXAMINATION TYPE: XR foot complete LT DATE OF EXAM: 03/04/2025 CLINICAL INDICATION: Male, 74 years old with history of swelling, redness 1st metatar. joint, atrauma tic,, pain TECHNIQUE: Frontal, lateral, and oblique images of the left foot are obtained. COMPARISON: None FINDINGS: Focal severe soft tissue swelling over the medial aspect of the first toe. There are erosiv e changes at the medial distal first metatarsal present as well as early erosive changes at the media l base of the first proximal phalanx. Acute osteomyelitis needs to be considered in appropriate clini judah setting. Correlate clinically. Remainder of foot is intact. IMPRESSION: As above. [facility], , 03/04/2025 6:13 AM
[2025-03-04] MEDS: FAMOTIDINE 20 MG TAB PO SCH (08:38)
[2025-03-04] MEDS ORDERED: ALBUTEROL NEBULIZED 2.5 MG/3 ML INHALATION PRN (10:12)
[2025-03-04] MEDS: COLCHICINE 0.6 MG EACH PO SCH ×2 (10:49→22:10)
[2025-03-04] MEDS: allopurinoL 300 MG TAB PO SCH (10:49)
[2025-03-04] MEDS: amLODIPine 5 MG TAB PO SCH (10:49)
[2025-03-04] MEDS: PANTOPRAZOLE 40 MG TABLET PO SCH (10:50)
[2025-03-04] MEDS: ATORVASTATIN 40 MG TAB PO SCH (10:50)
[2025-03-04] MEDS: HYDROcodone/APAP 5-325MG 1 EACH TAB PO PRN (10:51)
[2025-03-04] MEDS: VANCOMYCIN 1,500 MG in SODIUM CHLORIDE 0.9% 500 ML 500 ML IVPB SCH (12:14)
[2025-03-04] MEDS: HYDROmorphone 0.5 MG/0.5 ML SYRINGE IVP PRN (17:29)
--- NOTE | 2025-03-04 22:21 | HP ---
HISTORY AND PHYSICAL CHIEF COMPLAINT: Leg pain, falls and weakness. HISTORY OF PRESENT ILLNESS: This is a 74-year-old gentleman with a past medical history of multiple medical problems including asthma, CAD, is complaining of severe weakness. The patient apparently had COVID-19 about 2 weeks ago. The patient had a fall about 2 weeks ago. The patient is complaining of back pain. The patient apparently also had a history of gout. X-ray reported as first metatarsophalangeal with osteomyelitis versus gout. The patient admitted for further evaluation and treatment. There is no history of any fever, rigors, or chills at this time. PAST MEDICAL HISTORY: History of asthma, CAD. Rest of the history and rest of the chart are also reviewed. HOME MEDICATIONS: Reviewed include Ventolin. Dose and rest of medications reviewed. ALLERGIES: None. FAMILY HISTORY: History of DVT. SOCIAL HISTORY: Previous history of smoking. REVIEW OF SYSTEMS: A 14-point review of systems is negative except as mentioned earlier. PHYSICAL EXAMINATION: VITAL SIGNS: Pulse is 51, blood pressure 135/59, respirations 18. HEENT: Conjunctivae normal. NECK: No JVD. CARDIOVASCULAR: S1, S2. RESPIRATIONS: Breath sounds diminished at the bases. No rhonchi. No crackles. ABDOMEN: Soft, nontender. LEGS: No edema. No swelling. NERVOUS SYSTEM: Nonfocal. LABORATORY DATA: Reviewed. COVID-19 is negative. ASSESSMENT: 1. Generalized weakness and tiredness, possible dehydration. 2. Gait dysfunction. 3. Rule out first metatarsophalangeal joint osteomyelitis versus acute gout. 4. History of asthma. 5. Coronary artery disease, coronary artery bypass graft stent. 6. Gait dysfunction. 7. Hypertension. 8. Multiple complex medical issues. RECOMMENDATIONS AND DISCUSSION: This is a 74-year-old gentleman presented with multiple complex medical issues, we will monitor the patient closely. Recommend empiric colchicine at this time. Otherwise, recommend uric acid levels. I would also recommend a bone scan, triple phase, and continue to monitor. Infectious Disease has been consulted. Guarded prognosis. PT, OT also will be consulted. Prognosis guarded. Further recommendations to follow. See orders for further details. MMODL / IJN: [id number] /
--- NOTE | 2025-03-04 22:48 | P.CONS ---
History of Present Illness - Reason for Consult Consult date: 03/04/25 Fever Requesting physician: Tai Marquis - Chief Complaint Weakness x few days - History of Present Illness Patient is a 74-year-old male with a past medical history significant for Asthma, Coronary Artery Disease (CAD), Cancer, CVA/TIA, Hypertension presenting to the ER concerning for generalized weakness and this patient apparently has been diagnosed with COVID-19 about 2 weeks ago over the last 3 to 5 days the patient has becoming more weaker in his lower extremity and did have difficulty getting around apparently he did have a fall 2 weeks ago landing on his tailbone for the patient was evaluated in the urgent care and did have x- rays done which was reported to be negative for any fracture with worsening weakness unable to get up and around patient has been brought to the hospital he was not very clear if he has any fever at home however the patient did have a temperature of 102.1 F on arrival to the ER patient was not tachycardic hypotensive or hypoxic no need for supplemental oxygen patient did have white count of 2.9 creatinine was 0.62 liver enzymes are normal urine has been negative patient tested negative for influenza RSV and COVID chest x-ray was reported negative for any acute infiltrate patient did have x-ray of the foot focal severe soft tissue swelling over the medial aspect of the first toe there are erosive changes at the medial distal first metatarsal and proximal phalanx patient did have a history of gout and has been on debridement and colchicine in the outpatient setting has been complaining of more swelling to the left big toe with associated pain describing it to be sharp moderate intense without radiation but no significant redness, patient denies any headache or URI symptoms no chest pain shortness with occasional cough no abdominal pain or diarrhea did have some decreased urine output and dark urine but no significant burning Review of Systems Positive point and negatives has been mentioned in the HPI, complete review of systems was performed and all other systems are negative Past Medical History Past Medical History: Asthma, Coronary Artery Disease (CAD), Cancer, CVA/TIA, Hypertension Additional Past Medical History / Comment(s): Recent dizzy spells. Hx CVA 08/2022, no residual effects. Hx skin cancer. Gout. covid 01/2025 Last Myocardial Infarction Date:: 1992 History of Any Multi-Drug Resistant Organisms: None Reported Past Surgical History: Coronary Bypass/CABG, Heart Catheterization With Stent, Orthopedic Surgery, Prostate Surgery, Tonsillectomy Additional Past Surgical History / Comment(s): CABG- 09/23/20, melanoma removed from eyebrow, elbow surgery, stent 2019, prostate surgery 2006. COLONOSCOPY, MOO, bladder stone removed Past Anesthesia/Blood Transfusion Reactions: No Reported Reaction Date of Last Stent Placement:: 2019 Past Psychological History: No Psychological Hx Reported Smoking Status: Former smoker Past Alcohol Use History: None Reported Past Drug Use History: None Reported - Past Family History Mother Family Medical History: Deep Vein Thrombosis (DVT) Father Family Medical History: Myocardial Infarction ([place]) Medications and Allergies Home Medications Medication Instructions Recorded Confirmed Type Atorvastatin [Lipitor] 40 mg PO DAILY 10/09/20 03/04/25 History Colchicine 0.6 mg PO DAILY 07/18/22 03/04/25 History amLODIPine BESYLATE 5 mg PO DAILY 08/16/23 03/04/25 History Albuterol Sulfate [Ventolin HFA] 2 puff INHALATION RT-Q4H PRN 03/04/25 03/04/25 History HYDROcodone/APAP 5-325MG [[place] 1 tab PO BID 03/04/25 03/04/25 History 5-325] allopurinoL [Zyloprim] 300 mg PO DAILY 03/04/25 03/04/25 History Allergies Allergy/AdvReac Type Severity Reaction Status Date / Time No Known Allergies Allergy Verified 03/04/25 08:22 Physical Exam Vitals: Vital Signs Temp Pulse Resp BP Pulse Ox 03/04/25 08:36 97.8 F 51 L 18 135/59 98 03/04/25 05:00 98.4 F 56 L 18 130/52 96 03/04/25 02:34 98.9 F 61 19 131/73 94 L 03/04/25 00:32 99.2 F 03/04/25 00:17 102.1 F H 81 17 141/62 94 L Intake and Output 03/03/25 03/04/25 03/04/25 22:59 06:59 14:59 Other: Weight 79.832 kg GENERAL DESCRIPTION: Elderly male up in the chair, no distress. No tachypnea or accessory muscle of respiration use. HEENT: Shows Pallor , no scleral icterus. Oral mucous membrane is dry. No pharyngeal erythema or thrush NECK: Trachea central, no thyromegaly. LUNGS: Unlabored breathing. Clear to auscultation anteriorly. No wheeze or crackle. HEART: S1, S2, regular rate and rhythm. No loud murmur ABDOMEN: Soft, no tenderness , guarding or rigidity, no organomegaly EXTREMITIES: Left foot first metatarsophalangeal did have swelling but no redness there is some tenderness SKIN: No rash, no masses palpable. NEUROLOGICAL: The patient is awake, alert, oriented x3, mood and affect normal. Results CBC & Chem 7: 03/04/25 00:46 03/04/25 00:46 Labs: Abnormal Lab Results - Last 24 Hours (Table) 03/04/25 03/04/25 03/04/25 Range/Units 00:46 00:46 02:29 WBC 2.9 L (3.8-10.6) k/uL RBC 3.42 L (4.30-5.90) m/uL Hgb 10.1 L (13.0-17.5) gm/dL Hct 28.1 L (39.0-53.0) % RDW 19.3 H (11.5-15.5) % Sodium 134 L (137-145) mmol/L Chloride 97 L (98-107) mmol/L Creatinine 0.62 L (0.66-1.25) mg/dL Glucose 108 H (74-99) mg/dL Total Bilirubin 1.7 H (0.2-1.3) mg/dL Total Protein 6.1 L (6.3-8.2) g/dL Albumin 3.3 L (3.5-5.0) g/dL Urine Protein Trace H (Negative) Urine Ketones 1+ H (Negative) Assessment and Plan (1) Fever Current Visit: Yes Status: Acute Code(s): R50.9 - FEVER, UNSPECIFIED SNOMED Code(s): 895286310 (2) Leukopenia Current Visit: Yes Status: Acute Code(s): D72.819 - DECREASED WHITE BLOOD CELL COUNT, UNSPECIFIED SNOMED Code(s): 63239129 (3) Gout Current Visit: Yes Status: Acute Code(s): M10.9 - GOUT, UNSPECIFIED SNOMED Code(s): 93099481 Plan: 1patient presented to hospital generalized weakness no energy and difficulty getting around also noticed to have a fever on presentation the hospital did have a pain to the left foot at the first metatarsophalangeal joint which is more likely related to the gout and the abnormal x-ray secondary to the gout rather than osteomyelitis he did have swelling but there is no redness open wou nd or any drainage patient currently do not have any other obvious focus of infection UA has been negative chest x-ray was negative abdominal soft on clinical examination no evidence of any cellulitis or joint swelling 2-I will go ahead and check inflammatory markers and procalcitonin 3-May continue the vancomycin while waiting for the culture to finalize Question concern answered We will follow on clinical condition and cultures to further adjust medication if needed Thank you for this consultation we will follow the patient along with you Dictation was produced using [employer] dictation software. please excuse any grammatical, word or spelling errors. Time with Patient: Greater than 30
[2025-03-04] MEDS: ACETAMINOPHEN TAB 325 MG TAB PO PRN (23:31)
[2025-03-05 05:56] LABS: Basophils # (A) 0.01 10*3/uL (0.00-0.10); Basophils % (A) 0.4 %; HCT 26.3 % (39.6-50.0); HGB 9.3 g/dL (13.0-17.0); Lymphocytes # (A) 0.76 10*3/uL (0.90-5.00); Lymphocytes % (A) 33.8 %; MCH 29.3 pg (27.0-32.0); MCHC 35.4 g/dL (32.0-37.0); Monocytes # (A) 0.51 10*3/uL (0.20-1.00); Monocytes % (A) 22.7 %; Neutrophils # (A) 0.96 10*3/uL (1.80-7.70); Neutrophils % (A) 42.7 %; Platelet Count 100 10*3/uL (140-440); RBC 3.17 10*6/uL (4.40-5.60); RDW 18.6 % (11.5-14.5); WBC 2.25 10*3/uL (4.50-10.00)
[2025-03-05 05:58] LABS: Ovalocytes Present
[2025-03-05 07:02] LABS: ALT 18 U/L (4-49); AST 19 U/L (17-59); African American GFR (CKD) >90 (>60 ml/min/1.73 sqM); Albumin 2.7 g/dL (3.5-5.0); Alkaline Phosphatase 109 U/L (38-126); Anion Gap 3 mmol/L; Blood Urea Nitrogen 9 mg/dL (9-20); Calcium 8.3 mg/dL (8.4-10.2); Carbon Dioxide 29 mmol/L (22-30); Chloride 104 mmol/L (98-107); Globulin 2.6 g/dL; Glucose 104 mg/dL (74-99); Non-African American GFR(CKD) >90 (>60 ml/min/1.73 sqM); Potassium 3.9 mmol/L (3.5-5.1); Sodium 136 mmol/L (137-145); Total Bilirubin 1.2 mg/dL (0.2-1.3); Total Protein 5.3 g/dL (6.3-8.2)
--- NOTE | 2025-03-05 13:04 | NM ---
EXAMINATION TYPE: NM bone 3 phase DATE OF EXAM: 03/05/2025 COMPARISON: Left foot x-ray one day earlier CLINICAL INDICATION: Male, 74 years old with history of osteo left foot; Triple phase bone scintigraphy was performed following the injection of 23.6 mCi Tc 99m MDP. Immedia te images and 4 hours post injection images acquired. FINDINGS: Asymmetric increased radiotracer uptake in the left ankle and foot on the dynamic arterial phase imag ing and soft tissue phase imaging with more prominent focal uptake in the distal medial toes on blood pool images in the left foot. Delayed images show increased radiotracer uptake in the first and to l mina degree second toes of the left foot. IMPRESSION: 3 phase radiotracer uptake first and lesser degree second toes is suggestive of acute ost eomyelitis at this level . [facility], , 03/05/2025 1:02 PM
[2025-03-05] MEDS ORDERED: DEXTROSE 50% SYRINGE 50 ML IVP PRN ×2 (14:51)
[2025-03-05] MEDS: methylPREDNISolone SOD SUCCI 125 MG/2 ML VIAL IV SCH (15:25)
[2025-03-05 16:28] LABS: Glucose,Whole Blood 98 mg/dL (70-110)
[2025-03-05] MEDS: INSULIN LISPRO (HumaLOG) 100 UNIT/ML 10 mL VL SQ SCH (16:36)
[2025-03-05] MEDS: IOPAMIDOL CONTRAST (ORAL USE) VIAL PO PRN (16:59)
--- NOTE | 2025-03-05 17:57 | PN ---
PROGRESS NOTE DATE OF SERVICE: 03/05/2025 SUBJECTIVE: This is a 74-year-old gentleman admitted with severe leg pain, also history of gout, also the patient has significant pain and swelling of the metatarsophalangeal joint. A bone scan was done, which showed some osteomyelitis. The patient is seen by Dr. Bernard also. White count is 2.25. The patient is on empiric IV antibiotics. Cultures are negative so far. PAST MEDICAL HISTORY: Reviewed. REVIEW OF SYSTEMS: A 14-point review of systems is negative except as mentioned earlier. CURRENT MEDICATIONS: Reviewed. PHYSICAL EXAMINATION: VITAL SIGNS: Pulse is 66, blood pressure 149/60, respirations 17. HEENT: Conjunctivae normal. NECK: No JVD. CARDIOVASCULAR: S1, S2. RESPIRATIONS: Breath sounds diminished at the bases. A few scattered rhonchi. ABDOMEN: Soft. LEGS: Left leg pain and swelling present. LABORATORY DATA: WBC 2.3, hemoglobin is 9.3. Rest of the labs are noted. ESR is 21, procalcitonin 0.16. ASSESSMENT: 1. Generalized weakness and tiredness, possibly secondary to dehydration. 2. Left foot metatarsophalangeal joint swelling, possibly osteomyelitis versus acute gout exacerbation. 3. Gait dysfunction. 4. History of asthma. 5. Coronary artery disease, coronary artery bypass graft stent. 6. Hypertension. 7. Multiple complex medical issues. RECOMMENDATIONS: Recommend to continue current management and continue symptomatic treatment. Continue empiric antibiotics. The patient is on vancomycin. The patient received cefepime. Continue with high-dose colchicine. Guarded prognosis. Further recommendations to follow. MMODL / IJN: [id number] /
--- NOTE | 2025-03-05 19:28 | CT ---
EXAMINATION TYPE: CT abdomen pelvis w con CT DLP: 1209.9 mGycm, Automated exposure control for dose reduction was used. DATE OF EXAM: 03/05/2025 6:42 PM COMPARISON: CT urogram 09/25/2024 CLINICAL INDICATION:Male, 74 years old with history of fever, epigastric discomfort, sacral pain; fev er, epigastric discomfort, sacral pain TECHNIQUE: Standard CT of the abdomen and pelvis following the administration of 100 cc of Isovue 3 00 IV contrast material and oral contrast. Coronal and sagittal reformats were performed. FINDINGS: LOWER CHEST: Linear atelectasis within the right middle lobe. Stable right middle lobe 6.2 mm solid p ulmonary nodule (series 204, image 15). Median sternotomy wires. Coronary artery calcifications. Aort ic valvular an mitral annulus calcifications. Minimal bilateral gynecomastia. ABDOMEN LIVER: Unremarkable GALLBLADDER AND BILE DUCTS: Unremarkable. PANCREAS: Unremarkable. SPLEEN: Unremarkable. ADRENAL GLANDS: Similar mild thickening of both adrenal glands possibly representing hyperplasia. KIDNEYS AND URETERS: No evidence of hydronephrosis. Couple bilateral punctate nonobstructive renal ca lculi. The kidneys enhance symmetrically. Contrast is demonstrated within both collecting systems on the delayed phase. PELVIS BLADDER: Incompletely distended but grossly unremarkable. Previously seen urinary bladder calcificati on is no longer visualized. REPRODUCTIVE: Unremarkable. ABDOMEN & PELVIS STOMACH AND BOWEL: Tiny hiatal hernia.Scattered distal colonic diverticula without evidence for acute diverticulosis. Enteric contrast reaches the proximal transverse colon. No focal bowel wall thickeni ng or surrounding inflammatory changes. No evidence of bowel obstruction. PERITONEUM: No evidence of pneumoperitoneum or free fluid. VASCULATURE: Moderate atherosclerotic calcifications are present throughout the abdominal aorta and i ts branches. No evidence of aortic aneurysm. MUSCULOSKELETAL: New anterior wedge compression deformity of the L1 vertebral body with approximately 20% height loss and retropulsion when compared to prior CT. There is some sclerosis identified. No p araspinal edema identified. Mild multilevel degenerative disc disease. LYMPH NODES: No evidence for lymphadenopathy. SOFT TISSUE/ABDOMINAL WALL: Unremarkable. No sacral decubitus ulcer. IMPRESSION: 1. No acute intra-abdominal/pelvic process. 2. New anterior wedge compression deformity L1 vertebral body when compared to prior CT 09/25/2024. T his is age indeterminate. No paraspinal edema. Correlate with point tenderness. 3. Colonic diverticulosis without evidence for acute diverticulitis. 4. Punctate nonobstructive bilateral renal calculi. 5. Stable right middle lobe 6.2 mm pulmonary nodule. Follow-up CT chest in one year is recommended. [facility], , 03/05/2025 7:25 PM
[2025-03-05 20:37] LABS: Glucose,Whole Blood 197 mg/dL (70-110)
--- NOTE | 2025-03-05 22:40 | P.PN ---
Subjective Progress Note Date: 03/05/25 Principal diagnosis: Reason for follow-up is fever abnormal x-ray left foot Patient is a 74-year-old male with a past medical history significant for Asthma, Coronary Artery Disease (CAD), Cancer, CVA/TIA, Hypertension presenting to the ER concerning for generalized weakness and this patient did have a fever at home with this consideration abnormal x-ray to the left foot concerning for possible osteo that he did have a history of gouty arthritis. On today's evaluation that is 03/05/2025, Patient did spike a fever last night of 101.3 F however patient is is afebrile this morning patient denies having any chest pain shortness of breath or cough, the patient is currently on room air, patient denies any abdominal pain no diarrhea no nausea no vomiting has been complaining of pain mostly to the lower back area. Patient white count is 2.25 creatinine 0.68 electrolytes are normal liver enzymes normal blood cultures pending Objective - Vital Signs Vital signs: Vital Signs Temp 99.4 F 03/05/25 06:45 Pulse 66 03/05/25 06:45 Resp 18 03/05/25 06:45 BP 122/62 03/05/25 06:45 Pulse Ox 97 03/05/25 06:45 FiO2 Intake & Output 03/04/25 03/05/25 03/05/25 18:59 06:59 18:59 Output Total 300 Balance -300 Weight 79.832 kg Output: Urine 300 Other: Voiding Method Toilet # Voids 2 - Exam GENERAL DESCRIPTION: An elderly male lying in bed in no distress RESPIRATORY SYSTEM: Unlabored breathing , decreased breath sounds at bases HEART: S1 S2 regular rate and rhythm , ABDOMEN: Soft , mild epigastric tenderness EXTREMITIES: Left foot first metatarsophalangeal joint swelling but no redness or warmth - Labs CBC & Chem 7: 03/05/25 04:26 03/05/25 05:47 Labs: Abnormal Lab Results - Last 24 Hours (Table) 03/04/25 03/04/25 03/05/25 Range/Units 01:09 14:35 04:26 WBC 2.25 L (4.50-10.00) 10*3/uL RBC 3.17 L (4.40-5.60) 10*6/uL Hgb 9.3 L (13.0-17.0) g/dL Hct 26.3 L (39.6-50.0) % RDW 18.6 H (11.5-14.5) % Plt Count 100 L (140-440) 10*3/uL Neutrophils # 0.96 L (1.80-7.70) 10*3/uL Lymphocytes # 0.76 L (0.90-5.00) 10*3/uL Eosinophils # 0.00 L (0.04-0.35) 10*3/uL ESR 21 H (0-20) mm/Hr Sodium (137-145) mmol/L Glucose (74-99) mg/dL Calcium (8.4-10.2) mg/dL C-Reactive Protein 9.10 H (0.00-0.80) mg/dL Total Protein (6.3-8.2) g/dL Albumin (3.5-5.0) g/dL 03/05/25 Range/Units 05:47 WBC (4.50-10.00) 10*3/uL RBC (4.40-5.60) 10*6/uL Hgb (13.0-17.0) g/dL Hct (39.6-50.0) % RDW (11.5-14.5) % Plt Count (140-440) 10*3/uL Neutrophils # (1.80-7.70) 10*3/uL Lymphocytes # (0.90-5.00) 10*3/uL Eosinophils # (0.04-0.35) 10*3/uL ESR (0-20) mm/Hr Sodium 136 L (137-145) mmol/L Glucose 104 H (74-99) mg/dL Calcium 8.3 L (8.4-10.2) mg/dL C-Reactive Protein (0.00-0.80) mg/dL Total Protein 5.3 L (6.3-8.2) g/dL Albumin 2.7 L (3.5-5.0) g/dL Assessment and Plan (1) Fever Current Visit: Yes Status: Acute Code(s): R50.9 - FEVER, UNSPECIFIED SNOMED Code(s): 279195906 (2) Leukopenia Current Visit: Yes Status: Acute Code(s): D72.819 - DECREASED WHITE BLOOD CELL COUNT, UNSPECIFIED SNOMED Code(s): 50684803 (3) Gout Current Visit: Yes Status: Acute Code(s): M10.9 - GOUT, UNSPECIFIED SNOMED Code(s): 77825808 Plan: 1patient presented to hospital generalized weakness no energy and difficulty getting around also noticed to have a fever on presentation the hospital did have a pain to the left foot at the first metatarsophalangeal joint which is more likely related to the gout and the abnormal x-ray secondary to the gout rather than osteomyelitis he did have swelling but there is no redness open wound or any drainage patient currently do not have any other obvious focus of infection UA has been negative chest x-ray was negative abdominal soft on clinical examination no evidence of any cellulitis or joint swelling 2-patient did have some epigastric tenderness and has been complaining of pain mostly lower back area we will check a CT of abdominal pelvis to evaluate intra- abdominal as well as lumbar sacral spine, clinical suspicion is low for left foot osteomyelitis mostly features of gouty arthritis await bone scan ordered by admitting team Dictation was produced using [employer] dictation software. please excuse any grammatical, word or spelling errors. Time with Patient: Less than 30
[2025-03-06] MEDS: VANCOMYCIN TROUGH DUE 1 EACH MISC MISCELLANE ONE (02:11)
[2025-03-06 06:07] LABS: Glucose,Whole Blood 195 mg/dL (70-110)
[2025-03-06 09:01] LABS: ALT 20 U/L (10-49); AST 21 U/L (14-35); Albumin 3.4 g/dL (3.8-4.9); Albumin/Globulin Ratio 1.36 Ratio (1.60-3.17); Alkaline Phosphatase 129 U/L (41-126); Blood Urea Nitrogen 6.6 mg/dL (9.0-27.0); Calcium 8.6 mg/dL (8.7-10.3); Carbon Dioxide 25.3 mmol/L (21.6-31.8); Chloride 104 mmol/L (96-109); Globulin 2.5 g/dL (1.6-3.3); Glucose 180 mg/dL (70-110); Potassium 4.2 mmol/L (3.5-5.5); Sodium 139 mmol/L (135-145); Total Bilirubin 0.8 mg/dL (0.3-1.2); Total Protein 5.9 g/dL (6.2-8.2)
[2025-03-06 09:34] LABS: Band Neutrophils % 4 %; Basophils # (M) 0 X 10*3/uL (0.00-0.10); Eosinophils # (M) 0 X 10*3/uL (0.04-0.35); HCT 27.6 % (39.6-50.0); HGB 9.3 g/dL (13.0-17.0); Lymphocytes # (M) 0.14 X 10*3/uL (0.90-5.00); MCH 28.5 pg (27.0-32.0); MCHC 33.7 g/dL (32.0-37.0); MCV 84.7 FL (80.0-97.0); Mean Platelet Volume 10.5 FL (9.5-12.2); Monocytes # (M) 0.05 X 10*3/uL (0.20-1.00); NRBC Per 100 WBC 0 X 10*3/uL (0.00-0.01); Neutrophils # (M) 0.35 X 10*3/uL (1.80-7.70); Neutrophils % (M) 60 %; Platelet Count 373 X 10*3/uL (140-440); RBC 3.26 X 10*6/uL (4.40-5.60); RDW 18.3 % (11.5-14.5); WBC 0.54 X 10*3/uL (4.50-10.00)
[2025-03-06 11:23] LABS: Glucose,Whole Blood 214 mg/dL (70-110)
[2025-03-06 12:00] LABS: HCT 28.3 % (39.6-50.0); Lymphocytes # (A) 0.21 10*3/uL (0.90-5.00); Lymphocytes % (A) 23.6 %; MCH 29.7 pg (27.0-32.0); MCHC 35.3 g/dL (32.0-37.0); Mean Platelet Volume 10.4 fL (9.5-12.2); Monocytes # (A) 0.04 10*3/uL (0.20-1.00); Monocytes % (A) 4.5 %; Neutrophils # (A) 0.58 10*3/uL (1.80-7.70); Neutrophils % (A) 65.2 %; RBC 3.37 10*6/uL (4.40-5.60); RDW 18.3 % (11.5-14.5)
[2025-03-06] MEDS: VANCOMYCIN 1,750 MG in SODIUM CHLORIDE 0.9% 500 ML 500 ML IVPB SCH (13:04)
[2025-03-06 13:23] LABS: WBC 0.89 10*3/uL (4.50-10.00)
[2025-03-06 13:24] LABS: Platelet Count 369 10*3/uL (140-440)
[2025-03-06] MEDS: methylPREDNISolone SOD SUCCI 40 MG/ML 1 ML VIAL IV SCH (14:14)
[2025-03-06 16:36] LABS: Glucose,Whole Blood 180 mg/dL (70-110)
[2025-03-06 18:09] LABS: Reticulocyte % 1.29 % (0.10-1.80)
[2025-03-06 18:37] LABS: % Iron Saturation 28.21 (15.00-50.00); Iron 66 UG/DL (65-175); Rheumatoid Factor, Qnt <15 IU/mL (0-15); Total Iron Binding Capacity 234 UG/DL (228-460)
[2025-03-06 20:54] LABS: Glucose,Whole Blood 219 mg/dL (70-110)
[2025-03-06 21:28] LABS: Protein, Total 5.8 g/dL (6.2-8.2)
--- NOTE | 2025-03-06 23:40 | P.CONS ---
History of Present Illness - Reason for Consult Consult date: 03/06/25 neutropenia Requesting physician: Velia Gonsales - Chief Complaint leg pain, fall - History of Present Illness Mr. Martinez is a 74-year-old male we have been asked to see in regards to new onset neutropenia. On admit WBC is 0.54, ANC is 0.35. On chart review October 2023 is the first noted low white blood cell count, this was status post a stroke, white blood cell counts have been persistently low since that time. Patient does not report workup for the same, he was not aware that his white count has been slightly low. He is currently admitted because of a fall and leg pain. Patient reports having COVID about 2 weeks ago, he has been experiencing generalized weakness since, this has been progressive. He denies fevers but, 102.1 Fahrenheit temperatures documented on admission, he reports some sweats at night. Nuclear medicine bone scan concerning for osteomyelitis of the left toes. Prior to this admission he denied nausea, vomiting, new pain, lymphadenopathy. He did report appetite has been poor, down about 6 pounds. He reports an increase in infections in the last year including shingles last fall, UTI x 3 secondary to bladder stones. Patient has a history of prostate cancer, treated and followed by Dr. Alvarez, surgery, no other treatment. He is also noted to have mild anemia with a hemoglobin of 9.3. Review of Systems 10 point review of systems is negative except as stated in HPI Past Medical History Past Medical History: Asthma, Coronary Artery Disease (CAD), Cancer, CVA/TIA, Hypertension Additional Past Medical History / Comment(s): Recent dizzy spells. Hx CVA 08/2022, no residual effects. Hx skin cancer. Gout. covid 01/2025 Last Myocardial Infarction Date:: 1992 History of Any Multi-Drug Resistant Organisms: None Reported Past Surgical History: Coronary Bypass/CABG, Heart Catheterization With Stent, Orthopedic Surgery, Prostate Surgery, Tonsillectomy Additional Past Surgical History / Comment(s): CABG- 09/23/20, melanoma removed from eyebrow, elbow surgery, stent 2019, prostate surgery 2006. COLONOSCOPY, MOO, bladder stone removed Past Anesthesia/Blood Transfusion Reactions: No Reported Reaction Date of Last Stent Placement:: 2019 Past Psychological History: No Psychological Hx Reported Smoking Status: Former smoker Past Alcohol Use History: None Reported Past Drug Use History: None Reported - Past Family History Mother Family Medical History: Deep Vein Thrombosis (DVT) Father Family Medical History: Myocardial Infarction ([place]) Medications and Allergies Home Medications Medication Instructions Recorded Confirmed Type Atorvastatin [Lipitor] 40 mg PO DAILY 10/09/20 03/04/25 History Colchicine 0.6 mg PO DAILY 07/18/22 03/04/25 History amLODIPine BESYLATE 5 mg PO DAILY 08/16/23 03/04/25 History Albuterol Sulfate [Ventolin HFA] 2 puff INHALATION RT-Q4H PRN 03/04/25 03/04/25 History HYDROcodone/APAP 5-325MG [[place] 1 tab PO BID 03/04/25 03/04/25 History 5-325] allopurinoL [Zyloprim] 300 mg PO DAILY 03/04/25 03/04/25 History Allergies Allergy/AdvReac Type Severity Reaction Status Date / Time No Known Allergies Allergy Verified 03/04/25 08:22 Physical Exam Vitals: Vital Signs Temp Pulse Pulse Resp BP Pulse Ox 03/06/25 07:16 97.8 F 57 L 18 149/66 98 03/06/25 03:39 145/63 03/06/25 01:07 97.7 F 61 17 174/75 98 03/05/25 20:33 98.2 F 71 16 144/75 97 03/05/25 16:00 98.3 F 58 L 16 140/63 03/05/25 13:53 98.1 F 66 17 149/68 99 Intake and Output 03/05/25 03/06/25 03/06/25 22:59 06:59 14:59 Other: Voiding Method Toilet Toilet Urinal Urinal # Voids 1 2 - Constitutional General appearance: average body habitus, cooperative, no acute distress - EENT Eyes: anicteric sclerae, EOMI ENT: hearing grossly normal, normal oropharynx - Neck Neck: no lymphadenopathy - Respiratory Respiratory: bilateral: CTA - Cardiovascular Rhythm: regular Heart sounds: normal: S1, S2 Abnormal Heart Sounds: no systolic murmur, no diastolic murmur, no rub, no S3 Gallop, no S4 Gallop, no click, no other leg Peripheral Edema: bilateral: None - Gastrointestinal General gastrointestinal: no absent bowel sounds, no decreased bowel sounds, no distended, no hepatomegaly, no hyperactive bowel sounds, normal bowel sounds, no organomegaly, no rigid, no scaphoid, soft, no splenomegaly, no tenderness, no umbilical hernia, no ventral hernia - Integumentary Integumentary: normal - Neurologic Neurologic: CNII-XII intact - Musculoskeletal Musculoskeletal: strength equal bilaterally - Psychiatric Psychiatric: A&O x's 3, appropriate affect, intact judgment & insight Results CBC & Chem 7: 03/06/25 11:31 03/06/25 03:41 Labs: Abnormal Lab Results - Last 24 Hours (Table) 03/05/25 03/06/25 03/06/25 Range/Units 20:36 03:41 03:41 WBC 0.54 A* (4.50-10.00) X 10*3/uL RBC 3.26 L (4.40-5.60) X 10*6/uL Hgb 9.3 L (13.0-17.0) g/dL Hct 27.6 L (39.6-50.0) % RDW 18.3 H (11.5-14.5) % Neutrophils # (Manual) 0.35 A* (1.80-7.70) X 10*3/uL Lymphocytes # (Manual) 0.14 L (0.90-5.00) X 10*3/uL Monocytes # (Manual) 0.05 L (0.20-1.00) X 10*3/uL Eosinophils # (Manual) 0 L (0.04-0.35) X 10*3/uL BUN 6.6 L (9.0-27.0) mg/dL BUN/Creatinine Ratio 11.00 L (12.00-20.00) Ratio Glucose 180 H (70-110) mg/dL POC Glucose (mg/dL) 197 H (70-110) mg/dL Calcium 8.6 L (8.7-10.3) mg/dL Alkaline Phosphatase 129 H (41-126) U/L Total Protein 5.9 L (6.2-8.2) g/dL Albumin 3.4 L (3.8-4.9) g/dL Albumin/Globulin Ratio 1.36 L (1.60-3.17) Ratio 03/06/25 03/06/25 Range/Units 06:06 11:19 WBC (4.50-10.00) X 10*3/uL RBC (4.40-5.60) X 10*6/uL Hgb (13.0-17.0) g/dL Hct (39.6-50.0) % RDW (11.5-14.5) % Neutrophils # (Manual) (1.80-7.70) X 10*3/uL Lymphocytes # (Manual) (0.90-5.00) X 10*3/uL Monocytes # (Manual) (0.20-1.00) X 10*3/uL Eosinophils # (Manual) (0.04-0.35) X 10*3/uL BUN (9.0-27.0) mg/dL BUN/Creatinine Ratio (12.00-20.00) Ratio Glucose (70-110) mg/dL POC Glucose (mg/dL) 195 H 214 H (70-110) mg/dL Calcium (8.7-10.3) mg/dL Alkaline Phosphatase (41-126) U/L Total Protein (6.2-8.2) g/dL Albumin (3.8-4.9) g/dL Albumin/Globulin Ratio (1.60-3.17) Ratio Microbiology - Last 24 Hours (Table) 03/04/25 00:46 Blood Culture - Preliminary Blood CT scan - abdomen: report reviewed CT scan - pelvis: report reviewed Assessment and Plan (1) Fever Current Visit: Yes Status: Acute Code(s): R50.9 - FEVER, UNSPECIFIED SNOMED Code(s): 780051160 (2) Leukopenia Current Visit: Yes Status: Acute Code(s): D72.819 - DECREASED WHITE BLOOD CELL COUNT, UNSPECIFIED SNOMED Code(s): 63199186 (3) Osteomyelitis Current Visit: Yes Status: Acute Code(s): M86.9 - OSTEOMYELITIS, UNSPECIFIED SNOMED Code(s): 50832931 Plan: Leukopenia, neutropenia -Noted in the chart since October 2023. Current numbers are the worst documented. -Discussed with patient and his abnormal lab values and potential underlying causes including a bone marrow disorder, reactive process, medications, autoimmune disease, malignancy. They are agreeable to work up, laboratory investigations have been ordered - Thankfully, fever pattern has abated since admission. Patient is on antibiotics. Infectious disease has seen the patient and is following. Pancultures pending. -Will hold off on G-CSF at this time. Will continue to monitor CBC with differential. Will continue to follow patient's clinical course and make adjustments to the plan as necessary.
--- NOTE | 2025-03-07 03:21 | PN ---
PROGRESS NOTE DATE OF SERVICE: 03/06/2025 SUBJECTIVE: This is a 74-year-old gentleman, who was admitted with generalized weakness and tiredness, possibly secondary to dehydration, also had left foot metatarsophalangeal joint swelling, and possible acute gout. The possibility of infection is also there, osteomyelitis thought to be less likely per Dr. Bernard. The patient also had abdominopelvic CAT scan, which showed anterior wedge fracture of the L1. The patient also had severe neutropenia today with bicytopenia. Multiple consultants are following the patient closely. PAST MEDICAL HISTORY: Reviewed. REVIEW OF SYSTEMS: A 14-point review of systems is negative except as mentioned earlier. CURRENT MEDICATIONS: Reviewed. PHYSICAL EXAMINATION: VITAL SIGNS: Pulse is 60, blood pressure 123/70, respirations 17. HEENT: Conjunctivae normal. CARDIOVASCULAR: S1, S2. RESPIRATIONS: Breath sounds diminished at the bases. ABDOMEN: Soft. EXTREMITIES: The left foot swelling present. The redness is better. LABORATORY DATA: Reviewed. ASSESSMENT: 1. Generalized weakness and tiredness, possibly secondary to dehydration present on admission. 2. Left foot metatarsophalangeal joint swelling, possible acute gout, osteomyelitis thought less likely per ID. 3. Severe neutropenia and leukopenia. 4. Gait dysfunction. 5. L1 anterior body compression fracture. 6. History of asthma. 7. Coronary artery disease, coronary artery bypass graft. 8. Hypertension. 9. Multiple complex medical issues. RECOMMENDATIONS: Recommended to continue current management and continue symptomatic treatment. Recommend Hematology, Oncology consultation for neutropenia. Otherwise, reduce the dose of IV steroids. Closely follow with multiple consultants. Repeat labs in the morning. Guarded prognosis because of multiple complex medical issues and further recommendations to follow. See orders for further details. MMODL / IJN: [id number] /
[2025-03-07 06:01] LABS: Glucose,Whole Blood 173 mg/dL (70-110)
[2025-03-07] MEDS: COLCHICINE 0.6 MG EACH PO SCH (08:34)
[2025-03-07 08:39] LABS: HCT 25.4 % (39.6-50.0); HGB 8.6 g/dL (13.0-17.0); MCH 29.3 pg (27.0-32.0); MCHC 33.9 g/dL (32.0-37.0); MCV 86.4 FL (80.0-97.0); Mean Platelet Volume 10.2 FL (9.5-12.2); NRBC Per 100 WBC 0 X 10*3/uL (0.00-0.01); Platelet Count 375 X 10*3/uL (140-440); RBC 2.94 X 10*6/uL (4.40-5.60); RDW 18.5 % (11.5-14.5); WBC 3.35 X 10*3/uL (4.50-10.00)
[2025-03-07 08:49] VITALS: RESP 16
[2025-03-07 10:11] LABS: Basophils # (M) 0 X 10*3/uL (0.00-0.10); Elliptocytes 2+ (None Seen); Eosinophils # (M) 0 X 10*3/uL (0.04-0.35); Lymphocytes # (M) 0.34 X 10*3/uL (0.90-5.00); Monocytes # (M) 0.03 X 10*3/uL (0.20-1.00); Neutrophils # (M) 2.98 X 10*3/uL (1.80-7.70); Neutrophils % (M) 89 %
[2025-03-07 10:59] LABS: Free Kappa Lt Chain Qnt, Serum 2.11 mg/dL (0.33-1.94); Free Lambda Lt Chain Qnt, Seru 1.41 mg/dL (0.57-2.63)
[2025-03-07 11:07] LABS: ALT 36 U/L (10-49); AST 44 U/L (14-35); Albumin 3.1 g/dL (3.8-4.9); Albumin/Globulin Ratio 1.35 Ratio (1.60-3.17); Alkaline Phosphatase 118 U/L (41-126); Blood Urea Nitrogen 12.3 mg/dL (9.0-27.0); Calcium 8.6 mg/dL (8.7-10.3); Carbon Dioxide 29.6 mmol/L (21.6-31.8); Chloride 110 mmol/L (96-109); Globulin 2.3 g/dL (1.6-3.3); Glucose 158 mg/dL (70-110); Potassium 4.1 mmol/L (3.5-5.5); Sodium 143 mmol/L (135-145); Total Bilirubin 0.5 mg/dL (0.3-1.2); Total Protein 5.4 g/dL (6.2-8.2)
[2025-03-07 11:32] LABS: Glucose,Whole Blood 189 mg/dL (70-110)
--- NOTE | 2025-03-07 11:51 | P.CNOR ---
History of Present Illness - [facility] Consult date: 03/07/25 Requesting physician: Velia Gonsales Consult reason: fracture (L1 compression fracture deformity status post fall), low back pain History of present illness: Patient is a very pleasant 74-year-old male who is seen examined at bedside for further evaluation of his lumbar spine. He sustained a fall 2 weeks ago at home. Since that time he has had increased lumbar pain. His pain is controlled at rest. His pain is exacerbated ambulation. He denies any previous injury to his lumbar spine. He states his legs were sore at that time but have improved. He denies any specific lower extremity weakness or radiculopathy. He does have a history of stroke with some residual generalized weakness. Currently he is being seen by multiple medical providers including hematology/on cology, infectious disease, and medicine. Patient does have leukopenia and neutropenia. He is also being treated for gout. Dr. Bernard and infectious disease does not currently think the patient has an infection. He did have CT of the abdomen pelvis performed which did show evidence of his L1 compression fracture deformity. Past Medical History Past Medical History: Asthma, Coronary Artery Disease (CAD), Cancer, CVA/TIA, Hypertension Additional Past Medical History / Comment(s): Recent dizzy spells. Hx CVA 08/2022, no residual effects. Hx skin cancer. Gout. covid 01/2025 Last Myocardial Infarction Date:: 1992 History of Any Multi-Drug Resistant Organisms: None Reported Past Surgical History: Coronary Bypass/CABG, Heart Catheterization With Stent, Orthopedic Surgery, Prostate Surgery, Tonsillectomy Additional Past Surgical History / Comment(s): CABG- 09/23/20, melanoma removed from eyebrow, elbow surgery, stent 2019, prostate surgery 2006. COLONOSCOPY, MOO, bladder stone removed Past Anesthesia/Blood Transfusion Reactions: No Reported Reaction Date of Last Stent Placement:: 2019 Past Psychological History: No Psychological Hx Reported Smoking Status: Former smoker Past Alcohol Use History: None Reported Past Drug Use History: None Reported - Past Family History Mother Family Medical History: Deep Vein Thrombosis (DVT) Father Family Medical History: Myocardial Infarction ([place]) Medications and Allergies Home Medications Medication Instructions Recorded Confirmed Type Atorvastatin [Lipitor] 40 mg PO DAILY 10/09/20 03/04/25 History Colchicine 0.6 mg PO DAILY 07/18/22 03/04/25 History amLODIPine BESYLATE 5 mg PO DAILY 08/16/23 03/04/25 History Albuterol Sulfate [Ventolin HFA] 2 puff INHALATION RT-Q4H PRN 03/04/25 03/04/25 History HYDROcodone/APAP 5-325MG [[place] 1 tab PO BID 03/04/25 03/04/25 History 5-325] allopurinoL [Zyloprim] 300 mg PO DAILY 03/04/25 03/04/25 History Allergies Allergy/AdvReac Type Severity Reaction Status Date / Time No Known Allergies Allergy Verified 03/04/25 08:22 Physical Examination Osteopathic Statement: *. No significant issues noted on an osteopathic structural exam other than those noted in the History and Physical/Consult. Physical exam: Patient is awake, alert, and oriented 3 Vital signs stable Good chest excursion with deep inspiration and expiration Examination of lumbar spine reveals skin is intact with no abrasions, lacerations, or bruises; no erythema, purulence or signs of infection No significant pain with palpation over the lumbar spine Dorsiflexion, plantarflexion, and extensor hallucis longus positive sustained bilaterally No lower extremity hyperreflexia bilaterally Straight leg test negative bilateral lower extremities No signs or symptoms of DVT; no calf pain No pain with internal and external rotation of the hips bilaterally Neurovascularly intact Results Pertinent studies: CT of the abdomen pelvis taken on 03/05/2025: Evidence of L1 compression fracture deformity with approximately 25% height loss of the superior endplate - Labs Labs: Abnormal Lab Results - Last 24 Hours (Table) 03/06/25 03/06/25 03/06/25 Range/Units 11:31 15:37 15:37 WBC 0.89 L* (4.50-10.00) 10*3/uL RBC 3.37 L (4.40-5.60) 10*6/uL Hgb 10.0 L (13.0-17.0) g/dL Hct 28.3 L (39.6-50.0) % RDW 18.3 H (11.5-14.5) % Immature Gran # 0.06 H (0.00-0.04) 10*3/uL Neutrophils # 0.58 L (1.80-7.70) 10*3/uL Lymphocytes # 0.21 L (0.90-5.00) 10*3/uL Lymphocytes # (Manual) (0.90-5.00) X 10*3/uL Monocytes # 0.04 L (0.20-1.00) 10*3/uL Monocytes # (Manual) (0.20-1.00) X 10*3/uL Eosinophils # 0.00 L (0.04-0.35) 10*3/uL Eosinophils # (Manual) (0.04-0.35) X 10*3/uL Elliptocytes (None Seen) Chloride (96-109) mmol/L Anion Gap (4.00-12.00) mmol/L BUN/Creatinine Ratio (12.00-20.00) Ratio Glucose (70-110) mg/dL POC Glucose (mg/dL) (70-110) mg/dL Calcium (8.7-10.3) mg/dL Transferrin 167.0 L (204.0-354.0) mg/dL AST (14-35) U/L Total Protein (6.2-8.2) g/dL Total Protein (PEP) 5.8 L (6.2-8.2) g/dL Albumin (3.8-4.9) g/dL Albumin/Globulin Ratio (1.60-3.17) Ratio Free [place] LC, Quant 2.11 H (0.33-1.94) mg/dL 03/06/25 03/06/25 03/07/25 Range/Units 16:34 20:53 05:59 WBC (4.50-10.00) 10*3/uL RBC (4.40-5.60) 10*6/uL Hgb (13.0-17.0) g/dL Hct (39.6-50.0) % RDW (11.5-14.5) % Immature Gran # (0.00-0.04) 10*3/uL Neutrophils # (1.80-7.70) 10*3/uL Lymphocytes # (0.90-5.00) 10*3/uL Lymphocytes # (Manual) (0.90-5.00) X 10*3/uL Monocytes # (0.20-1.00) 10*3/uL Monocytes # (Manual) (0.20-1.00) X 10*3/uL Eosinophils # (0.04-0.35) 10*3/uL Eosinophils # (Manual) (0.04-0.35) X 10*3/uL Elliptocytes (None Seen) Chloride (96-109) mmol/L Anion Gap (4.00-12.00) mmol/L BUN/Creatinine Ratio (12.00-20.00) Ratio Glucose (70-110) mg/dL POC Glucose (mg/dL) 180 H 219 H 173 H (70-110) mg/dL Calcium (8.7-10.3) mg/dL Transferrin (204.0-354.0) mg/dL AST (14-35) U/L Total Protein (6.2-8.2) g/dL Total Protein (PEP) (6.2-8.2) g/dL Albumin (3.8-4.9) g/dL Albumin/Globulin Ratio (1.60-3.17) Ratio Free [place] LC, Quant (0.33-1.94) mg/dL 03/07/25 03/07/25 03/07/25 Range/Units 06:23 06:23 11:31 WBC 3.35 L (4.50-10.00) 10*3/uL RBC 2.94 L (4.40-5.60) 10*6/uL Hgb 8.6 L (13.0-17.0) g/dL Hct 25.4 L (39.6-50.0) % RDW 18.5 H (11.5-14.5) % Immature Gran # (0.00-0.04) 10*3/uL Neutrophils # (1.80-7.70) 10*3/uL Lymphocytes # (0.90-5.00) 10*3/uL Lymphocytes # (Manual) 0.34 L (0.90-5.00) X 10*3/uL Monocytes # (0.20-1.00) 10*3/uL Monocytes # (Manual) 0.03 L (0.20-1.00) X 10*3/uL Eosinophils # (0.04-0.35) 10*3/uL Eosinophils # (Manual) 0 L (0.04-0.35) X 10*3/uL Elliptocytes 2+ A (None Seen) Chloride 110 H (96-109) mmol/L Anion Gap 3.40 L (4.00-12.00) mmol/L BUN/Creatinine Ratio 20.50 H (12.00-20.00) Ratio Glucose 158 H (70-110) mg/dL POC Glucose (mg/dL) 189 H (70-110) mg/dL Calcium 8.6 L (8.7-10.3) mg/dL Transferrin (204.0-354.0) mg/dL AST 44 H (14-35) U/L Total Protein 5.4 L (6.2-8.2) g/dL Total Protein (PEP) (6.2-8.2) g/dL Albumin 3.1 L (3.8-4.9) g/dL Albumin/Globulin Ratio 1.35 L (1.60-3.17) Ratio Free [place] LC, Quant (0.33-1.94) mg/dL Microbiology - Last 24 Hours (Table) 03/04/25 00:46 Blood Culture - Preliminary Blood H & H 03/04/25 03/05/25 03/06/25 Range/Units 00:46 04:26 03:41 Hgb 10.1 L 9.3 L 9.3 L (13.0-17.5) gm/dL Hct 28.1 L 26.3 L 27.6 L (39.0-53.0) % 03/06/25 03/07/25 Range/Units 11:31 06:23 Hgb 10.0 L 8.6 L (13.0-17.5) gm/dL Hct 28.3 L 25.4 L (39.0-53.0) % Coagulation 03/04/25 Range/Units 00:46 INR 1.1 (<1.2) Result Diagrams: 03/07/25 06:23 03/07/25 06:23 Assessment and Plan Assessment: Assessment: Acute traumatic L1 compression fracture deformity status post fall Low back pain Leukopenia Neutropenia Gout Coronary artery disease History of stroke Hypertension (1) Compression fracture of L1 lumbar vertebra Current Visit: Yes Status: Acute Code(s): S32.010A - W[place]GE COMPRESSION FRACTURE OF FIRST LUMBAR VERTEBRA, INIT SNOMED Code(s): 834876693 (2) Status post fall Current Visit: Yes Status: Acute Code(s): Z91.81 - HISTORY OF FALLING SNOMED Code(s): 453366120 (3) Low back pain Current Visit: Yes Status: Acute Code(s): M54.50 - LOW BACK PAIN, UNSPECIFIED SNOMED Code(s): 942609517 (4) Neutropenia Current Visit: Yes Status: Acute Code(s): D70.9 - NEUTROPENIA, UNSPECIFIED SNOMED Code(s): 367555492 (5) History of stroke Current Visit: Yes Status: Acute Code(s): Z86.73 - PRSNL HX OF TIA (TIA), AND CEREB INFRC W/O RESID DEFICITS SNOMED Code(s): 586967807 (6) Coronary artery disease Current Visit: Yes Status: Acute Code(s): I25.10 - ATHSCL HEART DISEASE OF [place] CORONARY ARTERY W/O ANG PCTRS SNOMED Code(s): 08703968 (7) Hypertension Current Visit: Yes Status: Acute Code(s): I10 - ESSENTIAL (PRIMARY) HYPERTENSION SNOMED Code(s): 92977734 (8) Gout Current Visit: Yes Status: Acute Code(s): M10.9 - GOUT, UNSPECIFIED SNOMED Code(s): 93085453 (9) Leukopenia Current Visit: Yes Status: Acute Code(s): D72.819 - DECREASED WHITE BLOOD CELL COUNT, UNSPECIFIED SNOMED Code(s): 46242145 Plan: Plan: 1. Patient is known to have sustained a. fall 2 weeks ago. Since that time he has had increased low back pain which is exacerbated with ambulation. CT imaging does show evidence of L1 compression fracture deformity. After reviewing of imaging, physical examination the patient, and further discussion with the patient, will currently planned to continue with conservative treatment at this time. At this time we'll plan for bracing. A prescription has been written and provided to case management for an LSO brace. Once this brace is delivered and fitted appropriately, patient should wear this brace while sitting upright at greater than 45, during increase activities, during ambulation. Brace does not have to or while lying in bed or while bathing. Following fitting of this brace, patient is clear for discharge from an orthopedic spine standpoint. Following discharge, patient may follow-up with Kike Marinelli PA-C or Dr. Rajesh Spear at [facility]. 2. Patient will continue be seen exam by multiple medical providers including medicine, infectious disease, and hematology/oncology. The patient is seen and examined. I reviewed his images and his exam. I agree with the above. He has an acute fracture of L1 status post fall without any neurologic compromise. We will start conservative treatment and this should heal well with conservative care. We will continue to follow him in on the outpatient basis. If he is having worsening issues or evidence of instability or lack of healing we could consider kyphoplasty but we will continue conservative treatment for now. I discussed this with him and his and they understand. Time with Patient: Greater than 30 (Including obtaining history, physical examination, reviewing of imaging, and dictation.)
--- NOTE | 2025-03-07 13:24 | P.CRDCN ---
History of Present Illness History of present illness: HISTORY OF PRESENT ILLNESS: This is a 74-year-old male with a past medical history significant for hypertension, hyperlipidemia, dizziness, and CVA. Patient follows in the office with Dr. Mason. We have been asked to see the patient in consultation for carotid stenosis. Patient examined at the bedside. Patient is currently sitting up in the chair. Patient's is at the bedside. Patient is admitted to the hospital secondary to a gout flareup. Patient currently denies any chest pain or pressure. He denies shortness of breath. He does report dizziness which has been ongoing. Patient underwent an MRI with his neurologist that revealed possible aneurysm of left carotid and recommended CT for further evaluation. REVIEW OF SYSTEMS: At the time of my exam: CONSTITUTIONAL: Denies fever or chills. HEENT: Denies blurred vision, vision changes, or eye pain. Denies hemoptysis CARDIOVASCULAR: Denies chest pain. Denies orthopnea. Denies PND. Denies palpitations RESPIRATORY: Denies shortness of breath. GASTROINTESTINAL: Denies abdominal pain. Denies nausea or vomiting. HEMATOLOGIC: Denies bleeding disorders. GENITOURINARY: Denies any blood in urine. SKIN: Denies pruitis. Denies rash. PHYSICAL EXAM: VITAL SIGNS: Reviewed. GENERAL: Well-developed in no acute distress. HEENT: Head is normocephalic. Pupils are equal, round. Sclerae anicteric. Mucous membranes of the mouth are moist. Neck supple. No JVD or thyromegaly LUNGS: Respirations even and unlabored. Lungs essentially clear to auscultation bilaterally. HEART: Regular rate and rhythm. S1 and S2 heard. ABDOMEN: Soft. Nondistended. Nontender. EXTREMITIES: Normal range of motion. No clubbing or cyanosis. Peripheral pulses intact. No lower extremity edema NEUROLOGIC: Awake and alert. Oriented x 3. ASSESSMENT: Acute gout flareup Left carotid aneurysm per MRI Hypertension Hyperlipidemia Chronic dizziness History of CVA PLAN: Continue current cardiac medications Patient to undergo CT angio to assess carotids Patient may be discharged home today from a cardiac standpoint and follow-up in the office with Dr. Mason Nurse practitioner note has been reviewed by physician. Signing provider agrees with the documented findings, assessment, and plan of care documented by HEALTH PHYSICS TECHNICIAN as a scribe. Past Medical History Past Medical History: Asthma, Coronary Artery Disease (CAD), Cancer, CVA/TIA, Hypertension Additional Past Medical History / Comment(s): Recent dizzy spells. Hx CVA 08/2022, no residual effects. Hx skin cancer. Gout. covid 01/2025 Last Myocardial Infarction Date:: 1992 History of Any Multi-Drug Resistant Organisms: None Reported Past Surgical History: Coronary Bypass/CABG, Heart Catheterization With Stent, Orthopedic Surgery, Prostate Surgery, Tonsillectomy Additional Past Surgical History / Comment(s): CABG- 09/23/20, melanoma removed from eyebrow, elbow surgery, stent 2019, prostate surgery 2006. COLONOSCOPY, MOO, bladder stone removed Past Anesthesia/Blood Transfusion Reactions: No Reported Reaction Date of Last Stent Placement:: 2019 Past Psychological History: No Psychological Hx Reported Smoking Status: Former smoker Past Alcohol Use History: None Reported Past Drug Use History: None Reported - Past Family History Mother Family Medical History: Deep Vein Thrombosis (DVT) Father Family Medical History: Myocardial Infarction ([place]) Medications and Allergies Home Medications Medication Instructions Recorded Confirmed Type Atorvastatin [Lipitor] 40 mg PO DAILY 10/09/20 03/04/25 History Colchicine 0.6 mg PO DAILY 07/18/22 03/04/25 History amLODIPine BESYLATE 5 mg PO DAILY 08/16/23 03/04/25 History Albuterol Sulfate [Ventolin HFA] 2 puff INHALATION RT-Q4H PRN 03/04/25 03/04/25 History HYDROcodone/APAP 5-325MG [[place] 1 tab PO BID 03/04/25 03/04/25 History 5-325] allopurinoL [Zyloprim] 300 mg PO DAILY 03/04/25 03/04/25 History Allergies Allergy/AdvReac Type Severity Reaction Status Date / Time No Known Allergies Allergy Verified 03/04/25 08:22 Physical Exam Vitals: Vital Signs Temp Pulse Pulse Pulse Resp BP Pulse Ox 03/07/25 08:35 98 46 L 71 16 03/07/25 07:18 97.6 F 46 L 16 132/57 96 03/07/25 01:43 97.5 F L 50 L 15 134/62 97 03/06/25 19:10 98.1 F 98 18 122/43 96 03/06/25 15:32 98.5 F 61 18 143/73 97 Intake and Output 0403/07/25 03/07/25 22:59 06:59 14:59 Other: Voiding Method Toilet # Voids 1 1 Results 03/07/25 06:23 03/07/25 06:23 Cardiac Enzymes 03/07/25 Range/Units 06:23 AST 44 H (14-35) U/L CBC 03/06/25 03/07/25 Range/Units 11:31 06:23 WBC 0.89 L* 3.35 L (4.50-10.00) 10*3/uL RBC 3.37 L 2.94 L (4.40-5.60) 10*6/uL Hgb 10.0 L 8.6 L (13.0-17.0) g/dL Hct 28.3 L 25.4 L (39.6-50.0) % Plt Count 369 D 375 (140-440) 10*3/uL Comprehensive Metabolic Panel 03/07/25 Range/Units 06:23 Sodium 143 (135-145) mmol/L Potassium 4.1 (3.5-5.5) mmol/L Chloride 110 H (96-109) mmol/L Carbon Dioxide 29.6 (21.6-31.8) mmol/L BUN 12.3 (9.0-27.0) mg/dL Creatinine 0.6 (0.6-1.5) mg/dL Glucose 158 H (70-110) mg/dL Calcium 8.6 L (8.7-10.3) mg/dL AST 44 H (14-35) U/L ALT 36 (10-49) U/L Alkaline Phosphatase 118 (41-126) U/L Total Protein 5.4 L (6.2-8.2) g/dL Albumin 3.1 L (3.8-4.9) g/dL Current Medications Generic Name Dose Route Start Last Admin Trade Name Freq PRN Reason Stop Dose Admin Acetaminophen 650 mg 03/04/25 08:00 03/04/25 23:31 Acetaminophen Tab 325 Mg Tab PO 650 mg Q6HR PRN Administration Mild Pain or Fever > 100.5 Hydrocodone Bitart/Acetaminophen 1 each 03/04/25 10:12 03/07/25 06:39 Hydrocodone/Apap 5-325mg 1 Each Tab PO 1 each Q6H PRN Administration Moderate Pain (Scale 4 to 6) Albuterol Sulfate 2.5 mg 03/04/25 10:12 Albuterol Nebulized 2.5 Mg/3 Ml INHALATION RT-Q4H PRN Shortness Of Breath Allopurinol 300 mg 03/04/25 10:15 03/07/25 08:34 Allopurinol 300 Mg Tab PO Not Given DAILY ASHELY Amlodipine Besylate 5 mg 03/04/25 10:15 03/07/25 08:34 Amlodipine 5 Mg Tab PO 5 mg DAILY ASHELY Administration Atorvastatin Calcium 40 mg 03/04/25 10:15 03/07/25 08:34 Atorvastatin 40 Mg Tab PO 40 mg DAILY ASHELY Administration Colchicine 0.6 mg 03/07/25 09:00 03/07/25 08:34 Colchicine 0.6 Mg Each PO 0.6 mg DAILY ASHELY Administration Dextrose/Water 25 ml 03/05/25 14:51 Dextrose 50% Syringe 50 Ml IVP PER PROTOCOL PRN Hypoglycemia Protocol Dextrose/Water 50 ml 03/05/25 14:51 Dextrose 50% Syringe 50 Ml IVP PER PROTOCOL PRN Hypoglycemia Protocol Famotidine 20 mg 03/04/25 09:00 03/07/25 08:34 Famotidine 20 Mg Tab PO 20 mg BID ASHELY Administration Hydromorphone HCl 0.5 mg 03/04/25 03:07 03/06/25 16:18 Hydromorphone 0.5 Mg/0.5 Ml Syringe IVP 0.5 mg Q3HR PRN Administration Severe Pain (Scale 7 to 10) Sodium Chloride 1,000 mls @ 75 mls/hr 03/04/25 03:15 03/07/25 11:19 Saline 0.9% IV 75 mls/hr .[id number] ASHELY Administration Insulin Human Lispro 0 unit 03/05/25 17:30 03/07/25 12:25 Insulin Lispro (Humalog) 100 Unit/Ml 10 Ml Vl SQ 1 unit ACHS ASHELY Administration Protocol Methylprednisolone Sodium Succinate 40 mg 03/06/25 14:00 03/07/25 13:20 Methylprednisolone Sod Succi 40 Mg/Ml 1 Ml Vial IV 40 mg Q8H ASHELY Administration Naloxone HCl 0.2 mg 03/04/25 03:07 Naloxone 0.4 Mg/Ml 1 Ml Vial IV Q2M PRN Opioid Reversal Ondansetron HCl 4 mg 03/04/25 03:07 Ondansetron 4 Mg/2 Ml Vial IVP Q8HR PRN Nausea And Vomiting Pantoprazole Sodium 40 mg 03/04/25 10:15 03/07/25 06:37 Pantoprazole 40 Mg Tablet PO 40 mg [id number] ASHELY Administration Intake and Output 03/06/25 03/07/25 03/07/25 22:59 06:59 14:59 Other: Voiding Method Toilet # Voids 1 1 03/07/25 06:23 03/07/25 06:23
[2025-03-07 15:01] VITALS: BP 147/67; PULSE 62; TEMP 97.8
--- NOTE | 2025-03-07 15:02 | CT ---
EXAMINATION TYPE: CT angio head neck DATE OF EXAM: 03/07/2025 COMPARISON: 10/29/2023 CLINICAL INDICATION: Male, 74 years old with history of History of CVA, left carotid aneurysm per MRI repo; PHH, Hx of CVA, left carotid aneurysm per MRI. TECHNIQUE: CTA scan of the head and neck is performed with IV Contrast, patient injected with 65 ml mL of Isovue 370, axial images are obtained, coronal and sagittal reformatted images are reviewed. 3D reconstructed images are created on an independent workstation and reviewed. CT DLP: 1656.[address] CTDI: mGy Automated exposure control for dose reduction was used. NASCET criteria was used in interpretation of this exam? FINDINGS: There is a moderate approximately 50% stenosis of the origin of the left subclavian artery. The main brachiocephalic origins are patent. There is a 50% stenosis of the proximal right internal carotid ar matti secondary to calcified plaque there is a mild 30% stenosis the origin of the left internal carot id artery. There is a 25-30% stenosis of the distal right common carotid artery There is no significant stenosis of the common or internal carotid arteries within the neck. There is a distal supraclinoid left internal carotid artery stent There is no stenosis of the vertebral arter ies. Intracranially, there is no stenosis, segmental occlusion, sizable aneurysm sac or vascular malformat ion. IMPRESSION:. 1. Mild stenosis of the distal right common carotid artery. 2. Moderate 50% stenosis of the right internal carotid artery just distal to the bifurcation. 3. Mild 30% stenosis of the origin of the left internal carotid artery. 4. Stent within the supraclinoid left internal carotid artery intracranially. 5. No sizable aneurysm sac, vascular malformation or segmental occlusion intracranially. 6. 50% stenosis of the origin left subclavian artery NASCET criteria was used in interpretation of this exam? [facility], , 03/07/2025 3:00 PM
--- NOTE | 2025-03-07 16:38 | P.PN ---
Subjective Progress Note Date: 03/06/25 Principal diagnosis: Reason for follow-up is fever abnormal x-ray left foot Patient is a 74-year-old male with a past medical history significant for Asthma, Coronary Artery Disease (CAD), Cancer, CVA/TIA, Hypertension presenting to the ER concerning for generalized weakness and this patient did have a fever at home with this consideration abnormal x-ray to the left foot concerning for possible osteo that he did have a history of gouty arthritis. On today's evaluation that is 03/06/2025,the patient denies any fever or any chills, patient is breathing comfortably on room air, the patient denies chest pain shortness of breath and no significant cough, patient denies abdominal pain, no nausea vomiting or diarrhea. Patient white count 0.89, creatinine 0.6 Objective - Vital Signs Vital signs: Vital Signs Temp 97.8 F 03/06/25 07:16 Pulse 57 L 03/06/25 07:16 Resp 18 03/06/25 07:16 BP 149/66 03/06/25 07:16 Pulse Ox 98 03/06/25 07:16 FiO2 Intake & Output 03/05/25 03/06/25 03/06/25 18:59 06:59 18:59 Other: Voiding Method Toilet Toilet Toilet Urinal Urinal # Voids 1 2 - Exam GENERAL DESCRIPTION: An elderly male lying in bed in no distress RESPIRATORY SYSTEM: Unlabored breathing , decreased breath sounds at bases HEART: S1 S2 regular rate and rhythm , ABDOMEN: Soft , mild epigastric tenderness EXTREMITIES: Left foot first metatarsophalangeal joint swelling but no redness or warmth - Labs CBC & Chem 7: 03/07/25 06:23 03/07/25 06:23 Labs: Abnormal Lab Results - Last 24 Hours (Table) 03/05/25 03/06/25 03/06/25 Range/Units 20:36 03:41 03:41 WBC 0.54 A* (4.50-10.00) X 10*3/uL RBC 3.26 L (4.40-5.60) X 10*6/uL Hgb 9.3 L (13.0-17.0) g/dL Hct 27.6 L (39.6-50.0) % RDW 18.3 H (11.5-14.5) % Neutrophils # (Manual) 0.35 A* (1.80-7.70) X 10*3/uL Lymphocytes # (Manual) 0.14 L (0.90-5.00) X 10*3/uL Monocytes # (Manual) 0.05 L (0.20-1.00) X 10*3/uL Eosinophils # (Manual) 0 L (0.04-0.35) X 10*3/uL BUN 6.6 L (9.0-27.0) mg/dL BUN/Creatinine Ratio 11.00 L (12.00-20.00) Ratio Glucose 180 H (70-110) mg/dL POC Glucose (mg/dL) 197 H (70-110) mg/dL Calcium 8.6 L (8.7-10.3) mg/dL Alkaline Phosphatase 129 H (41-126) U/L Total Protein 5.9 L (6.2-8.2) g/dL Albumin 3.4 L (3.8-4.9) g/dL Albumin/Globulin Ratio 1.36 L (1.60-3.17) Ratio 03/06/25 03/06/25 Range/Units 06:06 11:19 WBC (4.50-10.00) X 10*3/uL RBC (4.40-5.60) X 10*6/uL Hgb (13.0-17.0) g/dL Hct (39.6-50.0) % RDW (11.5-14.5) % Neutrophils # (Manual) (1.80-7.70) X 10*3/uL Lymphocytes # (Manual) (0.90-5.00) X 10*3/uL Monocytes # (Manual) (0.20-1.00) X 10*3/uL Eosinophils # (Manual) (0.04-0.35) X 10*3/uL BUN (9.0-27.0) mg/dL BUN/Creatinine Ratio (12.00-20.00) Ratio Glucose (70-110) mg/dL POC Glucose (mg/dL) 195 H 214 H (70-110) mg/dL Calcium (8.7-10.3) mg/dL Alkaline Phosphatase (41-126) U/L Total Protein (6.2-8.2) g/dL Albumin (3.8-4.9) g/dL Albumin/Globulin Ratio (1.60-3.17) Ratio Microbiology - Last 24 Hours (Table) 03/04/25 00:46 Blood Culture - Preliminary Blood Assessment and Plan (1) Fever Current Visit: Yes Status: Acute Code(s): R50.9 - FEVER, UNSPECIFIED SNOMED Code(s): 027524103 (2) Leukopenia Current Visit: Yes Status: Acute Code(s): D72.819 - DECREASED WHITE BLOOD CELL COUNT, UNSPECIFIED SNOMED Code(s): 44786743 (3) Gout Current Visit: Yes Status: Acute Code(s): M10.9 - GOUT, UNSPECIFIED SNOMED Code(s): 43056148 Plan: 1patient presented to hospital generalized weakness no energy and difficulty getting around also noticed to have a fever on presentation the hospital did have a pain to the left foot at the first metatarsophalangeal joint which is more likely related to the gout and the abnormal x-ray secondary to the gout rather than osteomyelitis he did have swelling but there is no redness open wound or any drainage patient currently do not have any other obvious focus of infection UA has been negative chest x-ray was negative abdominal soft on clinical examination no evidence of any cellulitis or joint swelling 2-patient CT abdominal pelvis did not show any intra-abdominal pathology, did show L1 compression deformity like responsible for his pain outpatient be consulted 3abnormal bone scan to the left foot clinically doubt osteomyelitis now with worsening of his white count could be related to vancomycin will discontinue vancomycin repeat his CBC with a.m. lab Dictation was produced using [employer] dictation software. please excuse any grammatical, word or spelling errors.
--- NOTE | 2025-03-07 16:39 | P.PN ---
Subjective Progress Note Date: 03/07/25 Principal diagnosis: Reason for follow-up is fever abnormal x-ray left foot Patient is a 74-year-old male with a past medical history significant for Asthma, Coronary Artery Disease (CAD), Cancer, CVA/TIA, Hypertension presenting to the ER concerning for generalized weakness and this patient did have a fever at home with this consideration abnormal x-ray to the left foot concerning for possible osteo that he did have a history of gouty arthritis. On today's evaluation that is 03/07/2025,the patient remains to be afebrile, patient is on room air not requiring supplemental oxygen and denies any shortness of breath no chest pain or cough.Patient denies having any nausea or vomiting, no abdominal pain and no diarrhea has been reported Patient white count is 3.35 creatinine 0.6 blood culture has been negative Objective - Vital Signs Vital signs: Vital Signs Temp 97.6 F 03/07/25 07:18 Pulse 46 L 03/07/25 08:35 Resp 16 03/07/25 08:35 BP 132/57 03/07/25 07:18 Pulse Ox 96 03/07/25 07:18 FiO2 Intake & Output 03/06/25 03/07/25 03/07/25 18:59 06:59 18:59 Other: Voiding Method Toilet Toilet Urinal # Voids 1 1 - Exam GENERAL DESCRIPTION: An elderly male lying in bed in no distress RESPIRATORY SYSTEM: Unlabored breathing , decreased breath sounds at bases HEART: S1 S2 regular rate and rhythm , ABDOMEN: Soft , mild epigastric tenderness EXTREMITIES: Left foot first metatarsophalangeal joint swelling but no redness or warmth - Labs CBC & Chem 7: 03/07/25 06:23 03/07/25 06:23 Labs: Abnormal Lab Results - Last 24 Hours (Table) 03/06/25 03/06/25 03/06/25 Range/Units 11:19 11:31 15:37 WBC 0.89 L* (4.50-10.00) 10*3/uL RBC 3.37 L (4.40-5.60) 10*6/uL Hgb 10.0 L (13.0-17.0) g/dL Hct 28.3 L (39.6-50.0) % RDW 18.3 H (11.5-14.5) % Immature Gran # 0.06 H (0.00-0.04) 10*3/uL Neutrophils # 0.58 L (1.80-7.70) 10*3/uL Lymphocytes # 0.21 L (0.90-5.00) 10*3/uL Lymphocytes # (Manual) (0.90-5.00) X 10*3/uL Monocytes # 0.04 L (0.20-1.00) 10*3/uL Monocytes # (Manual) (0.20-1.00) X 10*3/uL Eosinophils # 0.00 L (0.04-0.35) 10*3/uL Eosinophils # (Manual) (0.04-0.35) X 10*3/uL Elliptocytes (None Seen) Chloride (96-109) mmol/L Anion Gap (4.00-12.00) mmol/L BUN/Creatinine Ratio (12.00-20.00) Ratio Glucose (70-110) mg/dL POC Glucose (mg/dL) 214 H (70-110) mg/dL Calcium (8.7-10.3) mg/dL Transferrin 167.0 L (204.0-354.0) mg/dL AST (14-35) U/L Total Protein (6.2-8.2) g/dL Total Protein (PEP) (6.2-8.2) g/dL Albumin (3.8-4.9) g/dL Albumin/Globulin Ratio (1.60-3.17) Ratio [place] LC, Quant (0.33-1.94) mg/dL 03/06/25 03/06/25 03/06/25 Range/Units 15:37 16:34 20:53 WBC (4.50-10.00) 10*3/uL RBC (4.40-5.60) 10*6/uL Hgb (13.0-17.0) g/dL Hct (39.6-50.0) % RDW (11.5-14.5) % Immature Gran # (0.00-0.04) 10*3/uL Neutrophils # (1.80-7.70) 10*3/uL Lymphocytes # (0.90-5.00) 10*3/uL Lymphocytes # (Manual) (0.90-5.00) X 10*3/uL Monocytes # (0.20-1.00) 10*3/uL Monocytes # (Manual) (0.20-1.00) X 10*3/uL Eosinophils # (0.04-0.35) 10*3/uL Eosinophils # (Manual) (0.04-0.35) X 10*3/uL Elliptocytes (None Seen) Chloride (96-109) mmol/L Anion Gap (4.00-12.00) mmol/L BUN/Creatinine Ratio (12.00-20.00) Ratio Glucose (70-110) mg/dL POC Glucose (mg/dL) 180 H 219 H (70-110) mg/dL Calcium (8.7-10.3) mg/dL Transferrin (204.0-354.0) mg/dL AST (14-35) U/L Total Protein (6.2-8.2) g/dL Total Protein (PEP) 5.8 L (6.2-8.2) g/dL Albumin (3.8-4.9) g/dL Albumin/Globulin Ratio (1.60-3.17) Ratio [place] LC, Quant 2.11 H (0.33-1.94) mg/dL 03/07/25 03/07/25 03/07/25 Range/Units 05:59 06:23 06:23 WBC 3.35 L (4.50-10.00) 10*3/uL RBC 2.94 L (4.40-5.60) 10*6/uL Hgb 8.6 L (13.0-17.0) g/dL Hct 25.4 L (39.6-50.0) % RDW 18.5 H (11.5-14.5) % Immature Gran # (0.00-0.04) 10*3/uL Neutrophils # (1.80-7.70) 10*3/uL Lymphocytes # (0.90-5.00) 10*3/uL Lymphocytes # (Manual) 0.34 L (0.90-5.00) X 10*3/uL Monocytes # (0.20-1.00) 10*3/uL Monocytes # (Manual) 0.03 L (0.20-1.00) X 10*3/uL Eosinophils # (0.04-0.35) 10*3/uL Eosinophils # (Manual) 0 L (0.04-0.35) X 10*3/uL Elliptocytes 2+ A (None Seen) Chloride 110 H (96-109) mmol/L Anion Gap 3.40 L (4.00-12.00) mmol/L BUN/Creatinine Ratio 20.50 H (12.00-20.00) Ratio Glucose 158 H (70-110) mg/dL POC Glucose (mg/dL) 173 H (70-110) mg/dL Calcium 8.6 L (8.7-10.3) mg/dL Transferrin (204.0-354.0) mg/dL AST 44 H (14-35) U/L Total Protein 5.4 L (6.2-8.2) g/dL Total Protein (PEP) (6.2-8.2) g/dL Albumin 3.1 L (3.8-4.9) g/dL Albumin/Globulin Ratio 1.35 L (1.60-3.17) Ratio [place] LC, Quant (0.33-1.94) mg/dL Microbiology - Last 24 Hours (Table) 03/04/25 00:46 Blood Culture - Preliminary Blood Assessment and Plan (1) Fever Current Visit: Yes Status: Acute Code(s): R50.9 - FEVER, UNSPECIFIED SNOMED Code(s): 848816932 (2) Leukopenia Current Visit: Yes Status: Acute Code(s): D72.819 - DECREASED WHITE BLOOD CELL COUNT, UNSPECIFIED SNOMED Code(s): 33917630 (3) Gout Current Visit: Yes Status: Acute Code(s): M10.9 - GOUT, UNSPECIFIED SNOMED Code(s): 99145105 Plan: 1patient presented to hospital generalized weakness no energy and difficulty getting around also noticed to have a fever on presentation the hospital did have a pain to the left foot at the first metatarsophalangeal joint which is more likely related to the gout and the abnormal x-ray secondary to the gout rather than osteomyelitis he did have swelling but there is no redness open wound or any drainage patient currently do not have any other obvious focus of infection UA has been negative chest x-ray was negative abdominal soft on clinical examination no evidence of any cellulitis or joint swelling 2-patient CT abdominal pelvis did not show any intra-abdominal pathology, did show L1 compression deformity like responsible for his pain outpatient be consulted 3abnormal bone scan to the left foot clinically doubt osteomyelitis, patient did have leukopenia more likely Vanco related which was discontinued and patient white count has improved no need for antibiotic on discharge this were discussed with [employer] for admitting team Dictation was produced using [employer] dictation software. please excuse any grammatical, word or spelling errors. Time with Patient: Less than 30
--- NOTE | 2025-03-07 18:17 | P.PN ---
Subjective Progress Note Date: 03/07/25 Principal diagnosis: Bicytopenia In f/u today pt denies any acute c/o, he is looking forward to going home. No fevers, N,V, oral irritation, SOB, cough, his leg weakness even seems a little better then it was in admit. Objective - Vital Signs Vital signs: Vital Signs Temp 97.8 F 03/07/25 12:05 Pulse 62 03/07/25 12:05 Resp 16 03/07/25 12:05 BP 147/67 03/07/25 12:05 Pulse Ox 98 03/07/25 12:05 FiO2 Intake & Output 03/06/25 03/07/25 03/07/25 18:59 06:59 18:59 Other: Voiding Method Toilet Toilet Urinal # Voids 1 1 3 - Constitutional General appearance: Present: average body habitus, cooperative, no acute distress - EENT Eyes: Present: anicteric sclerae, EOMI ENT: Present: hearing grossly normal - Respiratory Details: resp unlabored - Cardiovascular Details: skin warm, well perfused - Peripheral edema leg Peripheral Edema: bilateral: None - Integumentary Integumentary: Present: pale - Neurologic Neurologic: Present: CNII-XII intact - Musculoskeletal Musculoskeletal: Present: right sided weakness (mild, chronic) - Psychiatric Psychiatric: Present: A&O x's 3, appropriate affect, intact judgment & insight - Labs CBC & Chem 7: 03/07/25 06:23 03/07/25 06:23 Labs: Abnormal Lab Results - Last 24 Hours (Table) 03/06/25 03/06/25 03/06/25 Range/Units 15:37 15:37 15:37 WBC (4.50-10.00) X 10*3/uL RBC (4.40-5.60) X 10*6/uL Hgb (13.0-17.0) g/dL Hct (39.6-50.0) % RDW (11.5-14.5) % Lymphocytes # (Manual) (0.90-5.00) X 10*3/uL Monocytes # (Manual) (0.20-1.00) X 10*3/uL Eosinophils # (Manual) (0.04-0.35) X 10*3/uL Elliptocytes (None Seen) Chloride (96-109) mmol/L Anion Gap (4.00-12.00) mmol/L BUN/Creatinine Ratio (12.00-20.00) Ratio Glucose (70-110) mg/dL POC Glucose (mg/dL) (70-110) mg/dL Calcium (8.7-10.3) mg/dL Transferrin 167.0 L (204.0-354.0) mg/dL AST (14-35) U/L Total Protein (6.2-8.2) g/dL Total Protein (PEP) 5.8 L (6.2-8.2) g/dL Albumin (3.8-4.9) g/dL Albumin/Globulin Ratio (1.60-3.17) Ratio RBC Folate 887 H (280 - 791) ng/mL [place] LC, Quant 2.11 H (0.33-1.94) mg/dL 03/06/25 03/07/25 03/07/25 Range/Units 20:53 05:59 06:23 WBC 3.35 L (4.50-10.00) X 10*3/uL RBC 2.94 L (4.40-5.60) X 10*6/uL Hgb 8.6 L (13.0-17.0) g/dL Hct 25.4 L (39.6-50.0) % RDW 18.5 H (11.5-14.5) % Lymphocytes # (Manual) 0.34 L (0.90-5.00) X 10*3/uL Monocytes # (Manual) 0.03 L (0.20-1.00) X 10*3/uL Eosinophils # (Manual) 0 L (0.04-0.35) X 10*3/uL Elliptocytes 2+ A (None Seen) Chloride (96-109) mmol/L Anion Gap (4.00-12.00) mmol/L BUN/Creatinine Ratio (12.00-20.00) Ratio Glucose (70-110) mg/dL POC Glucose (mg/dL) 219 H 173 H (70-110) mg/dL Calcium (8.7-10.3) mg/dL Transferrin (204.0-354.0) mg/dL AST (14-35) U/L Total Protein (6.2-8.2) g/dL Total Protein (PEP) (6.2-8.2) g/dL Albumin (3.8-4.9) g/dL Albumin/Globulin Ratio (1.60-3.17) Ratio RBC Folate (280 - 791) ng/mL [place] LC, Quant (0.33-1.94) mg/dL 03/07/25 03/07/25 Range/Units 06:23 11:31 WBC (4.50-10.00) X 10*3/uL RBC (4.40-5.60) X 10*6/uL Hgb (13.0-17.0) g/dL Hct (39.6-50.0) % RDW (11.5-14.5) % Lymphocytes # (Manual) (0.90-5.00) X 10*3/uL Monocytes # (Manual) (0.20-1.00) X 10*3/uL Eosinophils # (Manual) (0.04-0.35) X 10*3/uL Elliptocytes (None Seen) Chloride 110 H (96-109) mmol/L Anion Gap 3.40 L (4.00-12.00) mmol/L BUN/Creatinine Ratio 20.50 H (12.00-20.00) Ratio Glucose 158 H (70-110) mg/dL POC Glucose (mg/dL) 189 H (70-110) mg/dL Calcium 8.6 L (8.7-10.3) mg/dL Transferrin (204.0-354.0) mg/dL AST 44 H (14-35) U/L Total Protein 5.4 L (6.2-8.2) g/dL Total Protein (PEP) (6.2-8.2) g/dL Albumin 3.1 L (3.8-4.9) g/dL Albumin/Globulin Ratio 1.35 L (1.60-3.17) Ratio RBC Folate (280 - 791) ng/mL [place] LC, Quant (0.33-1.94) mg/dL Microbiology - Last 24 Hours (Table) 03/04/25 00:46 Blood Culture - Preliminary Blood Assessment and Plan (1) Fever Status: Acute Code(s): R50.9 - FEVER, UNSPECIFIED SNOMED Code(s): 248155399 (2) Leukopenia Status: Acute Code(s): D72.819 - DECREASED WHITE BLOOD CELL COUNT, UNSPECIFIED SNOMED Code(s): 45413134 (3) Osteomyelitis Status: Acute Code(s): M86.9 - OSTEOMYELITIS, UNSPECIFIED SNOMED Code(s): 43270270 Plan: Leukopenia, neutropenia, anemia -Noted in the chart since October 2023. Current numbers are the worst documented. WBC is improved to near normal today, ANC Is normal. Hgb is stable -Discussed with patient and his abnormal lab values and potential underlying causes including a bone marrow disorder, reactive process, medications, autoimmune disease, malignancy. They are agreeable to work up, laboratory investigations ordered. Those that have returned are neg. Pt and informed - Thankfully, fever pattern has abated since admission. Patient was on antibiotics. Infectious disease has seen the patient. Pancultures pending. -Will monitor CBC outpt. If counts do not return to baseline and nothing in the original work up provides a diagnosis then additional work up will be ordered. Pt and verbalized understanding the plan and agree with the same. Plan for f/u.
== END 2025-03-07 16:53 | disposition home or self-care (01) | DRG 554 ==
LOC: EC 00:14 → 6NMEDSUR 03:07 → OBSVTOIN 03:08 → 4SSUR 16:48
PROVIDERS: ADMIT Hospitalist; ATTEND Hospitalist
DX: M10.072 Idiopathic gout, left ankle and foot (principal); D70.9 Neutropenia, unspecified; I72.0 Aneurysm of carotid artery; J45.909 Unspecified asthma, uncomplicated; I10 Essential (primary) hypertension; D64.9 Anemia, unspecified; I65.29 Occlusion and stenosis of unspecified carotid artery; M48.56XA Collapsed vertebra, not elsewhere classified, lumbar region, initial encounter for fracture; E86.0 Dehydration; Z20.822 Contact with and (suspected) exposure to COVID-19; I25.10 Atherosclerotic heart disease of native coronary artery without angina pectoris; Z95.1 Presence of aortocoronary bypass graft; M54.50 Low back pain, unspecified; R26.9 Unspecified abnormalities of gait and mobility; E78.5 Hyperlipidemia, unspecified; I25.2 Old myocardial infarction; N21.0 Calculus in bladder; Z79.899 Other long term (current) drug therapy; Z82.49 Family history of ischemic heart disease and other diseases of the circulatory system; Z85.820 Personal history of malignant melanoma of skin; Z85.46 Personal history of malignant neoplasm of prostate; Z86.16 Personal history of COVID-19; Z86.73 Personal history of transient ischemic attack (TIA), and cerebral infarction without residual deficits; Z87.440 Personal history of urinary (tract) infections; Z87.891 Personal history of nicotine dependence; Z91.81 History of falling; Z85.828 Personal history of other malignant neoplasm of skin
CPT/HCPCS: 36415; 70496; 70498; 71046; 74177; 78315; 80053; 80202; 81003; 82525; 82607; 82728; 82747; 82784; 83036; 83540; 83550; 83605; 83735; 83880; 83883; 84145; 84165; 84484; 84550; 85025; 85045; 85610; 85652; 85730; 86038; 86140; 86334; 86431; 86645; 87040; 87636; 93005; 96361; 96365; 96366; 96367; 96368; 96375; 99285

== ENCOUNTER → 2025-03-22 | Outpatient (CLI) | payer MEDICARE ==
--- NOTE | 2025-03-22 10:52 | US ---
EXAMINATION TYPE: US abdomen complete DATE OF EXAM: 03/22/2025 COMPARISON: CT 2024 CLINICAL INDICATION: Male, 74 years old with history of N20.0 KIDNEY STONE; Hx kidney stone. TECHNIQUE: Grayscale and color Doppler imaging of the abdomen was performed. 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 Pancreas: Obscured Liver: Appears coarse in echotexture Gallbladder: Appears wnl Evidence for sonographic Jones's sign: No CBD: Obscured Spleen: wnl Right Kidney: Hyperechoic area with posterior shadowing seen laterally: 1.0 x 0.8 x 0.7 cm. Left Kidney: *Anechoic area seen lower: 1.3 x 1.3 x 1.2 cm. *Hyperechoic focus seen adjacent to anechoic area lower pole: 0.4 x 0.4 x 0.2 cm. Upper IVC: Slightly limited Abd Aorta: Prox segment, mid segment, and iliac arteries were obscured. Distal aorta appears wnl. Pancreas obscured by overlying bowel gas. Liver demonstrates a coarsened echotexture without service nodularity or focal lesion. Gallbladder demonstrates no wall thickening, stones or surrounding fluid. Negative sonographic Jones sign. Common bile duct is obscured by overlying bowel gas. The spleen is within normal limits. No hydronephrosis. Nonobstructing 1 cm calculus within the lateral right kidne y. No right renal mass. No left hydronephrosis. Simple 1.3 cm cyst within the lower pole of the left kidney. Echogenic calculus within the left lower pole adjacent to the cyst measuring up to 0.4 cm. Th e visualized portions of the IVC and abdominal aorta within normal limits. The proximal and mid segme nts of the abdominal aorta are obscured by overlying bowel gas. Additionally the iliac arteries were obscured. IMPRESSION: Limited examination due to overlying bowel gas. 1. No ultrasound evidence for acute process. 2. Nonspecific bilateral renal calculi. 3. Simple appearing small left renal cyst. 4. Nonspecific coarsened liver echotexture without focal lesion. [facility]: [id number], 03/22/2025 10:50 AM
== END | disposition home or self-care (01) ==
LOC: RADUSWWP 08:15
PROVIDERS: ATTEND Internal Medicine Geriatric Medicine
DX: N20.0 Calculus of kidney (principal); N28.1 Cyst of kidney, acquired
CPT/HCPCS: 76700